=== PATIENT | male | born 1970 | race African-American/Black ===

== ENCOUNTER 2020-12-12 08:34 | Outpatient (REF) | payer OTHER, SELFPAY ==
--- NOTE | ~2020-12-12 | US_ITS ---
EXAMINATION: US ABDOMEN COMPLETE CLINICAL INFORMATION: Left lower quadrant pain. COMPARISON: None TECHNIQUE: Real-time imaging of the abdominal viscera. FINDINGS: PANCREAS: Not well visualized due to bowel gas. ABDOMINAL AORTA: No INFERIOR VENA CAVA: Visualized portions are normal. LIVER: The liver is normal in size. The liver contour is normal. Liver echotexture is normal. There are 2 hypoechoic areas in the liver measuring 2.4 x 2.2 cm high in the dome of the right lobe of the liver and in the peripheral anterior liver measuring 1.4 x 1.2 x 1 cm. There is no intrahepatic biliary duct dilatation seen. GALLBLADDER: Normal. The gallbladder is physiologically distended without evidence of stones, sludge, polyps, wall thickening or pericholecystic fluid. COMMON BILE DUCT: Not seen. RIGHT KIDNEY: Normal. No hydronephrosis. No renal calculi or focal parenchymal lesions. The kidney measures 11.4 cm in maximum dimension. LEFT KIDNEY: Removed. SPLEEN: Normal. The spleen measures 11.6 cm in maximum dimension. FREE FLUID: None. US/US abdomen complete IMPRESSION: Two echogenic areas in the liver, question representing hemangiomas. This could be further evaluated with abdominal MRI.
== END 2020-12-12 08:35 | disposition home or self-care (01) ==
LOC: HO.US 08:34
PROVIDERS: PCP Internal Medicine; Visit Provider Registered Nurse
DX: R10.32 Left lower quadrant pain (principal)
CPT/HCPCS: 76700

== ENCOUNTER 2023-02-27 12:32 | Outpatient (REF) | payer OTHER, SELFPAY ==
--- NOTE | ~2023-02-27 | XR_ITS ---
EXAMINATION: XR CERVICAL SPINE XR SHOULDER, RIGHT CLINICAL INFORMATION: Shoulder and neck pain. COMPARISON: Cervical spine 10/08/2018. TECHNIQUE: 5 views cervical spine, 4 views shoulder. FINDINGS: Cervical spine: Degenerative changes are present in the cervical spine with disc space narrowing at C3-C4 and from C5 through C7. There is endplate sclerosis and osteophyte formation. Findings have progressed slightly when compared to 10/08/2018. No significant foraminal narrowing is seen. No soft tissue swelling, fractures or subluxations. No bony destructive lesions. Right shoulder: There is some minimal degenerative changes at the AC joint. The glenohumeral joint appears normal. XR/XR shoulder RT min 2V IMPRESSION: Degenerative changes in the cervical spine, most marked at C3-C4 and C5-C7.
--- NOTE | ~2023-02-27 | XR_ITS ---
EXAMINATION: XR CERVICAL SPINE XR SHOULDER, RIGHT CLINICAL INFORMATION: Shoulder and neck pain. COMPARISON: Cervical spine 10/08/2018. TECHNIQUE: 5 views cervical spine, 4 views shoulder. FINDINGS: Cervical spine: Degenerative changes are present in the cervical spine with disc space narrowing at C3-C4 and from C5 through C7. There is endplate sclerosis and osteophyte formation. Findings have progressed slightly when compared to 10/08/2018. No significant foraminal narrowing is seen. No soft tissue swelling, fractures or subluxations. No bony destructive lesions. Right shoulder: There is some minimal degenerative changes at the AC joint. The glenohumeral joint appears normal. XR/XR cervical spine 5V IMPRESSION: Degenerative changes in the cervical spine, most marked at C3-C4 and C5-C7.
== END 2023-02-27 12:33 | disposition home or self-care (01) ==
LOC: HO.HHCX 12:32
PROVIDERS: Visit Provider Internal Medicine
DX: M25.511 Pain in right shoulder (principal); G89.29 Other chronic pain; M54.2 Cervicalgia
CPT/HCPCS: 72050; 73030

== ENCOUNTER 2023-08-12 12:36 | Outpatient (AMB) | payer OTHER, SELFPAY ==
[2023-08-12 12:48] VITALS: BP 118/78; PULSE 69; BMI 24.8
--- NOTE | 2023-08-12 12:48 | A.OFFVIS_ITS ---
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 He states he has been getting pains in the substernal area off and on. Lot of times, it lasts only for few seconds. Sometimes a bit longer but has not had those episodes in many months. No clear-cut exertional characteristics. He also gets short of breath with activity, off and on and states that it is probably from asthma. Otherwise, no known cardiac issues. No history of any coronary disease or myocardial infarction or cardiomyopathy. He smokes intermittently. Denies any drug use. [facility] Surgical History (Updated 08/12/23 @ 12:50 by Jnay Boyd) History of nephrectomy, left Family History (Updated 08/12/23 @ 12:50 by Jany Boyd) Mother No problems noted. Father No problems noted. Social History (Updated 08/12/23 @ 12:51 by Jany Boyd) Alcohol intake: current Alcohol intake frequency: holidays/special occasions only Patient Tobacco Use Status: Current someday Tobacco user Review of Systems Const Denies chills, Denies daytime sleepiness, Denies fatigue, Denies fever(s), Denies frequent falls, Denies night sweats, Denies snoring, Denies weakness, Denies weight gain and Denies weight loss Eyes Denies loss of vision ENT Denies dizziness and Denies hearing loss Card Denies chest pain, Denies chest pain with activity, Denies syncope, Denies rapid heart rate, Denies edema, Denies claudication, Denies leg edema, Denies l ightheadedness, Denies palpitations, Denies dyspnea, Denies dyspnea on exertion and Denies orthopnea Resp Denies cough, Denies excessive phlegm production, Denies dyspnea, Denies dyspnea on exertion, Denies snoring and Denies wheezing GI Denies abdominal pain, Denies hematochezia, Denies change in bowel habits, Denies change in stool character, Denies heartburn, Denies nausea and Denies vomiting Denies hematuria, Denies dysuria and Denies urinary frequency Musc Denies arthralgias, Denies muscle weakness, Denies numbness and Denies tingling Skin/Breast Denies nail changes and Denies rash Neuro Denies Abnormal speech present, Denies dizziness, Denies syncope, Denies frequent falls, Denies loss of vision, Denies memory loss, Denies numbness, Denies tingling and Denies weakness Psych Denies depression and Denies memory loss Endo Denies fatigue and Denies palpitations Aller/Immun Denies wheezing Physical Exam Vital Signs: Last Vital Signs Pulse 69 08/12/23 12:48 BP 118/78 08/12/23 12:48 BMI result Body Mass Index 24.8 Const General: comfortable and no acute distress Orientation/consciousness: patient oriented x3 HEENT Other: Unremarkable Head: Yes normal to inspection Neck Neck: Yes normal visual inspection Chest Chest palpation & inspection: normal inspection of the chest Resp Auscultation: clear to auscultation bilaterally Cardio Palpation: normal PMI Heart sounds: S1 normal heart sound present, S2 normal heart sound present, no gallops, no murmurs and no rubs GI Palpation (GI): Soft to palpation Back/Spine/Pelvis Other: unremarkable Skin General skin exam: no rashes or lesions noted Neuro General: patient oriented x3 Speech: No Abnormal speech present Extrem General: Yes normal to inspection Psych Mental Status: mental status grossly normal Office Procedures EKG Details: EKG with sinus rhythm at 69/Min; no significant ST-T changes and otherwise unremark[place] [address]-[id number], Complete Assessment & Plan Assessment & Plan (1) Precordial chest pain: Code(s): R07.2 - Precordial pain (2) Shortness of breath: Code(s): R06.02 - Shortness of breath Plan Atypical chest pain with some shortness of breath. Suggest an exercise stress test and echocardiogram for initial evaluation. If any abnormal findings, can investigate further. Orders: Orders CA stress test Today R07.2 - Precordial pain CA echo transthoracic complete Today R06.02 - Shortness of breath, R07.2 - Precordial pain Coding Level of Care Code New Pt Level 3 (35460) Diagnoses Precordial chest pain R07.2 Shortness of breath R06.02 CPT Codes EKG - CPT: 99773-[id number], Complete ([id number])
== END 2023-08-12 13:06 | disposition home or self-care (01) ==
PROVIDERS: PCP Internal Medicine; Visit Provider Internal Medicine
DX: R07.2 Precordial pain (principal); R06.02 Shortness of breath
CPT/HCPCS: 93010; 99203

== ENCOUNTER → 2023-08-12 12:36 | Outpatient (BNVA) | payer OTHER, SELFPAY | PROVIDERS: PCP Internal Medicine; Visit Provider Internal Medicine | DX: R07.2 Precordial pain (principal); R06.02 Shortness of breath | CPT/HCPCS: 93005; 99202 ==

== ENCOUNTER → 2023-10-14 08:53 | Outpatient (REF) | payer OTHER, SELFPAY ==
--- NOTE | 2023-10-14 08:56 | CA_ITS ---
Transthoracic Echocardiogram Patient (Last, First, Middle): Jesse Link L Gender: Male Date of : 1970 Age: 53 Procedure Date: 10/14/2023 Procedure Type: Transthoracic Echocardiogram Location: OP Height: 177.8 cm Weight: 68.04 kg BSA: 1.85 m2 Heart Rate: 51 bpm BP: 118 / 70 mmHg Home Health Care Worker: SB Referring MD: Sg Ruth MD Symptoms: R07.2 - Precordial pain Study Quality: Adequate ECG Rhythm: Bradycardia Conclusions: - The left ventricular systolic function is normal. The calculated ejection fraction is 57% by biplane method. - No obvious valvular pathology seen on this study. - There is mild dilatation of the ascending aorta measuring 3.70 cm. Findings Left Ventricle Normal left ventricular cavity size. There is normal left ventricular wall thickness. The left ventricular systolic function is normal. The calculated ejection fraction is 57% by biplane method. There is no evidence of regional wall motion abnormalities. Diastolic function is normal for age. Right Ventricle Normal right ventricular cavity size and systolic function. Atria Both atria are normal in size. Aortic Valve There is a normal trileaflet aortic valve. There is no aortic valve stenosis. There is no aortic valve regurgitation. Mitral Valve The mitral valve appears normal. There is no mitral valve regurgitation. There is no mitral valve stenosis. Pulmonic Valve The pulmonic valve is likely normal. Tricuspid Valve Normal tricuspid valve structure. There is trace tricuspid valve regurgitation. There is no evidence of pulmonary hypertension. Great Vessels There is mild dilatation of the ascending aorta measuring 3.70 cm. Venous The inferior vena cava is normal in size and collapses greater than 50% with inspiration. Pericardium/Pleural There is no evidence of pericardial effusion. Prior Study Comparison No prior study available for comparison. Recommendations, Care & Conclusions No obvious valvular pathology seen on this study. Measurements 2D Linear Measurements IVSd: 0.96 0.6-0.9/0.6-1.0 cm LVIDd: 5.55 3.9-5.3/4.2-5.9 cm LVIDd Index: 3.00 2.4-3.2/2.2-3.1 cm/m2 LVIDs: 3.75 2.0-3.6 cm LVPWd: 0.72 0.7-1.1 cm Ao Root: 2.90 2.1-3.5 cm LA Diam: 4.00 2.7-3.8/3.0-4.0 cm LAIDs Index: 2.16 1.5-2.3 cm/m2 LV Mass: 215.10 67-162/88-224 g LV Mass Index: 116.27 43-95/49-115 g/m2 LVOT Diam: 2.20 3.0+(-)1.3 cm 2D Systolic Function EF 4C: 56.50 >55% EF 2C: 60.40 >55% EF BiP: 56.70 >55% Mitral Valve MV Pk E: 0.86 MV PK A: 0.42 MV Decel Time: 220.00 E/A: 2.00 E'Lateral: 11.10 E'Medial: 7.29 E/E' Med: 11.80 E/E' Lat: 7.80 PHT: 64.00 MVA PHT: 3.44 Decel [place]: 3.92 Aortic Valve AoV Pk Kartik: 1.41 AoV Pk Grad: 8.00 LVOT LVOT Pk Kartik: 0.80 LVOT Mn Kartik: 0.58 LVOT VTI: 0.20 LVOT Pk Grad: 3.00 LVOT Mn Grad: 1.00 LVOT Diam: 2.20 LVOT Area: 3.80 Diastolic Function MV Pk E: 0.86 MV Pk A: 0.42 E/A: 2.00 E'Medial: 7.29 E/E' Med: 11.80 E' Laterial: 11.10 E/E' Lat: 7.80 Tricuspid Valve TR Pk Kartik: 1.87 TR Pk Grad: 14.00 RA Press: 3.00 RVSP: 17.00 Great Vessels Aorta Ao Root-2D: 2.90 2.0-3.7 cm Ao Asc: 3.70 2.1-3.4 cm Pulmonary Valve PV Pk Kartik: 0.82 Peak PV Grad: 3.00 Updated in Other Vendor System with Status of Final Sg Ruth MD electronically signed on 10/14/2023 10:24:30 AM with status of Final
== END ==
LOC: HO.CARD 08:53
PROVIDERS: PCP Internal Medicine; Visit Provider Internal Medicine
DX: R07.2 Precordial pain (principal); R06.02 Shortness of breath
CPT/HCPCS: 93306

== ENCOUNTER → 2023-10-14 08:56 | Outpatient (BNV) | payer OTHER, SELFPAY | PROVIDERS: PCP Internal Medicine; Visit Provider Internal Medicine | DX: R07.2 Precordial pain (principal) | CPT/HCPCS: 93306 ==

== ENCOUNTER 2023-12-12 15:04 | Outpatient (RCR) | payer OTHER, SELFPAY | END 2023-12-26 17:25 | disposition home or self-care (01) | LOC: HO.PT 15:04 | PROVIDERS: PCP Internal Medicine; Visit Provider Internal Medicine | DX: M79.601 Pain in right arm (principal); M79.602 Pain in left arm; M54.42 Lumbago with sciatica, left side | CPT/HCPCS: 97014; 97161 ==

== ENCOUNTER 2024-01-21 15:23 | Outpatient (REF) | payer OTHER, SELFPAY ==
--- NOTE | ~2024-01-21 | XR_ITS ---
EXAMINATION: XR SHOULDER, RIGHT CLINICAL INFORMATION: Patient noted clavicular enlargement 3 days ago. COMPARISON: Right shoulder x-rays of 02/27/2023 TECHNIQUE: AP external rotation, Grashey, scapular Y views of the right shoulder. FINDINGS: The clavicle is entirely included on the AP view and is unchanged in appearance when compared to previous x-rays of 02/27/2023. Mild arthritic changes are noted at the acromioclavicular articulation. Otherwise the clavicle is normal in appearance. Glenohumeral articulation is maintained. No significant degenerative or arthritic changes are noted at the glenohumeral articulation. No suspicious lytic or blastic osseous lesions. No soft tissue calcifications. Visualized thorax is unremarkable. XR/XR shoulder RT min 2V IMPRESSION: Stable right shoulder radiographs. Mild right AC joint arthropathy. No acute osseous abnormality. No suspicious lytic or blastic osseous lesions are seen.
== END 2024-01-21 15:24 | disposition home or self-care (01) ==
LOC: HO.HHCX 15:23
PROVIDERS: Visit Provider Internal Medicine Geriatric Medicine
DX: M89.319 Hypertrophy of bone, unspecified shoulder (principal)
CPT/HCPCS: 73030

== ENCOUNTER 2024-03-27 13:45 | Outpatient (REF) | payer OTHER, SELFPAY ==
[2024-03-27 16:23] LABS: MANUAL DIFF FLAG NO
[2024-03-27 16:29] LABS: Basophils Percent Auto 0.2 % (0-2); Eosinophils Absolute Auto 0.1 X10*3/uL (0.0-0.4); Eosinophils Percent Auto 1.2 % (0-4); Hematocrit 50.5 % (42.0-52.0); Hemoglobin 16.7 g/dl (14.0-18.0); Imm Gran Abs Auto 0.02 X10*3/uL (0.00-0.03); Imm Gran Pct Auto 0.4 % (0.0-0.4); Lymphocytes Absolute Auto 1.1 X10*3/uL (1.2-4.9); Lymphocytes Percent Auto 19.7 % (20-40); Mean Corpuscular HGB Conc 33.1 g/dl (31.0-36.0); Mean Corpuscular Hemoglobin 29.9 pg (27.0-33.0); Mean Corpuscular Volume 90.5 fL (80.0-98.0); Mean Platelet Volume 10.5 fL (9.4-12.4); Monocytes Absolute Auto 0.3 X10*3/uL (0.1-1.2); Monocytes Percent Auto 5.3 % (2-11); Neutrophils Absolute Auto 4.1 x10*3/uL (2.0-8.3); Neutrophils Percent Auto 73.2 % (45-73); Platelet Count 340 X10*3/uL (160-400); Red Blood Count 5.58 X10*6/uL (4.60-5.80); White Blood Count 5.6 X10*3/uL (4.8-10.8)
[2024-03-27 16:41] LABS: Estimated Average Glucose 91 mg/dL; Hemoglobin A1C 124.7797 umol/L; Hemoglobin A1c % 4.8 % (<6.0); Total Hemoglobin (HGBA1C) 4255.1161 umol/L
[2024-03-27 17:11] LABS: Alanine Aminotransferase 11 U/L (0-40); Alkaline Phosphatase 75 U/L (39-117); Anion Gap 10 (12-20); Aspartate Amino Transferase 14 U/L (5-37); Bilirubin Direct 0.2 mg/dL (0.0-0.5); Blood Urea Nitrogen 8 mg/dL (9-16); Calcium 9.3 mg/dL (8.4-10.2); Carbon Dioxide 27 mmol/L (22-29); Chloride 109 mmol/L (96-108); Cholesterol 131 mg/dL (<200); Estimated Glomerular Filt Rate > 60; Glucose Random 124 mg/dL (60-115); HDL Cholesterol 40 mg/dL (>40); LDL Cholesterol Calculated 70 mg/dL (<100); Sodium 142 mmol/L (135-145); Triglycerides 107 mg/dL (<150)
[2024-03-27 17:14] LABS: Bilirubin Total 0.5 mg/dL (0.0-1.0)
[2024-03-28 04:23] LABS: ~HepC Num1 0.11 S/CO (0.00-0.79); ~Hepatitis C Antibody Nonreactive (Nonreactive)
[2024-03-31 17:38] LABS: HIV RNA PCR Qn Copies Not Detected Copies/mL; HIV RNA PCR Qn Log Copies Not Detected Log cps/mL
== END 2024-03-27 13:46 | disposition home or self-care (01) ==
LOC: HO.HHCL 13:45
PROVIDERS: Visit Provider Internal Medicine
DX: I10 Essential (primary) hypertension (principal); Z13.1 Encounter for screening for diabetes mellitus
CPT/HCPCS: 36415; 80048; 80061; 80076; 83036; 85025; 86803; 87536; 87900

== ENCOUNTER 2024-05-12 15:40 | Outpatient (REF) | payer OTHER, SELFPAY ==
[2024-05-13 03:32] LABS: CT PCR NOT DETECTED (Not Detect.); NG PCR NOT DETECTED (Not Detect.)
[2024-05-13 08:33] LABS: HIV AB/AG Nonreactive (Nonreactive); HIV Num 1 0.06 S/CO (0.00-0.99); ~Hepatitis C Antibody Nonreactive (Nonreactive)
[2024-05-13 08:34] LABS: Syphilis Screen Nonreactive (Nonreactive)
== END 2024-05-12 15:41 | disposition home or self-care (01) ==
LOC: HO.HHCL 15:40
PROVIDERS: Visit Provider Family Medicine
DX: Z11.4 Encounter for screening for human immunodeficiency virus [HIV] (principal); Z20.2 Contact with and (suspected) exposure to infections with a predominantly sexual mode of transmission
CPT/HCPCS: 86780; 86803; 87389; 87491; 87591

== ENCOUNTER → 2024-08-26 14:59 | Outpatient (BNVA) | payer SELFPAY | PROVIDERS: PCP Internal Medicine; Visit Provider Physician Assistant | DX: Z02.79 Encounter for issue of other medical certificate (principal) ==

== ENCOUNTER 2024-09-15 10:14 | Outpatient (REF) | payer OTHER, SELFPAY ==
--- NOTE | 2024-09-15 10:30 | EMG_ITS ---
Bilateral median and ulnar motor and sensory studies were performed. Bilateral radial sensory studies were performed and paraspinal muscles were tested with a needle. IMPRESSION: Mild bilateral ulnar neuropathy across cubital tunnel. MD WAQAS Turner/JUAN / [id number]
--- OUTSIDE RECORDS SUMMARY | 2024-09-15 11:58 | XMS_ITS | Encounter Summary ---
Author Organization [employer] Address [address] [place] [address] [address] [address] Care Team Providers Care Case Maker Name Role Phone Patricia Schofield MD Primary Care Provide r Encounter Details Date Type Department Care Team (Late st Contact Info) Description 11/07/2022 Orders Only [facility] [address] [place], [place] [phone] Patricia Schofield MD [address] [place] [address] Social History Tobacco Use Types Packs/Day Years Used Date Smoking Tobacco: Some Days Cigarettes Sex and Gender Information Value Date Recorded Sex Assigned at Male 04/16/2022 10:17 AM EDT Legal Sex Male 10:17 AM EDT Gender Identity Male 04/16/2022 10:17 AM EDT Sexual Orientation Straight 04/16/2022 10 :17 AM EDT documented as of this encounter Plan of Treatment Not on file documented as of this encounter Visit Diagnoses Not on filedocumented in this encounter Care Teams Case Maker Relationship Specialty Start Date End Date Patricia Schofield MD [address] [place], [place] [phone] PCP - General Family Medicine 02/26/18 documented as of this encounter
--- OUTSIDE RECORDS SUMMARY | 2024-09-15 11:58 | XMS_ITS | Encounter Summary ---
Author Organization [employer] Address [address] [facility] [address], [place] [address] Care Team Providers Care Casino Gaming Worker Name Role Phone Patricia Schofield MD Primary Care Provide r Reason for Visit * Reason Comments Med Refill Encounter Details Date Type Department Care Team ([facility] st Contact Info) Description 03/26/2023 Refill [facility] MEDICINE [address] [place], [place] [phone] Patricia Schofield MD [address] [place] [address] Neck pain Social History Tobacco Use Types Packs/Day Years Used Date Smoking Tobacco: Some Days Cigarettes Smokeless Tobacco: Never Alcohol Use Standard Drinks/Week Comments Yes 0 (1 standard drink = 0.6 oz pur e alcohol) social Depression Answer Date Recorded Patient Health Questionnaire-9 Score 6 11/27/2022 Housing Stability Answer Date Recorded What is your housing situation today? I have housing today, but I am worried about losing housing in the future 03/25/[address] you li ve. Do you have problems with any of the following? None of the above 03/25/2023 Food Insecurity Answer Date Recorded Within the past 12 months, y ou worried that your food would run out before you got money to buy more: Never True 03/25/2023 Within the past 12 months,th e food you bought just didn't last and you didn't have enough money to get more: Never True 02/2023 Transportation Answer Date Recorded In the past 12 months, has l ack of transportation kept you from medical appts, meetings, work or from getting things needed for daily living? No 03/25/2023 Utilities Answer Date Recorded In the past 12 months, has t he electric, gas, oil or water company threatened to shut off services in your home? No 03/25/2023 Depression Answer Date Recorded Patient Health Questionnaire-2 Score 4 11/27/2022 Sex and Gender Information Value Date Recorded Sex Assigned at Male 04/16/2022 10:17 AM EDT Legal Sex Male 10:17 AM EDT Gender Identity Male 04/16/2022 10:17 AM EDT Sexual Orientation Straight 04/16/2022 10 :17 AM EDT documented as of this encounter Plan of Treatment Not on file documented as of this encounter Visit Diagnoses Diagnosis Neck pain Cervicalgia documented in this encounter Additional Health Concerns Assessment Noted Time PHQ-9 Depression Total Score: 6 11/28/19 23 1:09 PM EDT documented as of this encounter Care Teams Casino Gaming Worker Relationship Specialty Start Date End Date Patricia Schofield MD [address] [place] [id number] PCP - General Family Medicine 02/26/18 documented as of this encounter
--- OUTSIDE RECORDS SUMMARY | 2024-09-15 11:58 | XMS_ITS | Encounter Summary ---
Author Organization [employer] Address [address] [place] [address] [address] [address] Care Team Providers Care Polymer Specialist Name Role Phone Patricia Schofield MD Primary Care Provide r Encounter Details Date Type Department Care Team ([facility] st Contact Info) Description 07/04/2022 Orders Only [facility] CH[facility] MED & PEDS [address] [place] [address] Pricilla Eng LPN Social History Tobacco Use Types Packs/Day Years Used Date Smoking Tobacco: Never Assessed Sex and Gender Information Value Date Recorded Sex Assigned at Male 04/16/2022 10:17 AM EDT Legal Sex Male 10:17 AM EDT Gender Identity Male 04/16/2022 10:17 AM EDT Sexual Orientation Straight 04/16/2022 10 :17 AM EDT documented as of this encounter Plan of Treatment Not on file documented as of this encounter Visit Diagnoses Not on filedocumented in this encounter Care Teams Polymer Specialist Relationship Specialty Start Date End Date Patricia Schofield MD [address] [place] [id number] PCP - General Family Medicine 02/26/18 documented as of this encounter
--- OUTSIDE RECORDS SUMMARY | 2024-09-15 11:58 | XMS_ITS | Encounter Summary ---
Author Organization [email or web address] Address [address] [place] [address] [address] Care Team Providers Care Solar Project Engineer Name Role Phone Patricia Schofield MD Primary Care Provide r Encounter Details Date Type Department Care Team (Latest Contact Info) Description 09/05/2020 Abstract [facility] CONVERSIONS Dental, Provider, DDS Social History Tobacco Use Types Packs/Day Years [...] on filedocumented in this encounter Care Teams Solar Project Engineer Relationship Specialty Start Date End Date Patricia Schofield MD [address] [place] [id number] PCP - General Family Medicine 02/26/18 documented as of this encounter
--- OUTSIDE RECORDS SUMMARY | 2024-09-15 11:58 | XMS_ITS | Encounter Summary ---
Author Organization [employer] Address [address] [place] [address] [address] [place] [address] Care Team Providers Care Special Order Jeweler Name Role Phone Patricia Schofield MD Primary Care Provide r Encounter Details Date Type Department Care Team ([facility] st Contact Info) Description 08/21/2022 Orders Only [facility] CHC MED & PEDS [address] [place] [address] Pricilla Eng LPN Social History Tobacco Use Types Packs/Day Years Used Date Smoking Tobacco: Never Assessed Sex and Gender Information Value Date Recorded Sex Assigned at Male 04/16/2022 10:17 AM EDT Legal Sex Male 10:17 AM EDT Gender Identity Male 04/16/2022 10:17 AM EDT Sexual Orientation Straight 04/16/2022 10 :17 AM EDT COVID-19 Exposure Response Date Recorded In the last 10 days, have yo u been in contact with someone who was confirmed or suspected to have Coronavirus/COVID-19? No / Unsure 08/22/2022 8:59 AM EST documented as of this encounter Plan of Treatment Not on file documented as of this encounter Visit Diagnoses Not on filedocumented in this encounter Care Teams Special Order Jeweler Relationship Specialty Start Date End Date Patricia Schofield MD [address] [place] [id number] PCP - General Family Medicine 02/26/18 documented as of this encounter
--- OUTSIDE RECORDS SUMMARY | 2024-09-15 11:58 | XMS_ITS | Encounter Summary ---
Author Organization [employer] Address [address] [place] [address] [address] [address] Care Team Providers Care Broadcast Operations Manager Name Role Phone Patricia Schofield MD Primary Care Provide r Encounter Details Date Type Department Care Team (Late st Contact Info) Description 07/09/2022 Orders Only [facility] MEDICINE [address] [place] [address] Payton Gay LPN Social History Tobacco Use Types Packs/Day [...] on filedocumented in this encounter Care Teams Broadcast Operations Manager Relationship Specialty Start Date End Date Patricia Schofield MD [address] [place] [address] PCP - General Family Medicine 02/26/18 documented as of this encounter
--- OUTSIDE RECORDS SUMMARY | 2024-09-15 11:58 | XMS_ITS | Clinical Summary ---
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 fluticasone (Flonase Allergy Relief) 50 MCG/ACT nasal sprayIndication s:Essential hypertension inhale 2 spray by intranasal route every day in each nostril as needed 48 g 07/24/19 23 Active Blood Pressure Monitor kitIndications: Essential hypertension Use as directed 3x/week 1 kit 11/28/19 23 Active ketoconazole (NIZOral) 2 % shampooIndicati ons:Seborrheic dermatitis of scalp APPLY TO THE AFFECTED AREA(S) TWICE A WEEK 120 mL 1 09/10/19 24 Active hydrOXYzine HCl (Atarax) 25 MG tabletIndicatio ns:Depression, unspecified depression type,Anxiety TAKE 1 TABLET BY MOUTH EVERY EVENING NEEDED 60 tablet 11/14/19 24 Active cyclobenzaprine (Flexeril) 10 MG tabletIndicatio ns:Neck pain Take 1 tablet (10 mg) by mouth 3 times daily for 10 days. 30 tablet 03/11/20 24 Active omeprazole (PriLOSEC) [address] capsuleIndicati ons:Gastroesoph ageal reflux disease without esophagitis TAKE 1 CAPSULE BY MOUTH EVERY MORNING BEFORE A MEAL 90 capsule 1 03/27/20 24 Active famotidine (Pepcid) 20 MG tablet Take 1 tablet (20 mg) by mouth 2 times daily. 60 tablet 11 03/27/20 24 025 Active cholecalciferol (D3-1000) 25 MCG (1000 UT) capsuleIndicati ons:Essential hypertension TAKE 1 CAPSULE BY MOUTH EVERY MORNING 90 capsule 1 06/03/20 24 Active thiamine (Vitamin B-1) 100 MG tabletIndicatio ns:Essential hypertension TAKE 1 TABLET BY MOUTH EVERY MORNING 90 tablet 1 06/03/20 24 Active lisinopril 20 MG tabletIndicatio ns:Essential hypertension TAKE 1 TABLET BY MOUTH EVERY MORNING 90 tablet 1 06/03/20 24 Active Ventolin HFA 108 (90 Base) MCG/ACT inhalerIndicati ons:Moderate asthma, unspecified whether complicated, unspecified whether persistent INHALE 2 PUFFS BY MOUTH EVERY 6 HOURS NEEDED FOR WHEEZING 18 g 06/25/19 25 Active amitriptyline (Elavil) 75 MG tabletIndicatio ns:Depression, unspecified depression type TAKE 1 TABLET BY MOUTH AT BEDTIME 30 tablet 3 08/05/19 25 Active sertraline (Zoloft) 50 MG tabletIndicatio ns:Depression, unspecified depression type TAKE 1 TABLET BY MOUTH EVERY MORNING 90 tablet 08/05/19 25 Active Multiple Vitamin (Multivitamin) tabletIndicatio ns:Chronic fatigue TAKE 1 TABLET BY MOUTH EVERY MORNING 30 tablet 3 08/29/19 25 Active gabapentin (Neurontin) 300 MG capsuleIndicati ons:Cervical spine arthritis with nerve pain Take 1 capsule (300 mg) by mouth 3 times daily. 90 capsule 2 08/29/19 25 026 Active ibuprofen 800 MG tabletIndicatio ns:Cervical spine arthritis with nerve pain,Chronic migraine without aura without status migrainosus, not intractable Take 1 tablet (800 mg) by mouth every 8 (eight) hours if needed for mild pain. 90 tablet 08/29/19 25 Active Multiple Vitamin (Multivitamin) tabletIndicatio ns:Chronic fatigue TAKE 1 TABLET BY MOUTH EVERY MORNING WITH FOOD 30 tablet 3 03/11/20 24 025 Discontinued ibuprofen 800 MG tabletIndicatio ns:Chronic migraine without aura without status migrainosus, not intractable TAKE 1 TABLET BY MOUTH EVERY 6 HOURS NEEDED FOR MILD PAIN FOR UP TO 23 DAYS 90 tablet 06/25/19 25 025 Discontinued(R eorder (will not trigger notification to Pharmacy)) gabapentin (Neurontin) 300 MG capsuleIndicati ons:Cervical spine arthritis with nerve pain Take 1 capsule (300 mg) by mouth 3 times daily. 90 capsule 2 08/29/19 25 025 Discontinued ibuprofen 800 MG tabletIndicatio ns:Cervical spine arthritis with nerve pain,Chronic migraine without aura without status migrainosus, not intractable Take 1 tablet (800 mg) by mouth every 8 (eight) hours if needed for mild pain. 90 tablet 08/29/19 25 025 Discontinued metroNIDAZOLE (Flagyl) 500 MG tabletIndicatio ns:Trichomonias is Take 1 tablet (500 mg) by mouth 2 times daily for 7 days. 14 tablet 08/29/19 25 025 Discontinued metroNIDAZOLE (Flagyl) 500 MG tabletIndicatio ns:Trichomonias is Take 1 tablet (500 mg) by mouth 2 times daily for 7 days. 14 tablet 08/29/19 25 025 Active Problems Problem Noted Date Diagnosed Date Bilateral wrist pain 08/28/2024 Bilateral hand numbness 08/28/2024 Assessment & Plan (08/28/2024 4:29 PM EDT): I will order nerve conduction test after results possible referral to orthopedics Cervical spine arthritis with nerve pain Assessment & Plan (08/28/2024 4:30 PM EDT): I will prescribe for patient gabapentin 300 mg 3 times a day for pain I will refer patient to pain management Trichomoniasis 08/28/2024 Assessment & Plan (08/28/2024 4:31 PM EDT): I will treat patient with metronidazole 500 mg twice a day for 1 week I advised patient should also be treated at the same time and I recommended abstinence after this for at least a month Possible exposure to STI 05/12/2024 Assessment & Plan (05/12/2024 3:53 PM EST): Female partner tested positive for Trichomoniasis - Treated empirically with metroNIDAZOLE (Flagyl) 500 MG tablet 05/12/24 - Advised to avoid alcohol consumption to avoid nausea side effect 05/12/24 - ER precautions discussed. - Seek medical attention for worsening symptoms. Upper back pain 04/23/2024 Acute otitis media 11/14/2023 Bilateral arm pain 11/14/2023 Polyarthralgia 11/14/2023 Assessment & Plan (11/14/2023 4:26 PM EDT): Ibuprofen PRN Patient will submit RMV form Acute epigastric pain 10/15/2023 Assessment & Plan (10/15/2023 10:54 AM EDT): - most likely PUD - start Sucralfate BID AC meals + at bedtime and f/u with PCP in 4 weeks - counseled to quit smoking - keep symptom diary Lesion of liver 10/15/2023 Assessment & Plan (10/15/2023 3:28 PM EDT): - most likely hemangioma, however given hx urological malignancy, I will order an MRI. - pt to f/u with PCP - reassurance, counseled to cut down on alcohol use Adrenal incidentaloma 10/15/2023 Assessment & Plan (10/15/2023 3:28 PM EDT): - discussed with pt regarding recent findings, lesion is very small (1.5 cm bilateral lesions) BRISA (generalized anxiety disorder) 07/26/2023 Alcohol use 07/26/2023 Dental calculus 06/14/2023 Periodontal disease 06/14/2023 Missing teeth, acquired 06/14/2023 Seborrheic dermatitis of scalp 06/12/2023 Blurry vision, bilateral 03/12/2023 Otitis externa 03/12/2023 Neck pain 02/27/2023 Assessment & Plan (11/14/2023 4:25 PM EDT): Apply heat on affected area PT ordered Flexeril+ibuprofen Assessment & Plan (03/02/2023 8:49 PM EDT): RO OA, order xrays Take ibuprofen and fu w PCP Chronic kidney disease, stage 2 (mild) 3 Homeless single person 11/27/2022 Chronic right shoulder pain 11/27/2022 Assessment & Plan (03/02/2023 8:50 PM EDT): Arm sling given today from our [facility] ibuprofen prn Order Xray Assessment & Plan (11/27/2022 1:43 PM EDT): Acetaminophen PRN I will prescribe an arm sling for patient Colon cancer screening 11/27/2022 Abdominal pain 08/24/2022 Hypertensive disorder 08/24/2022 Foot callus 08/24/2022 Headache 08/24/2022 Homeless 08/24/2022 Influenza-like symptoms 08/24/2022 Severe episode of recurrent major depressive disorder, without psychotic features 08/24/2022 Assessment & Plan (07/26/2023 2:57 PM EST): PROGRESS NOTE: ID: Jesse is a 53 y.o. White straight-identified cis-male (pronouns he/him/his) with previous documented hx of Depression, Anxiety, and Alcohol Use Disorder services including OP Psychotherapy psychopharmacology who presents for Anxiety and Depression. Hx of trauma in childhood and adulthood, Hx of substance use, last episode 09/03/22. Currently living with partner and Childrens. During IBH Consult Jesse presenting with depressed mood, loss of interests/pleasure , changes in sleep difficulty falling asleep and difficulty staying asleep , change in appetite or weight reduce appetite, psychomotor agitation, trouble concentrating, worthlessness , thoughts of , excessive worry/anxiety, difficulty controlling worry, restless/keyed up/On edge, difficulty concentrating/Mind going blank , irritability, muscle tension, and sleep disturbance difficulty falling asleep and difficulty staying asleep , and using in larger amounts or for longer than intended, unsuccessful attempt/s to cut down/stop use, cravings and urges to use, continued use, even when it causes interpersonal problems, continued use even when hazardous or dangerous , continued use despite physical or psychological problem (potentially related or made worse by use) , in regard to Alcohol; for a period of 4+ years upon, for all symptoms in the context of dx of kidney cancer on 2019, increase dependence in other to complete ADLS and IADLs, . PLAN: (check all that apply) New/Additional Services needed Off-site services for Behavioral Health Integration Plan External OP therapy referral and OP psychiatry Referral Patient Self Plan [facility] and Patient to reach out to [facility] as needed Assessment & Plan (06/12/2023 4:28 PM EST): C/w amytriptiline I will re-start sertraline 100mg daily Moderate asthma 08/24/2022 Assessment & Plan (11/27/2022 1:41 PM EDT): It was advise to avoid asthma triggers Renal mass 08/24/2022 S/p nephrectomy 08/24/2022 Suspected COVID-19 virus infection 08/24/2022 Unintentional weight loss 08/24/2022 Rash 08/24/2022 Return to work evaluation 08/22/2022 Assessment & Plan (08/22/2022 2:08 PM EST): Wrote two letters for patient. One excusing his absence from work today and the other explaining that It is my medical opinion that Jesse Link has discontinued taking any medications that may cause drowsiness or would interfere with his ability to perform his job properly. Because of this he is cleared to return to work. Migraine 04/24/2022 Assessment & Plan (04/23/2024 4:30 PM EST): I advise to avoid migraine triggers like red wine, chocolate, cheese, strong perfumes Clear cell carcinoma of kidney 02/16/2021 Essential hypertension 02/16/2021 Assessment & Plan (08/28/2024 4:30 PM EDT): I advised: - Aerobic exercise to reduce BP. Initial goal of 30 min walk 3-5x/week. Increase as tolerated. - low-sodium diet (goal: <2g/day) and heart healthy diet such as DASH to reduce BP and prevent ASCVD. - Home BP monitoring 1-2 x day with goal of <140/90. - Seek immediate medical attention for chest pain, palpitations, SOB, syncope, or sudden changes in mental status. - Do not change or discontinue current prescriptions without first consulting health care provider Assessment & Plan (04/23/2024 4:30 PM EST): - Aerobic exercise to reduce BP. Initial goal of 30 min walk 3-5x/week. Increase as tolerated. - low-sodium diet (goal: <2g/day) and heart healthy diet such as DASH to reduce BP and prevent ASCVD. - Home BP monitoring 1-2 x day with goal of <140/90. - Seek immediate medical attention for chest pain, palpitations, SOB, syncope, or sudden changes in mental status. - Do not change or discontinue current prescriptions without first consulting health care provider Assessment & Plan (11/14/2023 4:25 PM EDT): - Aerobic exercise to reduce BP. Initial goal of 30 min walk 3-5x/week. Increase as tolerated. - low-sodium diet (goal: <2g/day) and heart healthy diet such as DASH to reduce BP and prevent ASCVD. - Home BP monitoring 1-2 x day with goal of <140/90. - Seek immediate medical attention for chest pain, palpitations, SOB, syncope, or sudden changes in mental status. - Do not change or discontinue current prescriptions without first consulting health care provider Assessment & Plan (10/15/2023 3:27 PM EDT): - controlled today, unclear what medication pt is taking due to non compliance with meds. - continue taking medications as he has for now, should be on Lisiprol 20 mg + Amlodipine. He will bring all of his med boxes to upcoming appointment with PCP - refer to med boxes again, dicussed with pt importace of taking medications daily Assessment & Plan (06/12/2023 4:27 PM EST): - Aerobic exercise to reduce BP. Initial goal of 30 min walk 3-5x/week. Increase as tolerated. - low-sodium diet (goal: <2g/day) and heart healthy diet such as DASH to reduce BP and prevent ASCVD. - Home BP monitoring 1-2 x day with goal of <140/90. - Seek immediate medical attention for chest pain, palpitations, SOB, syncope, or sudden changes in mental status. - Do not change or discontinue current prescriptions without first consulting health care provider Assessment & Plan (03/15/2023 3:45 PM EDT): - Aerobic exercise to reduce BP. Initial goal of 30 min walk 3-5x/week. Increase as tolerated. - low-sodium diet (goal: <2g/day) and heart healthy diet such as DASH to reduce BP and prevent ASCVD. - Home BP monitoring 1-2 x day with goal of <140/90. - Seek immediate medical attention for chest pain, palpitations, SOB, syncope, or sudden changes in mental status. - Do not change or discontinue current prescriptions without first consulting health care provider Assessment & Plan (11/27/2022 1:40 PM EDT): - Aerobic exercise to reduce BP. Initial goal of 30 min walk 3-5x/week. Increase as tolerated. - low-sodium diet (goal: <2g/day) and heart healthy diet such as DASH to reduce BP and prevent ASCVD. - Home BP monitoring 1-2 x day with goal of <140/90. - Seek immediate medical attention for chest pain, palpitations, SOB, syncope, or sudden changes in mental status. - Do not change or discontinue current prescriptions without first consulting health care provider -I send a BP cuff to pharmacy I ask patient to keep monitoring his blood pressure at home if he sees its high to please report back to me Hyperlipidemia 02/16/2021 Pure hyperglyceridemia 02/11/2017 Vitamin D deficiency 02/11/2017 Bunion 01/11/2017 Episodic cluster headache 01/11/2017 Assessment & Plan (03/02/2023 8:49 PM EDT): Ibuprofen prn, declined O2 today. FU w PCP if sxs are recurrent, may need MRI, O2. Gastroesophageal reflux disease 01/11/2017 Assessment & Plan (11/14/2023 4:26 PM EDT): I advise patient to avoid NSAIDs, spicy and acid food, I advise to eat at the same time every day, I advise to elevate the head of the bed and take medications as prescribe Assessment & Plan (06/12/2023 4:27 PM EST): I advise patient to avoid NSAIDs, spicy and acid food, I advise to eat at the same time every day, I advise to elevate the head of the bed and take medications as prescribe Assessment & Plan (03/15/2023 3:45 PM EDT): I advise patient to avoid NSAIDs, spicy and acid food, I advise to eat at the same time every day, I advise to elevate the head of the bed and take medications as prescribe History of alcoholism 01/11/2017 Mild intermittent asthma 01/11/2017 Mood disorder 01/11/2017 Post-traumatic osteoarthritis of both wrists Smoker 01/11/2017 Vesicular eczema of hands and feet 01/11/2017 Resolved Problems Problem Noted Date Diagnosed Date Resolved Date Family history of exposure t o 2,4,5-trichlorophenoxyacetic acid and 2,4-dichlorophenoxyacetic acid 05/12/2024 4 Encounters Date Type Department Care Team Description 09/03/2024 Telephone [employer] [place] [employer] [address] [place] [phone] Patricia Schofield MD 08/28/2024 3:15 PM EDT Office Visit [facility] [address] [place] [phone] Patricia Schofield MD Essential hypertension (Primary Dx); Bilateral wrist pain; Bilateral hand numbness; Neck pain; Cervical spine arthritis with nerve pain; Chronic migraine without aura without status migrainosus, not intractable; Trichomoniasis 08/28/2024 Travel 08/28/2024 Refill [facility] [address] [place] [phone] Patricia Schofield MD Chronic fatigue 08/26/[address] [phone] Ankita Joe, RN Appointment Request 08/25/2024 Patient Outreach [facility] [address] [place] [phone] Patricia Schofield MD Care Coordination (CHW outreach for SDOH CCA - LVM ) 08/25/2024 Patient Outreach [facility] [address] [place] [phone] Patricia Schofield MD Pre-visit Planning (SDOH screening negative and tobacco screening negative) 08/10/[address] [phone] Patricia Schofield MD Durable Medical Equipment 08/05/[address] [phone] Patricia Schofield MD Depression, unspecified depression type 07/15/[address] [phone] Patricia Schofield MD Durable Medical Equipment 06/24/[address] [phone] Patricia Schofield MD Moderate asthma, unspecified whether complicated, unspecified whether persistent; Chronic migraine without aura without status migrainosus, not intractable from Last 3 Months Immunizations Name Administration Dates Next Due Hep B, adult 05/16/2021,07/27/2005 Influenza injectable quadriv alent preservative free 04/11/2022,05/16/2021,04/05/2020,04/15 Influenza, IIV3, injectable 02/22/2011 Influenza, Split (incl. michelle fied surface antigen) 03/24/2013,02/15/2012 Influenza, seasonal, injecta ble, preservative free 04/23/2024 Moderna Covid-19 Vaccine 12+ 01/22/2022, 08/02/2021,11/24/2020,10/12 Pfizer Covid-19 Vaccine 12+ 04/23/2024 Pfizer Covid-19 Vaccine 12+ Bivalent 04/11/2022 Pneumococcal Conjugate PCV 20 11/14/2023 Pneumococcal Polysaccharide PPSV23 01/21/2008 TD (adult), 2 Lf tetanus tox oid, preservative free, adsorbed 06/24/2007 Tdap 02/15/2012 Zoster, Recombinant 01/17/2022,11/10/2021 Social History Tobacco Use Types Packs/Day Years Used Date Smoking Tobacco: Some Days Cigarettes Passive Smoke Exposure: Current Smokeless Tobacco: Never Tobacco Cessation:Ready to Q uit: Not Asked; Counseling Given: Not Answered Alcohol Use Standard Drinks/Week Comments Yes 0 (1 standard drink = 0.6 oz pur e alcohol) social Alcohol Answer Date Recorded How often do you have a drink containing alcohol ? 3 07/26/2023 How many drinks containing a lcohol do you have on a typical day when you are drinking? 2 07/26/2023 How often do you have six or more drinks on one occasion? 3 07/26/2023 Depression Answer Date Recorded Patient Health Questionnaire-9 Score 21 07/26/2023 Patient Health Questionnaire-9 Score 21 07/26/2023 Last PHQ-9: Questionnaire Data Not on file 0 07/26/2023 Housing Stability Answer Date Recorded What is your housing situation today? I have harpreet perez 01/27/[address] you li ve. Do you have problems with any of the following? None of the above 01/27/2024 Food Insecurity Answer Date Recorded Within the past 12 months, y ou worried that your food would run out before you got money to buy more: Never True 08/25/2024 Within the past 12 months,th e food you bought just didn't last and you didn't have enough money to get more: Never True 04/2025 Transportation Answer Date Recorded In the past 12 months, has l ack of transportation kept you from medical appts, meetings, work or from getting things needed for daily living? Yes, it has kept me from non-medical meetings, work, or getting things that I need 01/27/2024 Utilities Answer Date Recorded In the past 12 months, has t he electric, gas, oil or water company threatened to shut off services in your home? No 01/27/2024 Depression Answer Date Recorded Patient Health Questionnaire-2 Score 6 07/26/2023 Internet Access Answer Date Recorded Internet Access Q1 Yes 02/14/2024 Internet Access Q2 Not on file 02/14/2024 Sex and Gender Information Value Date Recorded Sex Assigned at Male 04/16/2022 10:17 AM EDT Legal Sex Male 10:17 AM EDT Gender Identity Male 04/16/2022 10:17 AM EDT Sexual Orientation Straight 04/16/2022 10 :17 AM EDT Last Filed Vital Signs Vital Sign Reading Time Taken Comments Blood Pressure 138/89 08/28/2024 3:09 PM EDT Pulse 79 08/28/2024 3:09 PM EDT Temperature 36.6 ??C (97.8 ??F) 08/28/2024 3:09 PM ED T Respiratory Rate 20 08/28/2024 3:09 PM EDT Oxygen Saturation 99% 03/27/2024 2:07 PM EDT Inhaled Oxygen Concentration - - Weight 77.4 kg (170 lb 9.6 oz) 08/28/2024 3:09 P M EDT Height 177.8 cm (5' 10 ) 08/28/2024 3:09 PM EDT Body Mass Index 24.48 08/28/2024 3:09 PM EDT Plan of Treatment Health Maintenance Due Date Last Done Comments CT Colonography 1970 Colonoscopy 1970 Colorectal Cancer Screening 1970 FIT DNA/Cologuard 1970 FIT 1970 FOBT 1970 Sigmoidoscopy 1970 Alcohol/Substance Use Screening 1982 Hepatitis A Vaccines (1 of 2 - Risk 2-dose series) 1989 Hepatitis B Vaccines (3 of 3 - 19+ 3-dose series) 07/11/2021 05/16/2021, 07/27/2005 DTaP/Tdap/Td Vaccines (2 - Td or Tdap) 02/14/2022 02/15/2012, 06/24/2007 Dental X-Ray: Full Mouth 09/07/2023 09/05/2020, 04/17 Dental Oral Exam 09/18/2023 03/18/2023, , 04/26/2017, Additional history exists Dental Prophylaxis 12/15/2023 06/14/2023, 0 09/05/2020, 11/12/2017, Additional history exists Depression Monitoring (PHQ-9) 01/24/2024 07/26/2023, 07/26/2023 Dental X-Ray: Bitewings 03/19/2024 03/18/20 23, 09/05/2020, 04/26/2017, Additional history exists Depression Screening 07/26/2024 07/26/2023, 07/26/19 SDOH Screening 08/25/2025 08/25/2024 Tobacco Screening 08/28/2025 08/28/2024 Lipid Panel 03/27/2029 03/27/2024, 10/16, 09/27/2020 RSV Patients and Patients Aged 60 years or older (1 - 1-dose 75+ series) 2045 Zoster Vaccines Completed 01/17/2022, 11/10/2021 Pneumococcal Vaccine: 50+ Years Completed 11/14/2023, 01/21/2008 COVID-19 Vaccine Completed 04/23/2024, , 01/22/2022, Additional history exists Influenza Vaccine Completed 04/23/2024, , 05/16/2021, Additional history exists HIV Screening Completed 05/12/2024 Hepatitis C Screening Completed 05/12/2024, 024 HIB Vaccines Aged Out No longer eligi ble based on patient's age to complete this topic HPV Vaccines Aged Out No longer eligi ble based on patient's age to complete this topic IPV Vaccines Aged Out No longer eligi ble based on patient's age to complete this topic Meningococcal Vaccine Aged Out No iram brian eligible based on patient's age to complete this topic RSV under 20 months Aged Out No longe r eligible based on patient's age to complete this topic Rotavirus Vaccines Aged Out No longer eligible based on patient's age to complete this topic Procedures Procedure Name Priority Date/Time Associated Diagnosis Comments HEPATITIS C AB W/REFL TO HCV RNA, QN, PCR Routine 05/12/2024 3:42 PM EST Exposure to trichomonas HIV 1/2 ANTIGEN/ANTIBODY, FOURTH GENERATION W/RFL Routine 05/12/2024 3:42 PM EST Exposure to trichomonas LIPID PANEL, STANDARD Routine 03/27/2024 1:47 PM EDT Essential hypertension PROPHYLAXIS - ADULT Routine 06/14/2023 1 :00 PM EST Dental calculus Periodontal disease BITEWINGS - 4 RADIOGRAPHIC IMAGES Routine 03/18/2023 2:00 PM EDT Edentulism Partial edentulism, class III Dental caries PERIODIC ORAL EVALUATION - ESTABLISHED PATIENT Routine 03/18/2023 2:00 PM EDT Edentulism Partial edentulism, class III Dental caries INTRAORAL - COMPLETE SERIES OF RADIOGRAPHIC IMAGES Routine 09/05/2020 12:00 AM EDT from Last 3 Months or Most Recently Relevant to Health Maintenance Results * Hepatitis C Antibody with Reflex to HCV, RNA, Quantitative, Real-Time PCR (05/12/2024 3:42 PM EST) Hepatitis C Antibody Nonreactive Nonreactive [facility] Comment:Antibodies to HCV no t detected; does not exclude early acuteHCV infection. Blood Venous blood specimen / Unknown 05/12/2024 3:42 PM EST 05/12/2024 4:09 PM EST Marii Brown MD LAB BLOOD ORDERABLES Final Result [facility] [address] [place] [phone] * HIV-1/2 Antigen and Antibodies, Fourth Generation, with Reflexes (05/12/2024 3:42 PM EST) Pathologist [facility] HIV AB/AG Nonreactive Nonreactive [facility] Comment:HIV-1 p24 Ag and/or HIV-1/HIV-2 Ab not detected.A test result that is nonreactive does not exclude thepossibility of exposure to or infection with HIV-1 and/orHIV-2. Nonreactive results in this assay for individualswith prior exposure to HIV-1 and/or HIV-2 may be due toantigen and antibody levels that are below the limit ofdetection of this assay.The [employer] HIV Ag/Ab Combo assay result andsupplemental assay results should be interpreted inconjunction with the patient's clinical presentation,history and other laboratory results. If the results areinconsistent with clinical evidence, additional testing issuggested to confirm the result. Blood Venous blood specimen / Unknown 05/12/2024 3:42 PM EST 05/12/2024 4:09 PM EST us Marii Brown MD LAB BLOOD ORDERABLES Final Result Performing Organization Address [facility]/ZIP Co de Phone Number [facility] [address] [place] [phone] * (ABNORMAL) Lipid Panel, Standard (03/27/2024 1:47 PM EDT) Triglycerides 107 <150 mg/dL [facility] Comment:Desirable Triglyceri de: less than 150 mg/dLBorderline High Triglyceride 150-199 mg/dLHigh Triglyceride: 200-499 mg/dLVery High Triglyceride: greater than or equal to 5OO mg/dL Cholesterol 131 <200 mg/dL [facility] Comment:Desirable Cholestero l: less than 200 mg/dLBorderline High Cholesterol: 200-239 mg/dLHigh Cholesterol: greater than 239 mg/dL LDL Cholesterol Calculated 70 <100 mg/dL [facility] Comment:Desirable LDL: less than 100 mg/dLNear Optimal/Above Optimal LDL: 110- 129 mg/dLBorderline High LDL: 130-159 mg/dLHigh LDL: 160-189 mg/dLVery High LDL: greater than or equal to 190 mg/dL HDL Cholesterol 40(L) >40 mg/dL [facility] Comment:Desirable HDL: great er than 40 mg/dL Note: This HDL assay may give artificially low results in patients with liver disease. Blood Venous blood specimen / Unknown 03/27/2024 1:47 PM EDT 03/27/2024 4:18 PM EDT us Patricia Barfield MD LAB BLOOD ORDERABLES Final Result Performing Organization Address City/[facility]/ZIP Co de Phone Number [facility] [address] [place] [address] [phone] from Last 3 Months or Most Recently Relevant to Health Maintenance Insurance [facility] Care Teams Pneudraulic Systems Mechanic Relationship Specialty Start Date End Date Patricia Schofield MD [address] [place] [phone] PCP - General Family Medicine 02/26/18
--- OUTSIDE RECORDS SUMMARY | 2024-09-15 11:58 | XMS_ITS | Encounter Summary ---
Author Organization [employer] Address [address] [facility] [address] [address] Care Team Providers Care Internal Sales Name Role Phone Patricia Schofield MD Primary Care Provide r Reason for Visit * Reason Comments Med Refill Encounter Details Date Type Department Care Team ([facility] st Contact Info) Description 06/15/[address] [facility] MEDICINE [address] [place], [place] [phone] Patricia Schofield MD [address] [place] [address] Gastroesophageal reflux disease without esophagitis Social History Tobacco Use Types Packs/Day Years [...] worried about losing housing in the future 04/09/[address] you li ve. Do you have problems with any of the following? None of the above 04/09/2023 Food Insecurity Answer Date Recorded Within the past 12 months, y ou worried that your food would run out before you got money to buy more: Never True 04/09/2023 Within the past 12 months,th e food you bought just didn't last and you didn't have enough money to get more: Never True Transportation Answer Date Recorded In the past 12 months, has l ack of transportation kept you from medical appts, meetings, work or from getting things needed for daily living? No 04/09/2023 Utilities Answer Date Recorded In the past 12 months, has t he electric, gas, oil or water company threatened to shut off services in your home? No 04/09/2023 Depression Answer Date Recorded Patient Health Questionnaire-2 [...] as of this encounter Visit Diagnoses Diagnosis Gastroesophageal reflux disease without esophagitis Esophageal reflux documented in this encounter Additional Health Concerns Assessment Noted Time PHQ-9 Depression Total Score: 6 11/28/19 23 1:09 PM EDT documented as of this encounter Care Teams Internal Sales Relationship Specialty Start Date End Date Patricia Schofield MD [address] [place] [phone] PCP - General Family Medicine 02/26/18 documented as of this encounter
--- OUTSIDE RECORDS SUMMARY | 2024-09-15 11:58 | XMS_ITS | Clinical Summary ---
Author Organization [facility] Address [address] [place] [address] Phone Care Team Providers Care Contract Negotiation Manager Name Role Phone Physician, No Pcp Primary Care Provider Unavaila ble Allergies No known active allergies Encounters Date Type Department Care Team Description 08/14/2024 5:44 PM EST - 08/14/2024 10:57 PM EST Emergency [facility] Emergency [address] [place] [address] Tad Howell MD Pain of left upper extremity (Primary Dx) Discharge Disposition: Left Against Medical Advice from Last 3 Months Medical History Medical History Date Comments Kidney cancer, primary, with metastasis from kidney to other site, left (CMS/HCC) Social History Tobacco Use Types Packs/Day Years Used Date Smoking Tobacco: Never Assessed Sex and Gender Information Value Date Recorded Sex Assigned at Male 08/14/2024 6:30 PM EST Legal Sex Male 6:15 PM EST Gender Identity Male 08/14/2024 6:30 PM EST Sexual Orientation Straight 08/14/2024 6: 30 PM EST Obstetrics History Last Filed Vital Signs Vital Sign Reading Time Taken Comments Blood Pressure 128/88 08/14/2024 9:18 PM EST Pulse 68 08/14/2024 9:18 PM EST Temperature 36.9 ??C (98.4 ??F) 08/14/2024 9:18 PM ES T Respiratory Rate 16 08/14/2024 9:18 PM EST Oxygen Saturation 97% 08/14/2024 9:18 PM EST Inhaled Oxygen Concentration - - Weight 78.5 kg (173 lb) 08/14/2024 11:23 AM EST Height 177.8 cm (5' 10 ) 08/14/2024 11:23 AM EST Body Mass Index 24.82 08/14/2024 11:23 AM EST Plan of Treatment Health Maintenance Due Date Last Done Comments Hepatitis B Vaccines (3 of 3 - 19+ 3-dose series) 07/11/2021 05/16/2021, 07/27/2005 DTaP,Tdap,and Td Vaccines (3 - Td or Tdap) 02/14/2022 02/15/2012, 06/24/2007 Cholesterol Screening (Lipid Panel) 07/16/2023 Colorectal Cancer Screening: Colonoscopy 07/16/2023 Depression Screening 07/16/2023 HIV Screening 07/16/2023 Hepatitis C Screening 07/16/2023 Medicare Annual Wellness Visit 07/16/2023 Social Influencers of Health Screening 07/16/2023 Zoster Vaccines Completed 01/17/2022, 11/10/2021 Pneumococcal Vaccine: 50+ Years Completed 11/14/2023, 01/21/2008 Pneumococcal Vaccine: Pediatrics (0 to 5 Years) and At-Risk Patients (6 to 64 Years) Aged Out 11/14/2023, 01/21/2008 No longer eligibl e based on patient's age to complete this topic COVID-19 Vaccine Completed 04/23/2024, , 01/22/2022, Additional history exists Influenza Vaccine Completed 04/23/2024, , 05/16/2021, Additional history exists HIB Vaccines Aged Out No longer eligi ble based on patient's age to complete this topic HPV Vaccines Aged Out No longer eligi ble based on patient's age to complete this topic Hepatitis A Vaccines Aged Out No long er eligible based on patient's age to complete this topic IPV Vaccines Aged Out No longer eligi ble based on patient's age to complete this topic MMR Vaccines Aged Out No longer eligi ble based on patient's age to complete this topic Meningococcal ACWY Vaccine Aged Out N o longer eligible based on patient's age to complete this topic Meningococcal B Vacine Aged Out No lo nger eligible based on patient's age to complete this topic RSV Immunization Patients Under 20 months Aged Out No longer eligible based on patient's age to complete this topic Varicella Vaccines Aged Out No longer eligible based on patient's age to complete this topic Procedures Procedure Name Priority Date/Time Associated Diagnosis Comments ECG ANNOTATED 08/15/2024 MR CERVICAL SPINE WO CONTRAST STAT 08/14/2024 8:51 PM EST XR CHEST 2 VIEWS STAT 08/14/2024 2:50 PM EST TROPONIN I HIGH SENSITIVITY STAT 08/14/2024 2:43 PM EST CBC WITH AUTO DIFFERENTIAL STAT 08/14/2024 11:36 AM EST MAGNESIUM STAT 08/14/2024 11:36 AM EST LIPASE STAT 08/14/2024 11:36 AM EST COMPREHENSIVE METABOLIC PANEL STAT 08/14/2024 11:36 AM EST CBC AND DIFFERENTIAL STAT 08/14/2024 11:36 AM EST TROPONIN I HIGH SENSITIVITY STAT 08/14/2024 11:36 AM EST ECG 12-LEAD STAT 08/14/2024 11:18 AM EST from Last 3 Months Results * ECG-Annotated (08/15/2024) us Provider Onbase MD ECG ORDERABLES Final Result * MR Cervical Spine wo Contrast (08/14/2024 8:51 PM EST) Anatomical Region Laterality Modality C-spine, Spine Magnetic Resonan ce 08/14/2024 11:4 1 PM EST Impressions 08/14/2024 11:41 PM EST Impression: Multilevel mild degenerative change as above This document has been electronically signed by: Vadim Loera MD on 08/14/2024 23:41:43 Narrative 08/14/2024 11:41 PM EST INDICATION: Cervical radiculopathy, no red flags MRI cervical spine without contrast Comparison: No prior studies of any type Findings: Motion artifact limits assessment. Transverse osteophyte C3-4 without canal stenosis. No significant neural foraminal narrowing. Transverse osteophyte C5-6 with mild canal stenosis. No significant neural foraminal narrowing. Transverse osteophyte C6-7 with mild canal stenosis. No significant neural foraminal narrowing. Remaining levels demonstrate no canal stenosis. No acute bony signal abnormalities noted. Posterior bony alignment is normal. There is loss of lordosis of cervical spine. Cervical cord normal in course and caliber. No acute signal abnormality noted. Procedure Note Vadim Loera MD - 08/14/2024 INDICATION: Cervical radiculopathy, no red flags MRI cervical spine without contrast Comparison: No prior studies of any type Findings: Motion artifact limits assessment. Transverse osteophyte C3-4 without canal stenosis. No significant neural foraminal narrowing. Transverse osteophyte C5-6 with mild canal stenosis. No significant neural foraminal narrowing. Transverse osteophyte C6-7 with mild canal stenosis. No significant neural foraminal narrowing. Remaining levels demonstrate no canal stenosis. No acute bony signal abnormalities noted. Posterior bony alignment is normal. There is loss of lordosis of cervical spine. Cervical cord normal in course and caliber. No acute signal abnormality noted. IMPRESSION: Impression: Multilevel mild degenerative change as above This document has been electronically signed by: Vadim Loera MD on 08/14/2024 23:41:43 us Tad Howell MD IMG MRI PROCEDURES Final Res ult * XR Chest 2 Views (08/14/2024 2:50 PM EST) Anatomical Region Laterality Modality Body Radiographic Kate ging 08/14/2024 3:08 PM EST Impressions 08/14/2024 3:09 PM EST FINDINGS/IMPRESSION: Normal heart size and pulmonary vascularity. ??Lungs are clear and costophrenic angles are sharp. ??No acute osseous abnormality. ??Wedging of the lower thoracic vertebral bodies. -------- FINAL REPORT -------- Dictated By: Dharmesh Rogers Dictated Date: 08/14/2024 15:08 ET Assigned Physician: Dharmesh Rogers Reviewed and Electronically Signed By: Dharmesh Rogers Signed Date: 08/14/2024 15:09 ET Workstation ID: [id number] Transcribed By: Self Edit Transcribed Date: 08/14/2024 15:08 ET Narrative 08/14/2024 3:09 PM EST XR CHEST 2 VIEWS INDICATION: chest pain TECHNIQUE: XR CHEST 2 VIEWS COMPARISON: No priors available. Procedure Note Dharmesh Rogers MD - 08/14/2024 XR CHEST 2 VIEWS INDICATION: chest pain TECHNIQUE: XR CHEST 2 VIEWS COMPARISON: No priors available. IMPRESSION: FINDINGS/IMPRESSION: Normal heart size and pulmonary vascularity. Lungsare clear and costophrenic angles are sharp. No acute osseousabnormality. Wedging of the lower thoracic vertebral bodies. -------- FINAL REPORT -------- Dictated By: Dharmesh Rogers Dictated Date: 08/14/2024 15:08 ET Assigned Physician: Dharmesh Rogers Reviewed and Electronically Signed By: Dharmesh Rogers Signed Date: 08/14/2024 15:09 ET Workstation ID: [id number] Transcribed By: Self Edit Transcribed Date: 08/14/2024 15:08 ET us Tad Howell MD IMG XR PROCEDURES Final Resu lt * Troponin I high sensitivity (08/14/2024 2:43 PM EST) Only the most recent of2 resultswithin the time period is included. High Sensitivity Troponin I 4 <=79 ng/L LAB CHEMISTRY METHOD 08/14/2024 3:17 PM EST [facility] Blood Venous blood specimen / Unknown Venipuncture / Unknown 08/14/2024 2:43 PM EST 08/14/2024 2:51 PM EST Narrative [facility] - 08/14/2024 3:17 PM EST High levels of biotin in samples may falsely decrease hsTroponin values. ??Use caution when interpreting hsTroponin results in patients taking biotin who exhibit renal impairment (eGFR <60) or in patients taking more than 20 mg/day of biotin. us Tad Howell MD LAB BLOOD ORDERABLES Final R esult [facility] [address] [place] [address], [place] [phone] * (ABNORMAL) CBC auto differential (08/14/2024 11:36 AM EST) [facility] WBC 5.2 4.8 - 10.8 K/mcL LAB HEMETOLOGY METHOD 08/14/2024 12:30 PM [facility] RBC 4.80 4.50 - 5.50 M/mcL LAB HEMETOLOGY METHOD 08/14/2024 12:30 PM [facility] Hemoglobin 14.3 13.5 - 17.5 g/dL LAB HEMETOLOGY METHOD 08/14/2024 12:30 PM [facility] Hematocrit 43.5 42.0 - 54.0 % LAB HEMETOLOGY METHOD 08/14/2024 12:30 PM [facility] MCV 91.0 79.0 - 98.0 FL LAB HEMETOLOGY METHOD 08/14/2024 12:30 PM [facility] MCH 29.9 27.0 - 32.0 pcg LAB HEMETOLOGY METHOD 08/14/2024 12:30 PM [facility] MCHC 32.9 32.0 - 37.0 g/dL LAB HEMETOLOGY METHOD 08/14/2024 12:30 PM [facility] RDW 15.6(H) 11.0 - 15.0 % LAB HEMETOLOGY METHOD 08/14/2024 12:30 PM [facility] Platelets 335 130 - 400 K/mcL LAB HEMETOLOGY METHOD 08/14/2024 12:30 PM [facility] MPV 10.0 7.0 - 11.0 FL LAB HEMETOLOGY METHOD 08/14/2024 12:30 PM [facility] NRBC 0.0 <1.0 % LAB HEMETOLOGY METHOD 08/14/2024 12:30 PM [facility] NRBC Absolute 0.00 <0.10 K/mcL LAB HEMETOLOGY METHOD 08/14/2024 12:30 PM [facility] Neutrophils Relative 61.8 % LAB HEMETOLOGY METHOD 08/14/2024 12:30 PM [facility] Lymphocytes Relative 25.0 % LAB HEMETOLOGY METHOD 08/14/2024 12:30 PM [facility] Monocytes Relative 8.5 % LAB HEMETOLOGY METHOD 08/14/2024 12:30 PM [facility] Eosinophils Relative 3.9 % LAB HEMETOLOGY METHOD 08/14/2024 12:30 PM [facility] Basophils Relative 0.4 % LAB HEMETOLOGY METHOD 08/14/2024 12:30 PM [facility] Immature Granulocytes Relative 0.4 % LAB HEMETOLOGY METHOD 08/14/2024 12:30 PM [facility] Neutrophils Absolute 3.20 1.50 - 7.00 K/mcL LAB HEMETOLOGY METHOD 08/14/2024 12:30 PM [facility] Lymphocytes Absolute 1.29 1.00 - 5.00 K/mcL LAB HEMETOLOGY METHOD 08/14/2024 12:30 PM [facility] Monocytes Absolute 0.44 0.20 - 1.00 K/mcL LAB HEMETOLOGY METHOD 08/14/2024 12:30 PM [facility] Eosinophils Absolute 0.20 0.00 - 0.50 K/mcL LAB HEMETOLOGY METHOD 08/14/2024 12:30 PM [facility] Basophils Absolute 0.02 0.00 - 0.20 K/mcL LAB HEMETOLOGY METHOD 08/14/2024 12:30 PM [facility] Immature Granulocytes Absolute 0.02 0.00 - 0.03 K/mcL LAB HEMETOLOGY METHOD 08/14/2024 12:30 PM [facility] Blood Venous blood specimen / Unknown Venipuncture / Unknown 08/14/2024 11:36 AM EST 08/14/2024 12:18 PM EST us Tad Howell MD LAB BLOOD ORDERABLES Final R esult Performing Organization Address [facility]/ZIP Co de Phone Number [facility] [address] [place] [address], [place] [phone] * Magnesium (08/14/2024 11:36 AM EST) [facility] Magnesium 2.3 1.9 - 2.6 mg/dL LAB CHEMISTRY METHOD 08/14/2024 12:59 PM EST [facility] Blood Venous blood specimen / Unknown Venipuncture / Unknown 08/14/2024 11:36 AM EST 08/14/2024 12:18 PM EST us Tad Howell MD LAB BLOOD ORDERABLES Final R esult Performing Organization Address [facility]/ZIP Co de Phone Number [facility] [address] [place] [address], [place] [phone] * Lipase (08/14/2024 11:36 AM EST) [facility] Lipase 49 13 - 75 unit/L LAB CHEMISTRY METHOD 08/14/2024 12:59 PM EST [facility] Blood Venous blood specimen / Unknown Venipuncture / Unknown 08/14/2024 11:36 AM EST 08/14/2024 12:18 PM EST us Tad Howell MD LAB BLOOD ORDERABLES Final R esult Performing Organization Address City/[facility]/ZIP Co de Phone Number [facility] [address] [place] [address], [place] [phone] * (ABNORMAL) Comprehensive metabolic panel (08/14/2024 11:36 AM EST) [facility] Sodium 141 133 - 145 mmol/L LAB CHEMISTRY METHOD 08/14/2024 12:59 PM [facility] Potassium 3.7 3.5 - 5.5 mmol/L LAB CHEMISTRY METHOD 08/14/2024 12:59 PM [facility] Chloride 110 96 - 110 mmol/L LAB CHEMISTRY METHOD 08/14/2024 12:59 PM [facility] CO2 24 21 - 32 mmol/L LAB CHEMISTRY METHOD 08/14/2024 12:59 PM [facility] Anion Gap 7 3 - 11 LAB CHEMISTRY METHOD 08/14/2024 12:59 PM [facility] Glucose 104(H) 70 - 100 mg/dL LAB CHEMISTRY METHOD 08/14/2024 12:59 PM [facility] BUN 12 5 - 25 mg/dL LAB CHEMISTRY METHOD 08/14/2024 12:59 PM [facility] Creatinine 1.32(H) 0.70 - 1.30 mg/dL LAB CHEMISTRY METHOD 08/14/2024 12:59 PM [facility] eGFR 64 >=60 mL/min/1. 73m2 LAB CHEMISTRY METHOD 08/14/2024 12:59 PM [facility] Comment:Calculation based on the??Chronic Kidney Disease Epidemiology Collaboration (CKD-EPI) equation refit??without adjustment for race. BUN/Creatinine Ratio 9.1 LAB CHEMISTRY METHOD 08/14/2024 12:59 PM [facility] Calcium 8.9 8.5 - 10.5 mg/dL LAB CHEMISTRY METHOD 08/14/2024 12:59 PM [facility] AST (SGOT) 16 10 - 42 unit/L LAB CHEMISTRY METHOD 08/14/2024 12:59 PM [facility] ALT (SGPT) 17 10 - 60 unit/L LAB CHEMISTRY METHOD 08/14/2024 12:59 PM [facility] Alkaline Phosphatase 79 42 - 121 unit/L LAB CHEMISTRY METHOD 08/14/2024 12:59 PM [facility] Total Protein 6.6 6.0 - 8.0 g/dL LAB CHEMISTRY METHOD 08/14/2024 12:59 PM EST [facility] Albumin 3.6 3.2 - 5.0 g/dL LAB CHEMISTRY METHOD 08/14/2024 12:59 PM EST [facility] Total Bilirubin 0.5 0.0 - 1.4 mg/dL LAB CHEMISTRY METHOD 08/14/2024 12:59 PM EST [facility] Blood Venous blood specimen / Unknown Venipuncture / Unknown 08/14/2024 11:36 AM EST 08/14/2024 12:18 PM EST us Tad Howell MD LAB BLOOD ORDERABLES Final R esult Performing Organization Address City/[facility] Co de Phone Number [facility] [address] [place] [address], * ECG 12 lead (08/14/2024 11:18 AM EST) Ventricular Rate ECG 68 BPM GEMUSE Atrial Rate 68 BPM GEMUSE P-R Interval 160 ms GEMUSE QRS Duration 86 ms GEMUSE Q-T Interval 400 ms GEMUSE QTc 425 ms GEMUSE P Wave [place] 53 degrees GEMUSE R [place] 18 degrees GEMUSE T [place] 29 degrees GEMUSE ECG Interpretation Normal sinus rhythm Normal ECG No previous ECGs available Confirmed by ROSALEE ALLEN ([id number]) on 08/15/2024 9:59:29 AM GEMUSE 08/14/2024 11:1 8 AM EST 08/15/2024 9:59 AM EST us Tad Howell MD ECG ORDERABLES Final Result Performing Organization Address City/[facility]/ZIP Co de Phone Number [facility] from Last 3 Months Insurance [employer] MEDICARE Member Subscriber Plan / Payer (Ef fective 2023-Present) Name:Jesse Link Relation to Subscriber:Self Name:Jesse Link Payer ID:[id number] Group ID:[id number] Type:Not on file Address: [facility] [address] [phone] Care Teams Contract Negotiation Manager Relationship Specialty Start Date End Date Physician, No Pcp PCP - General 08/14/24
--- OUTSIDE RECORDS SUMMARY | 2024-09-15 11:59 | XMS_ITS | Encounter Summary ---
Author Organization [employer] Address [address] [place] [address] Care Team Providers Care Fire Protection Designer Name Role Phone Patricia Schofield MD Primary Care Provide r Reason for Visit * Reason Onset Date Comments Med Refill 03/11/2024 Encounter Details Date Type Department Care Team (Late st Contact Info) Description 03/11/2024 Refill [facility] MEDICINE [address] [place] [address] Amelia Farmer, PharmD [address] [place] [address] Essential hypertension Social History Tobacco Use Types Packs/Day Years [...] before you got money to buy more: Sometimes True 2023 Within the past 12 months,th e food you bought just didn't last and you didn't have enough money to get more: Sometimes True 01/27/2024 Transportation Answer Date Recorded In the past [...] AM EDT documented as of this encounter Miscellaneous Notes * Telephone Encounter - Amelia Farmer PharmD - 03/11/2024 8:24 AM EDT Please assist, patient requested refills during Tuesdays MTM to begin [facility] 03/13/2024. Please send to [facility] pharmacy. Can reach me at my extension [phone] for any questions, thank you! documented in this encounter Plan of Treatment Not on file documented as of this encounter Visit Diagnoses Diagnosis Essential hypertension Unspecified essential hypertension documented in this encounter Additional Health Concerns Assessment Noted Time PHQ-9 Depression Total Score: 21 024 2:33 PM EST documented as of this encounter Care Teams Fire Protection Designer Relationship Specialty Start Date End Date Patricia Schofield MD [address] [place] [phone] PCP - General Family Medicine 02/26/18 documented as of this encounter
--- OUTSIDE RECORDS SUMMARY | 2024-09-15 11:59 | XMS_ITS | Encounter Summary ---
Author Organization [employer] Address [address] [place] [address] Care Team Providers Care Chicken Catcher Name Role Phone Patricia Schofield MD Primary Care Provide r Reason for Visit * Reason Onset Date Comments Med Refill 03/11/2024 Encounter Details Date Type Department Care Team (Late st Contact Info) Description 03/11/2024 Refill [facility] MEDICINE [address] [place] [address] Amelia Farmer, PharmD [address] [place] [address] Chronic fatigue Social History Tobacco Use Types Packs/Day Years [...] Encounter - Amelia Farmer PharmD - 03/11/2024 8:25 AM EDT Please assist, patient requested refills during Tuesdays MTM to begin [facility] 03/13/2024. Please send to [facility] pharmacy. Can reach me at my extension [phone] for any questions, thank you! documented in this encounter Plan of Treatment Not on file documented as of this encounter Visit Diagnoses Diagnosis Chronic fatigue Other malaise and fatigue documented in this encounter Additional Health Concerns Assessment Noted Time PHQ-9 Depression Total Score: 21 024 2:33 PM EST documented as of this encounter Care Teams Chicken Catcher Relationship Specialty Start Date End Date Patricia Schofield MD [address] [place] [phone] PCP - General Family Medicine 02/26/18 documented as of this encounter
--- OUTSIDE RECORDS SUMMARY | 2024-09-15 11:59 | XMS_ITS | Encounter Summary ---
Author Organization [email or web address] Address [address] [place] [address] Care Team Providers Care In Flight Technician Name Role Phone Patricia Schofield MD Primary Care Provide r Reason for Visit * Reason Onset Date Comments Med Refill 03/11/2024 Encounter Details Date Type Department Care Team (Late st Contact Info) Description 03/11/2024 Refill [facility] MEDICINE [address] [place] [address] Amelia Farmer, PharmD [address] [place] [address] Essential hypertension; Depression, unspecified depression type; Neck pain Social History Tobacco Use Types [...] Encounter - Amelia Farmer PharmD - 03/11/2024 8:19 AM EDT Please assist, patient requested refills during Tuesdays MTM to begin [facility] 03/13/2024. Please send to [facility] pharmacy. Can reach me at my extension [phone] for any questions, thank you! documented in this encounter Plan of Treatment Not on file documented as of this encounter Visit Diagnoses Diagnosis Essential hypertension Unspecified essential hypertension Depression, unspecified depression type Neck pain Cervicalgia documented in this encounter Additional Health Concerns Assessment Noted Time PHQ-9 Depression Total Score: 21 024 2:33 PM EST documented as of this encounter Care Teams In Flight Technician Relationship Specialty Start Date End Date Patricia Schofield MD [address] [place] [address] PCP - General Family Medicine 02/26/18 documented as of this encounter
--- OUTSIDE RECORDS SUMMARY | 2024-09-15 11:59 | XMS_ITS | Encounter Summary ---
Author Organization [employer] Address [address] [facility] [facility] [address], [place] [address] Care Team Providers Care Antique Dealer Name Role Phone Patricia Schofield MD Primary Care Provide r Reason for Visit * Reason Comments Med Refill Encounter Details Date Type Department Care Team ([facility] st Contact Info) Description 03/11/2024 Refill [facility] MEDICINE [address], [place] [phone] Patricia Schofield MD [address] [place] [address] Depression, unspecified depression type; Anxiety Social History Tobacco Use Types Packs/Day Years [...] as of this encounter Visit Diagnoses Diagnosis Depression, unspecified depression type Anxiety Anxiety state, unspecified documented in this encounter Additional Health Concerns Assessment Noted Time PHQ-9 Depression Total Score: 21 024 2:33 PM EST documented as of this encounter Care Teams Antique Dealer Relationship Specialty Start Date End Date Patricia Schofield MD [address] [place] [id number] PCP - General Family Medicine 02/26/18 documented as of this encounter
== END 2024-09-15 10:15 | disposition home or self-care (01) ==
LOC: HO.NEURO 10:14
PROVIDERS: PCP Internal Medicine; Visit Provider Internal Medicine
DX: G56.23 Lesion of ulnar nerve, bilateral upper limbs (principal); M25.531 Pain in right wrist; M25.532 Pain in left wrist
CPT/HCPCS: 95860; 95886; 95911

== ENCOUNTER 2024-09-18 14:36 | Outpatient (AMB) | payer OTHER, SELFPAY ==
--- NOTE | 2024-09-18 14:40 | MHC.OFFVIS ---
Vital Signs 09/18/24 14:42 Height 5 ft 10 in Weight 1889 lb BMI 271.0 BP 104/71 Blood Pressure Location Lt brachial Position Sitting Respiration 16 Pulse 85 Pulse Source Pulse Oximeter Pulse Oximetry (%) 98 Oxygen Delivery Method Room Air Intake Visit Reasons: Cervical spine arthritis with nerve pain Bag Press Operator Required: No Allergies No Known Allergies Allergy (Verified 09/18/24 14:43) Medication List - Last Reconciled 09/18/24 by Jaqueline Ruiz LPN albuterol sulfate 90 mcg/actuation (Ventolin HFA) inhalation amitriptyline 75 mg PO BEDTIME cholecalciferol (vitamin D3) (Vitamin D3) 25 mcg PO QAM cyclobenzaprine 10 mg PO TID famotidine 20 mg PO DAILY ibuprofen 800 mg PO TID lisinopril 20 mg PO DAILY mirtazapine 15 mg PO BEDTIME multivitamin 1 tab PO QAM omeprazole 40 mg PO DAILY sertraline 50 mg PO DAILY thiamine HCl (vitamin B1) 100 mg PO QAM HPI Comments Details: The patient is a 54-year-old male presenting with chronic neck pain with radicular symptoms. The patient reports worsening neck pain that has persisted for over two years, notably exacerbated in the past year following falls on ice. Cervical x-ray findings from 2022 indicate degenerative changes most notably at C3-C4 and C5-C7 levels. Pain is described as aching, spasming, hurting and cracking with radiation to the arms, causing numbness and tingling, especially on the left side. The condition disrupts sleep, necessitating adjustments such as multiple pillows for arm support. The patient also experiences chronic left-sided migraines and cluster headaches. A history of arthritis is noted in the hands and neck, with an EMG revealing mild bilateral ulnar neuropathy. He is left hand dominant with impaired strength in the left hand. He remains on permanent disability due to his complex medical conditions and receives [employer] services for some assistance at home. He has attempted physical therapy last year without improvement and uses massage therapy without benefit. Cardiac history includes chest pain investigations and an impending echo for aortic assessment. Pain management involves gabapentin and ibuprofen, though gabapentin induces sleepiness. Amitriptyline is also used for headache control. - Onset: Progressively worsening over the past year, with onset more than two years ago. - Quality: Aching, cracking, throbing, shooting, stabbing, sharp, tiring, dull, hurting, tingling. - Primary location: Cervical spine - Radiation: To arms with numbness and tingling, predominantly on the left side. - Exacerbating factors: Falls on ice, maintaining certain head positions, looking up or down, sideways movements. - Relieving factors: Adjustments with pillows during sleep. - Interference: Affects sleep quality and results in arm numbness. - Affect: Pain impacts sleep quality, leading to arm numbness; no specific mention of mood impact. - Analgesia: Currently using ibuprofen and gabapentin; goal pain relief not explicitly mentioned. - Adverse Effects: Gabapentin causes somnolence; no other adverse effects reported. - Activities of Daily Living: Pain affects the ability to sleep comfortably, necessitating specific pillow arrangements. - Aberrant Drug Related Behaviors: No signs of medication misuse or early refill requests mentioned. Oswestry Neck Pain Disability Score=34 (severe disability) [facility] Medical History (Updated 09/18/24 @ 16:06 by BELL Haynes) Bilateral hand numbness Bilateral wrist pain Possible exposure to STI Upper back pain Migraine headache Chronic kidney disease, stage 2 (mild) Hyperlipidemia Bilateral arm pain Adrenal incidentaloma Seborrheic dermatitis of scalp Polyarthralgia Missing teeth, acquired Blurry vision, bilateral Chronic right shoulder pain Smoker Pure hyperglyceridemia Post-traumatic osteoarthritis of both wrists Mood disorder Severe major depression without psychotic features Mild intermittent asthma Homeless History of alcoholism GERD (gastroesophageal reflux disease) Foot callus HTN (hypertension) Episodic cluster headache Clear cell carcinoma of kidney Degenerative disc disease, cervical Cervical spondylosis Surgical History (Updated 08/12/23 @ 12:50 by Jany Boyd) History of nephrectomy, left Family History (Updated 08/12/23 @ 12:50 by Jany Boyd) Mother No problems noted. Father No problems noted. Social History (Updated 08/12/23 @ 12:51 by Jany Boyd) Alcohol intake: current Alcohol intake frequency: holidays/special occasions only Patient Tobacco Use Status: Current someday Tobacco user Review of Systems Const All systems reviewed & are unremarkable except as noted in HPI and below Physical Exam General: Appears afebrile. Alert and oriented. Mood and affect appropriate. Follows and participates in conversation appropriately. Respiratory effort is unlabored. No cough. Able to transition from sit to stand unassisted. Ambulates with bilaterally normal heel strike and toe off. Neck Other: Patient with decreased cervical ROM in all planes/especially with lateral rotations. Reports increased pain with cervical extension and flexion but worse with extension. Spurling compression test negative. Elvey's tension test negative bilaterally. Lhermitte's test was negative. DTR intact, +2 and symmetrical. Patient demonstrated 5/5 right and 4/5 left motor strength of bilateral upper extremities. 2 + radial pulses. Significant tightness throughout upper trapezius rhomboid muscles. Mild paravertebral tenderness over facet joints bilaterally. Multiple taut bands palpated throughout bilateral upper trapezius muscles. +Tinel's bilaterally. Neck: Yes normal visual inspection, Yes no lymphadenopathy, Yes supple, No anterior neck swelling, Yes no JVD, No prominent supraclavicular fat pad and No prominent dorsocervical fat pad Back/Spine/Pelvis Cervical Spine: No collar present, No Lhermitte's sign positive, loss of normal cervical lordosis, cervical muscular tenderness, pain with cervical ROM, No Cervical spine scars present, cervical spasm, No Cervical spine tenderness and No step off deformity Thoracic/Lumbar Spine: thoracic and lumbar spine normal to inspection, pain with thoraco-lumbar ROM, thoraco-lumbar ROM limited, No thoracic spinal tenderness and No lumbar spinal tenderness Extrem General: Yes capillary refill normal, Yes no clubbing, cyanosis or edema and Yes no calf tenderness Results Reviewed Results Reviewed: XR CERVICAL SPINE XR SHOULDER, RIGHT 02/27/23 CLINICAL INFORMATION: Shoulder and neck pain. COMPARISON: Cervical spine 10/08/2018. TECHNIQUE: 5 views cervical spine, 4 views shoulder. FINDINGS: Cervical spine: Degenerative changes are present in the cervical spine with disc space narrowing at C3-C4 and from C5 through C7. There is endplate sclerosis and osteophyte formation. Findings have progressed slightly when compared to 10/08/2018. No significant foraminal narrowing is seen. No soft tissue swelling, fractures or subluxations. No bony destructive lesions. Right shoulder: There is some minimal degenerative changes at the AC joint. The glenohumeral joint appears normal. IMPRESSION: Degenerative changes in the cervical spine, most marked at C3-C4 and C5-C7. NE electromyogram (EMG) 09/15/24 Bilateral median and ulnar motor and sensory studies were performed. Bilateral radial sensory studies were performed and paraspinal muscles were tested with a needle. IMPRESSION: Mild bilateral ulnar neuropathy across cubital tunnel. Assessment & Plan Assessment & Plan (1) Cervical spondylosis: Code(s): M47.812 - Spondylosis without myelopathy or radiculopathy, cervical region Category: Medical (2) Degenerative disc disease, cervical: Code(s): M50.30 - Other cervical disc degeneration, unspecified cervical region Category: Medical (3) Muscle spasms of neck: Code(s): M62.838 - Other muscle spasm Category: Medical (4) Ulnar neuropathy: Code(s): G56.20 - Lesion of ulnar nerve, unspecified upper limb Category: Medical (5) Bilateral hand numbness: Code(s): R20.0 - Anesthesia of skin Category: Medical Plan To manage the patient's cervical neck pain, predominantly axial in nature, I will schedule diagnostic cervical medial branch blocks to identify suitable sites for radiofrequency ablation or peripheral nerve stimulation. The goal is to achieve substantial pain relief, and the options' benefits and risks, including providing up to 10-12 months of relief, were discussed. A follow-up set of X-rays will evaluate any further cervical spine degeneration. Schedule Bilateral Diagnostic C3-C4-C5 MBB with local and fluoroscopy. Expectations, risks and benefits were reviewed. Patient is awareshe will be contacted to schedule this procedure. We'll refer the patient to a Hand specialist to address bilateral ulnar neuropathy and associated arthritis as indicated by recent EMG results. Script provided for Acupunture referral to [facility] per patient's request. Review of medication regimens, such as gabapentin, cyclobenzaprine and amitriptyline, will ensure effective pain management with minimal side effects. All questions and concerns have been answered and patient agreed with the treatment plan. Follow up after injections and sooner as needed. Patient was informed and verbally consented to the use of an ambient scribe for clinic note documentation during this visit. Orders: Orders XR cervical spine 4V Today M47.812 - Spondylosis without myelopathy or radiculopathy, cervical region, M50.30 - Other cervical disc degeneration, unspecified cervical region Referrals Hand Surgery Referral G56.20 - Lesion of ulnar nerve, unspecified upper limb Acupuncture Referral M47.812 - Spondylosis without myelopathy or radiculopathy, cervical region, M50.30 - Other cervical disc degeneration, unspecified cervical region, M62.838 - Other muscle spasm Coding Level of Care Code New Pt Level 4 (24280) Diagnoses Cervical spondylosis M47.812 Degenerative disc disease, cervical M50.30 Muscle spasms of neck M62.838 Ulnar neuropathy G56.20 Bilateral hand numbness R20.0
[2024-09-18 14:42] VITALS: BP 104/71; PULSE 85; RESP 16; O2SAT 98; BMI 271.0
--- OUTSIDE RECORDS SUMMARY | 2024-09-18 16:10 | XMS_ITS | Clinical Summary ---
Author Organization [facility] Address [address] [place] [address] Phone Care Team Providers Care Enrobing Machine Feeder Name Role Phone Physician, No Pcp Primary Care Provider Unavaila ble Allergies No known active allergies Encounters Date Type Department Care Team Description 08/14/2024 5:44 PM EST - 08/14/2024 10:57 PM EST Emergency [facility] Emergency [address] [place] [address] Tad Howell MD Pain of [...] Signed Date: 08/14/2024 15:09 ET Workstation ID: [id number] Transcribed By: Self Edit Transcribed Date: 08/14/2024 [...] Signed Date: 08/14/2024 15:09 ET Workstation ID: [id number] Transcribed By: Self Edit Transcribed Date: 08/14/2024 15:08 ET us Tad Howell MD IMG XR PROCEDURES Final Resu lt * Troponin I high sensitivity (08/14/2024 2:43 PM EST) Only the most recent of2 resultswithin the time period is included. High Sensitivity Troponin I 4 <=79 ng/L LAB CHEMISTRY METHOD 08/14/2024 3:17 PM EST [facility] Blood Venous blood specimen / Unknown Venipuncture / Unknown 08/14/2024 2:43 PM EST 08/14/2024 2:51 PM EST Narrative [facility] - 08/14/2024 3:17 PM EST High levels of biotin in samples may falsely decrease hsTroponin values. ??Use caution when interpreting hsTroponin results in patients taking biotin who exhibit renal impairment (eGFR <60) or in patients taking more than 20 mg/day of biotin. us Tad Howell MD LAB BLOOD ORDERABLES Final R esult [facility] [address] [place] [address], [place] [phone] * (ABNORMAL) CBC auto differential (08/14/2024 11:36 AM EST) [facility] WBC 5.2 4.8 - 10.8 K/mcL LAB HEMETOLOGY METHOD 08/14/2024 12:[address] [facility] RBC 4.80 4.50 - 5.50 M/mcL LAB HEMETOLOGY METHOD 08/14/2024 12:[address] [facility] Hemoglobin 14.3 13.5 - 17.5 g/dL LAB HEMETOLOGY METHOD 08/14/2024 12:[address] [facility] Hematocrit 43.5 42.0 - 54.0 % LAB HEMETOLOGY METHOD 08/14/2024 12:[address] [facility] MCV 91.0 79.0 - 98.0 FL LAB HEMETOLOGY METHOD 08/14/2024 12:[address] [facility] MCH 29.9 27.0 - 32.0 pcg LAB HEMETOLOGY METHOD 08/14/2024 12:[address] [facility] MCHC 32.9 32.0 - 37.0 g/dL LAB HEMETOLOGY METHOD 08/14/2024 12:[address] [facility] RDW 15.6(H) 11.0 - 15.0 % LAB HEMETOLOGY METHOD 08/14/2024 12:[address] [facility] Platelets 335 130 - 400 K/mcL LAB HEMETOLOGY METHOD 08/14/2024 12:[address] [facility] MPV 10.0 7.0 - 11.0 FL LAB HEMETOLOGY METHOD 08/14/2024 12:[address] [facility] NRBC 0.0 <1.0 % LAB HEMETOLOGY METHOD 08/14/2024 12:[address] [facility] NRBC Absolute 0.00 <0.10 K/mcL LAB HEMETOLOGY METHOD 08/14/2024 12:[address] [facility] Neutrophils Relative 61.8 % LAB HEMETOLOGY METHOD 08/14/2024 12:[address] [facility] Lymphocytes Relative 25.0 % LAB HEMETOLOGY METHOD 08/14/2024 12:[address] [facility] Monocytes Relative 8.5 % LAB HEMETOLOGY METHOD 08/14/2024 12:[address] [facility] Eosinophils Relative 3.9 % LAB HEMETOLOGY METHOD 08/14/2024 12:[address] [facility] Basophils Relative 0.4 % LAB HEMETOLOGY METHOD 08/14/2024 12:[address] [facility] Immature Granulocytes Relative 0.4 % LAB HEMETOLOGY METHOD 08/14/2024 12:[address] [facility] Neutrophils Absolute 3.20 1.50 - 7.00 K/mcL LAB HEMETOLOGY METHOD 08/14/2024 12:[address] [facility] Lymphocytes Absolute 1.29 1.00 - 5.00 K/mcL LAB HEMETOLOGY METHOD 08/14/2024 12:[address] [facility] Monocytes Absolute 0.44 0.20 - 1.00 K/mcL LAB HEMETOLOGY METHOD 08/14/2024 12:[address] [facility] Eosinophils Absolute 0.20 0.00 - 0.50 K/mcL LAB HEMETOLOGY METHOD 08/14/2024 12:[address] [facility] Basophils Absolute 0.02 0.00 - 0.20 K/mcL LAB HEMETOLOGY METHOD 08/14/2024 12:[address] [facility] Immature Granulocytes Absolute 0.02 0.00 - 0.03 K/mcL LAB HEMETOLOGY METHOD 08/14/2024 12:[address] [facility] Blood Venous blood specimen / Unknown Venipuncture / Unknown 08/14/2024 11:36 AM EST 08/14/2024 12:18 PM EST us Tad Howell MD LAB BLOOD ORDERABLES Final R esult Performing Organization Address [facility]/ZIP Co de Phone Number [facility] [address] [place] [address], [place] [phone] * Magnesium (08/14/2024 11:36 AM EST) [facility] Magnesium 2.3 1.9 - 2.6 mg/dL LAB CHEMISTRY METHOD 08/14/2024 12:59 PM EST [facility] Blood Venous blood specimen / Unknown Venipuncture / Unknown 08/14/2024 11:36 AM EST 08/14/2024 12:18 PM EST us Tad Howell MD LAB BLOOD ORDERABLES Final R esult Performing Organization Address [facility]/ZIP Co de Phone Number [facility] [address] [place] [address], [place] [phone] * Lipase (08/14/2024 11:36 AM EST) [facility] Lipase 49 13 - 75 unit/L LAB CHEMISTRY METHOD 08/14/2024 12:59 PM EST [facility] Blood Venous blood specimen / Unknown Venipuncture / Unknown 08/14/2024 11:36 AM EST 08/14/2024 12:18 PM EST us Tad Howell MD LAB BLOOD ORDERABLES Final R esult Performing Organization Address City/[facility]/ZIP Co de Phone Number [facility] [address] [place] [address], [place] [phone] * (ABNORMAL) Comprehensive metabolic panel (08/14/2024 11:36 AM EST) [facility] Sodium 141 133 - 145 mmol/L LAB CHEMISTRY METHOD 08/14/2024 12:[address] [facility] Potassium 3.7 3.5 - 5.5 mmol/L LAB CHEMISTRY METHOD 08/14/2024 12:[address] [facility] Chloride 110 96 - 110 mmol/L LAB CHEMISTRY METHOD 08/14/2024 12:[address] [facility] CO2 24 21 - 32 mmol/L LAB CHEMISTRY METHOD 08/14/2024 12:[address] [facility] Anion Gap 7 3 - 11 LAB CHEMISTRY METHOD 08/14/2024 12:[address] [facility] Glucose 104(H) 70 - 100 mg/dL LAB CHEMISTRY METHOD 08/14/2024 12:[address] [facility] BUN 12 5 - 25 mg/dL LAB CHEMISTRY METHOD 08/14/2024 12:[address] [facility] Creatinine 1.32(H) 0.70 - 1.30 mg/dL LAB CHEMISTRY METHOD 08/14/2024 12:[address] [facility] eGFR 64 >=60 mL/min/1. 73m2 LAB CHEMISTRY METHOD 08/14/2024 12:[address] [facility] Comment:Calculation based on the??Chronic Kidney Disease Epidemiology Collaboration (CKD-EPI) equation refit??without adjustment for race. BUN/Creatinine Ratio 9.1 LAB CHEMISTRY METHOD 08/14/2024 12:[address] [facility] Calcium 8.9 8.5 - 10.5 mg/dL LAB CHEMISTRY METHOD 08/14/2024 12:[address] [facility] AST (SGOT) 16 10 - 42 unit/L LAB CHEMISTRY METHOD 08/14/2024 12:[address] [facility] ALT (SGPT) 17 10 - 60 unit/L LAB CHEMISTRY METHOD 08/14/2024 12:[address] [facility] Alkaline Phosphatase 79 42 - 121 unit/L LAB CHEMISTRY METHOD 08/14/2024 12:[address] [facility] Total Protein 6.6 6.0 - 8.0 g/dL LAB CHEMISTRY METHOD 08/14/2024 12:59 PM EST [facility] Albumin 3.6 3.2 - 5.0 g/dL LAB CHEMISTRY METHOD 08/14/2024 12:59 PM EST [facility] Total Bilirubin 0.5 0.0 - 1.4 mg/dL LAB CHEMISTRY METHOD 08/14/2024 12:59 PM EST [facility] Blood Venous blood specimen / Unknown Venipuncture / Unknown 08/14/2024 11:36 AM EST 08/14/2024 12:18 PM EST us Tad Howell MD LAB BLOOD ORDERABLES Final R esult Performing Organization Address [facility] Co de Phone Number [facility] [address] [place] [address], * ECG 12 lead (08/14/2024 11:18 AM EST) Ventricular Rate ECG 68 BPM G[facility] Atrial Rate 68 BPM [facility] P-R Interval 160 ms GEMUSE QRS Duration 86 ms GEMUSE Q-T Interval 400 ms GEMUSE QTc 425 ms GEMUSE P Wave [place] 53 degrees GEMUSE R [place] 18 degrees GEMUSE T [place] 29 degrees GEMUSE ECG Interpretation Normal sinus rhythm Normal ECG No previous ECGs available Confirmed by ROSALEE ALLEN ([id number]) on 08/15/2024 9:59:29 AM GEMUSE 08/14/2024 11:1 8 AM EST 08/15/2024 9:59 AM EST us Tad Howell MD ECG ORDERABLES Final Result Performing Organization Address City/[facility]/ZIP Co de Phone Number [facility] from Last 3 Months Insurance [employer] Member Subscriber Plan / Payer (Ef fective 2023-Present) Name:Jesse Link Relation to Subscriber:Self Name:Jesse Link Payer ID:[id number] Group ID:[id number] Type:Not on file Address: [facility] [address] [address] Care Teams Enrobing Machine Feeder Relationship Specialty Start Date End Date Physician, No Pcp PCP - General 08/14/24
--- OUTSIDE RECORDS SUMMARY | 2024-09-18 16:10 | XMS_ITS | Clinical Summary ---
Author Organization [employer] Address [address] [facility] [address] [address] Care Team Providers Care Tissue Packer Name Role Phone Patricia Schofield MD Primary [...] Self Plan [facility] and Patient to [facility] to [facility] needed Assessment & Plan (06/12/2023 4:28 [...] Type Department Care Team Description 09/03/2024 Telephone [employer] [address] [place] [phone] Patricia Schofield MD 08/28/2024 3:15 PM EDT Office Visit [facility] [address] [place] [phone] Patricia Schofield MD Essential hypertension (Primary Dx); Bilateral wrist pain; Bilateral hand numbness; Neck pain; Cervical spine arthritis with nerve pain; Chronic migraine without aura without status migrainosus, not intractable; Trichomoniasis 08/28/2024 Travel 08/28/[address] [facility] [address] [place] [phone] Patricia Schofield MD Chronic fatigue 08/26/[address] [address] Ankita Joe, RN Appointment Request 08/25/[address] [facility] [address] [place] [phone] Patricia Schofield MD Care Coordination (CHW outreach for SDOH CCA - LVM ) 08/25/[address] [facility] [address] [place] [phone] Patricia Schofield MD Pre-visit Planning (SDOH screening negative and tobacco screening negative) 08/10/[address] [address] Patricia Schofield MD Durable Medical Equipment 08/05/[address] [address] Patricia Schofield MD Depression, unspecified depression type 07/15/[address] [address] Patricia Schofield MD Durable Medical Equipment 06/24/[address] [address] Patricia Schofield MD Moderate asthma, unspecified whether [...] PM EST) Hepatitis C Antibody Nonreactive Nonreactive [facility] Comment:Antibodies to HCV no t detected; does not exclude early acuteHCV infection. Blood Venous blood specimen / Unknown 05/12/2024 3:42 PM EST 05/12/2024 4:09 PM EST Marii Brown MD LAB BLOOD ORDERABLES Final Result [facility] [address] [place] [phone] * HIV-1/2 Antigen and Antibodies, Fourth Generation, with Reflexes (05/12/2024 3:42 PM EST) Pathologist [facility] HIV AB/AG Nonreactive Nonreactive [facility] Comment:HIV-1 p24 Ag and/or HIV-1/HIV-2 Ab not detected.A test result that is nonreactive does not exclude thepossibility of exposure to or infection with HIV-1 and/orHIV-2. Nonreactive results in this assay for individualswith prior exposure to HIV-1 and/or HIV-2 may be due toantigen and antibody levels that are below the limit ofdetection of this assay.[employer] HIV Ag/Ab Combo assay result andsupplemental assay results should be interpreted inconjunction with the patient's clinical presentation,history and other laboratory results. If the results areinconsistent with clinical evidence, additional testing issuggested to confirm the result. Blood Venous blood specimen / Unknown 05/12/2024 3:42 PM EST 05/12/2024 4:09 PM EST us Marii Brown MD LAB BLOOD ORDERABLES Final Result Performing Organization Address [facility]/ZIP Co de Phone Number [facility] [address] [place] [phone] * (ABNORMAL) Lipid Panel, Standard (03/27/2024 1:47 PM EDT) Triglycerides 107 <150 mg/dL [facility] Comment:Desirable Triglyceri de: less than 150 mg/dLBorderline High Triglyceride 150-199 mg/dLHigh Triglyceride: 200-499 mg/dLVery High Triglyceride: greater than or equal to 5OO mg/dL Cholesterol 131 <200 mg/dL [facility] Comment:Desirable Cholestero l: less than 200 mg/dLBorderline High Cholesterol: 200-239 mg/dLHigh Cholesterol: greater than 239 mg/dL LDL Cholesterol Calculated 70 <100 mg/dL [facility] Comment:Desirable LDL: less than 100 mg/dLNear Optimal/Above Optimal LDL: 110- 129 mg/dLBorderline High LDL: 130-159 mg/dLHigh LDL: 160-189 mg/dLVery High LDL: greater than or equal to 190 mg/dL HDL Cholesterol 40(L) >40 mg/dL [facility] Comment:Desirable HDL: great er than 40 mg/dL Note: This HDL assay may give artificially low results in patients with liver disease. Blood Venous blood specimen / Unknown 03/27/2024 1:47 PM EDT 03/27/2024 4:18 PM EDT us Patricia Barfield MD LAB BLOOD ORDERABLES Final Result Performing Organization Address City/[facility]/ZIP Co de Phone Number [facility] [address] [place] [phone] from Last 3 Months or Most Recently Relevant to Health Maintenance Insurance [facility] Care Teams Tissue Packer Relationship Specialty Start Date End Date Patricia Schofield MD [address] [place] [phone] PCP - General Family Medicine 02/26/18
--- OUTSIDE RECORDS SUMMARY | 2024-09-18 16:10 | XMS_ITS | Encounter Summary ---
Author Organization [employer] Address [address] [place] [address] Care Team Providers Care Animal Science Instructor Name Role Phone Patricia Schofield MD Primary Care Provide r Reason for Visit * Reason Onset Date Comments Med Refill 03/11/2024 Encounter Details Date Type Department Care Team (Late st Contact Info) Description 03/11/2024 Refill [facility] [address] [place] [address] Amelia Farmer, PharmD 230 [place] [address] Essential hypertension; Depression, unspecified depression type; Neck [...] to begin Medbox 03/13/2024. Please send to [facility] pharmacy. Can reach me at [...] documented as of this encounter Care Teams Animal Science Instructor Relationship Specialty Start Date End Date Patricia Schofield MD [address] [place] [address] PCP - General Family Medicine 02/26/18 documented as of this encounter
--- OUTSIDE RECORDS SUMMARY | 2024-09-18 16:10 | XMS_ITS | Encounter Summary ---
Author Organization [employer] Address [address] [place] [address] 7[place] [address] Care Team Providers Care Utility Specialist Name Role Phone Patricia Schofield MD Primary Care Provide r Encounter Details Date Type Department Care Team ([facility] st Contact Info) Description 07/04/2022 Orders Only [facility] [address] [place] [address] Pricilla Eng LPN Social History Tobacco Use [...] on filedocumented in this encounter Care Teams Utility Specialist Relationship Specialty Start Date End Date Patricia Schofield MD [address] [place] [phone] PCP - General Family Medicine 02/26/18 documented as of this encounter
--- OUTSIDE RECORDS SUMMARY | 2024-09-18 16:10 | XMS_ITS | Encounter Summary ---
Author Organization [employer] Address [address] [place] [address] Care Team Providers Care Head Esthetician Name Role Phone Patricia Schofield MD Primary Care Provide r Reason for Visit * Reason Onset Date Comments Med Refill 03/11/2024 Encounter Details Date Type Department Care Team (Late st Contact Info) Description 03/11/2024 Refill [facility] [address] [place] [address] Amelia Farmer, PharmD 230 [place] [address] Chronic fatigue Social History Tobacco Use Types [...] to begin Medbox 03/13/2024. Please send to [facility] pharmacy. Can reach me at my extension [phone] for any questions, thank you! documented in this encounter Plan of Treatment Not on file documented as of this encounter Visit Diagnoses Diagnosis Chronic fatigue Other malaise and fatigue documented in this encounter Additional Health Concerns Assessment Noted Time PHQ-9 Depression Total Score: 21 024 2:33 PM EST documented as of this encounter Care Teams Head Esthetician Relationship Specialty Start Date End Date Patricia Schofield MD [address] [place] [phone] PCP - General Family Medicine 02/26/18 documented as of this encounter
--- OUTSIDE RECORDS SUMMARY | 2024-09-18 16:10 | XMS_ITS | Encounter Summary ---
Author Organization [employer] Address 75 [facility] [address] [address] Care Team Providers Care Fleet Coordinator Name Role Phone Patricia Schofield MD Primary Care Provide r Reason for Visit * Reason Comments Med Refill Encounter Details Date Type Department Care Team ([facility] st Contact Info) Description 03/11/2024 Refill [facility] [address] [place], [place] [phone] Patricia Schofield MD 230 [place] [address] Depression, unspecified depression type; Anxiety Social History [...] documented as of this encounter Care Teams Fleet Coordinator Relationship Specialty Start Date End Date Patricia Schofield MD [address] [place] [phone] PCP - General Family Medicine 02/26/18 documented as of this encounter
--- OUTSIDE RECORDS SUMMARY | 2024-09-18 16:10 | XMS_ITS | Encounter Summary ---
Author Organization [employer] Address [address] [place] [address] [address], [place] [address] Care Team Providers Care Polisher Dial Name Role Phone Patricia Schofield MD Primary Care Provide r Encounter Details Date Type Department Care Team (Latest Contact Info) Description 09/05/2020 Abstract [facility] CONVERSIONS Dental, Provider, DDS Social History Tobacco [...] on filedocumented in this encounter Care Teams Polisher Dial Relationship Specialty Start Date End Date Patricia Schofield MD [address] [place] [phone] PCP - General Family Medicine 02/26/18 documented as of this encounter
--- OUTSIDE RECORDS SUMMARY | 2024-09-18 16:10 | XMS_ITS | Encounter Summary ---
Author Organization [employer] Address [address] [place] [address] 7[place] [address] Care Team Providers Care Rn Oncology Name Role Phone Patricia Schofield MD Primary Care Provide r Encounter Details Date Type Department Care Team (Late st Contact Info) Description 07/09/2022 Orders Only [facility] 230 [place] [address] Payton Gay LPN Social History Tobacco Use [...] on filedocumented in this encounter Care Teams Rn Oncology Relationship Specialty Start Date End Date Patricia Schofield MD 230 [place] [address] PCP - General Family Medicine 02/26/18 documented as of this encounter
--- OUTSIDE RECORDS SUMMARY | 2024-09-18 16:10 | XMS_ITS | Encounter Summary ---
Author Organization [employer] Address 75 [facility] 7[place] [address] Care Team Providers Care Academic Dean Name Role Phone Patricia Schofield MD Primary Care Provide r Reason for Visit * Reason Comments Med Refill Encounter Details Date Type Department Care Team ([facility] st Contact Info) Description 03/26/[address] [facility]INE 230 [place], [place] [phone] Patricia Schofield MD 230 [place] [address] Neck pain Social History Tobacco Use Types [...] documented as of this encounter Care Teams Academic Dean Relationship Specialty Start Date End Date Patricia Schofield MD [address] [place] [phone] PCP - General Family Medicine 02/26/18 documented as of this encounter
--- OUTSIDE RECORDS SUMMARY | 2024-09-18 16:10 | XMS_ITS | Encounter Summary ---
Author Organization [employer] Address [address] [place] [address] 7[place] [address] Care Team Providers Care Metal Box Maker Name Role Phone Patricia Schofield MD Primary Care Provide r Encounter Details Date Type Department Care Team (Late st Contact Info) Description 11/07/2022 Orders Only [facility] 230 [place], [place] [phone] Patricia Schofield MD [address] [place] [address] Social History Tobacco Use Types Packs/Day Years [...] on filedocumented in this encounter Care Teams Metal Box Maker Relationship Specialty Start Date End Date Patricia Schofield MD [address] [place], [place] [phone] PCP - General Family Medicine 02/26/18 documented as of this encounter
--- OUTSIDE RECORDS SUMMARY | 2024-09-18 16:10 | XMS_ITS | Encounter Summary ---
Author Organization [employer] Address 75 [facility] 7[place] [address] Care Team Providers Care Mortgage Collector Name Role Phone Patricia Schofield MD Primary Care Provide r Reason for Visit * Reason Comments Med Refill Encounter Details Date Type Department Care Team ([facility] st Contact Info) Description 06/15/2023 Refill [facility] [address] [place], [place] [phone] Patricia Schofield MD 230 [place] [address] Gastroesophageal reflux disease without esophagitis Social History [...] documented as of this encounter Care Teams Mortgage Collector Relationship Specialty Start Date End Date Patricia Schofield MD [address] [place] [phone] PCP - General Family Medicine 02/26/18 documented as of this encounter
--- OUTSIDE RECORDS SUMMARY | 2024-09-18 16:10 | XMS_ITS | Encounter Summary ---
Author Organization [employer] Address [address] [place] [address] 7 [place] [address] Care Team Providers Care Retail Management Trainee Name Role Phone Patricia Schofield MD Primary Care Provide r Encounter Details Date Type Department Care Team ([facility] st Contact Info) Description 08/21/2022 Orders Only [facility] CHC MED & PEDS [address] [place] [address] Pricilla Eng LPN Social History Tobacco Use [...] on filedocumented in this encounter Care Teams Retail Management Trainee Relationship Specialty Start Date End Date Patricia Schofield MD [address] [place] [phone] PCP - General Family Medicine 02/26/18 documented as of this encounter"
--- OUTSIDE RECORDS SUMMARY | 2024-09-18 16:10 | XMS_ITS | Encounter Summary ---
Author Organization [employer] Address [address] [place] [address] Care Team Providers Care Supervisor Sandblaster Name Role Phone Patricia Schofield MD Primary Care Provide r Reason for Visit * Reason Onset Date Comments Med Refill 03/11/2024 Encounter Details Date Type Department Care Team (Late st Contact Info) Description 03/11/2024 Refill [facility] [address] [place] [address] Amelia Farmer, PharmD [address] [place] [address] Essential hypertension Social History Tobacco Use Types [...] to begin Medbox 03/13/2024. Please send to [facility] pharmacy. Can reach me at my extension [phone] for any questions, thank you! documented in this encounter Plan of Treatment Not on file documented as of this encounter Visit Diagnoses Diagnosis Essential hypertension Unspecified essential hypertension documented in this encounter Additional Health Concerns Assessment Noted Time PHQ-9 Depression Total Score: 21 024 2:33 PM EST documented as of this encounter Care Teams Supervisor Sandblaster Relationship Specialty Start Date End Date Patricia Schofield MD [address] [place] [phone] PCP - General Family Medicine 02/26/18 documented as of this encounter
== END 2024-09-18 15:17 | disposition home or self-care (01) ==
LOC: HO.PMC 14:37
PROVIDERS: PCP Internal Medicine; Visit Provider Nurse Practitioner Family
DX: M47.812 Spondylosis without myelopathy or radiculopathy, cervical region (principal); M50.30 Other cervical disc degeneration, unspecified cervical region; M62.838 Other muscle spasm; G56.20 Lesion of ulnar nerve, unspecified upper limb; R20.0 Anesthesia of skin
CPT/HCPCS: 99204

== ENCOUNTER → 2024-09-18 14:36 | Outpatient (BNVA) | payer OTHER, SELFPAY | PROVIDERS: PCP Internal Medicine; Visit Provider Nurse Practitioner Family | DX: M47.812 Spondylosis without myelopathy or radiculopathy, cervical region (principal); M50.30 Other cervical disc degeneration, unspecified cervical region; M62.838 Other muscle spasm; G56.20 Lesion of ulnar nerve, unspecified upper limb; R20.0 Anesthesia of skin | CPT/HCPCS: 99202 ==

== ENCOUNTER → 2024-10-15 13:01 | Outpatient (REF) | payer OTHER, SELFPAY ==
--- NOTE | 2024-10-15 13:03 | CA_ITS ---
Transthoracic Echocardiogram Patient (Last, First, Middle): Jesse Link L Gender: Male Date of : 1970 Age: 54 Procedure Date: 10/15/2024 Procedure Type: Transthoracic Echocardiogram Location: OP Height: 177. cm Weight: 77.11 kg BSA: 1.94 m2 Heart Rate: 76 bpm BP: 128 / 80 mmHg Clearing Supervisor: MILAD Carrasco MD: Yong Coffman TRACK SWEEPER Symptoms: R06.02 - Shortness of breath Study Quality: Adequate ECG Rhythm: Sinus Conclusions: - Normal left ventricular size, thickness, systolic function, and wall motion. The visually estimated ejection fraction is between 60-65%. Diastolic function is normal for age. - Normal right ventricular cavity size and systolic function. - There is mild dilatation of the ascending aorta measuring 3.80 cm. Findings Left Ventricle Normal left ventricular size, thickness, systolic function, and wall motion. The visually estimated ejection fraction is between 60-65%. Diastolic function is normal for age. Right Ventricle Normal right ventricular cavity size and systolic function. Atria The left atrium is normal in size. The right atrium is normal in size. Aortic Valve Normal aortic valve structure and function. There is no aortic valve stenosis. There is no aortic valve regurgitation. Mitral Valve The mitral valve appears normal. There is no mitral valve regurgitation. There is no mitral valve stenosis. Pulmonic Valve The pulmonic valve is normal. There is trace pulmonic valve regurgitation. Tricuspid Valve Normal tricuspid valve structure. There is no tricuspid valve regurgitation. Tricuspid regurgitation envelope is inadequate for calculation of right ventricular systolic pressure. Normal right atrial pressure. Great Vessels There is mild dilatation of the ascending aorta measuring 3.80 cm. The visualized portions of the pulmonary artery and branches are normal. Venous The inferior vena cava is normal in size and collapses greater than 50% with inspiration. Pericardium/Pleural There is no evidence of pericardial effusion. Prior Study Comparison No significant change compared to prior study dated: 10/14/2023. Measurements 2D Linear Measurements IVSd: 0.93 0.6-0.9/0.6-1.0 cm LVIDd: 4.74 3.9-5.3/4.2-5.9 cm LVIDd Index: 2.44 2.4-3.2/2.2-3.1 cm/m2 LVIDs: 2.81 2.0-3.6 cm LVPWd: 0.95 0.7-1.1 cm LA Diam: 3.60 2.7-3.8/3.0-4.0 cm LAIDs Index: 1.86 1.5-2.3 cm/m2 LV Mass: 191.38 67-162/88-224 g LV Mass Index: 98.65 43-95/49-115 g/m2 LVOT Diam: 1.90 3.0+(-)1.3 cm 2D Systolic Function EF 4C: 55.10 >55% EF 2C: 72.40 >55% EF BiP: 65.60 >55% Mitral Valve MV Pk E: 0.83 MV PK A: 0.90 MV Decel Time: 268.00 E/A: 0.90 E'Lateral: 11.30 E'Medial: 8.16 E/E' Med: 10.10 E/E' Lat: 7.30 PHT: 78.00 MVA PHT: 2.82 Decel [place]: 3.09 Aortic Valve AoV Pk Kartik: 1.64 AoV Mn Kartik: 1.13 AoV VTI: 0.28 AoV Pk Grad: 11.00 Aov Mn Grad: 6.00 GEENA Cont.VTI: 2.02 LVOT LVOT Pk Kartik: 1.06 LVOT Mn Kartik: 0.78 LVOT VTI: 0.20 LVOT Pk Grad: 4.00 LVOT Mn Grad: 3.00 LVOT Diam: 1.90 LVOT Area: 2.84 Diastolic Function MV Pk E: 0.83 MV Pk A: 0.90 E/A: 0.90 E'Medial: 8.16 E/E' Med: 10.10 E' Laterial: 11.30 E/E' Lat: 7.30 Right Ventricle TAPSE (mm): 20.40 TVS' Kartik: 12.10 Tricuspid Valve RA Press: 3.00 Great Vessels Aorta Sinus of Valsalva: 3.00 2.0-3.5 cm Ao Asc: 3.80 2.1-3.4 cm Ao Arch: 2.50 Pulmonary Valve PV Pk Kartik: 1.07 Peak PV Grad: 5.00 Updated in Other Vendor System with Status of Final Johnathan Andersen MD electronically signed on 10/18/2024 12:48:06 PM with status of Final
--- OUTSIDE RECORDS SUMMARY | 2024-10-15 15:28 | XMS_ITS | Encounter Summary ---
Author Organization [employer] Address [address] [place] [address] 7[place], [place] [address] Care Team Providers Care Spinning Operator Name Role Phone Patricia Schofield MD Primary Care Provide r Encounter Details Date Type Department Care Team (Late st Contact Info) Description 07/09/2022 Orders Only [facility] MEDICINE 230 [place] [address] Payton Gay LPN Social History Tobacco Use [...] on filedocumented in this encounter Care Teams Spinning Operator Relationship Specialty Start Date End Date Patricia Schofield MD [address] [place] [address] PCP - General Family Medicine 02/26/18 documented as of this encounter
--- OUTSIDE RECORDS SUMMARY | 2024-10-15 15:28 | XMS_ITS | Encounter Summary ---
Author Organization [employer] Address [address] [place] [address] 7[place], [place] [address] Care Team Providers Care Communication Equipment Repairer Name Role Phone Patricia Schofield MD Primary Care Provide r Encounter Details Date Type Department Care Team ([facility] st Contact Info) Description 07/04/2022 Orders Only [facility] MED & PEDS [address] [place] [address] Pricilla Eng LPN Social History Tobacco Use [...] on filedocumented in this encounter Care Teams Communication Equipment Repairer Relationship Specialty Start Date End Date Patricia Schofield MD [address] [place] [phone] PCP - General Family Medicine 02/26/18 documented as of this encounter
--- OUTSIDE RECORDS SUMMARY | 2024-10-15 15:28 | XMS_ITS | Clinical Summary ---
Author Organization [employer] Address [address] [facility] [address], [place] [address] Care Team Providers Care Electronic Warfare Linguist Name Role Phone Patricia Schofield MD Primary Care Provide r Allergies No known active allergies Medications * This document contains information received from the source organization and may not represent a complete record from that organization. fluticasone (Flonase Allergy Relief) 50 MCG/ACT nasal sprayIndications: Essential hypertension inhale 2 spray by intranasal route every day in each nostril as needed 48 g 3 Active Blood Pressure Monitor kitIndications:Es sential hypertension Use as directed 3x/week 1 kit 3 Active ketoconazole (NIZOral) 2 % shampooIndication s:Seborrheic dermatitis of scalp APPLY TO THE AFFECTED AREA(S) TWICE A WEEK 120 mL 1 4 Active hydrOXYzine HCl (Atarax) 25 MG tabletIndications :Depression, unspecified depression type,Anxiety TAKE 1 TABLET BY MOUTH EVERY EVENING NEEDED 60 tablet 4 Active cyclobenzaprine (Flexeril) 10 MG tabletIndications :Neck pain Take 1 tablet (10 mg) by mouth 3 times daily for 10 days. 30 tablet 4 Active omeprazole (PriLOSEC) [address] capsuleIndication s:Gastroesophagea l reflux disease without esophagitis TAKE 1 CAPSULE BY MOUTH EVERY MORNING BEFORE A MEAL 90 capsule 1 4 Active famotidine (Pepcid) 20 MG tablet Take 1 tablet (20 mg) by mouth 2 times daily. 60 tablet 11 4 03/27/20 25 Active cholecalciferol (D3-1000) 25 MCG (1000 UT) capsuleIndication s:Essential hypertension TAKE 1 CAPSULE BY MOUTH EVERY MORNING 90 capsule 1 4 Active thiamine (Vitamin B-1) 100 MG tabletIndications :Essential hypertension TAKE 1 TABLET BY MOUTH EVERY MORNING 90 tablet 1 4 Active lisinopril 20 MG tabletIndications :Essential hypertension TAKE 1 TABLET BY MOUTH EVERY MORNING 90 tablet 1 4 Active Ventolin HFA 108 (90 Base) MCG/ACT inhalerIndication s:Moderate asthma, unspecified whether complicated, unspecified whether persistent INHALE 2 PUFFS BY MOUTH EVERY 6 HOURS NEEDED FOR WHEEZING 18 g 5 Active amitriptyline (Elavil) 75 MG tabletIndications :Depression, unspecified depression type TAKE 1 TABLET BY MOUTH AT BEDTIME 30 tablet 3 5 Active sertraline (Zoloft) 50 MG tabletIndications :Depression, unspecified depression type TAKE 1 TABLET BY MOUTH EVERY MORNING 90 tablet 5 Active Multiple Vitamin (Multivitamin) tabletIndications :Chronic fatigue TAKE 1 TABLET BY MOUTH EVERY MORNING 30 tablet 3 5 Active gabapentin (Neurontin) 300 MG capsuleIndication s:Cervical spine arthritis with nerve pain Take 1 capsule (300 mg) by mouth 3 times daily. 90 capsule 2 5 08/29/19 26 Active ibuprofen 800 MG tabletIndications :Cervical spine arthritis with nerve pain,Chronic migraine without aura without status migrainosus, not intractable Take 1 tablet (800 mg) by mouth every 8 (eight) hours if needed for mild pain. 90 tablet 5 Active Active Problems Problem Noted Date Diagnosed Date Bilateral wrist pain 08/28/2024 Bilateral hand numbness 08/28/2024 Assessment & Plan (08/28/2024 4:29 PM EDT): I will order nerve conduction test after results possible referral to orthopedics Cervical spine arthritis with nerve pain 025 Assessment & Plan (08/28/2024 4:30 PM EDT): [...] context of dx of kidney cancer on 2020, increase dependence in other to complete ADLS and IADLs, . PLAN: (check all that apply) New/Additional Services needed Off-site services for Behavioral Health Integration Plan External OP therapy referral and OP psychiatry Referral Patient Self [facility] and Patient to reach out to [facility] as needed Assessment & Plan (06/12/2023 4:28 [...] Type Department Care Team Description 09/03/2024 Telephone [facility] [employer] [address] [place] [address] Patricia Schofield MD 08/28/2024 3:15 PM EDT Office Visit [facility] [address] [place] [address] Patricia Schofield MD Essential hypertension (Primary Dx); Bilateral wrist pain; Bilateral hand numbness; Neck pain; Cervical spine arthritis with nerve pain; Chronic migraine without aura without status migrainosus, not intractable; Trichomoniasis 08/28/2024 Travel 08/28/2024 Refill [facility] [address] [place] [phone] Patricia Schofield MD Chronic fatigue 08/26/[address] [phone] Ankita Joe, RN Appointment Request 08/25/2024 Patient Outreach [address] [phone] Patricia Schofield MD Care Coordination (CHW outreach for SDOH CCA - LVM ) 08/25/2024 Patient Outreach [address] [phone] Patricia Schofield MD Pre-visit Planning (SDOH screening negative and tobacco screening negative) 08/10/[address] [phone] Patricia Schofield MD Durable Medical Equipment 08/05/[address] [phone] Patricia Schofield MD Depression, unspecified depression type from Last 3 Months Immunizations Name Administration [...] 06/14/2023, 0 09/05/2020, 11/12/2017, Additional history exists Dental X-Ray: [facility] 03/19/2024 03/18/20 23, 09/05/2020, 04/26/2017, Additional history exists Depression Screening 07/26/2024 07/26/2023, 07/26/19 24 SDOH Screening 08/25/2025 08/25/2024 Tobacco Screening 08/28/2025 [...] PM EST) Hepatitis C Antibody Nonreactive Nonreactive [facility] Comment:Antibodies to HCV no t detected; does not exclude early acuteHCV infection. Blood Venous blood specimen / Unknown 05/12/2024 3:42 PM EST 05/12/2024 4:09 PM EST Marii Brown MD LAB BLOOD ORDERABLES Final Result [facility] [address] [place] [phone] * HIV-1/2 Antigen and Antibodies, Fourth Generation, with Reflexes (05/12/2024 3:42 PM EST) HIV AB/AG Nonreactive Nonreactive [facility] Comment:HIV-1 p24 Ag and/or HIV-1/HIV-2 Ab not detected.A test result that is nonreactive does not exclude thepossibility of exposure to or infection with HIV-1 and/orHIV-2. Nonreactive results in this assay for individualswith prior exposure to HIV-1 and/or HIV-2 may be due toantigen and antibody levels that are below the limit ofdetection of this assay.The Encite HIV Ag/Ab Combo assay result andsupplemental assay results should be interpreted inconjunction with the patient's clinical presentation,history and other laboratory results. If the results areinconsistent with clinical evidence, additional testing issuggested to confirm the result. Blood Venous blood specimen / Unknown 05/12/2024 3:42 PM EST 05/12/2024 4:09 PM EST us Marii Brown MD LAB BLOOD ORDERABLES Final Result Performing Organization Address [facility] Co de Phone Number [facility] [address] [place] [address] [phone] * (ABNORMAL) Lipid Panel, Standard (03/27/2024 1:47 PM EDT) Triglycerides 107 <150 mg/dL [facility] Comment:Desirable Triglyceri de: less than 150 mg/dLBorderline High Triglyceride 150-199 mg/dLHigh Triglyceride: 200-499 mg/dLVery High Triglyceride: greater than or equal to 5OO mg/dL Cholesterol 131 <200 mg/dL [facility] Comment:Desirable Cholestero l: less than 200 mg/dLBorderline High Cholesterol: 200-239 mg/dLHigh Cholesterol: greater than 239 mg/dL LDL Cholesterol Calculated 70 <100 mg/dL [facility] Comment:Desirable LDL: less than 100 mg/dLNear Optimal/Above Optimal LDL: 110- 129 mg/dLBorderline High LDL: 130-159 mg/dLHigh LDL: 160-189 mg/dLVery High LDL: greater than or equal to 190 mg/dL HDL Cholesterol 40(L) >40 mg/dL [facility] Comment:Desirable HDL: great er than 40 mg/dL Note: This HDL assay may give artificially low results in patients with liver disease. Blood Venous blood specimen / Unknown 03/27/2024 1:47 PM EDT 03/27/2024 4:18 PM EDT us Patricia Barfield MD LAB BLOOD ORDERABLES Final Result Performing Organization Address [facility]/ZIP Co de Phone Number [facility] [address] [place] [phone] [phone] from Last 3 Months or Most Recently Relevant to Health Maintenance Insurance [employer] ONE CARE < 65 DENTAL - [facility] Care Teams Electronic Warfare Linguist Relationship Specialty Start Date End Date Patricia Schofield MD [address] [place] [phone] PCP - General Family Medicine 02/26/18
--- OUTSIDE RECORDS SUMMARY | 2024-10-15 15:28 | XMS_ITS | Data Portability ---
Author Organization [employer] Address [address] [place] [phone] Care Team Providers Care Bonderizer Operator Name Role Phone [facility] Referring Provider [facility] Referring Provider Assessment Encounter Date Assessment Date Assessment LastModified by Organization Details LastModified Time 06/28/2023 06/28/2023 I have reviewed and agree with the assessment and plan as documented by the weld engineer. I provided real time medical direction for this encounter and was immediately available to provide additional phone based assistance as needed. History as noted by weld engineer. Pt with history of DM, HTN, reports 3 days of cough productive of yellow/green sputum. Pt also endorses fatigue and myalgias. No CP or SOB. No fevers or chills. No N/V. No CROWELL or vision changes. Home Covid test negative. On exam, pt appears well, no distress. Vitals ok other than elevated BP. Lungs clear. Rapid Flu and Covid negative. Impression: Pt with what appears to be viral URI with bronchitis. Pt appears well with clear lungs and normal O2 sat. No fever. Pt's BP elevated but he reports that he hasn't taken his BP meds for 3 days since he ran out of them, but his will be picking them up today and he will restart them. Pt has also been taking ibuprofen for his myalgias and he is told to discontinue this, since it can increase the BP, and start taking acetaminophen prn instead. Rapid Covid and Flu negative today. Pt is prescribed guaifenesen 1200mg bid prn for his cough. Pt told to call and f/u with his primary care team if his symptoms are not improving and to ask for another home visit or seek medical attention with any worsening or new symptoms, which are reviewed with him. [email or web address] Not available 06/28/2023 13:02:09 Plan of Treatment Reminders Order Date Submit Date Provider Last Modified By Organization Details Last Modified Time Details Appointments None recorded. Lab rapid flu (A+B) 2023 024 [facility], [address] [place] [address], [id number] 4 12:50:39 rapid SARS CoV 2 Ag, QL IA, respiratory specimen 2023 [facility], [address] [place] [address], [id number] 4 12:50:37 Referral None recorded. Procedures None recorded. Surgeries None recorded. Imaging None recorded. Medication Orders guaifenesin ER 600 mg tablet, extended release 12 hr 2023 [facility] Not available 12:54:26 Patient TargetsNo targets recorded. Patient InstructionsNo instructions recorded. Reason for Referral None Reported. Results Created Date Observation Date Name Description Value Unit Range Abnormal Flag Note LastModifiedBy Organization Detail LastModifiedTime 06/28/1906/28/2023 rapid SARS CoV 2 Ag, QL IA, respi rator y speci men rapid SARS CoV 2 Ag, QL IA, respiratory specimen negati ve Not Available [facility] ed [address] [place] [address], [id number] 06/28/2023 12:50:10 06/28/1906/28/2023 rapid flu (A+B) Flu negati ve Not Available [facility] ed [address] [place] [address], [id number] 06/28/2023 12:50:09 Result Notes None recorded. Medical Equipment None Reported. Medications Name Sig Start Date Stop Date Status Note LastModified by Organization Details LastModified Time medbox status USE DIRECTED active Not Available Not Available No t Available multivitamin tablet TAKE 1 TABLET BY MOUTH EVERY MORNING WITH FOOD active Not Available Not Available No t Available cyclobenzapri ne 10 mg tablet TAKE 1 TABLET BY MOUTH THREE TIMES DAILY FOR 10 DAYS active Not Available Not Available No t Available nicotine 14 mg/24 hr daily transdermal patch APPLY 1 PATCH ONCE DAILY DIRECTED active Not Available Not Available No t Available ketoconazole 2 % shampoo APPLY TO THE AFFECTED AREA(S) TWICE A WEEK active Not Available Not Available No t Available ibuprofen 800 mg tablet active Not Available Not Available No t Available amitriptyline 75 mg tablet TAKE 1 TABLET BY MOUTH AT BEDTIME active Not Available Not Available No t Available lisinopril 20 mg tablet TAKE 1 TABLET BY MOUTH EVERY MORNING active Not Available Not Available No t Available sertraline 100 mg tablet TAKE 1 TABLET BY MOUTH EVERY MORNING active Not Available Not Available No t Available thiamine HCl (vitamin B1) 100 mg tablet TAKE 1 TABLET BY MOUTH EVERY MORNING active Not Available Not Available No t Available omeprazole 40 mg capsule,delay ed release TAKE 1 CAPSULE BY MOUTH EVERY MORNING BEFORE A MEAL active Not Available Not Available No t Available trazodone 100 mg tablet TAKE 1 TABLET BY MOUTH AT BEDTIME active Not Available Not Available No t Available amlodipine 10 mg tablet TAKE 1 TABLET BY MOUTH EVERY MORNING active Not Available Not Available No t Available folic acid 1 mg tablet TAKE 1 TABLET BY MOUTH EVERY MORNING active Not Available Not Available No t Available hydroxyzine HCl 25 mg tablet TAKE 1 TABLET BY MOUTH EVERY EVENING NEEDED active Not Available Not Available No t Available mirtazapine 15 mg tablet TAKE 1 TABLET BY MOUTH AT BEDTIME active Not Available Not Available No t Available fluticasone propionate 50 mcg/actuation nasal spray,suspens ion INHALE 2 SPRAYS IN EACH NOSTRIL ONCE DAILY NEEDED active Not Available Not Available No t Available clotrimazole 1 % topical cream active Not Available Not Available Not Available naproxen 500 mg tablet TAKE 1 TABLET BY MOUTH TWICE DAILY active Not Available Not Available No t Available Ventolin HFA 90 mcg/actuation aerosol inhaler INHALE 2 PUFFS BY MOUTH EVERY 6 HOURS NEEDED FOR WHEEZING active Not Available Not Available No t Available ciclopirox 0.77 % topical gel APPLY TOPICALLY TO THE AFFECTED AREA DAILY active Not Available Not Available N ot Available neomycin-poly myxin-hydroco rt 3.5 mg-10,000 unit/mL-1 % ear drops,susp INSTILL 4 DROPS IN EACH EAR FOUR TIMES DAILY FOR 10 DAYS active Not Available Not Available No t Available Vitamin D3 25 mcg (1,000 unit) capsule TAKE 1 CAPSULE BY MOUTH EVERY MORNING active Not Available Not Available No t Available Arthritis Pain Relief (acetaminophe n) ER 650 mg tablet,extend release TAKE 2 TABLETS BY MOUTH EVERY 8 HOURS NEEDED SWALLOW WHOLE WITH WATER DO NOT BREAK, CRUSH, DISSOLVE OR CHEW active Not Available Not Available No t Available Flovent HFA 110 mcg/actuation aerosol inhaler INHALE 2 PUFFS BY MOUTH TWICE DAILY RINSE MOUTH AFTER USING. active Not Available Not Available No t Available blood pressure test kit-large cuff USE TO CHECK BLOOD PRESSURE 3 TIMES A WEEK active Not Available Not Available No t Available white petrolatum 42 % topical ointment APPLY TOPICALLY ALL OVER BODY UP TO 2 TIMES PER DAY AFTER BATH OR SHOWER. active Not Available Not Available N ot Available guaifenesin ER 600 mg tablet, extended release 12 hr Take 2 tablets every 12 hours by oral route as needed for 10 days. 2023 active Not Available Not Available Not Avai lable GenTeal Tears Moderate 0.1 %-0.3 %-0.2 % eye drops INSTILL 2 DROPS IN EACH EYE EVERY 8 HOURS NEEDED active Not Available Not Available No t Available Vitals Date Recorded Body temperature Oxygen saturation Oxygen saturation in Arterial blood by Pulse oximetry Respiratory rate Heart rate Systolic blood pressure Diastolic blood pressure Provider Name and Address Organization Details Last Updated DateTime 98.4 [degF] 97 % 97 % 16 /min 75 /min 140 mm[Hg] 100 mm[Hg] Not Available [facility] - production 12:47:35 Social History None recorded. Functional Status None recorded. Mental Status None recorded. Family History Nothing Reported. Medical History No medical history recorded. Past Encounters Encounter ID Performer Location Encounter Start Date Encounter Closed Date Diagnosis/Indication Diagnosis SNOMED-CT Code Diagnosis ICD10 Code Diagnosis Note [id number] Michael Tamez MD [facility] [address] [place] [phone] 06/28/2023 12:47:33 07/01/2023 17:19:40 Viral upper respiratory tract infection 012046777 J06.9 Health Concerns Section Related Observation LastModified by Organization Detai ls LastModified Time None Recorded Concern Status LastModified by Organization Details LastModified Time None Recorded Advance Directives Directive None Recorded Payers Encounter Date Sequence Insurance Name Policy Number Policy Eddy Covered Member ID Eddy Member ID Guarantor Name 06/28/2023 1 [facility] - DOS ON OR AFTER 2022 - DUAL ELIGIBLE - [employer] AND ONE CARE (MEDICARE REPLACEMENT/ADV ANTAGE - HMO) Jesse Link [id number] Jesse Link Notes Date Note Type Note Provider Name and Address Organization Details Recorded Time 06/28/2023 text/html This was a supervised home visit with weld engineer Lizzy Cisneros. HPI: Member said he has not feeling well for the last four day. he has cough x four day. no fever . covid test was negative .................. .................. .................. .................. .................. .................. .................. ............... [facility] Nurse Triage Notes (Natasha Isaacs): Comments: No further information needed to process .................. .................. .................. .................. .................. .................. .................. ............... Station Engineer Note From Lizzy Cisneros: Community Station Engineer Aaron Cisneros [facility] a [facility] for a 53 yom C/O a cough X3 days. Upon arrival, the pt was ambulatory without tachypnea or dyspnea, in no apparent distress. He stated that for the past 3 days, he had a productive cough w/ green/yellow phlegm, and increase in sputum, as well as fatigue and body aches. He stated he had been taking motrin for body pain and had not taken his daily meds for 3 days as well. He denied CROWELL, dizziness, fever, runny/stuffy nose, sore throat, CP, SOB, abd pain, N/V/D, or urinary S/S. Lung sounds clear, no pedal edema. Flu and covid negative. [facility] consulted; pt was given rx for guafenesin, as well as instructions to start taking his daily meds, use tylenol instead of ibuprofen, and hydrate as much as possible. Red flags discussed. .................. .................. .................. .................. .................. .................. .................. ............... Disposition: Fulfilled Michael Tamez MD [address] [place] [address],[address], [place], [phone], [employer] 06/28/2023 13:26:29
--- OUTSIDE RECORDS SUMMARY | 2024-10-15 15:28 | XMS_ITS | Clinical Summary ---
Author Organization [facility] Address [address] [place] [address] Phone Care Team Providers Care Oil Painter Name Role Phone Physician, No Pcp Primary Care Provider Unavaila ble Allergies No known active allergies Encounters Date Type Department Care Team Description 08/14/2024 5:44 PM EST - 08/14/2024 10:57 PM EST Emergency [facility] Emergency [address] [place] [address] Tad Howell MD Pain of left upper extremity (Primary Dx) Discharge Disposition: Left Against Medical Advice from Last 3 Months Medical History Medical History Date Comments Kidney cancer, primary, with metastasis from kidney to other site, left (CMS/[facility] V24, CMS/[facility] V28) Social History Tobacco Use Types Packs/Day Years [...] age to complete this topic Meningococcal B Vaccine Aged Out No l onger eligible based on patient's age to complete [...] Dharmesh Rogers Reviewed and Electronically Signed By: Dhamresh Rogers Signed Date: 08/14/2024 15:09 ET Workstation ID: [id number] Transcribed By: Self Edit Transcribed Date: 08/14/2024 [...] Signed Date: 08/14/2024 15:09 ET Workstation ID: [id number] Transcribed By: Self Edit Transcribed Date: 08/14/2024 15:08 ET us Tad Howell MD IMG XR PROCEDURES Final Resu lt * Troponin I high sensitivity (08/14/2024 2:43 PM EST) Only the most recent of2 resultswithin the time period is included. High Sensitivity Troponin I 4 <=79 ng/L LAB CHEMISTRY METHOD 08/14/2024 3:[address] [facility] Blood Venous blood specimen / Unknown Venipuncture / Unknown 08/14/2024 2:43 PM EST 08/14/2024 2:[address] [facility] - 08/14/2024 3:17 PM EST High levels of biotin in samples may falsely decrease hsTroponin values. ??Use caution when interpreting hsTroponin results in patients taking biotin who exhibit renal impairment (eGFR <60) or in patients taking more than 20 mg/day of biotin. us Tad Howell MD LAB BLOOD ORDERABLES Final R esult [facility] [address] [place] [address], [place] [phone] * (ABNORMAL) CBC auto differential (08/14/2024 11:36 AM EST) [facility] WBC 5.2 4.8 - 10.8 K/mcL LAB HEMETOLOGY METHOD 08/14/2024 12:30 PM [facility] RBC 4.80 4.50 - 5.50 M/mcL LAB HEMETOLOGY METHOD 08/14/2024 12:30 PM [facility] Hemoglobin 14.3 13.5 - 17.5 g/dL LAB HEMETOLOGY METHOD 08/14/2024 12:30 PM [facility] Hematocrit 43.5 42.0 - 54.0 % LAB HEMETOLOGY METHOD 08/14/2024 12:30 PM [facility] MCV 91.0 79.0 - 98.0 FL LAB HEMETOLOGY METHOD 08/14/2024 12:30 PM [facility] MCH 29.9 27.0 - 32.0 pcg LAB HEMETOLOGY METHOD 08/14/2024 12:30 PM [facility] MCHC 32.9 32.0 - 37.0 g/dL LAB HEMETOLOGY METHOD 08/14/2024 12:30 PM [facility] RDW 15.6(H) 11.0 - 15.0 % LAB HEMETOLOGY METHOD 08/14/2024 12:30 PM [facility] Platelets 335 130 - 400 K/mcL LAB HEMETOLOGY METHOD 08/14/2024 12:30 PM [facility] MPV 10.0 7.0 - 11.0 FL LAB HEMETOLOGY METHOD 08/14/2024 12:30 PM [facility] NRBC 0.0 <1.0 % LAB HEMETOLOGY METHOD 08/14/2024 12:30 PM [facility] NRBC Absolute 0.00 <0.10 K/mcL LAB HEMETOLOGY METHOD 08/14/2024 12:30 PM [facility] Neutrophils Relative 61.8 % LAB HEMETOLOGY METHOD 08/14/2024 12:30 PM [facility] Lymphocytes Relative 25.0 % LAB HEMETOLOGY METHOD 08/14/2024 12:30 PM [facility] Monocytes Relative 8.5 % LAB HEMETOLOGY METHOD 08/14/2024 12:30 PM [facility] Eosinophils Relative 3.9 % LAB HEMETOLOGY METHOD 08/14/2024 12:30 PM [facility] Basophils Relative 0.4 % LAB HEMETOLOGY METHOD 08/14/2024 12:30 PM [facility] Immature Granulocytes Relative 0.4 % LAB HEMETOLOGY METHOD 08/14/2024 12:30 PM [facility] Neutrophils Absolute 3.20 1.50 - 7.00 K/mcL LAB HEMETOLOGY METHOD 08/14/2024 12:30 PM [facility] Lymphocytes Absolute 1.29 1.00 - 5.00 K/mcL LAB HEMETOLOGY METHOD 08/14/2024 12:30 PM [facility] Monocytes Absolute 0.44 0.20 - 1.00 K/mcL LAB HEMETOLOGY METHOD 08/14/2024 12:30 PM [facility] Eosinophils Absolute 0.20 0.00 - 0.50 K/mcL LAB HEMETOLOGY METHOD 08/14/2024 12:30 PM [facility] Basophils Absolute 0.02 0.00 - 0.20 K/mcL LAB HEMETOLOGY METHOD 08/14/2024 12:30 PM [facility] Immature Granulocytes Absolute 0.02 0.00 - 0.03 K/mcL LAB HEMETOLOGY METHOD 08/14/2024 12:30 PM [facility] Blood Venous blood specimen / Unknown Venipuncture / Unknown 08/14/2024 11:36 AM EST 08/14/2024 12:18 PM EST us Tad Howell MD LAB BLOOD ORDERABLES Final R esult [facility] [address] [place] [address], [place] [phone] * Magnesium (08/14/2024 11:36 AM EST) Pathologist [facility] Magnesium 2.3 1.9 - 2.6 mg/dL LAB CHEMISTRY METHOD 08/14/2024 12:[address] [facility] Blood Venous blood specimen / Unknown Venipuncture / Unknown 08/14/2024 11:36 AM EST 08/14/2024 12:18 PM EST us Tad Howell MD LAB BLOOD ORDERABLES Final R esult [facility] [address] [place] [address], [place] [phone] * Lipase (08/14/2024 11:36 AM EST) [facility] Lipase 49 13 - 75 unit/L LAB CHEMISTRY METHOD 08/14/2024 12:[address] [facility] Blood Venous blood specimen / Unknown Venipuncture / Unknown 08/14/2024 11:36 AM EST 08/14/2024 12:18 PM EST us Tad Howell MD LAB BLOOD ORDERABLES Final R esult [facility] [address] [place] [address], [place] [phone] * (ABNORMAL) Comprehensive metabolic panel (08/14/2024 11:36 AM EST) [facility] Sodium 141 133 - 145 mmol/L LAB CHEMISTRY METHOD 08/14/2024 12:59 PM [facility] Potassium 3.7 3.5 - 5.5 mmol/L LAB CHEMISTRY METHOD 08/14/2024 12:59 PM [facility] Chloride 110 96 - 110 mmol/L LAB CHEMISTRY METHOD 08/14/2024 12:59 PM [facility] CO2 24 21 - 32 mmol/L LAB CHEMISTRY METHOD 08/14/2024 12:59 PM [facility] Anion Gap 7 3 - 11 LAB CHEMISTRY METHOD 08/14/2024 12:59 PM [facility] Glucose 104(H) 70 - 100 mg/dL LAB CHEMISTRY METHOD 08/14/2024 12:59 PM [facility] BUN 12 5 - 25 mg/dL LAB CHEMISTRY METHOD 08/14/2024 12:59 PM [facility] Creatinine 1.32(H) 0.70 - 1.30 mg/dL LAB CHEMISTRY METHOD 08/14/2024 12:59 PM [facility] eGFR 64 >=60 mL/min/1. 73m2 LAB CHEMISTRY METHOD 08/14/2024 12:59 PM [facility] Comment:Calculation based on the??Chronic Kidney Disease Epidemiology Collaboration (CKD-EPI) equation refit??without adjustment for race. BUN/Creatinine Ratio 9.1 LAB CHEMISTRY METHOD 08/14/2024 12:59 PM [facility] Calcium 8.9 8.5 - 10.5 mg/dL LAB CHEMISTRY METHOD 08/14/2024 12:59 PM [facility] AST (SGOT) 16 10 - 42 unit/L LAB CHEMISTRY METHOD 08/14/2024 12:59 PM [facility] ALT (SGPT) 17 10 - 60 unit/L LAB CHEMISTRY METHOD 08/14/2024 12:59 PM [facility] Alkaline Phosphatase 79 42 - 121 unit/L LAB CHEMISTRY METHOD 08/14/2024 12:[address] [facility] Total Protein 6.6 6.0 - 8.0 g/dL LAB CHEMISTRY METHOD 08/14/2024 12:[address] [facility] Albumin 3.6 3.2 - 5.0 g/dL LAB CHEMISTRY METHOD 08/14/2024 12:[address] [facility] Total Bilirubin 0.5 0.0 - 1.4 mg/dL LAB CHEMISTRY METHOD 08/14/2024 12:[address] [facility] Blood Venous blood specimen / Unknown Venipuncture / Unknown 08/14/2024 11:36 AM EST 08/14/2024 12:18 PM EST us Tad Howell MD LAB BLOOD ORDERABLES Final R esult [facility] [address] [place] [address], * ECG 12 lead (08/14/2024 11:18 AM EST) Ventricular Rate ECG 68 BPM GEMUSE Atrial Rate 68 BPM GEMUSE P-R Interval 160 ms GEMUSE QRS Duration 86 ms GEMUSE Q-T Interval 400 ms GEMUSE QTc 425 ms GEMUSE P Wave [place] 53 degrees GEMUSE R [place] 18 degrees GEMUSE T [place] 29 degrees GEMUSE ECG Interpretation Normal sinus rhythm Normal ECG No previous ECGs available Confirmed by ROSALEE ALLEN ([id number]) on 08/15/2024 9:59:29 AM GEMUSE 08/14/2024 11:1 8 AM EST 08/15/2024 9:59 AM EST us Tad Howell MD ECG ORDERABLES Final Result GEMUSE from Last 3 Months Insurance [employer] MED[employer] Member Subscriber Plan / Payer (Ef fective 2023-Present) Name:Jesse Link Relation to Subscriber:Self Name:Jesse Link Payer ID:[id number] Group ID:[id number] Type:Not on file Address: [facility] [address] [address] Care Teams Oil Painter Relationship Specialty Start Date End Date Physician, No Pcp PCP - General 08/14/24
--- OUTSIDE RECORDS SUMMARY | 2024-10-15 15:28 | XMS_ITS | Encounter Summary ---
Author Organization [employer] Address [address] [facility] [address], [place] [address] Care Team Providers Care Telegraphic Typewriter Operator Chief Name Role Phone Patricia Schofield MD Primary Care Provide r Reason for Visit * Reason Comments Med Refill Encounter Details Date Type Department Care Team ([facility] st Contact Info) Description 06/15/2023 Refill [facility] MEDICINE [address] [place], [place] [phone] Patricia Schofield MD [address] [place] [address] Gastroesophageal reflux disease without esophagitis Social History [...] documented as of this encounter Care Teams Telegraphic Typewriter Operator Chief Relationship Specialty Start Date End Date Patricia Schofield MD [address] [place] [address] PCP - General Family Medicine 02/26/18 documented as of this encounter
--- OUTSIDE RECORDS SUMMARY | 2024-10-15 15:28 | XMS_ITS | Encounter Summary ---
Author Organization [employer] Address [address] [place] [address] [address] [place] [address] Care Team Providers Care Radiology Nurse Name Role Phone Patricia Schofield MD Primary Care Provide r Encounter Details Date Type Department Care Team ([facility] st Contact Info) Description 08/21/2022 Orders Only [facility] [address] [place] [address] Pricilla Eng LPN Social History Tobacco Use [...] on filedocumented in this encounter Care Teams Radiology Nurse Relationship Specialty Start Date End Date Patricia Schofield MD [address] [place] [address] PCP - General Family Medicine 02/26/18 documented as of this encounter
--- OUTSIDE RECORDS SUMMARY | 2024-10-15 15:28 | XMS_ITS | Encounter Summary ---
Author Organization [employer] Address [address] [place] [address] [address] [address] Care Team Providers Care Accounting Director Name Role Phone Patricia Schofield MD Primary Care Provide r Encounter Details Date Type Department Care Team (Latest Contact Info) Description 09/05/2020 Abstract [facility] Dental, Provider, DDS Social History Tobacco [...] on filedocumented in this encounter Care Teams Accounting Director Relationship Specialty Start Date End Date Patricia Schofield MD [address] [place] [id number] PCP - General Family Medicine 02/26/18 documented as of this encounter
--- OUTSIDE RECORDS SUMMARY | 2024-10-15 15:29 | XMS_ITS | Encounter Summary ---
Author Organization [employer] Address [address] [place] [address] [address], [place] [address] Care Team Providers Care Equipment Service Lead Name Role Phone Patricia Schofield MD Primary Care Provide r Encounter Details Date Type Department Care Team (Late st Contact Info) Description 11/07/2022 Orders Only [facility] [address] [place], [place] [phone] Patricia Schofield MD [address] [place] [address] Social History Tobacco Use Types Packs/Day Years [...] on filedocumented in this encounter Care Teams Equipment Service Lead Relationship Specialty Start Date End Date Patricia Schofield MD [address] [place], [place] [phone] PCP - General Family Medicine 02/26/18 documented as of this encounter
--- OUTSIDE RECORDS SUMMARY | 2024-10-15 15:29 | XMS_ITS | Encounter Summary ---
Author Organization [employer] Address [address] [place] [address] Care Team Providers Care Training And Development Head Name Role Phone Patricia Schofield MD Primary Care Provide r Reason for Visit * Reason Onset Date Comments Med Refill 03/11/2024 Encounter Details Date Type Department Care Team (Late st Contact Info) Description 03/11/2024 Refill [facility] MEDICINE [address] [place] [address] Amelia Farmer, PharmD [address] [place] [address] Chronic fatigue Social History Tobacco Use Types [...] to begin [facility] 03/13/2024. Please send to [facility] pharmacy. Can reach me at my extension [phone] for any questions, thank you! documented in this encounter Plan of Treatment Not on file documented as of this encounter Visit Diagnoses Diagnosis Chronic fatigue Other malaise and fatigue documented in this encounter Additional Health Concerns Assessment Noted Time PHQ-9 Depression Total Score: 21 024 2:33 PM EST documented as of this encounter Care Teams Training And Development Head Relationship Specialty Start Date End Date Patricia Schofield MD [address] [place] [address] PCP - General Family Medicine 02/26/18 documented as of this encounter
--- OUTSIDE RECORDS SUMMARY | 2024-10-15 15:29 | XMS_ITS | Encounter Summary ---
Author Organization [employer] Address [address] [place] [address] Care Team Providers Care Manager Pediatric Name Role Phone Patricia Schofield MD Primary Care Provide r Reason for Visit * Reason Onset Date Comments Med Refill 03/11/2024 Encounter Details Date Type Department Care Team (Late st Contact Info) Description 03/11/2024 Refill [facility] MEDICINE [address] [place] [address] Amelia Farmer, PharmD [address] [place] [address] Essential hypertension Social History Tobacco Use Types [...] to begin [facility] 03/13/2024. Please send to [facility] pharmacy. Can reach me at my extension [phone] for any questions, thank you! documented in this encounter Plan of Treatment Not on file documented as of this encounter Visit Diagnoses Diagnosis Essential hypertension Unspecified essential hypertension documented in this encounter Additional Health Concerns Assessment Noted Time PHQ-9 Depression Total Score: 21 024 2:33 PM EST documented as of this encounter Care Teams Manager Pediatric Relationship Specialty Start Date End Date Patricia Schofield MD [address] [place] [address] PCP - General Family Medicine 02/26/18 documented as of this encounter
--- OUTSIDE RECORDS SUMMARY | 2024-10-15 15:29 | XMS_ITS | Data Portability ---
Author Organization [employer] [facility], [id number] Address [address] [place] [address] Assessment No assessment recorded. Plan of Treatment Reminders Order Date Submit Date Provider Last Modified By Organization Details Last Modified Time Details Appointments None record ed. Lab None record ed. Referral None record ed. Procedures None record ed. Surgeries None record ed. Imaging None record ed. Medication Orders None record ed. Patient TargetsNo targets recorded. Patient InstructionsNo instructions recorded. Reason for Referral None Reported. Medical Equipment None Reported. Vitals None Recorded Social History None recorded. Functional Status None recorded. Mental Status None recorded. Family History Nothing Reported. Medical History No medical history recorded. Past Encounters Encounter ID Performer Location Encounter Start Date Encounter Closed Date Diagnosis/Indication Diagnosis SNOMED-CT Code Diagnosis ICD10 Code Diagnosis Note [id number] _[facility] [address] [place] [address] 05/07/2022 15:49:19 05/07/2022 17:57:59 Health Concerns Section Related Observation LastModified by Organization Detai ls LastModified Time None Recorded Concern Status LastModified by Organization Details LastModified Time None Recorded Advance Directives Directive None Recorded Payers None recorded.
--- OUTSIDE RECORDS SUMMARY | 2024-10-15 15:29 | XMS_ITS | Encounter Summary ---
Author Organization [employer] Address [address] [facility] 7[place] [address] Care Team Providers Care Clinical Nutritionist Name Role Phone Patricia Schofield MD Primary Care Provide r Reason for Visit * Reason Comments Med Refill Encounter Details Date Type Department Care Team ([facility] st Contact Info) Description 03/26/2023 Refill [facility] MEDICINE [address] [place], [place] [phone] Patricia Schofield MD [address] [place] [address] Neck pain Social History Tobacco Use Types [...] documented as of this encounter Care Teams Clinical Nutritionist Relationship Specialty Start Date End Date Patricia Schofield MD [address] [place] [address] PCP - General Family Medicine 02/26/18 documented as of this encounter
--- OUTSIDE RECORDS SUMMARY | 2024-10-15 15:29 | XMS_ITS | Encounter Summary ---
Author Organization [employer] Address [address] [place] [address] Care Team Providers Care Benefits Analyst Name Role Phone Patricia Schofield MD Primary Care Provide r Reason for Visit * Reason Onset Date Comments Med Refill 03/11/2024 Encounter Details Date Type Department Care Team (Late st Contact Info) Description 03/11/2024 Refill [facility] MEDICINE [address] [place] [address] Amelia Farmer, PharmD [address] [place] [address] Essential hypertension; Depression, unspecified depression type; Neck [...] to begin Med[facility] 03/13/2024. Please send to [facility] pharmacy. Can reach me at my extension [...] documented as of this encounter Care Teams Benefits Analyst Relationship Specialty Start Date End Date Patricia Schofield MD [address] [place] [address] PCP - General Family Medicine 02/26/18 documented as of this encounter
--- OUTSIDE RECORDS SUMMARY | 2024-10-15 15:29 | XMS_ITS | Encounter Summary ---
Author Organization [employer] Address [address] [facility] [address], [place] [address] Care Team Providers Care Steeping Press Tender Name Role Phone Patricia Schofield MD Primary Care Provide r Reason for Visit * Reason Comments Med Refill Encounter Details Date Type Department Care Team ([facility] st Contact Info) Description 03/11/2024 Refill [facility] MEDICINE [address] [place], [place] [phone] Patricia Schofield MD [address] [place] [address] Depression, unspecified depression type; Anxiety Social History [...] documented as of this encounter Care Teams Steeping Press Tender Relationship Specialty Start Date End Date Patricia Schofield MD [address] [place] [address] PCP - General Family Medicine 02/26/18 documented as of this encounter
== END ==
LOC: HO.CARD 13:01
PROVIDERS: PCP Internal Medicine; Visit Provider Internal Medicine
DX: R06.02 Shortness of breath (principal)
CPT/HCPCS: 93306

== ENCOUNTER → 2024-10-15 13:03 | Outpatient (BNV) | payer OTHER, SELFPAY | PROVIDERS: PCP Internal Medicine; Visit Provider Internal Medicine Cardiovascular Disease | DX: I77.810 Thoracic aortic ectasia (principal) | CPT/HCPCS: 93306 ==

== ENCOUNTER 2024-11-23 09:49 | Outpatient (AMB) | payer OTHER, SELFPAY ==
--- NOTE | 2024-11-23 09:52 | MHC.OFFVIS ---
Vital Signs 11/23/24 09:56 Height 5 ft 10 in Weight 168 lb BMI 24.1 BP 129/77 Blood Pressure Location Lt brachial Position Sitting Pulse 75 Pulse Source Pulse Oximeter Pulse Oximetry (%) 98 Oxygen Delivery Method Room Air Intake Visit Reasons: Cervical spine arthritis with nerve pain Intake Note: Pain today 01/24 Licensed Master Social Worker Required: No Accompanied by: Self / Same As Patient Allergies No Known Allergies Allergy (Verified 09/18/24 14:43) HPI Comments Details: The patient is a 54-year-old male presenting with neck and right hand pain. His symptoms have intensified, primarily affecting the cervical region and extending to the right arm, a condition not triggered by any recent injury by he did fell on ice a year ago. Previously assessed and diagnosed with bilateral ulnar neuropathy, he now experiences exacerbation of symptoms like neck pain, which is provoked further when bending down his neck. He states the current episode is more troublesome than previous instances, particularly while driving or sleeping. Utilizing pillows to aid comfort, he experiences difficulties in certain neck positions. He expresses uncertainty about having a recent MRI or prior surgery regarding his neck. There is a scheduled consultation with a Hand Specialist soon, initially referred for pain potentially linked to underlying arthritic or neuropathic conditions. An MRI is considered to understand better the structural elements of his ongoing neck complaints, especially concerning possible disc-related issues. In meantime, we are awaiting insurance approval for diagnostic cervical medial branch blocks to address his axial neck pain. PRIOR 09/18/24: The patient is a 54-year-old male presenting with chronic neck pain with radicular symptoms. The patient reports worsening neck pain that has persisted for over two years, notably exacerbated in the past year following falls on ice. Cervical x-ray findings from 2022 indicate degenerative changes most notably at C3-C4 and C5-C7 levels. Pain is described as aching, spasming, hurting and cracking with radiation to the arms, causing numbness and tingling, especially on the left side. The condition disrupts sleep, necessitating adjustments such as multiple pillows for arm support. The patient also experiences chronic left-sided migraines and cluster headaches. A history of arthritis is noted in the hands and neck, with an EMG revealing mild bilateral ulnar neuropathy. He is left hand dominant with impaired strength in the left hand. He remains on permanent disability due to his complex medical conditions and receives [facility] services for some assistance at home. He has attempted physical therapy last year without improvement and uses massage therapy without benefit. Cardiac history includes chest pain investigations and an impending echo for aortic assessment. Pain management involves gabapentin and ibuprofen, though gabapentin induces sleepiness. Amitriptyline is also used for headache control. - Onset: Progressively worsening over the past year, with onset more than two years ago. - Quality: Aching, cracking, throbing, shooting, stabbing, sharp, tiring, dull, hurting, tingling. - Primary location: Cervical spine - Radiation: To arms with numbness and tingling, predominantly on the left side. - Exacerbating factors: Falls on ice, maintaining certain head positions, looking up or down, sideways movements. - Relieving factors: Adjustments with pillows during sleep. - Interference: Affects sleep quality and results in arm numbness. - Affect: Pain impacts sleep quality, leading to arm numbness; no specific mention of mood impact. - Analgesia: Currently using ibuprofen and gabapentin; goal pain relief not explicitly mentioned. - Adverse Effects: Gabapentin causes somnolence; no other adverse effects reported. - Activities of Daily Living: Pain affects the ability to sleep comfortably, necessitating specific pillow arrangements. - Aberrant Drug Related Behaviors: No signs of medication misuse or early refill requests mentioned. Oswestry Neck Pain Disability Score=34 (severe disability) [facility] History (Updated 11/23/24 @ 10:03 by BELL Haynes) Bilateral hand numbness Bilateral wrist pain Possible exposure to STI Upper back pain Migraine headache Chronic kidney disease, stage 2 (mild) Hyperlipidemia Bilateral arm pain Adrenal incidentaloma Seborrheic dermatitis of scalp Polyarthralgia Missing teeth, acquired Blurry vision, bilateral Chronic right shoulder pain Smoker Pure hyperglyceridemia Post-traumatic osteoarthritis of both wrists Mood disorder Severe major depression without psychotic features Mild intermittent asthma Homeless History of alcoholism GERD (gastroesophageal reflux disease) Foot callus HTN (hypertension) Episodic cluster headache Clear cell carcinoma of kidney Degenerative disc disease, cervical Cervical spondylosis Surgical History (Updated 08/12/23 @ 12:50 by Jany Boyd) History of nephrectomy, left Family History (Updated 08/12/23 @ 12:50 by Jany Boyd) Mother No problems noted. Father No problems noted. Social History (Updated 08/12/23 @ 12:51 by Jany Boyd) Alcohol intake: current Alcohol intake frequency: holidays/special occasions only Patient Tobacco Use Status: Current someday Tobacco user Review of Systems Const Details: - Musculoskeletal: Reports pain in the neck and right hand; denies recent heavy lifting or any trauma, injury or falls. - Neurological: Reports pain without numbness or tingling in the neck and arm - Other systems: Denies prior neck surgery, confirms upcoming hand specialist appointment All systems reviewed & are unremarkable except as noted in HPI and below Physical Exam General: Appears afebrile. Alert and oriented. Mood and affect appropriate. Follows and participates in conversation appropriately. Respiratory effort is unlabored. No cough. Able to transition from sit to stand unassisted. Ambulates with bilaterally normal heel strike and toe off. Neck Other: Patient with decreased cervical ROM in all planes/especially with right lateral rotations. Reports increased pain with cervical extension and flexion. Spurling compression test negative. Elvey's tension test positive on the right, with pain extending into right elbow and wrist. Lhermitte's test was negative. DTR intact, +2 and symmetrical. Patient demonstrated 4/5 right and 5/5 left motor strength of bilateral upper extremities. 2 + radial pulses. Significant tightness throughout upper trapezius rhomboid muscles. Mild paravertebral tenderness over facet joints bilaterally. Multiple taut bands palpated throughout bilateral upper trapezius muscles. +Tinel's bilaterally. Neck: Yes normal visual inspection, Yes no lymphadenopathy, Yes supple, No anterior neck swelling, Yes no JVD, No prominent supraclavicular fat pad and No prominent dorsocervical fat pad Back/Spine/Pelvis Cervical Spine: No collar present, No Lhermitte's sign positive, loss of normal cervical lordosis, cervical muscular tenderness, pain with cervical ROM, No Cervical spine scars present, cervical spasm, No Cervical spine tenderness and No step off deformity Thoracic/Lumbar Spine: thoracic and lumbar spine normal to inspection, pain with thoraco-lumbar ROM, thoraco-lumbar ROM limited, No thoracic spinal tenderness and No lumbar spinal tenderness Results Reviewed Results Reviewed: XR CERVICAL SPINE XR SHOULDER, RIGHT 02/27/23 CLINICAL INFORMATION: Shoulder and neck pain. COMPARISON: Cervical spine 10/08/2018. TECHNIQUE: 5 views cervical spine, 4 views shoulder. FINDINGS: Cervical spine: Degenerative changes are present in the cervical spine with disc space narrowing at C3-C4 and from C5 through C7. There is endplate sclerosis and osteophyte formation. Findings have progressed slightly when compared to 10/08/2018. No significant foraminal narrowing is seen. No soft tissue swelling, fractures or subluxations. No bony destructive lesions. Right shoulder: There is some minimal degenerative changes at the AC joint. The glenohumeral joint appears normal. IMPRESSION: Degenerative changes in the cervical spine, most marked at C3-C4 and C5-C7. NE electromyogram (EMG) 09/15/24 Bilateral median and ulnar motor and sensory studies were performed. Bilateral radial sensory studies were performed and paraspinal muscles were tested with a needle. IMPRESSION: Mild bilateral ulnar neuropathy across cubital tunnel. Assessment & Plan Assessment & Plan (1) Cervical spondylosis: Code(s): M47.812 - Spondylosis without myelopathy or radiculopathy, cervical region Category: Medical (2) Degenerative disc disease, cervical: Code(s): M50.30 - Other cervical disc degeneration, unspecified cervical region Category: Medical (3) Muscle spasms of neck: Code(s): M62.838 - Other muscle spasm Category: Medical (4) Ulnar neuropathy: Code(s): G56.20 - Lesion of ulnar nerve, unspecified upper limb Category: Medical (5) Bilateral hand numbness: Code(s): R20.0 - Anesthesia of skin Category: Medical (6) Cervical radiculopathy: Code(s): M54.12 - Radiculopathy, cervical region Category: Medical Plan The management plan includes arranging a cervical spine MRI to investigate disc pathology contributing to the cervical radiculopathy and associated right arm symptoms. To address cervical arthritis, plans for a cervical medial branch blocks are contingent upon insurance approval. Evaluation by a Hand Specialist is scheduled for comprehensive assessment involving ulnar neuropathy. An interim strategy of symptom management includes utilizing pillows for support and monitoring the effectiveness following potential injection therapy, adjusting interventions appropriately based on diagnostic outcomes and patient feedback. Continue gabapentin, cyclobenzaprine and amitriptyline for symptomatic relief, monitor for any side effects. All questions and concerns have been answered and patient agreed with the treatment plan. Follow up after injections and sooner as needed. Patient was informed and verbally consented to the use of an ambient scribe for clinic note documentation during this visit. Orders: Orders MR cervical spine wo con Today M47.812 - Spondylosis without myelopathy or radiculopathy, cervical region, M50.30 - Other cervical disc degeneration, unspecified cervical region, M54.12 - Radiculopathy, cervical region, R20.0 - Anesthesia of skin Coding Level of Care Code Est Pt Level 4 (82180) Complex EM visit Add On G2211 Diagnoses Cervical spondylosis M47.812 Degenerative disc disease, cervical M50.30 Muscle spasms of neck M62.838 Ulnar neuropathy G56.20 Bilateral hand numbness R20.0 Cervical radiculopathy M54.12
[2024-11-23 09:56] VITALS: BP 129/77; PULSE 75; O2SAT 98; BMI 24.1
--- OUTSIDE RECORDS SUMMARY | 2024-11-23 10:35 | XMS_ITS | Clinical Summary ---
Author Organization [employer] Address [address] [place] [address] [address], [place] [address] Care Team Providers Care Supervisor Billposting Name Role Phone Patricia Schofield MD Primary [...] Self Plan Patient to [facility] as needed and Patient to [...] Encounters Date Type Department Care Team Description 10/27/2024 Refill [facility] [address] [place] [phone] Patricia Schofield MD Cervical spine arthritis with nerve pain 09/03/2024 Telephone [facility] [address] [place] [address] Patricia Schofield MD 08/28/2024 3:15 PM EDT Office Visit [address] [phone] Patricia Schofield MD Essential hypertension (Primary Dx); Bilateral wrist pain; Bilateral hand numbness; Neck pain; Cervical spine arthritis with nerve pain; Chronic migraine without aura without status migrainosus, not intractable; Trichomoniasis 08/28/2024 Travel 08/28/[address] [phone] Patricia Schofield MD Chronic fatigue 08/26/[address] [address] Ankita Joe RN Appointment Request 08/25/2024 Patient Outreach [address] [phone] Patricia Schofield MD Care Coordination ([facility] outreach for SDOH [facility] - LVM ) 08/25/2024 Patient Outreach [address] [phone] Patricia Schofield MD Pre-visit Planning (SDOH screening negative and tobacco screening negative) from Last 3 Months Immunizations Immunization Administration Dates Next Due Hep B, adult [...] 1970 FIT 1970 FOBT 1970 Sigmoidoscopy 1970 Disability Screening 1970 Alcohol/Substance Use Screening 1982 Hepatitis A [...] 09/05/2020, 11/12/2017, Additional history exists Depression Monitoring 01/24/2024 07/26/2023, 024 Dental X-Ray: [facility]ings 03/19/2024 03/18/20 23, 09/05/2020, 04/26/2017, Additional history exists SDOH Screening 08/25/2025 08/25/2024 Tobacco Screening 08/28/2025 [...] EST) Hepatitis C Antibody Nonreactive Nonreactive [facility] Comment:Antibodies to HCV no t detected; does not exclude early acuteHCV infection. Blood Venous blood specimen / Unknown 05/12/2024 3:42 PM EST 05/12/2024 4:09 PM EST Marii Brown MD LAB BLOOD ORDERABLES Final Result [facility] [address] [place] [phone] * HIV-1/2 Antigen and Antibodies, Fourth Generation, with Reflexes (05/12/2024 3:42 PM EST) Pathologist [facility] HIV AB/AG Nonreactive Nonreactive [facility] Comment:HIV-1 p24 Ag and/or HIV-1/HIV-2 Ab not detected.A test result that is nonreactive does not exclude thepossibility of exposure to or infection with HIV-1 and/orHIV-2. Nonreactive results in this assay for individualswith prior exposure to HIV-1 and/or HIV-2 may be due toantigen and antibody levels that are below the limit ofdetection of this assay.The [employer] HIV Ag/Ab Combo assay result andsupplemental assay results should be interpreted inconjunction with the patient's clinical presentation,history and other laboratory results. If the results areinconsistent with clinical evidence, additional testing issuggested to confirm the result. Blood Venous blood specimen / Unknown 05/12/2024 3:42 PM EST 05/12/2024 4:09 PM EST us Marii Brown MD LAB BLOOD ORDERABLES Final Result Performing Organization Address [facility] Co de Phone Number [facility] [address] [place] [address] [phone] * (ABNORMAL) Lipid Panel, Standard (03/27/2024 1:47 PM EDT) Triglycerides 107 <150 mg/dL [facility] Comment:Desirable Triglyceri de: less than 150 mg/dLBorderline High Triglyceride 150-199 mg/dLHigh Triglyceride: 200-499 mg/dLVery High Triglyceride: greater than or equal to 5OO mg/dL Cholesterol 131 <200 mg/dL [facility] Comment:Desirable Cholestero l: less than 200 mg/dLBorderline High Cholesterol: 200-239 mg/dLHigh Cholesterol: greater than 239 mg/dL LDL Cholesterol Calculated 70 <100 mg/dL [facility] Comment:Desirable LDL: less than 100 mg/dLNear Optimal/Above Optimal LDL: 110- 129 mg/dLBorderline High LDL: 130-159 mg/dLHigh LDL: 160-189 mg/dLVery High LDL: greater than or equal to 190 mg/dL HDL Cholesterol 40(L) >40 mg/dL [facility] Comment:Desirable HDL: great er than 40 mg/dL Note: This HDL assay may give artificially low results in patients with liver disease. Blood Venous blood specimen / Unknown 03/27/2024 1:47 PM EDT 03/27/2024 4:18 PM EDT us Patricia Barfield MD LAB BLOOD ORDERABLES Final Result Performing Organization Address [facility]/ZIP Co de Phone Number [facility] [address] [place] [address] [phone] from Last 3 Months or Most Recently Relevant to Health Maintenance Insurance [employer] [facility] < 65 D[facility]AL - [facility] Care Teams Supervisor Billposting Relationship Specialty Start Date End Date Patricia Schofield MD [address] [place] [phone] PCP - General Family Medicine 02/26/18
== END 2024-11-23 10:19 | disposition home or self-care (01) ==
LOC: HO.PMC 09:50
PROVIDERS: PCP Internal Medicine; Visit Provider Nurse Practitioner Family
DX: M47.812 Spondylosis without myelopathy or radiculopathy, cervical region (principal); M50.30 Other cervical disc degeneration, unspecified cervical region; M62.838 Other muscle spasm; G56.20 Lesion of ulnar nerve, unspecified upper limb; R20.0 Anesthesia of skin; M54.12 Radiculopathy, cervical region
CPT/HCPCS: 99214; G2211

== ENCOUNTER → 2024-11-23 09:49 | Outpatient (BNVA) | payer OTHER, SELFPAY | PROVIDERS: PCP Internal Medicine; Visit Provider Nurse Practitioner Family | DX: M47.812 Spondylosis without myelopathy or radiculopathy, cervical region (principal); M50.30 Other cervical disc degeneration, unspecified cervical region; R20.2 Paresthesia of skin; G56.23 Lesion of ulnar nerve, bilateral upper limbs; M62.838 Other muscle spasm | CPT/HCPCS: 99212 ==

== ENCOUNTER 2024-12-09 14:01 | Outpatient (REF) | payer OTHER, SELFPAY ==
--- NOTE | ~2024-12-09 | XR_ITS ---
CLINICAL HISTORY: M25.531 - Pain in right wrist Right wrist three views Comparison: None provided Findings: Nonspecific deformity of scaphoid noted. Small bone fragments lateral to scaphoid. Question prior scaphoid fracture. Degenerative change throughout the carpals. Impression: Question prior scaphoid fracture as above Left wrist three views Comparison: None provided Findings: No acute fracture or dislocation identified. Degenerative change in lateral compartments. No radiopaque foreign body noted. Impression: No acute bony abnormality This document has been electronically signed by: Vadim Loera MD on 12/10/2024 00:32:58
== END 2024-12-09 14:02 | disposition home or self-care (01) ==
LOC: HO.HOSX 14:01
PROVIDERS: PCP Internal Medicine
DX: M25.531 Pain in right wrist (principal); M25.532 Pain in left wrist; G56.23 Lesion of ulnar nerve, bilateral upper limbs
CPT/HCPCS: 73110; 99202

== ENCOUNTER 2024-12-09 14:01 | Outpatient (AMB) | payer OTHER, SELFPAY ==
[2024-12-09 14:12] VITALS: BMI 24.1
--- NOTE | 2024-12-09 14:12 | MHC.OFFVIS ---
Vital Signs 12/09/24 14:12 Height 5 ft 10 in Weight 168 lb BMI 24.1 Intake Visit Reasons: Esl Professor-Right hand pain Intake Note: Jesse is a left hand dominant male who presents today for a new patient visit for right hand pain evaluation. Patient states had no previous injury. States pain has been going on for around 2 years, he has constant pain in his thumb, index and middle finger. Reports having locking and catching in his middle and ring finger for the last 6 months and has not improved. He states he is having on and off numbness and tingling in fingertips. He reports he has tried braces in the past, had no relief. Allergies No Known Allergies Allergy (Verified 12/09/24 14:19) HPI HPI Esl Professor-Right hand pain: Details: Jesse is a left hand dominant male who presents today for a new patient visit for right hand pain evaluation. Patient states had no previous injury. States pain has been going on for around 2 years, he has constant pain in his thumb, index and middle finger. Reports having locking and catching in his middle and ring finger for the last 6 months and has not improved. He states he is having on and off numbness and tingling in fingertips. He reports he has tried braces in the past, had no relief. 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 Father No problems noted. 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 Good APB muscle firing and good finger cross. Vascular: Capillary refill brisk. ROM: Patient can make a fist and extend all their digits. Skin: No lacerations or abrasions noted. General: No ecchymosis. No erythema or evidence of infection. Assessment & Plan Assessment & Plan (1) Bilateral wrist pain: Code(s): M25.531 - Pain in right wrist; M25.532 - Pain in left wrist Category: Medical (2) Cubital tunnel syndrome, bilateral: Code(s): G56.23 - Lesion of ulnar nerve, bilateral upper limbs Category: Medical Plan 1. Right cubital tunnel syndrome Symptoms intermittent, daily, worse at night I educated the patient about the condition. I discussed both operative and nonoperative treatment options. The patient would like to proceed with surgery. The risks and benefits of operative treatment were discussed with the patient and the patient wishes to proceed with surgery. These risks include, but are not limited to, risk of damage to blood vessels, nerves, tendons, infection, recurrence, incomplete relief of preoperative symptoms, persistent pain, possible need for further surgery, and the risks associated with regional blocks and/or anesthesia. Plan is to take the patient to the operating room at some point in the next few weeks for the following procedures: 1. Right cubital tunnel release under general All of the preoperative paperwork including the consent was discussed today. All of the patient's questions were answered in the clinic today. The patient understands that they will be in contact with our assembler surgical garment to discuss scheduling their procedure. Patient denies diabetes, blood thinners, asthma, heart issues, lung issues, kidney issues, or current smoking. Orders: Orders XR Wrist Alphonso min 3V 12/09/ M25.531 - Pain in right wrist, M25.532 - Pain in left wrist Coding Level of Care Code New Pt Level 4 (82215) Diagnoses Bilateral wrist pain M25.531; M25.532 Cubital tunnel syndrome, bilateral G56.23
--- OUTSIDE RECORDS SUMMARY | 2024-12-09 16:45 | XMS_ITS | Clinical Summary ---
Author Organization [employer] Address [address] [place] [address] 7 [place] [address] Care Team Providers Care [employer] Wholesale [employer] Advisor Name Role Phone Patricia Schofield MD Primary Care Provide r Allergies No known active allergies Medications * This document contains information received from the source organization and may not represent a complete record from that organization. fluticasone (Flonase Allergy Relief) 50 MCG/ACT nasal sprayIndications :Essential hypertension inhale 2 spray by intranasal route every day in each nostril as needed 48 g 07/24/19 23 Active Blood Pressure Monitor kitIndications:E ssential hypertension Use as directed 3x/week 1 kit 11/28/19 23 Active ketoconazole (NIZOral) 2 % shampooIndicatio ns:Seborrheic dermatitis of scalp APPLY TO THE AFFECTED AREA(S) TWICE A WEEK 120 mL 1 09/10/19 24 Active hydrOXYzine HCl (Atarax) 25 MG tabletIndication s:Depression, unspecified depression type,Anxiety TAKE 1 TABLET BY MOUTH EVERY EVENING NEEDED 60 tablet 11/14/19 24 Active cyclobenzaprine (Flexeril) 10 MG tabletIndication s:Neck pain Take 1 tablet (10 mg) by mouth 3 times daily for 10 days. 30 tablet 03/11/20 24 Active famotidine (Pepcid) 20 MG tablet Take 1 tablet (20 mg) by mouth 2 times daily. 60 tablet 11 03/27/20 24 025 Active cholecalciferol (D3-1000) 25 MCG (1000 UT) capsuleIndicatio ns:Essential hypertension TAKE 1 CAPSULE BY MOUTH EVERY MORNING 90 capsule 1 06/03/20 24 Active thiamine (Vitamin B-1) 100 MG tabletIndication s:Essential hypertension TAKE 1 TABLET BY MOUTH EVERY MORNING 90 tablet 1 06/03/20 24 Active lisinopril 20 MG tabletIndication s:Essential hypertension TAKE 1 TABLET BY MOUTH EVERY MORNING 90 tablet 1 06/03/20 24 Active Ventolin HFA 108 (90 Base) MCG/ACT inhalerIndicatio ns:Moderate asthma, unspecified whether complicated, unspecified whether persistent INHALE 2 PUFFS BY MOUTH EVERY 6 HOURS NEEDED FOR WHEEZING 18 g 06/25/19 25 Active amitriptyline (Elavil) 75 MG tabletIndication s:Depression, unspecified depression type TAKE 1 TABLET BY MOUTH AT BEDTIME 30 tablet 3 08/05/19 25 Active sertraline (Zoloft) 50 MG tabletIndication s:Depression, unspecified depression type TAKE 1 TABLET BY MOUTH EVERY MORNING 90 tablet 08/05/19 25 Active Multiple Vitamin (Multivitamin) tabletIndication s:Chronic fatigue TAKE 1 TABLET BY MOUTH EVERY MORNING 30 tablet 3 08/29/19 25 Active gabapentin (Neurontin) 300 MG capsuleIndicatio ns:Cervical spine arthritis with nerve pain Take 1 capsule (300 mg) by mouth 3 times daily. 90 capsule 2 08/29/19 25 026 Active ibuprofen 800 MG tabletIndication s:Cervical spine arthritis with nerve pain,Chronic migraine without aura without status migrainosus, not intractable TAKE 1 TABLET BY MOUTH EVERY 8 HOURS NEEDED FOR MODERATE PAIN OR FOR HEADACHE 90 tablet 11/28/19 25 Active omeprazole (PriLOSEC) [address] capsuleIndicatio ns:Gastroesophag eal reflux disease without esophagitis TAKE 1 CAPSULE BY MOUTH EVERY MORNING BEFORE A MEAL 90 capsule 1 12/08/19 25 Active omeprazole (PriLOSEC) [address] capsuleIndicatio ns:Gastroesophag eal reflux disease without esophagitis TAKE 1 CAPSULE BY MOUTH EVERY MORNING BEFORE A MEAL 90 capsule 1 03/27/20 24 025 Discontinued ibuprofen 800 MG tabletIndication s:Cervical spine arthritis with nerve pain,Chronic migraine without aura without status migrainosus, not intractable Take 1 tablet (800 mg) by mouth every 8 (eight) hours if needed for mild pain. 90 tablet 08/29/19 25 025 Discontinued Active Problems Problem Noted Date Diagnosed Date [...] Self Plan [facility] and Patient to [...] o 2,4,5-trichlorophenoxyacetic acid and 2,4-dichlorophenoxyacetic acid 05/12/2024 Encounters Date Type Department Care Team Description 12/09/2024 Telephone [facility] [address] [place] [address] Patricia Schofield MD Pre-op Visit 12/06/2024 Refill [facility] [address] [place] [phone] Name, MD Tray Gastroesophageal reflux disease without esophagitis 11/26/2024 Refill [facility] [address] [place] [address] Patricia Schofield MD Cervical spine arthritis with nerve pain; Chronic migraine without aura without status migrainosus, not intractable 11/24/2024 Telephone [facility] [address] [place] [address] Patricia Schofield MD SEP RECALL 10/27/2024 Refill [facility] [address] [place] [address] Patricia Schofield MD Cervical spine arthritis with nerve pain from Last 3 Months Immunizations Immunization Administration [...] 79 08/28/2024 3:09 PM EDT Temperature 36.6 C (97.8 F) 08/28/2024 3:09 PM EDT Respiratory Rate 20 08/28/2024 3:09 PM EDT Oxygen Saturation 99% 03/27/2024 2:07 PM EDT Inhaled Oxygen Concentration - - Weight 77.4 kg (170 lb 9.6 oz) 08/28/2024 3:09 P M EDT Height 177.8 cm (5' 10 ) 08/28/2024 3:09 PM EDT Body Mass Index 24.48 08/28/2024 3:09 PM EDT Plan of Treatment Upcoming Encounters Date Type Department Care Team (Late st Contact Info) Description 02/16/2025 3:15 PM EDT Office Visit [facility] [address] [place] [address] Patricia Schfoield MD [address] [place] [address] Health Maintenance Due Date Last Done Comments [...] PM EST) Hepatitis C Antibody Nonreactive Nonreactive [facility] Comment:Antibodies to HCV no t detected; does not exclude early acuteHCV infection. Blood Venous blood specimen / Unknown 05/12/2024 3:42 PM EST 05/12/2024 4:09 PM EST Marii Brown MD LAB BLOOD ORDERABLES Final Result [facility] [address] [place] [phone] * HIV-1/2 Antigen and Antibodies, Fourth Generation, with Reflexes (05/12/2024 3:42 PM EST) HIV AB/AG Nonreactive Nonreactive [facility] Comment:HIV-1 p24 Ag and/or HIV-1/HIV-2 Ab not detected.A test result that is nonreactive does not exclude thepossibility of exposure to or infection with HIV-1 and/orHIV-2. Nonreactive results in this assay for individualswith prior exposure to HIV-1 and/or HIV-2 may be due toantigen and antibody levels that are below the limit ofdetection of this assay.The [employer] HIV Ag/Ab Combo assay result andsupplemental assay results should be interpreted inconjunction with the patient's clinical presentation,history and other laboratory results. If the results areinconsistent with clinical evidence, additional testing issuggested to confirm the result. Blood Venous blood specimen / Unknown 05/12/2024 3:42 PM EST 05/12/2024 4:09 PM EST us Marii Brown MD LAB BLOOD ORDERABLES Final Result Performing Organization Address City/[facility]/ZIP Co de Phone Number [facility] [address] [place] [phone] * (ABNORMAL) Lipid Panel, Standard (03/27/2024 1:47 PM EDT) Triglycerides 107 <150 mg/dL [facility] Comment:Desirable Triglyceri de: less than 150 mg/dLBorderline High Triglyceride 150-199 mg/dLHigh Triglyceride: 200-499 mg/dLVery High Triglyceride: greater than or equal to 5OO mg/dL Cholesterol 131 <200 mg/dL [facility] Comment:Desirable Cholestero l: less than 200 mg/dLBorderline High Cholesterol: 200-239 mg/dLHigh Cholesterol: greater than 239 mg/dL LDL Cholesterol Calculated 70 <100 mg/dL [facility] Comment:Desirable LDL: less than 100 mg/dLNear Optimal/Above Optimal LDL: 110- 129 mg/dLBorderline High LDL: 130-159 mg/dLHigh LDL: 160-189 mg/dLVery High LDL: greater than or equal to 190 mg/dL HDL Cholesterol 40(L) >40 mg/dL [facility] Comment:Desirable HDL: great er than 40 mg/dL Note: This HDL assay may give artificially low results in patients with liver disease. Blood Venous blood specimen / Unknown 03/27/2024 1:47 PM EDT 03/27/2024 4:18 PM EDT us Patricia Barfield MD LAB BLOOD ORDERABLES Final Result [facility] [address] [place] [address] [phone] from Last 3 Months or Most Recently Relevant to Health Maintenance Insurance [facility] [address] [facility] Care Teams [employer] Advisor Relationship Specialty Start Date End Date Patricia Schofield MD [address] [place] [phone] PCP - General Family Medicine 02/26/18
== END 2024-12-09 14:51 | disposition home or self-care (01) ==
LOC: HO.HOS 14:02
PROVIDERS: PCP Internal Medicine
DX: M25.531 Pain in right wrist (principal); M25.532 Pain in left wrist; G56.23 Lesion of ulnar nerve, bilateral upper limbs
CPT/HCPCS: 99204

== ENCOUNTER → 2024-12-09 14:32 | Outpatient (BNV) | payer OTHER, SELFPAY | PROVIDERS: PCP Internal Medicine; Visit Provider Radiology Diagnostic Radiology | DX: M25.531 Pain in right wrist (principal) | CPT/HCPCS: 73110 ==

== ENCOUNTER → 2024-12-21 19:41 | Outpatient (BNV) | payer OTHER, SELFPAY | PROVIDERS: PCP Internal Medicine; Visit Provider Radiology Diagnostic Radiology | DX: M50.323 Other cervical disc degeneration at C6-C7 level (principal); M48.02 Spinal stenosis, cervical region | CPT/HCPCS: 72141 ==

== ENCOUNTER 2024-12-21 19:42 | Outpatient (REF) | payer OTHER, SELFPAY ==
--- NOTE | ~2024-12-21 | MR_ITS ---
CLINICAL HISTORY: M47.812 - Spondylosis without myelopathy or radiculopathy, cervical region Motions noted, reminders given and repeat done. Best exam possible MR cervical spine without contrast Comparison: CR/SR - XR CERVICAL SPINE 5V - 02/27/23 12:58 EDT Findings: Image quality on some series is degraded by patient motion. 2 mm retrolisthesis of C5 on C6, degenerative. 1-2 mm of C6 on C7, degenerative. Multilevel Modic type 1 change much is most prominent C5/C6. Modic type 2 change at the inferior endplate of C6. The prevertebral and paraspinous musculature are within normal limits. The cervical cord is normal in size and signal. C2/C3: No disc herniation. Mild facet and ligamentum flavum hypertrophy. No central canal stenosis. No foraminal stenosis. C3/C4: 2 mm disc herniation. Mild facet/uncovertebral joint and ligamentum flavum hypertrophy. Mild central canal stenosis. Mild bilateral foraminal stenosis. C4/C5: 1-2 mm disc protrusion. Mild uncovertebral joint and ligamentum flavum hypertrophy. Moderate facet joint hypertrophy, greater on the left. Mild central canal stenosis. Mild bilateral foraminal stenosis. C5/C6: 3 mm disc herniation. Moderate facet/uncovertebral joint and ligamentum flavum hypertrophy. Fdqt-ay-bejdtjqg central spinal canal stenosis. Moderate bilateral foraminal stenosis. C6/C7: 3 mm disc herniation. Moderate facet/uncovertebral joint and ligamentum flavum hypertrophy. Moderate central canal stenosis. Severe right and mild left foraminal stenosis. C7/T1: 3 mm disc herniation. Moderate facet joint and ligamentum flavum hypertrophy. Codl-yj-ddormthq central canal stenosis. Moderate to severe bilateral foraminal stenosis. Impression: Multilevel degenerative change, detailed above, which is most prominent C6/C7 with moderate central canal stenosis. This document has been electronically signed by: Jaylin Saucedo MD on 12/21/2024 20:56:02
== END 2024-12-21 19:43 | disposition home or self-care (01) ==
LOC: HO.MRI 19:42
PROVIDERS: PCP Internal Medicine; Visit Provider Nurse Practitioner Family
DX: M47.812 Spondylosis without myelopathy or radiculopathy, cervical region (principal); M50.30 Other cervical disc degeneration, unspecified cervical region; R20.0 Anesthesia of skin; M54.12 Radiculopathy, cervical region
CPT/HCPCS: 72141

== ENCOUNTER 2024-12-31 06:19 | Outpatient (REF) | payer OTHER, SELFPAY ==
--- OUTSIDE RECORDS SUMMARY | 2024-12-31 06:22 | XMS_ITS | Data Portability ---
Author Organization [employer] [facility] Address [address] [place] [address] Care Team Providers Care Gusset Maker Name Role Phone [facility] Referring Provider [facility] Referring Provider Assessment Encounter Date Assessment Date Assessment LastModified by Organization Details LastModified Time 06/28/2023 06/28/2023 I have reviewed and agree with the assessment and plan as documented by the patient account representative. I provided real time medical direction for this encounter and was immediately available to provide additional phone based assistance as needed. History as noted by patient account representative. Pt with history of DM, HTN, reports [...] None recorded. Lab rapid flu (A+B) [address], [id number] 4 12:50:39 rapid SARS CoV 2 Ag, QL IA, respiratory specimen [address], [phone] 4 12:50:37 Referral None recorded. Procedures None [...] IA, respiratory specimen negati ve Not Available [facility] ed [address] [place] [address], [phone] 06/28/2023 12:50:10 06/28/19 24 06/28/2023 rapid flu (A+B) Flu negati ve Not Available [facility] ed [address] [place] [address], [phone] 06/28/2023 12:50:09 Result Notes None recorded. Medical [...] Pulse oximetry Respiratory rate Heart rate Systolic And Diastolic Provider Name and Address Organization Details Last Updated DateTime 98.4 [degF] 97 % 97 % 16 /min 75 /min 140/100 mm[Hg] Not Available [facility] - production 12:47:35 Social History None recorded. Functional Status None recorded. Mental Status None recorded. Family History Nothing Reported. Medical History No medical history recorded. Past Encounters Encounter ID Performer Location Encounter Start Date Encounter Closed Date Diagnosis/Indication Diagnosis SNOMED-CT Code Diagnosis ICD10 Code Diagnosis Note [id number] Michael Tamez MD Main - [facility] [address] [place] [phone] 06/28/2023 12:47:33 07/01/2023 17:19:40 Viral upper respiratory tract infection [id number] J06.9 Health Concerns Section Related Observation LastModified by Organization Detai ls LastModified Time None Recorded Concern Status LastModified by Organization Details LastModified Time None Recorded Advance Directives Directive None Recorded Payers Insurance Date Sequence Insurance Name Policy Number Policy Eddy Covered Member ID Eddy Member ID Guarantor Name 08/01/2023 1 [facility] - DOS ON OR AFTER 2022 - DUAL ELIGIBLE - JAIL OPTIONS AND ONE CARE (MEDICARE REPLACEMENT/ADV ANTAGE - HMO) Jesse Link [id number] Jesse Link Notes Date Note Type Note Provider Name and Address Organization Details Recorded Time 06/28/2023 text/html This was a supervised home visit with patient account representative Lizzy Cisneros. HPI: Member said he has not feeling well for the last four day. he has cough x four day. no fever . covid test was negative .................. .................. .................. .................. .................. .................. .................. ............... [facility] Nurse Triage Notes (Natasha Isaacs): Comments: No further information needed to process .................. .................. .................. .................. .................. .................. .................. ............... Scanning Coordinator Note From Lizzy Cisneros: Community Scanning Coordinator Aaron Cisneros [facility] dispatched to a [facility] for a 53 yom C/O a [...] no pedal edema. Flu and covid negative. C consulted; pt was given rx for guafenesin, as well as instructions to start taking his daily meds, use tylenol instead of ibuprofen, and hydrate as much as possible. Red flags discussed. .................. .................. .................. .................. .................. .................. .................. ............... Disposition: Fulfilled Michael Tamez MD [address] [facility],[address], [place], [address], [facility] [employer] 06/28/2023 13:26:29
--- OUTSIDE RECORDS SUMMARY | 2024-12-31 06:22 | XMS_ITS | Clinical Summary ---
Author Organization [facility] Address [address] [place] [address] Phone Care Team Providers Care Jackscrew Worker Name Role Phone Physician, No Pcp Primary Care Provider Unavaila ble Allergies No known active allergies Medical History Medical History Date Comments Kidney cancer, primary, with metastasis from kidney to other site, left (CMS/[facility] V24, [facility] V28) Social History Tobacco Use Types Packs/Day [...] 68 08/14/2024 9:18 PM EST Temperature 36.9 C (98.4 F) 08/14/2024 9:18 PM EST Respiratory Rate 16 08/14/2024 9:18 PM EST [...] 07/16/2023 Social Influencers of Health Screening 07/16/2023 Influenza Vaccine (#1) 2025 , 04/11/2022, 05/16/2021, Additional history exists Zoster Vaccines Completed 01/17/2022, 11/10/2021 Pneumococcal Vaccine: 50+ Years Completed 11/14/2023, 01/21/2008 COVID-19 Vaccine Completed 04/23/2024, , 01/22/2022, Additional history exists HIB Vaccines Aged Out [...] on patient's age to complete this topic Insurance [facility] MEDICARE Member Subscriber Plan / Payer (Ef fective 2023-Present) Name:Jesse Link Relation to Subscriber:Self Name:Jesse Link Payer ID:[id number] Group ID:[id number] Type:Not on file Address: [place] [address] [place] [id number] Care Teams Jackscrew Worker Relationship Specialty Start Date End Date Physician, No Pcp PCP - General 08/14/24
--- OUTSIDE RECORDS SUMMARY | 2024-12-31 06:22 | XMS_ITS | Clinical Summary ---
Author Organization [employer] Address [address] [place] [address] [address] [place] [address] Care Team Providers Care Manager Commercial Name Role Phone Patricia Schofield MD Primary [...] 90 capsule 1 03/27/20 24 025 Discontinued Active Problems Problem Noted Date Diagnosed Date Cubital tunnel syndrome, right 12/16/2024 Bilateral wrist pain 08/28/2024 Bilateral hand numbness [...] Self Plan Patient to reach out to HHC team as needed and Patient to reach [...] Encounters Date Type Department Care Team Description 12/15/2024 Telephone [facility] MEDICINE [address] [place] [phone] Patricia Schofield MD chart prep 12/09/2024 Orders Only [facility] External Provider, [facility] 12/09/2024 Telephone [facility] MEDICINE [address] [place] [address] Patricia Schofield MD Pre-op Visit 12/06/2024 Refill [facility] [address] [place] [address] Tray Cheema MD Gastroesophageal reflux disease without esophagitis 11/26/2024 Refill [facility] MED[facility] [address] [place] [address] Patrciia Schofield MD Cervical spine arthritis with nerve pain; Chronic migraine without aura without status migrainosus, not intractable 11/24/2024 Telephone [facility] MEDICINE [address] [place] [address] Patricia Schofield MD SEP RECALL 10/27/2024 Refill [facility] MEDICINE [address] [place] [address] Patricia Schofield MD Cervical spine arthritis with [...] your housing situation today? I have harpreet ana 01/27/[address] you li [...] Care Team (Late st Contact Info) Description 01/01/2025 2:15 PM EDT Office Visit [facility] MED[facility]INE [address] [place] [phone] Pepito Rodríguez, KRISHNA [address] [place] [address] 02/16/2025 3:15 PM EDT Office Visit [facility] MED[facility]INE [address] [place] [phone] Patricia Schofield MD [address] [place], [place] [phone] Health Maintenance Due Date Last Done Comments [...] 01/24/2024 07/26/2023, 024 Dental X-Ray: Bitewings 03/19/2024 03/18/20, 09/05/2020, 04/26/2017, Additional history exists Influenza Vaccine (#1) 2025 , 04/11/2022, 05/16/2021, Additional history exists SDOH Screening 08/25/2025 08/25/2024 Tobacco Screening 08/28/2025 08/28/2024 Lipid Panel 03/27/2029 03/27/2024, 10/16, 09/27/2020 RSV Patients and Patients Aged 60 years or older (1 - 1-dose 75+ series) 2045 Zoster Vaccines Completed 01/17/2022, 11/10/2021 Pneumococcal Vaccine: 50+ Years Completed 11/14/2023, 01/21/2008 COVID-19 Vaccine Completed 04/23/2024, , 01/22/2022, Additional history exists HIV Screening Completed 05/12/2024 [...] Procedure Name Priority Date/Time Associated Diagnosis Comments MR CERVICAL SPINE WO CONTRAST Routine 12/21/2024 8:56 PM EDT XR WRIST 3+ VIEWS BILATERAL Routine 12/10/2024 [...] Recently Relevant to Health Maintenance Results * MR Cervical Spine w/o Contrast (12/21/2024 8:56 PM EDT) Anatomical Region Laterality Modality Spine, C-spine Magnetic Resonan ce 12/21/2024 8:56 PM EDT Narrative 12/21/2024 8:58 PM EDT [place] [address] Magnetic Resonance Report Signed Patient: Jesse Link MR#: [id number] : 1970 Acct:[id number] Age/Sex: 54 / M ADM Date: 12/21/24 Loc: HO.MRI Attending Dr: Payton LUU Ordering Physician: Payton Alston Date of Service: 12/21/24 Procedure(s): MR cervical spine wo con Accession Number(s): [id number] cc: Patricia Schofield MD; Pyaton Alston CLINICAL HISTORY: M47.812 - Spondylosis without myelopathy or radiculopathy, cervical region Motions noted, reminders given and repeat done. Best exam possible MR cervical spine without contrast Comparison: CR/SR - XR CERVICAL SPINE 5V - 02/27/23 12:58 EDT Findings: Image quality on some series is degraded by patient motion. 2 mm retrolisthesis of C5 on C6, degenerative. 1-2 mm of C6 on C7, degenerative. Multilevel Modic type 1 change much is most prominent C5/C6. Modic type 2 change at the inferior endplate of C6. The prevertebral and paraspinous musculature are within normal limits. The cervical cord is normal in size and signal. C2/C3: No disc herniation. Mild facet and ligamentum flavum hypertrophy. No central canal stenosis. No foraminal stenosis. C3/C4: 2 mm disc herniation. Mild facet/uncovertebral joint and ligamentum flavum hypertrophy. Mild central canal stenosis. Mild bilateral foraminal stenosis. C4/C5: 1-2 mm disc protrusion. Mild uncovertebral joint and ligamentum flavum hypertrophy. Moderate facet joint hypertrophy, greater on the left. Mild central canal stenosis. Mild bilateral foraminal stenosis. C5/C6: 3 mm disc herniation. Moderate facet/uncovertebral joint and ligamentum flavum hypertrophy. Nvyc-bi-mdlerhoz central spinal canal stenosis. Moderate bilateral foraminal stenosis. C6/C7: 3 mm disc herniation. Moderate facet/uncovertebral joint and ligamentum flavum hypertrophy. Moderate central canal stenosis. Severe right and mild left foraminal stenosis. C7/T1: 3 mm disc herniation. Moderate facet joint and ligamentum flavum hypertrophy. Sywi-pi-sfgatbim central canal stenosis. Moderate to severe bilateral foraminal stenosis. Impression: Multilevel degenerative change, detailed above, which is most prominent C6/C7 with moderate central canal stenosis. 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 Best exam possible MR cervical spine without contrast Comparison: CR/SR - XR CERVICAL SPINE 5V - 02/27/23 12:58 EDT Findings: Image quality on some series is degraded by patient motion. 2 mm retrolisthesis of C5 on C6, degenerative. 1-2 mm of C6 on C7, degenerative. Multilevel Modic type 1 change much is most prominent C5/C6. Modic type 2 change at the inferior endplate of C6. The prevertebral and paraspinous musculature are within normal limits. The cervical cord is normal in size and signal. C2/C3: No disc herniation. Mild facet and ligamentum flavum hypertrophy. No central canal stenosis. No foraminal stenosis. C3/C4: 2 mm disc herniation. Mild facet/uncovertebral joint and ligamentum flavum hypertrophy. Mild central canal stenosis. Mild bilateral foraminal stenosis. C4/C5: 1-2 mm disc protrusion. Mild uncovertebral joint and ligamentum flavum hypertrophy. Moderate facet joint hypertrophy, greater on the left. Mild central canal stenosis. Mild bilateral foraminal stenosis. C5/C6: 3 mm disc herniation. Moderate facet/uncovertebral joint and ligamentum flavum hypertrophy. Xlqx-ec-hagyhmch central spinal canal stenosis. Moderate bilateral foraminal stenosis. C6/C7: 3 mm disc herniation. Moderate facet/uncovertebral joint and ligamentum flavum hypertrophy. Moderate central canal stenosis. Severe right and mild left foraminal stenosis. C7/T1: 3 mm disc herniation. Moderate facet joint and ligamentum flavum hypertrophy. Rgss-sg-nvjepeuo central canal stenosis. Moderate to severe bilateral foraminal stenosis. Impression: Multilevel degenerative change, detailed above, which is most prominent C6/C7 with moderate central canal stenosis. This document has been electronically signed by: Jaylin Saucedo MD on 12/21/2024 20:56:02 Dictated By: Jaylin Savage MD Signed By: <Electronically signed by Jaylin Savage MD in OV> 12/21/242056 DD/ 55 TD/TT: 12/21/242055 Coal Drier Operator: [facility] External Provider IMG MRI PROCEDURES Final Result * XR Wrist 3+ Views Bilateral (12/10/2024 12:32 AM EDT) Anatomical Region Laterality Modality Upper Extremities, Wrist Bilateral Radiogr aphic Imaging 12/10/2024 12:3 2 AM EDT Narrative 12/10/2024 12:35 AM EDT [facility] [address] [place] [address] [place] [address] XRay Report Signed Patient: Jesse Link MR#: [id number] : 1970 Acct:[id number] Age/Sex: 54 / M ADM Date: 12/09/24 Loc: HO.HOSX Attending Dr: Natan TILLEY Ordering Physician: Natan Dorsey Date of Service: 12/09/24 Procedure(s): XR Wrist Alphonso min 3V Accession Number(s): [id number] cc: Natan Dorsey; Patricia Schofield MD CLINICAL [...] MD in OV> 12/10/2433 DD/ TD/TT: 12/10/2431 Coal Drier Operator: Procedure Note Donotuseinterpreter, Image - 12/10/2024 [facility] [address] [place] [address] [address] [place] [address] XRay Report Signed Patient: Jesse Link LMR#: [id number] : 1970Acct:[id number] Age/Sex: 54 / MADM Date: 12/09/24 Loc: HO.HOSX Attending Dr: Natan TILLEY Ordering Physician: Natan Dorsey Date of Service: 12/09/24 Procedure(s): XR Wrist Alphonso min 3V Accession Number(s): [id number] cc: Natan Dorsey; Patricia Schofield MD CLINICAL [...] MD in OV> 12/10/2433 DD/ TD/TT: 12/10/2431 Coal Drier Operator: Result [facility] External Provider IMG XR PROCEDURES Edited Result - Final * Hepatitis C Antibody with Reflex to HCV, RNA, Quantitative, Real-Time PCR (05/12/2024 3:42 PM EST) Hepatitis C Antibody Nonreactive Nonreactive [facility] Comment:Antibodies to HCV no t detected; does not exclude early acuteHCV infection. Blood Venous blood specimen / Unknown 05/12/2024 3:42 PM EST 05/12/2024 4:09 PM EST Result [facility] Marii Brown MD LAB BLOOD ORDERABLES Final Result [facility] [address] [place] [phone] * HIV-1/2 Antigen and Antibodies, Fourth Generation, with Reflexes (05/12/2024 3:42 PM EST) HIV AB/AG Nonreactive Nonreactive [facility] Comment:HIV-1 p24 Ag and/or HIV-1/HIV-2 Ab not detected.A test result that is nonreactive does not exclude thepossibility of exposure to or infection with HIV-1 and/orHIV-2. Nonreactive results in this assay for individualswith prior exposure to HIV-1 and/or HIV-2 may be due toantigen and antibody levels that are below the limit ofdetection of this assay.The [place] HIV Ag/Ab Combo assay result andsupplemental assay results should be interpreted inconjunction with the patient's clinical presentation,history and other laboratory results. If the results areinconsistent with clinical evidence, additional testing issuggested to confirm the result. Blood Venous blood specimen / Unknown 05/12/2024 3:42 PM EST 05/12/2024 4:09 PM EST Result [facility] Marii Brown MD LAB BLOOD ORDERABLES Final Result Performing Organization Address [facility] Co de Phone Number [facility] [address] [place] [phone] * (ABNORMAL) Lipid Panel, Standard (03/27/2024 1:47 PM EDT) Triglycerides 107 <150 mg/dL [facility] Comment:Desirable Triglyceri de: less than 150 mg/dLBorderline High Triglyceride 150-199 mg/dLHigh Triglyceride: 200-499 mg/dLVery High Triglyceride: greater than or equal to 5OO mg/dL Cholesterol 131 <200 mg/dL [facility] Comment:Desirable Cholestero l: less than 200 mg/dLBorderline High Cholesterol: 200-239 mg/dLHigh Cholesterol: greater than 239 mg/dL LDL Cholesterol Calculated 70 <100 mg/dL [facility] Comment:Desirable LDL: less than 100 mg/dLNear Optimal/Above Optimal LDL: 110- 129 mg/dLBorderline High LDL: 130-159 mg/dLHigh LDL: 160-189 mg/dLVery High LDL: greater than or equal to 190 mg/dL HDL Cholesterol 40(L) >40 mg/dL [facility] Comment:Desirable HDL: great er than 40 mg/dL Note: This HDL assay may give artificially low results in patients with liver disease. Blood Venous blood specimen / Unknown 03/27/2024 1:47 PM EDT 03/27/2024 4:18 PM EDT us Patricia Barfield MD LAB BLOOD ORDERABLES Final Result Performing Organization Address City/[facility]/ZIP Co de Phone Number [facility] [address] [place] [address] [phone] from Last 3 Months or Most Recently Relevant to Health Maintenance Insurance [employer] ONE CARE < 65 DENTAL - [facility] Care Teams Manager Commercial Relationship Specialty Start Date End Date Patricia Schofield MD [address] [place] [phone] PCP - General Family Medicine 02/26/18
== END 2024-12-31 06:20 | disposition home or self-care (01) ==
LOC: CF 06:19
PROVIDERS: Visit Provider Internal Medicine
DX: Z13.89 Encounter for screening for other disorder (principal)

== ENCOUNTER 2025-01-06 12:57 | Outpatient (AMB) | payer OTHER, SELFPAY ==
--- OUTSIDE RECORDS SUMMARY | 2025-01-06 13:23 | XMS_ITS | Clinical Summary ---
Author Organization [facility] Address [address] [place] [address] Phone Care Team Providers Care Water Resources Technical Officer Name Role Phone Physician, No Pcp Primary Care Provider Unavaila ble Allergies No known active allergies Medical History Medical History Date Comments Kidney cancer, primary, with metastasis from kidney to other site, left (CMS/[facility] V24, [facility] V28) Social History Tobacco Use Types [...] Panel) 07/16/2023 Colorectal Cancer Screening: Colonoscopy 07/16/2023 HIV Screening 07/16/2023 Hepatitis C Screening 07/16/2023 Medicare Annual Wellness Visit 07/16/2023 Social Influencers of Health Screening 07/16/2023 Depression Screening 06/17/2024 Influenza Vaccine (#1) 2025 , 04/11/2022, 05/16/2021, [...] patient's age to complete this topic Insurance [facility] MEDIC[facility] Member Subscriber Plan / Payer (Ef fective 2023-Present) Name:Jesse Link Relation to Subscriber:Self Name:Jesse Link Payer ID:[id number] Group ID:[id number] Type:Not on file Address: [place] [address] [address] [address] Care Teams Water Resources Technical Officer Relationship Specialty Start Date End Date Physician, No Pcp PCP - General 08/14/24
--- OUTSIDE RECORDS SUMMARY | 2025-01-06 13:23 | XMS_ITS | Data Portability ---
Author Organization [facility] [employer] [facility] Address [address] [place] [address] Care Team Providers Care Plastic Frame Inserter Name Role Phone [facility] Referring Provider [facility] Referring Provider Assessment Encounter Date Assessment Date Assessment LastModified by Organization Details LastModified Time 06/28/2023 06/28/2023 I have reviewed and agree with the assessment and plan as documented by the cash posting clerk. I provided real time medical direction for this encounter and was immediately available to provide additional phone based assistance as needed. History as noted by cash posting clerk. Pt with history of DM, HTN, reports [...] None recorded. Lab rapid flu (A+B) [address], [address] 4 12:50:39 rapid SARS CoV 2 Ag, QL [place], respiratory specimen [address], [address] 4 12:50:37 Referral None recorded. Procedures None [...] IA, respiratory specimen negati ve Not Available [facility] ed [address] [place] [address], [phone] 06/28/2023 12:50:10 06/28/19 24 06/28/2023 rapid flu (A+B) Flu negati ve Not Available [facility] ed [address] [place] [address], [phone] 06/28/2023 12:50:09 Result Notes None recorded. Medical [...] SNOMED-CT Code Diagnosis ICD10 Code Diagnosis Note [id number] Michael Tamez MD Main - instED [address] [place] [phone] 06/28/2023 12:47:33 07/01/2023 17:19:40 Viral upper respiratory tract infection [id number] J06.9 Health Concerns Section Related Observation LastModified by Organization Detai ls LastModified Time None Recorded Concern Status LastModified by Organization Details LastModified Time None Recorded Advance Directives Directive None Recorded Payers Insurance Date Sequence Insurance Name Policy Number Policy Eddy Covered Member ID Eddy Member ID Guarantor Name 08/01/2023 1 [facility] - DOS ON OR AFTER 2022 - DUAL ELIGIBLE - CARE HOME OPTIONS AND ONE CARE (MEDICARE REPLACEMENT/ADV ANTAGE - HMO) Jesse Link [id number] Jesse Link Notes Date Note Type Note Provider Name and Address Organization Details Recorded Time 06/28/2023 text/html ROS as noted in the HPI This was a supervised home visit with cash posting clerk Lizzy Cisneros. HPI: Member said he has not feeling well for the last four day. he has cough x four day. no fever . covid test was negative .................. .................. .................. .................. .................. .................. .................. ............... [facility] Nurse Triage Notes (Natasha Isaacs): Comments: No further information needed to process .................. .................. .................. .................. .................. .................. .................. ............... Pretzel Twister Note From Lizzy Cisneros: Community Pretzel Twister Aaron Cisneros CCA1 dispatched to [facility] for a 53 yom C/O a cough [...] ............... Disposition: Fulfilled Michael Tamez MD [address] [facility],[address], [place], [phone], MADI - HalobandGENEVIEVE 06/28/2023 13:26:29
--- OUTSIDE RECORDS SUMMARY | 2025-01-06 13:23 | XMS_ITS | Clinical Summary ---
Author Organization [facility] [employer] Address [address] [place] [address] [address] [place] [address] Care Team Providers Care Shells Inspector Name Role Phone Patricia Schofield MD Primary [...] BEDTIME 30 tablet 3 08/05/19 25 Active Multiple Vitamin (Multivitamin) tabletIndication [...] MEAL 90 capsule 1 12/08/19 25 Active sertraline (Zoloft) 50 MG tabletIndication s:Depression, unspecified depression type TAKE 1 TABLET BY MOUTH EVERY MORNING 90 tablet 01/02/20 25 Active sertraline (Zoloft) 50 MG tabletIndication s:Depression, unspecified depression type TAKE 1 TABLET BY MOUTH EVERY MORNING 90 tablet 08/05/19 25 025 Discontinued Active Problems Problem Noted [...] Self Plan [facility] as needed and Patient [...] Encounters Date Type Department Care Team Description 01/01/2025 2:15 PM EDT Office Visit [address] [address] Rodríguez, Alexxis, PUBLIC HEALTH REGISTRAR Cubital tunnel syndrome on right (Primary Dx); Pre-op evaluation 01/01/2025 Travel 01/01/2025 Refill [facility] [address] [place] [address] Patrciia Schofield MD Depression, unspecified depression type 12/31/2024 Telephone [facility] [address] [place] [phone] Nadiya Goodrich MA Chart Prep 12/15/2024 Telephone [facility] [address] [place] [address] Patricia Schofield MD chart prep 12/09/2024 Orders Only [facility] External Provider, [facility] 12/09/2024 Telephone [facility] [address] [place] [phone] Patricia Schofield MD Pre-op Visit 12/06/2024 Refill [facility] [address] [place] [phone] Tray Cheema MD Gastroesophageal reflux disease without esophagitis 11/26/2024 Refill [facility] [address] [place] [address] Patricia Schofield MD Cervical spine arthritis with nerve pain; Chronic migraine without aura without status migrainosus, not intractable 11/24/2024 Telephone [facility] [address] [place] [phone] Patricia Schofield MD SEP RECALL 10/27/2024 Refill [facility] [address] [place] [address] Patricia Schofield MD Cervical spine arthritis with [...] Answer Date Recorded Patient Health Questionnaire-9 Score 11 01/01/2025 Patient Health Questionnaire-9 Score 11 01/01/2025 Last PHQ-9: Questionnaire Data Not on file 0 01/01/2025 Housing Stability Answer Date Recorded What is [...] Answer Date Recorded Patient Health Questionnaire-2 Score 3 01/01/2025 Internet Access Answer Date Recorded Internet Access [...] Sign Reading Time Taken Comments Blood Pressure 110/80 01/01/2025 2:19 PM EDT Pulse 79 01/01/2025 2:19 PM EDT Temperature 36.6 C (97.9 F) 01/01/2025 2:19 PM EDT Respiratory Rate 20 01/01/2025 2:19 PM EDT Oxygen Saturation 98% 01/01/2025 2:19 PM EDT Inhaled Oxygen Concentration - - Weight 75.7 kg (166 lb 12.8 oz) 01/01/2025 2:19 PM EDT Height 176.5 cm (5' 9.5 ) 01/01/2025 2:19 PM EDT Body Mass Index 24.28 01/01/2025 2:19 PM EDT Plan of Treatment Upcoming Encounters Date Type Department Care Team (Late st Contact Info) Description 02/16/2025 3:15 PM EDT Office Visit [facility] [address] [place] [address] Patricia Schofield MD [address] [place] [address] Health Maintenance Due Date Last Done Comments CT Colonography 1970 Colonoscopy 1970 Colorectal Cancer Screening 1970 FIT DNA/Cologuard 1970 FIT 1970 FOBT 1970 Sigmoidoscopy 1970 Hepatitis A Vaccines (1 of 2 - [...] Additional history exists Dental X-Ray: Bitewings 03/19/2024 03/18/20, 09/05/2020, 04/26/2017, Additional history exists Influenza Vaccine (#1) 2025 , 04/11/2022, 05/16/2021, Additional history exists Depression Monitoring 07/04/2025 01/01/2025, 025 SDOH Screening 08/25/2025 08/25/2024 Alcohol/Substance Use Screening 01/01/2026 01/01/2025 Disability Screening 01/01/2026 01/01/2025 Tobacco Screening 01/01/2026 01/01/2025 Lipid Panel 03/27/2029 03/27/2024, 10/16, 09/27/2020 RSV [...] Name Priority Date/Time Associated Diagnosis Comments ECG 12-LEAD Routine 01/01/2025 2:44 PM EDT Cubital tunnel syndrome on right Pre-op evaluation MR CERVICAL SPINE WO CONTRAST Routine 12/21/2024 [...] Recently Relevant to Health Maintenance Results * ECG 12 lead (01/01/2025 2:44 PM EDT) Pepito Couch CNP - 01/01/2025 2:44 PM EDT EKG: NSR, Rate 70bpm, No ST segmental changes, no QR interval changes, normal ECG Pepito Rodríguez PUBLIC HEALTH REGISTRAR ECG ORDERABLES Final Res ult * MR Cervical Spine w/o Contrast (12/21/2024 8:56 PM EDT) Anatomical Region Laterality Modality Spine, C-spine Magnetic Resonan ce 12/21/2024 8:56 PM EDT Narrative 12/21/2024 8:58 PM EDT [address] [address] Magnetic Resonance Report Signed Patient: Jesse Link MR#: [id number] : 1970 Acct:[id number] Age/Sex: 54 / M ADM Date: 12/21/24 Loc: HO.MRI Attending Dr: Payton LUU Ordering Physician: Payton Alston Date of Service: 12/21/24 Procedure(s): MR cervical spine wo con Accession Number(s): [id number] cc: Patricia Schofield MD; Payton Alston CLINICAL [...] Moderate facet/uncovertebral joint and ligamentum flavum hypertrophy. Ddsc-nd-dsllafqm central spinal canal stenosis. Moderate bilateral foraminal stenosis. C6/C7: 3 mm disc herniation. Moderate facet/uncovertebral joint and ligamentum flavum hypertrophy. Moderate central canal stenosis. Severe right and mild left foraminal stenosis. C7/T1: 3 mm disc herniation. Moderate facet joint and ligamentum flavum hypertrophy. Ljhc-wp-aokwtbgu central canal stenosis. Moderate to severe bilateral foraminal stenosis. Impression: Multilevel degenerative change, detailed above, which is most prominent C6/C7 with moderate central canal stenosis. This document has been electronically signed by: Jaylin Saucedo MD on 12/21/2024 20:56:02 Dictated By: Jaylin Savage MD Signed By: <Electronically signed by Jaylin Savage MD in OV> 12/21/242056 DD/ 55 TD/TT: 12/21/242055 Job Checker: Procedure Note Donotuseinterpreter, Image - 12/21/[address] [address] Magnetic Resonance Report Signed Patient: Jesse Link LMR#: [id number] : 1970Acct:[id number] Age/Sex: 54 / MADM Date: 12/21/24 Loc: HO.MRI Attending Dr: Payton LUU Ordering Physician: Payton Alston Date of Service: 12/21/24 Procedure(s): MR cervical spine wo con Accession Number(s): [id number] cc: Patricia Schofield MD; Payton Alston CLINICAL [...] Moderate facet/uncovertebral joint and ligamentum flavum hypertrophy. Qxno-ro-iybvmkpn central spinal canal stenosis. Moderate bilateral foraminal stenosis. C6/C7: 3 mm disc herniation. Moderate facet/uncovertebral joint and ligamentum flavum hypertrophy. Moderate central canal stenosis. Severe right and mild left foraminal stenosis. C7/T1: 3 mm disc herniation. Moderate facet joint and ligamentum flavum hypertrophy. Xeft-qs-czotyarz central canal stenosis. Moderate to severe bilateral foraminal stenosis. Impression: Multilevel degenerative change, detailed above, which is most prominent C6/C7 with moderate central canal stenosis. This document has been electronically signed by: Jaylin Saucedo MD on 12/21/2024 20:56:02 Dictated By: Jaylin Savage MD Signed By: <Electronically signed by Jaylin Savage MD in OV> 12/21/242056 DD/ 55 TD/TT: 12/21/242055 Job Checker: [facility] External Provider IMG MRI PROCEDURES Final Result * XR Wrist 3+ Views Bilateral (12/10/2024 12:32 AM EDT) Anatomical Region Laterality Modality Upper Extremities, Wrist Bilateral Radiogr aphic Imaging 12/10/2024 12:3 2 AM EDT Narrative 12/10/2024 12:35 AM EDT [facility] [address] [place] [address] [address] [place] [address] XRay Report Signed Patient: Jesse Link MR#: [id number] : 1970 Acct:[id number] Age/Sex: 54 / M ADM Date: 12/09/24 Loc: [facility] Attending Dr: Natan TILLEY Ordering Physician: Natan Dorsey Date of Service: 12/09/24 Procedure(s): XR Wrist Alphonso min 3V Accession Number(s): [id number] cc: Natan Dorsey; Patricia Schofield MD CLINICAL [...] MD in OV> 12/10/2433 DD/ TD/TT: 12/10/2431 Job Checker: Procedure Note Donmikeyinterpreter, Image - 12/10/2024 [facility] [address] [place] [address] Drive [address] [place] [address] XRay Report Signed Patient: Jesse Link LMR#: [id number] : 1970Acct:[id number] Age/Sex: 54 / MADM Date: 12/09/24 Loc: [facility] Attending Dr: Natan TILLEY Ordering Physician: Natan Dorsey Date of Service: 12/09/24 Procedure(s): XR Wrist Alphonso min 3V Accession Number(s): [id number] cc: Natan Dorsey; Patricia Schofield MD CLINICAL [...] MD in OV> 12/10/2433 DD/ TD/TT: 12/10/2431 Job Checker: [facility] External Provider IMG XR PROCEDURES Edited Result - Final * Hepatitis C Antibody with Reflex to HCV, RNA, Quantitative, Real-Time PCR (05/12/2024 3:42 PM EST) Hepatitis C Antibody Nonreactive Nonreactive [facility] Comment:Antibodies to HCV no t detected; does not exclude early acuteHCV infection. Blood Venous blood specimen / Unknown 05/12/2024 3:42 PM EST 05/12/2024 4:09 PM EST Marii Brown MD LAB BLOOD ORDERABLES Final Result [facility] [address] [place] [address] [phone] * HIV-1/2 Antigen and Antibodies, Fourth Generation, with Reflexes (05/12/2024 3:42 PM EST) HIV AB/AG Nonreactive Nonreactive [facility] Comment:HIV-1 p24 Ag and/or HIV-1/HIV-2 Ab not detected.A test result that is nonreactive does not exclude thepossibility of exposure to or infection with HIV-1 and/orHIV-2. Nonreactive results in this assay for individualswith prior exposure to HIV-1 and/or HIV-2 may be due toantigen and antibody levels that are below the limit ofdetection of this assay.The [employer] HIV Ag/Ab Combo assay result andsupplemental assay results should be interpreted inconjunction with the patient's clinical presentation,history and other laboratory results. If the results areinconsistent with clinical evidence, additional testing issuggested to confirm the result. Blood Venous blood specimen / Unknown 05/12/2024 3:42 PM EST 05/12/2024 4:09 PM EST us Marii Brown MD LAB BLOOD ORDERABLES Final Result [facility] [address] [place] [phone] * (ABNORMAL) Lipid Panel, Standard (03/27/2024 1:47 PM EDT) Triglycerides 107 <150 mg/dL [facility] Comment:Desirable Triglyceri de: less than 150 mg/dLBorderline High Triglyceride 150-199 mg/dLHigh Triglyceride: 200-499 mg/dLVery High Triglyceride: greater than or equal to 5OO mg/dL Cholesterol 131 <200 mg/dL [facility] Comment:Desirable Cholestero l: less than 200 mg/dLBorderline High Cholesterol: 200-239 mg/dLHigh Cholesterol: greater than 239 mg/dL LDL Cholesterol Calculated 70 <100 mg/dL [facility] Comment:Desirable LDL: less than 100 mg/dLNear Optimal/Above Optimal LDL: 110- 129 mg/dLBorderline High LDL: 130-159 mg/dLHigh LDL: 160-189 mg/dLVery High LDL: greater than or equal to 190 mg/dL HDL Cholesterol 40(L) >40 mg/dL [facility] Comment:Desirable HDL: great er than 40 mg/dL Note: This HDL assay may give artificially low results in patients with liver disease. Blood Venous blood specimen / Unknown 03/27/2024 1:47 PM EDT 03/27/2024 4:18 PM EDT us Patricia Barfield MD LAB BLOOD ORDERABLES Final Result [facility] [address] [place] [address] [phone] from Last 3 Months or Most Recently Relevant to Health Maintenance [place] [address] [address] Care Teams Shells Inspector Relationship Specialty Start Date End Date Patricia Schofield MD [address] [place] [phone] PCP - General Family Medicine 02/26/18
--- NOTE | 2025-01-06 13:35 | MHC.OFFVIS ---
Vital Signs 01/06/25 13:43 Height 5 ft 10 in Weight 160 lb BMI 23.0 Intake Visit Reasons: OV-Bilateral Wrist Pain Intake Note: Jesse 54 yr old male presents today for a follow up visit for his right cubital tunnel. States he is ready to have surgery however he is also having wrist pain and currently has a O.A flare up on bilateral wrist that is limiing his ROM. Allergies No Known Allergies Allergy (Verified 01/06/25 13:47) HPI HPI OV-Bilateral Wrist Pain: Details: Jesse is a 54 year old left hand dominant man who presents for bilateral wrist OA pain. He complains of pain & limited ROM in his bilateral wrists, which he says is due to arthritis. His chief complaint today is of pain in his right wrist, which he says has been bothersome intermittently for ~1 year now. He has bilateral cubital tunnel syndrome, with numbness in his bilateral small fingers. Symptoms intermittent, but daily, worse at night. This has been present for ~4 months now. He is currently scheduled for a right Cubital tunnel release on 01/21/25. He has severe cervical radiculopathy, with multiple disc herniations seen on MRI. He follows with Pain Management for this. He is out of work on Disability, and has a [employer] for assistance. He is a smoker, with a Hx of CKD II & Polyarthralgia. [facility] Medical History (Updated 01/06/25 @ 14:15 by Kwaku Bourne) Neck pain Back pain History of kidney cancer (~2020) Dizziness BRISA (generalized anxiety disorder) Snores Asthma History of cardiac murmur as a child Bilateral hand numbness Bilateral wrist pain Possible exposure to STI Upper back pain Migraine headache Chronic kidney disease, stage 2 (mild) Hyperlipidemia Bilateral arm pain Adrenal incidentaloma Seborrheic dermatitis of scalp Polyarthralgia Missing teeth, acquired Blurry vision, bilateral Chronic right shoulder pain Smoker Pure hyperglyceridemia Post-traumatic osteoarthritis of both wrists Mood disorder Severe major depression without psychotic features Mild intermittent asthma Homeless History of alcoholism GERD (gastroesophageal reflux disease) Foot callus HTN (hypertension) Episodic cluster headache Clear cell carcinoma of kidney Degenerative disc disease, cervical Cervical spondylosis Surgical History History of nephrectomy, left Family History (Updated 08/12/23 @ 12:50 by Jany Boyd) Mother No problems noted. Father No problems noted. Social History Household Members: Family Housing: Apartment Are you a primary healthcare applications analyst to a significant other at home: No Do you presently have visiting nurse or other home services: No Alcohol intake: current Alcohol intake frequency: holidays/special occasions only Patient Tobacco Use Status: Current someday Tobacco user Tobacco use type: Cigarette Current occupational status: disabled Current occupation: left hand Review of Systems Const All systems reviewed & are unremarkable except as noted in HPI and below Physical Exam Vital Signs: BMI result Body Mass Index 23.0 Const General: cooperative, healthy appearing and no acute distress Orientation/consciousness: patient oriented x3 HEENT Head: Yes normocephalic and Yes atraumatic Eyes EOM: EOMs intact bilaterally Resp Effort & Inspection: normal respiratory effort and able to speak in complete sentences Cardio Jugular venous distension: no JVD Skin General skin exam: turgor normal Rashes: no rashes Neuro General: patient oriented x3 Extrem Other: Evaluation of Bilateral Upper Extremity: The patient is alert, oriented, and in no acute distress Neuro: Median, Ulnar, Radial nerves motor and sensory intact and sensation is normal to the tips of all digits Vascular: Cap refill brisk ROM: He can make a fist and extend all his digits No locking or catching Skin: No lacerations or abrasions. General: No Ecchymosis. No Erythema or evidence of infection. Bilateral wrist swelling and enlargement of the radiocarpal joint, radial aspect Right: TTP in this area Radiographs: 3 views of the right wrist from 12/10/24 were reviewed by me today in clinic. They show end stage radioscaphoid arthritis with near complete loss of the joint space between the distal radius, radial styloid, and scaphoid. There are 2 loose bodies just distal to the radial styloid, and the proximal pole of scaphoid appears to be missing. There is also mid carpal arthritis with loss of joint space between capitate & lunate, suggestive for SNAC vs SLAC wrist 3 views of the left wrist from 12/10/24 were reviewed by me today in clinic. They show end stage radioscaphoid arthritis with near complete loss of the joint space between the distal radius, radial styloid, and scaphoid. There are 2 loose bodies just distal to the radial styloid, and the proximal pole of scaphoid appears to be missing. There is also mid carpal arthritis with loss of joint space between capitate & lunate, suggestive for SNAC vs SLAC wrist Nerve Conduction study: IMPRESSION: Mild bilateral ulnar neuropathy across cubital tunnel. Vanessa Levy MD 09/15/2024 Psych Appearance: grossly normal Affect: normal affect Attitude: cooperative Assessment & Plan Assessment & Plan (1) Post-traumatic osteoarthritis of both wrists: Comment: SLAC vs SNAC wrists bilaterally Code(s): M19.131 - Post-traumatic osteoarthritis, right wrist; M19.132 - Post-traumatic osteoarthritis, left wrist Category: Medical (2) Cubital tunnel syndrome, bilateral: Code(s): G56.23 - Lesion of ulnar nerve, bilateral upper limbs Category: Medical (3) Cervical radiculopathy: Code(s): M54.12 - Radiculopathy, cervical region Category: Medical (4) Smoker: Code(s): F17.200 - Nicotine dependence, unspecified, uncomplicated Category: Social Hx (5) Polyarthralgia: Code(s): M25.50 - Pain in unspecified joint Category: Medical (6) Chronic kidney disease, stage 2 (mild): Code(s): N18.2 - Chronic kidney disease, stage 2 (mild) Category: Medical Plan Assessment & Plan: 1. 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 radioscaphoid joint & end-stage osteoarthritis This is his chief complaint today I educated him about this condition I had a long discussion with him concerning treatment options, including possible surgery At this time I recommend activity modification, bracing, and injections, and he is in agreement He was fitted for a velcro wrist splint, to be worn with daily activities I discussed activity modification, he should limit or avoid any heavy lift or impact activities, or other activities which cause him pain He will make an appointment for a right wrist injection, using the mini C-arm, after he has recovered from his Cubital tunnel release, ~2 months following surgery depending how he is feeling. He can schedule this at his first post-op appointment 2. Right cubital tunnel syndrome, mild Symptoms intermittent, but daily, worse at night I educated him about this condition I discussed operative and non-operative treatment options The patient would like to proceed with surgery I explained the effects of smoking on wound/bone healing, and recommend they stop smoking prior to surgery & while healing. This includes vaping, Marijuana, and other Nicotine products including patches used to help quit. They expressed understanding. The risks and benefits of operative treatment were discussed with the patient and the patient wishes to proceed with surgery. These risks include, but are not limited to risk of damage to blood vessels, nerves, tendons, infection, recurrence, incomplete relief of preoperative symptoms, persistent pain, possible need for further surgery and the risks associated with regional blocks and anesthesia. The plan is to take the patient to the operating room sometime on 01/21/25 for the following procedures: 1. Right cubital tunnel release, under general All of the preoperative paperwork including the consent was reviewed today. All the patient's questions were answered. He denies Diabetes, blood thinners, asthma, lung issues He has CKD II and a Hx of kidney cancer He has a Hx of chest pain and is seeing Cardiology on 01/08/25 to review his test results 3. 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 Cubital tunnel syndrome, mild Symptoms intermittent, but daily, worse at night We will discuss treatment options for this at a later date 5. Cervical radiculopathy From C3-T1 He follows with Pain Management for this Scribed for Amalia Menard MD by Kwaku Borune, bacteriologist medical, on 01/06/25 at 2:00 PM, EST. Coding Level of Care Code Est Pt Level 5 (18091) Diagnoses Post-traumatic osteoarthritis of both wrists M19.131; M19.132 Cubital tunnel syndrome, bilateral G56.23 Cervical radiculopathy M54.12 Smoker F17.200 Polyarthralgia M25.50 Chronic kidney disease, stage 2 (mild) N18.2
[2025-01-06 13:43] VITALS: BMI 23.0
== END 2025-01-06 14:30 | disposition home or self-care (01) ==
LOC: HO.HOS 12:58
PROVIDERS: PCP Internal Medicine; Visit Provider Orthopaedic Surgery
DX: M19.131 Post-traumatic osteoarthritis, right wrist (principal); M19.132 Post-traumatic osteoarthritis, left wrist; G56.23 Lesion of ulnar nerve, bilateral upper limbs; M25.50 Pain in unspecified joint; F17.200 Nicotine dependence, unspecified, uncomplicated; N18.2 Chronic kidney disease, stage 2 (mild)
CPT/HCPCS: 99214

== ENCOUNTER → 2025-01-06 12:57 | Outpatient (BNVA) | payer OTHER, SELFPAY | PROVIDERS: PCP Internal Medicine; Visit Provider Orthopaedic Surgery | DX: M19.131 Post-traumatic osteoarthritis, right wrist (principal); M19.132 Post-traumatic osteoarthritis, left wrist; M54.12 Radiculopathy, cervical region; G56.23 Lesion of ulnar nerve, bilateral upper limbs; F17.210 Nicotine dependence, cigarettes, uncomplicated; M25.50 Pain in unspecified joint; I12.9 Hypertensive chronic kidney disease with stage 1 through stage 4 chronic kidney disease, or unspecified chronic kidney disease; N18.2 Chronic kidney disease, stage 2 (mild) | CPT/HCPCS: 99212 ==

== ENCOUNTER 2025-01-08 13:37 | Outpatient (AMB) | payer OTHER, SELFPAY ==
--- OUTSIDE RECORDS SUMMARY | 2025-01-08 13:39 | XMS_ITS | Clinical Summary ---
Author Organization [facility] Address [address] [place] [address] Phone Care Team Providers Care Quality Control Tech Raw Materials Name Role Phone Physician, No Pcp Primary Care Provider Unavaila ble Allergies No known active allergies Medical History Medical History Date Comments Kidney cancer, primary, with metastasis from kidney to other site, left (CMS/[facility] V24, [facility] V28) Social History Tobacco Use Types Packs/Day [...] patient's age to complete this topic Insurance [facility] MEDICARE Member Subscriber Plan / Payer (Ef fective 2023-Present) Name:Jesse Link Relation to Subscriber:Self Name:Jesse Link Payer ID:[id number] Group ID:[id number] Type:Not on file Address: [place] [address] [address] [place] [address] Care Teams Quality Control Tech Raw Materials Relationship Specialty Start Date End Date Physician, No Pcp PCP - General 08/14/24
--- OUTSIDE RECORDS SUMMARY | 2025-01-08 13:39 | XMS_ITS | Data Portability ---
Author Organization [facility] Address [address] [place] [address] Care Team Providers Care Neonatal Nurse Practitioner Name Role Phone [facility] Referring Provider [facility] Referring Provider Assessment Encounter Date Assessment Date Assessment LastModified by Organization Details LastModified Time 06/28/2023 06/28/2023 I have reviewed and agree with the assessment and plan as documented by the resource specialist teacher. I provided real time medical direction for this encounter and was immediately available to provide additional phone based assistance as needed. History as noted by resource specialist teacher. Pt with history of DM, HTN, reports [...] None recorded. Lab rapid flu (A+B) [address], [id number] 4 12:50:39 rapid SARS CoV 2 Ag, QL IA, respiratory specimen [address], [address] 4 12:50:37 Referral None recorded. Procedures None [...] IA, respiratory specimen negati ve Not Available [facility] ed [address] [place] [address], [phone] 06/28/2023 12:50:10 06/28/19 24 06/28/2023 rapid flu (A+B) Flu negati ve Not Available [facility] ed [address] [place] [address], [phone] 06/28/2023 12:50:09 Result Notes None recorded. Medical [...] SNOMED-CT Code Diagnosis ICD10 Code Diagnosis Note 80038 Michael Tamez MD Main - instED [address] [place] [phone] 06/28/2023 12:47:33 07/01/2023 17:19:40 Viral upper respiratory tract infection [id number] J06.9 Health Concerns Section Related Observation LastModified by Organization Detai ls LastModified Time None Recorded Concern Status LastModified by Organization Details LastModified Time None Recorded Advance Directives Directive None Recorded Payers Insurance Date Sequence Insurance Name Policy Number Policy Eddy Covered Member ID Eddy Member ID Guarantor Name 08/01/2023 1 [facility] - DOS ON OR AFTER 2022 - DUAL ELIGIBLE - CORRECTION OPTIONS AND ONE CARE (MEDICARE REPLACEMENT/ADV ANTAGE - HMO) Jesse Link [id number] Jesse Link Notes Date Note Type Note Provider Name and Address Organization Details Recorded Time 06/28/2023 text/html ROS as noted in the HPI This was a supervised home visit with resource specialist teacher Lizzy Cisneros. HPI: Member said he has not feeling well for the last four day. he has cough x four day. no fever . covid test was negative .................. .................. .................. .................. .................. .................. .................. ............... CRC Nurse Triage Notes (Natasha Isaacs): Comments: No further information needed to process .................. .................. .................. .................. .................. .................. .................. ............... Overnight Babysitter Note From Lizzy Cisneros: Community Overnight Babysitter Aaron Cisneros CCA1 [facility] a 53 yom C/O a cough [...] ............... Disposition: Fulfilled Michael Tamez MD [address] [facility],[address], [place], [address], MADI - [employer]EVE 06/28/2023 13:26:29
--- OUTSIDE RECORDS SUMMARY | 2025-01-08 13:39 | XMS_ITS | Clinical Summary ---
Author Organization [employer] Address [address] [place] [address] [address] [place] [address] Care Team Providers Care Accounts Specialist Name Role Phone Patricia Schofield MD [...] Self Plan [facility] and Patient to [...] Description 01/01/2025 2:15 PM EDT Office Visit [address] [address] Rodríguez, Alexxis, TECHNICIAN AUTOMATIC Cubital tunnel syndrome on right (Primary Dx); Pre-op evaluation 01/01/2025 Travel 01/01/2025 Refill [facility] [address] [place] [address] Patricia Schofield MD Depression, unspecified depression type 12/31/2024 Telephone [facility] [address] [place] [address] Nadiya Goodrich MA Chart Prep 12/15/2024 Telephone [facility] [address] [place] [address] Patricia Schofield MD chart prep 12/09/2024 Orders Only [facility] External Provider, [facility] 12/09/2024 Telephone [facility] [address] [place] [phone] Patricia Schofield MD Pre-op Visit 12/06/2024 Refill [facility] [address] [place] [address] Tray Cheema MD Gastroesophageal reflux disease without esophagitis 11/26/2024 Refill [facility] [address] [place] [address] Patricia Schofield MD Cervical spine arthritis with nerve pain; Chronic migraine without aura without status migrainosus, not intractable 11/24/2024 Telephone [facility] [address] [place] [phone] Patricia Schofield MD SEP RECALL 10/27/2024 Refill [facility] [address] [place] [address] Patricia Schofield MD Cervical spine arthritis with [...] Description 02/16/2025 3:15 PM EDT Office Visit [facility] [address] [place] [address] Patricia Schofield MD [address] [place] [address] Health Maintenance Due Date Last Done Comments [...] ECG 12 lead (01/01/2025 2:44 PM EDT) Narrative Pepito Rodríguez CNP - 01/01/2025 2:44 PM EDT EKG: NSR, Rate 70bpm, No ST segmental changes, no QR interval changes, normal ECG [facility] ECG ORDERABLES Final Res ult * MR Cervical Spine w/o Contrast (12/21/2024 8:56 PM EDT) Anatomical Region Laterality Modality Spine, C-spine Magnetic Resonan ce 12/21/2024 8:56 PM EDT Narrative 12/21/2024 8:58 PM EDT [address] [address] Magnetic Resonance Report Signed Patient: Jesse Link MR#: [id number] : 1970 Acct:[id number] Age/Sex: 54 / M ADM Date: 12/21/24 Loc: HO.MRI Attending Dr: Payton LUU Ordering Physician: Payton Alston Date of Service: 12/21/24 Procedure(s): MR cervical spine wo con Accession Number(s): [id number] cc: Patricia Schofield MD; Payton Alston CLINICAL [...] Moderate facet/uncovertebral joint and ligamentum flavum hypertrophy. Uguh-mb-xlcunygr central spinal canal stenosis. Moderate bilateral foraminal stenosis. C6/C7: 3 mm disc herniation. Moderate facet/uncovertebral joint and ligamentum flavum hypertrophy. Moderate central canal stenosis. Severe right and mild left foraminal stenosis. C7/T1: 3 mm disc herniation. Moderate facet joint and ligamentum flavum hypertrophy. Naui-cy-smudufvr central canal stenosis. Moderate to severe bilateral foraminal stenosis. Impression: Multilevel degenerative change, detailed above, which is most prominent C6/C7 with moderate central canal stenosis. This document has been electronically signed by: Jaylin Saucedo MD on 12/21/2024 20:56:02 Dictated By: Jaylin Savage MD Signed By: <Electronically signed by Jaylin Savage MD in OV> 12/21/242056 DD/ 55 TD/TT: 12/21/242055 Efficiency Expert: Procedure Note Donotuseinterpreter, Image - 12/21/2024 [place] [address] Magnetic Resonance Report Signed Patient: Jesse Link LMR#: [id number] : 1970Acct:[id number] Age/Sex: 54 / MADM Date: 12/21/24 Loc: HO.MRI Attending Dr: Payton LUU Ordering Physician: Payton Alston Date of Service: 12/21/24 Procedure(s): MR cervical spine wo con Accession Number(s): [id number] cc: Patricia Schofield MD; Payton Alston CLINICAL [...] Moderate facet/uncovertebral joint and ligamentum flavum hypertrophy. Mljf-eh-mbmrobso central spinal canal stenosis. Moderate bilateral foraminal stenosis. C6/C7: 3 mm disc herniation. Moderate facet/uncovertebral joint and ligamentum flavum hypertrophy. Moderate central canal stenosis. Severe right and mild left foraminal stenosis. C7/T1: 3 mm disc herniation. Moderate facet joint and ligamentum flavum hypertrophy. Vyvy-uh-szuygavq central canal stenosis. Moderate to severe bilateral foraminal stenosis. Impression: Multilevel degenerative change, detailed above, which is most prominent C6/C7 with moderate central canal stenosis. This document has been electronically signed by: Jaylin Saucedo MD on 12/21/2024 20:56:02 Dictated By: Jaylin Savage MD Signed By: <Electronically signed by Jaylin Savage MD in OV> 12/21/242056 DD/ 55 TD/TT: 12/21/242055 Efficiency Expert: [facility] External Provider IMG MRI PROCEDURES Final Result * XR Wrist 3+ Views Bilateral (12/10/2024 12:32 AM EDT) Anatomical Region Laterality Modality Upper Extremities, Wrist Bilateral Radiogr aphic Imaging 12/10/2024 12:3 2 AM EDT Narrative 12/10/2024 12:35 AM EDT [facility] [address] [place] [address] XRay Report Signed Patient: Jesse Link MR#: [id number] : 1970 Acct:[id number] Age/Sex: 54 / M ADM Date: 12/09/24 Loc: [facility] Attending Dr: Natan TILLEY Ordering Physician: Natan Dorsey Date of Service: 12/09/24 Procedure(s): XR Wrist Alphonso min 3V Accession Number(s): [id number] cc: Natan Dorsey; Patricia Schofield MD CLINICAL [...] MD in OV> 12/10/2433 DD/ TD/TT: 12/10/2431 Efficiency Expert: Procedure Note Donotuseinterpreter, Image - 12/10/2024 [facility] [address] [place] [address] XRay Report Signed Patient: Jesse Link LMR#: [id number] : 1970Acct:[id number] Age/Sex: 54 / MADM Date: 12/09/24 Loc: [facility]IBERTO Attending Dr: Natan TILLEY Ordering Physician: Natan Dorsey Date of Service: 12/09/24 Procedure(s): XR Wrist Alphonso min 3V Accession Number(s): [id number] cc: Natan Dorsey; Patricia Schofield MD CLINICAL [...] MD in OV> 12/10/2433 DD/ TD/TT: 12/10/2431 Efficiency Expert: [facility] External Provider IMG XR PROCEDURES Edited Result - Final * Hepatitis C Antibody with Reflex to HCV, RNA, Quantitative, Real-Time PCR (05/12/2024 3:42 PM EST) Hepatitis C Antibody Nonreactive Nonreactive [facility] Comment:Antibodies to HCV no t detected; does not exclude early acuteHCV infection. Blood Venous blood specimen / Unknown 05/12/2024 3:42 PM EST 05/12/2024 4:09 PM EST Marii Brown MD LAB BLOOD ORDERABLES Final Result [facility] [place] [address] [phone] * HIV-1/2 Antigen and Antibodies, Fourth Generation, with Reflexes (05/12/2024 3:42 PM EST) HIV AB/AG Nonreactive Nonreactive [facility] Comment:HIV-1 p24 Ag and/or HIV-1/HIV-2 Ab not detected.A test result that is nonreactive does not exclude thepossibility of exposure to or infection with HIV-1 and/orHIV-2. Nonreactive results in this assay for individualswith prior exposure to HIV-1 and/or HIV-2 may be due toantigen and antibody levels that are below the limit ofdetection of this assay.The [employer] Master HIV Ag/Ab Combo assay result andsupplemental assay results should be interpreted inconjunction with the patient's clinical presentation,history and other laboratory results. If the results areinconsistent with clinical evidence, additional testing issuggested to confirm the result. Blood Venous blood specimen / Unknown 05/12/2024 3:42 PM EST 05/12/2024 4:09 PM EST us Marii Brown MD LAB BLOOD ORDERABLES Final Result [facility] [address] [place] [address] [phone] * (ABNORMAL) Lipid Panel, Standard (03/27/2024 1:47 PM EDT) Triglycerides 107 <150 mg/dL [facility] Comment:Desirable Triglyceri de: less than 150 mg/dLBorderline High Triglyceride 150-199 mg/dLHigh Triglyceride: 200-499 mg/dLVery High Triglyceride: greater than or equal to 5OO mg/dL Cholesterol 131 <200 mg/dL [facility] Comment:Desirable Cholestero l: less than 200 mg/dLBorderline High Cholesterol: 200-239 mg/dLHigh Cholesterol: greater than 239 mg/dL LDL Cholesterol Calculated 70 <100 mg/dL [facility] Comment:Desirable LDL: less than 100 mg/dLNear Optimal/Above Optimal LDL: 110- 129 mg/dLBorderline High LDL: 130-159 mg/dLHigh LDL: 160-189 mg/dLVery High LDL: greater than or equal to 190 mg/dL HDL Cholesterol 40(L) >40 mg/dL [facility] Comment:Desirable HDL: great er than 40 mg/dL Note: This HDL assay may give artificially low results in patients with liver disease. Blood Venous blood specimen / Unknown 03/27/2024 1:47 PM EDT 03/27/2024 4:18 PM EDT us Patricia Barfield MD LAB BLOOD ORDERABLES Final Result [facility] [address] [place] [phone] from Last 3 Months or Most Recently Relevant to Health Maintenance Insurance [employer] [id number] [place] [address] Care Teams Accounts Specialist Relationship Specialty Start Date End Date Patricia Schofield MD [address] [place] [phone] PCP - General Family Medicine 02/26/18
[2025-01-08 13:48] VITALS: BP 120/78; PULSE 80; BMI 22.8
--- NOTE | 2025-01-08 13:48 | MHC.OFFVIS ---
Vital Signs 01/08/25 13:48 Height 5 ft 10 in Weight 158 lb 11.725 oz BMI 22.8 BP 120/78 Blood Pressure Location Lt brachial Position Sitting Pulse 80 Intake Visit Reasons: pre op dr bernabe Intake Note: Pre-op clearance with ekg Dr Bernabe booked 02/10 feeling good Director Medical Affairs Required: No Allergies No Known Allergies Allergy (Verified 01/06/25 13:47) Medication List - Last Reconciled 01/08/25 by Yong Coffman NP albuterol sulfate 90 mcg/actuation (Ventolin HFA) 2 puffs inhalation Q6H PRN amitriptyline 75 mg PO BEDTIME cholecalciferol (vitamin D3) (Vitamin D3) 25 mcg PO QAM ibuprofen 800 mg PO TID lisinopril 20 mg PO DAILY lorazepam (Ativan) 1 mg PO ONCE multivitamin 1 tab PO QAM omeprazole 40 mg PO DAILY sertraline 50 mg PO DAILY thiamine HCl (vitamin B1) 100 mg PO QAM HPI Comments Details: This is a 55-year-old male patient coming in for a preop cardiovascular exam. Patient with a history of hypertension and asthma who was previously seen in the office over a year ago for chest discomfort for which patient was ordered a treadmill stress test. Patient never completed this as he states that his symptoms resolved quickly. Today, patient reports feeling well overall without any cardiac symptoms of exertional chest pain, shortness breath, palpitations, dizziness, orthopnea, PND, leg edema, presyncope, or syncope. Patient reports compliance with all his medications. Unfortunately, patient continues to smoke even though he states that he is cutting down. [facility] Medical History (Updated 01/08/25 @ 14:18 by Yong Coffman NP) Neck pain Back pain History of kidney cancer (~2020) Dizziness BRISA (generalized anxiety disorder) Snores Asthma History of cardiac murmur as a child Bilateral hand numbness Bilateral wrist pain Possible exposure to STI Upper back pain Migraine headache Chronic kidney disease, stage 2 (mild) Hyperlipidemia Bilateral arm pain Adrenal incidentaloma Seborrheic dermatitis of scalp Polyarthralgia Missing teeth, acquired Blurry vision, bilateral Chronic right shoulder pain Smoker Pure hyperglyceridemia Post-traumatic osteoarthritis of both wrists Mood disorder Severe major depression without psychotic features Mild intermittent asthma Homeless History of alcoholism GERD (gastroesophageal reflux disease) Foot callus HTN (hypertension) Episodic cluster headache Clear cell carcinoma of kidney Degenerative disc disease, cervical Cervical spondylosis Surgical History History of nephrectomy, left Family History Mother No problems noted. Father No problems noted. 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 Review of Systems Const Denies chills, Denies fatigue, Denies fever(s), Denies frequent falls, Denies weakness, Denies weight gain and Denies weight loss ENT Denies dizziness Card Denies chest pain, Denies leg edema, Denies lightheadedness, Denies palpitations, Denies dyspnea, Denies dyspnea on exertion, Denies orthopnea and Denies other (loss of consciousness) Resp Denies cough, Denies dyspnea and Denies dyspnea on exertion GI Denies hematochezia and Denies change in stool character Musc Denies abnormal gait, Denies muscle weakness, Denies numbness, Denies radiating pain into limb and Denies tingling Neuro Denies abnormal gait, Denies dizziness, Denies frequent falls, Denies numbness, Denies tingling and Denies weakness Endo Denies fatigue and Denies palpitations Physical Exam Vital Signs: Last Vital Signs Pulse 80 01/08/25 13:48 BP 120/78 01/08/25 13:48 BMI result Body Mass Index 22.8 Const General: cooperative, healthy appearing, comfortable and no acute distress Orientation/consciousness: patient oriented x3 HEENT Head: Yes normal to inspection Neck Neck: Yes normal visual inspection, Yes trachea midline and Yes supple Chest Chest palpation & inspection: normal inspection of the chest Resp Effort & Inspection: normal respiratory effort Auscultation: clear to auscultation bilaterally, no crackles, no rales, no rhonchi and no wheezes Cardio Jugular venous distension: no JVD Palpation: normal PMI Rate: regular rate Rhythm: regular rhythm Heart sounds: S1 normal heart sound present, S2 normal heart sound present, no click, no gallops, no murmurs and no rubs Peripheral pulses: Peripheral pulses 2+ throughout GI Inspection: Yes normal to inspection Palpation (GI): Soft to palpation Auscultation: normal bowel sounds Skin General skin exam: no rashes or lesions noted Neuro General: patient oriented x3 Extrem General: Yes normal to inspection, No no pedal edema and No calf tenderness Psych Appearance: grossly normal Mental Status: mental status grossly normal Speech and movement: Normal speech and movement present Office Procedures EKG Details: EKG today shows normal sinus rhythm, rate 80 beats per minute, [place], [place]. [address]-Gmowscerhjlvoanby, Complete Assessment & Plan Assessment & Plan (1) HTN (hypertension): Code(s): I10 - Essential (primary) hypertension Category: Medical Plan: 10/15/2024-echo study showed a normal LV systolic function with an ejection fraction between 60-65%, with mild dilation of the ascending aorta measuring 3.8 cm. Clinically stable and without any anginal symptoms. Blood pressure within normal limits. Continue current regimen. His monitoring blood pressures with a goal less than 130/80. (2) Smoker: Code(s): F17.200 - Nicotine dependence, unspecified, uncomplicated Category: Social Hx Plan: Emphasized heavily on smoking cessation. Patient verbalizes understanding. (3) Preop cardiovascular exam: Code(s): Z01.810 - Encounter for preprocedural cardiovascular examination Plan: Patient can proceed with his upcoming procedure with the consideration that patient is at low to intermediate cardiac risk. Advised heart healthy diet, regular exercise, med compliance, smoking cessation, avoiding stimulants, and management of vascular risk factors. Follow-up on an as-needed basis. In the interim, patient will call the office with any concerns or change in symptoms. This note was generated using voice recognition software. While every effort has been made to ensure accuracy and proper airways control specialist, there may be occasional errors that could affect the content or meaning of the described symptoms. Orders: Orders AMB EKG-In Office Today Z01.810 - Encounter for preprocedural cardiovascular examination Coding Level of Care Code Est Pt Level 4 (80012) Complex EM visit Add On G2211 Diagnoses HTN (hypertension) I10 Smoker F17.200 Preop cardiovascular exam Z01.810 CPT Codes EKG - CPT: 94654-Fcexgylamitzzncku, Complete ([id number]) Time Spent (min) 30 Comment Time spent in reviewing the chart, test results, assessment, counseling and documentation.
== END 2025-01-08 14:06 | disposition home or self-care (01) ==
LOC: HO.HCS 13:37
PROVIDERS: PCP Internal Medicine
DX: I10 Essential (primary) hypertension (principal); F17.200 Nicotine dependence, unspecified, uncomplicated; Z01.810 Encounter for preprocedural cardiovascular examination
CPT/HCPCS: 93010; 99214; G2211

== ENCOUNTER → 2025-01-08 13:37 | Outpatient (BNVA) | payer OTHER, SELFPAY | PROVIDERS: PCP Internal Medicine | DX: Z01.810 Encounter for preprocedural cardiovascular examination (principal); I10 Essential (primary) hypertension; F17.200 Nicotine dependence, unspecified, uncomplicated; Z71.6 Tobacco abuse counseling | CPT/HCPCS: 93005; 99212 ==

== ENCOUNTER 2025-01-12 15:39 | Outpatient (REF) | payer OTHER, SELFPAY ==
[2025-01-12 16:07] LABS: MANUAL DIFF FLAG NO
--- OUTSIDE RECORDS SUMMARY | 2025-01-12 16:22 | XMS_ITS | Clinical Summary ---
Author Organization [employer] Address [address] [place] [address] [address] [place] [address] Care Team Providers Care Marketing Services Vice President Name Role Phone Patricia Schofield MD Primary [...] Self Plan [facility] and Patient [...] Description 01/01/2025 2:15 PM EDT Office Visit [address] [address] Rodríguez, Alexxis, TREE SURGEON Cubital tunnel syndrome on right (Primary Dx); Pre-op evaluation 01/01/2025 Travel 01/01/[address] [facility] [address] [place] [address] Patricia Schofield MD Depression, unspecified depression type 12/31/[address] [facility] [address] [place] [phone] Nadiya Goodrich [place] Chart Prep 12/15/[address] [facility] [address] [place] [phone] Patricia Schofield MD chart prep 12/09/2024 Orders Only [facility] External Provider, [facility] 12/09/[address] [facility] [address] [place] [phone] Patricia Schofield MD Pre-op Visit 12/06/[address] [facility] [address] [place] [phone] Tray Cheema MD Gastroesophageal reflux disease without esophagitis 11/26/[address] [facility] [address] [place] [address] Patricia Schofield MD Cervical spine arthritis with nerve pain; Chronic migraine without aura without status migrainosus, not intractable 11/24/[address] [facility] [address] [place] [phone] Patricia Schofield MD SEP RECALL 10/27/[address] [facility] [address] [place] [address] Patricia Schofield MD Cervical spine arthritis with [...] Description 02/16/2025 3:15 PM EDT Office Visit [facility] [address] [place] [address] Patricia Schofield MD [address] [place] [address] Health Maintenance Due Date Last Done Comments [...] changes, no QR interval changes, normal ECG [facility] ECG ORDERABLES Final Res ult * MR Cervical Spine w/o Contrast (12/21/2024 8:56 PM EDT) Anatomical Region Laterality Modality Spine, C-spine Magnetic Resonan ce 12/21/2024 8:56 PM EDT Narrative 12/21/2024 8:58 PM EDT [address] [address] Magnetic Resonance Report Signed Patient: Jesse Link MR#: [id number] : 1970 Acct:[id number] Age/Sex: 54 / M ADM Date: 12/21/24 Loc: HO.MRI Attending Dr: Payton LUU Ordering Physician: Payton Alston Date of Service: 12/21/24 Procedure(s): MR cervical spine wo con Accession Number(s): [id number] cc: Patricia Schofield MD; Payton Alston CLINICAL [...] Moderate facet/uncovertebral joint and ligamentum flavum hypertrophy. Dlvg-zo-lvhbtlji central spinal canal stenosis. Moderate bilateral foraminal stenosis. C6/C7: 3 mm disc herniation. Moderate facet/uncovertebral joint and ligamentum flavum hypertrophy. Moderate central canal stenosis. Severe right and mild left foraminal stenosis. C7/T1: 3 mm disc herniation. Moderate facet joint and ligamentum flavum hypertrophy. Scjb-wt-aytaivhz central canal stenosis. Moderate to severe bilateral foraminal stenosis. Impression: Multilevel degenerative change, detailed above, which is most prominent C6/C7 with moderate central canal stenosis. This document has been electronically signed by: Jaylin Saucedo MD on 12/21/2024 20:56:02 Dictated By: Jaylin Savage MD Signed By: <Electronically signed by Jaylin Savage MD in OV> 12/21/242056 DD/ 55 TD/TT: 12/21/242055 Imaging Technologist: Procedure Note Donotuseinterpreter, Image - 12/21/2024 [place] [address] Magnetic Resonance Report Signed Patient: Jesse Link LMR#: [id number] : 1970Acct:[id number] Age/Sex: 54 / MADM Date: 12/21/24 Loc: HO.MRI Attending Dr: Payton LUU Ordering Physician: Payton Alston Date of Service: 12/21/24 Procedure(s): MR cervical spine wo con Accession Number(s): [id number] cc: Patricia Schofield MD; Payton Alston CLINICAL [...] Moderate facet/uncovertebral joint and ligamentum flavum hypertrophy. Tftt-op-bmoysrjj central spinal canal stenosis. Moderate bilateral foraminal stenosis. C6/C7: 3 mm disc herniation. Moderate facet/uncovertebral joint and ligamentum flavum hypertrophy. Moderate central canal stenosis. Severe right and mild left foraminal stenosis. C7/T1: 3 mm disc herniation. Moderate facet joint and ligamentum flavum hypertrophy. Ujcy-hb-wstikgpw central canal stenosis. Moderate to severe bilateral foraminal stenosis. Impression: Multilevel degenerative change, detailed above, which is most prominent C6/C7 with moderate central canal stenosis. This document has been electronically signed by: Jaylin Saucedo MD on 12/21/2024 20:56:02 Dictated By: Jaylin Savage MD Signed By: <Electronically signed by Jaylin Savage MD in OV> 12/21/242056 DD/ 55 TD/TT: 12/21/242055 Imaging Technologist: [facility] External Provider IMG MRI PROCEDURES Final Result * XR Wrist 3+ Views Bilateral (12/10/2024 12:32 AM EDT) Anatomical Region Laterality Modality Upper Extremities, Wrist Bilateral Radiogr aphic Imaging 12/10/2024 12:3 2 AM EDT Narrative 12/10/2024 12:35 AM EDT [facility] [address] [place] [address] XRay Report Signed Patient: Jesse Link MR#: [id number] : 1970 Acct:[id number] Age/Sex: 54 / M ADM Date: 12/09/24 Loc: [facility] Attending Dr: Natan TILLEY Ordering Physician: Natan Dorsey Date of Service: 12/09/24 Procedure(s): XR Wrist Alphonso min 3V Accession Number(s): [id number] cc: Natan Dorsey; Patricia Schofield MD CLINICAL [...] MD in OV> 12/10/2433 DD/ TD/TT: 12/10/2431 Imaging Technologist: Procedure Note Donotuseinterpreter, Image - 12/10/2024 [facility] [address] [place] [address] XRay Report Signed Patient: Jesse Link LMR#: [id number] : 1970Acct:[id number] Age/Sex: 54 / MADM Date: 12/09/24 Loc: [facility]O Attending Dr: Natan TILLEY Ordering Physician: Natan Dorsey Date of Service: 12/09/24 Procedure(s): XR Wrist Alphonso min 3V Accession Number(s): [id number] cc: Natan Dorsey; Patricia Schofield MD CLINICAL [...] MD in OV> 12/10/2433 DD/ TD/TT: 12/10/2431 Imaging Technologist: [facility] External Provider IMG XR PROCEDURES Edited Result - Final * Hepatitis C Antibody with Reflex to HCV, RNA, Quantitative, Real-Time PCR (05/12/2024 3:42 PM EST) Hepatitis C Antibody Nonreactive Nonreactive [facility] Comment:Antibodies to HCV no t detected; does not exclude early acuteHCV infection. Blood Venous blood specimen / Unknown 05/12/2024 3:42 PM EST 05/12/2024 4:09 PM EST Marii Brown MD LAB BLOOD ORDERABLES Final Result [facility] [address] [place] [address] [phone] * HIV-1/2 Antigen and Antibodies, Fourth Generation, with Reflexes (05/12/2024 3:42 PM EST) HIV AB/AG Nonreactive Nonreactive [facility] Comment:HIV-1 p24 Ag and/or HIV-1/HIV-2 Ab not detected.A test result that is nonreactive does not exclude thepossibility of exposure to or infection with HIV-1 and/orHIV-2. Nonreactive results in this assay for individualswith prior exposure to HIV-1 and/or HIV-2 may be due toantigen and antibody levels that are below the limit ofdetection of this assay.The [employer] HIV Ag/Ab Combo assay result andsupplemental assay results should be interpreted inconjunction with the patient's clinical presentation,history and other laboratory results. If the results areinconsistent with clinical evidence, additional testing issuggested to confirm the result. Blood Venous blood specimen / Unknown 05/12/2024 3:42 PM EST 05/12/2024 4:09 PM EST us Marii Brown MD LAB BLOOD ORDERABLES Final Result [facility] [address] [place] [address] [phone] * (ABNORMAL) Lipid Panel, Standard (03/27/2024 1:47 PM EDT) Triglycerides 107 <150 mg/dL [facility] Comment:Desirable Triglyceri de: less than 150 mg/dLBorderline High Triglyceride 150-199 mg/dLHigh Triglyceride: 200-499 mg/dLVery High Triglyceride: greater than or equal to 5OO mg/dL Cholesterol 131 <200 mg/dL [facility] Comment:Desirable Cholestero l: less than 200 mg/dLBorderline High Cholesterol: 200-239 mg/dLHigh Cholesterol: greater than 239 mg/dL LDL Cholesterol Calculated 70 <100 mg/dL [facility] Comment:Desirable LDL: less than 100 mg/dLNear Optimal/Above Optimal LDL: 110- 129 mg/dLBorderline High LDL: 130-159 mg/dLHigh LDL: 160-189 mg/dLVery High LDL: greater than or equal to 190 mg/dL HDL Cholesterol 40(L) >40 mg/dL [facility] Comment:Desirable HDL: great er than 40 mg/dL Note: This HDL assay may give artificially low results in patients with liver disease. Blood Venous blood specimen / Unknown 03/27/2024 1:47 PM EDT 03/27/2024 4:18 PM EDT us Patricia Barfield MD LAB BLOOD ORDERABLES Final Result [facility] [address] [place] [phone] from Last 3 Months or Most Recently Relevant to Health Maintenance Insurance [employer] [id number] [place] [address] Care Teams Marketing Services Vice President Relationship Specialty Start Date End Date Patricia Schofield MD [address] [place] [phone] PCP - General Family Medicine 02/26/18
--- OUTSIDE RECORDS SUMMARY | 2025-01-12 16:22 | XMS_ITS | Data Portability ---
Author Organization [employer] Address [address] [place] [address] Care Team Providers Care Street Light Wirer Name Role Phone [facility] Referring Provider [facility] Referring Provider Assessment Encounter Date Assessment Date Assessment LastModified by Organization Details LastModified Time 06/28/2023 06/28/2023 I have reviewed and agree with the assessment and plan as documented by the student services advisor. I provided real time medical direction for this encounter and was immediately available to provide additional phone based assistance as needed. History as noted by student services advisor. Pt with history of DM, HTN, reports [...] None recorded. Lab rapid flu (A+B) [address], [address] 4 12:50:39 rapid SARS CoV 2 Ag, QL [place], respiratory specimen [address], [address] 4 12:50:37 Referral None recorded. Procedures None [...] IA, respiratory specimen negati ve Not Available [facility] ed [address] [place] [address], [phone] 06/28/2023 12:50:10 06/28/19 24 06/28/2023 rapid flu (A+B) Flu negati ve Not Available [facility] ed [address] [place] [address], [phone] 06/28/2023 12:50:09 Result Notes None recorded. Medical [...] SNOMED-CT Code Diagnosis ICD10 Code Diagnosis Note 00692 Michael Tamez MD Main - instED [address] [place] [phone] 06/28/2023 12:47:33 07/01/2023 17:19:40 Viral upper respiratory tract infection [id number] J06.9 Health Concerns Section Related Observation LastModified by Organization Detai ls LastModified Time None Recorded Concern Status LastModified by Organization Details LastModified Time None Recorded Advance Directives Directive None Recorded Payers Insurance Date Sequence Insurance Name Policy Number Policy Eddy Covered Member ID Eddy Member ID Guarantor Name 08/01/2023 1 [facility] - DOS ON OR AFTER 2022 - DUAL ELIGIBLE - RESIDENTIAL OPTIONS AND ONE CARE (MEDICARE REPLACEMENT/ADV ANTAGE - HMO) Jesse Link [id number] Jesse Link
[2025-01-12 17:11] LABS: INTERNATIONAL NORM RATIO 0.9 (0.9-1.1); Prothrombin Time 10.7 SEC (10.9-12.4)
[2025-01-12 17:16] LABS: Hematocrit 41.2 % (42.0-52.0); Hemoglobin 13.9 g/dl (14.0-18.0); Imm Gran Abs Auto 0.02 X10*3/uL (0.00-0.03); Imm Gran Pct Auto 0.3 % (0.0-0.4); Lymphocytes Absolute Auto 1.9 X10*3/uL (1.2-4.9); Mean Corpuscular HGB Conc 33.7 g/dl (31.0-36.0); Mean Corpuscular Hemoglobin 29.1 pg (27.0-33.0); Mean Corpuscular Volume 86.4 fL (80.0-98.0); NRBC Abs Auto 0.000 X10*3/uL (0.0-0.012); NRBC Pct Auto 0.0 /100WBC (0.0-0.2); Platelet Count 318 X10*3/uL (160-400); Red Blood Count 4.77 X10*6/uL (4.60-5.80); White Blood Count 6.0 X10*3/uL (4.8-10.8)
[2025-01-12 17:37] LABS: Alanine Aminotransferase 14 U/L (0-40); Albumin Level 4.3 g/dL (3.5-5.0); Alkaline Phosphatase 73 U/L (39-117); Anion Gap 11 (12-20); Aspartate Amino Transferase 18 U/L (5-37); Blood Urea Nitrogen 12 mg/dL (9-16); Calcium 9.0 mg/dL (8.4-10.2); Carbon Dioxide 25 mmol/L (22-29); Chloride 110 mmol/L (96-108); Estimated Glomerular Filt Rate 51; Potassium 4.4 mmol/L (3.3-5.1); Sodium 142 mmol/L (135-145); Total Protein 6.9 g/dL (6.5-8.0)
== END 2025-01-12 15:40 | disposition home or self-care (01) ==
LOC: HO.LAB 15:39
PROVIDERS: PCP Internal Medicine
DX: G56.21 Lesion of ulnar nerve, right upper limb (principal)
CPT/HCPCS: 36415; 80053; 82570; 85025; 85610

== ENCOUNTER 2025-01-14 06:25 | Outpatient (REF) | payer OTHER, SELFPAY ==
--- NOTE | ~2025-01-14 | FL_ITS ---
EXAMINATION: FL GUIDANCE ONLY HISTORY: M47.812 - Spondylosis without myelopathy or radiculopathy, cervical region COMPARISON: Correlation is made with plain films of the cervical spine dated 02/27/2023. TECHNIQUE: Fluoroscopy time: 0.1 minutes. Cumulative Dose: 0.743 mGy. DAP: 0.39557 mGym2 Images: 2. FINDINGS: Fluoroscopic spot films of the cervical spine demonstrate needles and contrast in the left neck. FL/FL guidance in treatment room IMPRESSION: Fluoroscopy during procedure. Please see procedure report for additional information. Electronically signed by: David Block MD 01/14/2025 01:51 PM EDT
--- OUTSIDE RECORDS SUMMARY | 2025-01-14 06:27 | XMS_ITS | Clinical Summary ---
Author Organization [facility] Address [address] [place] [address] Phone Care Team Providers Care Desktop Technician Name Role Phone Physician, No Pcp Primary Care Provider Unavaila ble Allergies No known active allergies Medical History Medical History Date Comments Kidney cancer, primary, with metastasis from kidney to other site, left (CMS/[facility] V24, [facility] V28) Social History Tobacco Use Types [...] patient's age to complete this topic Insurance [facility] MEDIC[employer] Member Subscriber Plan / Payer (Ef fective 2023-Present) Name:Jesse Link Relation to Subscriber:Self Name:Jesse Link Payer ID:[id number] Group ID:[id number] Type:Not on file Address: [place] [address] [place] [id number] Care Teams Desktop Technician Relationship Specialty Start Date End Date Physician, No Pcp PCP - General 08/14/24
--- OUTSIDE RECORDS SUMMARY | 2025-01-14 06:27 | XMS_ITS | Clinical Summary ---
Author Organization [employer] Address [address] [place] [address] 7 [place] [address] Care Team Providers Care [place] Name Role Phone Patricia Schofield MD Primary [...] Self Plan [facility] and Patient to [...] Description 01/01/2025 2:15 PM EDT Office Visit [address] [address] Rodríguez, Alexxis, SPECIAL EFFECTS SPECIALIST Cubital tunnel syndrome on right (Primary Dx); Pre-op evaluation 01/01/2025 Travel 01/01/2025 Refill [facility] [address] [place] [address] Patricia Schofield MD Depression, unspecified depression type 12/31/2024 Telephone [facility] [address] [place] [phone] Nadiya Goodrich MA Chart Prep 12/15/2024 Telephone [facility] [address] [place] [address] Patricia Schofield MD chart prep 12/09/2024 Orders Only [facility] External Provider, [facility] 12/09/2024 Telephone [facility] [address] [place] [phone] Patricia Schofield MD Pre-op Visit 12/06/2024 Refill [facility] [address] [place] [phone] Tray Cheema MD Gastroesophageal reflux disease without esophagitis 11/26/2024 Refill [facility] [address] [place] [address] Patricia Schofield MD Cervical spine arthritis with nerve pain; Chronic migraine without aura without status migrainosus, not intractable 11/24/2024 Telephone [facility] [address] [place] [phone] Patricia Schofield MD SEP RECALL 10/27/2024 Refill [facility] [address] [place] [address] Patricia Schofield MD Cervical spine arthritis with [...] Description 02/16/2025 3:15 PM EDT Office Visit [facility] [address] [place] [address] Patricia Schofield MD [address] [place] [address] Health Maintenance Due Date Last Done Comments [...] Procedure Name Priority Date/Time Associated Diagnosis Comments PROTHROMBIN TIME-INR Routine 01/12/2025 4:06 PM EDT Cubital tunnel syndrome on right COMPREHENSIVE METABOLIC PANEL Routine 01/12/2025 4:06 PM EDT Cubital tunnel syndrome on right CBC WITH AUTO DIFFERENTIAL Routine 01/12/2025 4:06 PM EDT Cubital tunnel syndrome on right ALBUMIN, RANDOM URINE W/CREATININE Routine 01/12/2025 12:00 AM EDT Cubital tunnel syndrome on right ECG 12-LEAD Routine 01/01/2025 2:44 PM EDT [...] Recently Relevant to Health Maintenance Results * (ABNORMAL) CBC auto differential (01/12/2025 4:06 PM EDT) White Blood Count 6.0 4.8 - 10.8 X10*3/uL [facility] Red Blood Count 4.77 4.60 - 5.80 X10*6/uL [facility] Hemoglobin 13.9(L) 14.0 - 18.0 g/dl [facility] Hematocrit 41.2(L) 42.0 - 52.0 % [facility] Mean Corpuscular Volume 86.4 80.0 - 98.0 fL [facility] Mean Corpuscular Hemoglobin 29.1 27.0 - 33.0 pg [facility] Mean Corpuscular HGB Conc 33.7 31.0 - 36.0 g/dl [facility] Red Cell Distribution Width 15.0 11.0 - 16.0 % [facility] Platelet Count 318 160 - 400 X10*3/uL [facility] Mean Platelet Volume 9.9 9.4 - 12.4 fL [facility] Neutrophils Percent Auto 54.7 45 - 73 % [facility] Imm Gran Pct Auto 0.3 0.0 - 0.4 % [facility] Lymphocytes Percent Auto 32.3 20 - 40 % [facility] Monocytes Percent Auto 8.6 2 - 11 % [facility] Eosinophils Percent Auto 3.4 0 - 4 % [facility] Basophils Percent Auto 0.7 0 - 2 % [facility] NRBC Pct Auto 0.0 0.0 - 0.2 /100WBC [facility] Neutrophils Absolute Auto 3.3 2.0 - 8.3 x10*3/uL [facility] Imm Gran Abs Auto 0.02 0.00 - 0.03 X10*3/uL [facility] Lymphocytes Absolute Auto 1.9 1.2 - 4.9 X10*3/uL [facility] Monocytes Absolute Auto 0.5 0.1 - 1.2 X10*3/uL [facility] Eosinophils Absolute Auto 0.2 0.0 - 0.4 X10*3/uL [facility] Basophils Absolute Auto 0.0 0.0 - 0.2 X10*3/uL [facility] NRBC Abs Auto 0.000 0.0 - 0.012 X10*3/uL [facility] Blood Venous blood specimen / Unknown 01/12/2025 4:06 PM EDT 01/12/2025 4:06 PM EDT [facility] LAB BLOOD ORDERABLES Ninoska l Result Performing Organization Address [facility] Co de Phone Number [facility] [address] [place] [phone] * (ABNORMAL) Prothrombin Time-INR (01/12/2025 4:06 PM EDT) [facility] Signature Prothrombin Time 10.7(L) 10.9 - 12.4 SEC [facility] INTERNATIONAL NORM RATIO 0.9 0.9 - 1.1 [facility] Comment:INTERNATIONAL NORMAL IZED RATIO (INR) REFERENCE RANGES Reference RangeFor patients not on anticoagulant therapy: 0.9 - 1.1INR ranges for oral anticoagulanttherapy:For prevention and treatment of venous thrombosis and pulmonary embolism: 2.0 - 3.0For acute myocardial infarction with aspirin therapy: 2.0 - 3.0For acute myocardial infarction without aspirin therapy: 3.0 - 4.0For patients with mechanical prosthetic heart valves: 2.5 - 3.5 Blood Venous blood specimen / Unknown 01/12/2025 4:06 PM EDT 01/12/2025 4:06 PM EDT [facility] LAB BLOOD ORDERABLES Ninoska l Result Performing Organization Address [facility]/State/ZIP Co de Phone Number [facility] [address] [place] [address] [phone] * (ABNORMAL) Comprehensive Metabolic Panel (01/12/2025 4:06 PM EDT) Sodium 142 135 - 145 mmol/L [facility] Potassium 4.4 3.3 - 5.1 mmol/L [facility] Chloride 110(H) 96 - 108 mmol/L [facility] Carbon Dioxide 25 22 - 29 mmol/L [facility] Anion Gap 11(L) 12 - 20 [facility] Urea Nitrogen (BUN) 12 9 - 16 mg/dL [facility] Creatinine, Serum 1.43(H) 0.5 - 1.4 mg/dL [facility] Estimated Glomerular Filt Rate 51 [facility] Comment:Chronic Kidney Disea se: Estimated GFR < 60 mL/min/1.17g4Stxjup Kidney Disease: Estimated GFR < 15 mL/min/1.73m2 Glucose 94 60 - 115 mg/dL [facility] Calcium 9.0 8.4 - 10.2 mg/dL [facility] Bilirubin, Total 0.3 0.0 - 1.0 mg/dL [facility] Aspartate Amino Transferase 18 5 - 37 U/L [facility] Alanine Aminotransferase 14 0 - 40 U/L [facility] Total Protein 6.9 6.5 - 8.0 g/dL [facility] Albumin Level 4.3 3.5 - 5.0 g/dL [facility] Alkaline Phosphatase 73 39 - 117 U/L [facility] Blood Venous blood specimen / Unknown 01/12/2025 4:06 PM EDT 01/12/2025 4:06 PM EDT Pepito Rodríguez [facility] LAB BLOOD ORDERABLES Ninoska l Result [facility] [address] [place] [address] [phone] * Albumin, Random Urine W/Creatinine (01/12/2025 12:00 AM EDT) Creatinine, Urine 122.96 mg/dL [facility] Microalbumin Urine <5.0 mg/L [facility] Microalbum Creatinine Ratio Ur TNP <30 ug/mg cr [facility] Comment:Unable to calculate albumin/creatinine ratio due to lowmicroalbumin or creatinine result. Urine (Urine, Random) 01/12/2025 01/12/2025 [facility] LAB URINE ORDERABLES Ninoska l Result [facility] [address] [place] [phone] * ECG 12 lead (01/01/2025 2:44 PM EDT) Narrative RodríguezPepito [facility] - 01/01/2025 2:44 PM EDT EKG: NSR, Rate 70bpm, No ST segmental changes, no QR interval changes, normal ECG [facility] ECG ORDERABLES Final Res ult * MR Cervical Spine w/o Contrast (12/21/2024 8:56 PM EDT) Anatomical Region Laterality Modality Spine, C-spine Magnetic Resonan ce 12/21/2024 8:56 PM EDT Narrative 12/21/2024 8:58 PM EDT [address] [address] Magnetic Resonance Report Signed Patient: Jesse Link MR#: [id number] : 1970 Acct:[id number] Age/Sex: 54 / M ADM Date: 12/21/24 Loc: .MRI Attending Dr: Payton LUU Ordering Physician: Payton Alston Date of Service: 12/21/24 Procedure(s): MR cervical spine wo con Accession Number(s): [id number] cc: Patricia Schofield MD; Payton Alston CLINICAL [...] Moderate facet/uncovertebral joint and ligamentum flavum hypertrophy. Aeqn-gc-ghewsetb central spinal canal stenosis. Moderate bilateral foraminal stenosis. C6/C7: 3 mm disc herniation. Moderate facet/uncovertebral joint and ligamentum flavum hypertrophy. Moderate central canal stenosis. Severe right and mild left foraminal stenosis. C7/T1: 3 mm disc herniation. Moderate facet joint and ligamentum flavum hypertrophy. Hdzg-fb-hscnuoqr central canal stenosis. Moderate to severe bilateral foraminal stenosis. Impression: Multilevel degenerative change, detailed above, which is most prominent C6/C7 with moderate central canal stenosis. This document has been electronically signed by: Jaylin Saucedo MD on 12/21/2024 20:56:02 Dictated By: Jaylin Savage MD Signed By: <Electronically signed by Jaylin Savage MD in OV> 12/21/242056 DD/ 55 TD/TT: 12/21/242055 Cutter Hot Knife: Procedure Note Donotuseinterpreter, Image - 12/21/[address] [address] Magnetic Resonance Report Signed Patient: Jesse Link LMR#: [id number] : 1970Acct:[id number] Age/Sex: 54 / MADM Date: 12/21/24 Loc: HO.MRI Attending Dr: Payton LUU Ordering Physician: Payton Alston Date of Service: 12/21/24 Procedure(s): MR cervical spine wo con Accession Number(s): [id number] cc: Patricia Schofield MD; Payton Alston CLINICAL [...] Moderate facet/uncovertebral joint and ligamentum flavum hypertrophy. Llcs-jb-tdonlmcp central spinal canal stenosis. Moderate bilateral foraminal stenosis. C6/C7: 3 mm disc herniation. Moderate facet/uncovertebral joint and ligamentum flavum hypertrophy. Moderate central canal stenosis. Severe right and mild left foraminal stenosis. C7/T1: 3 mm disc herniation. Moderate facet joint and ligamentum flavum hypertrophy. Iavi-ms-qhnnukxi central canal stenosis. Moderate to severe bilateral foraminal stenosis. Impression: Multilevel degenerative change, detailed above, which is most prominent C6/C7 with moderate central canal stenosis. This document has been electronically signed by: Jaylin Saucedo MD on 12/21/2024 20:56:02 Dictated By: Jaylin Savage MD Signed By: <Electronically signed by Jaylin Savage MD in OV> 12/21/242056 DD/ 55 TD/TT: 12/21/242055 Cutter Hot Knife: [facility] External Provider IMG MRI PROCEDURES Final Result * XR Wrist 3+ Views Bilateral (12/10/2024 12:32 AM EDT) Anatomical Region Laterality Modality Upper Extremities, Wrist Bilateral Radiogr aphic Imaging 12/10/2024 12:3 2 AM EDT Narrative 12/10/2024 12:35 AM EDT [facility] [address] [place] [address] [place] [address] XRay Report Signed Patient: Jesse Link MR#: [id number] : 1970 Acct:[id number] Age/Sex: 54 / M ADM Date: 12/09/24 Loc: HO.HOSX Attending Dr: Natan TILLEY Ordering Physician: Natan Dorsey Date of Service: 12/09/24 Procedure(s): XR Wrist Alphonso min 3V Accession Number(s): [id number] cc: Natan Dorsey; Patricia Schofield MD CLINICAL [...] This document has been electronically signed by: Vaidm Loera MD on 12/10/2024 00:32:58 Dictated By: Vadim Loera MD Signed By: <Electronically signed by Vadim Loera MD in OV> 12/10/2433 DD/ TD/TT: 12/10/2431 Cutter Hot Knife: Procedure Note Donotuseinterpreter, Image - 12/10/2024 [facility] [address] [place] [address] Drive [address] [place] [address] XRay Report Signed Patient: Jesse Link LMR#: [id number] : 1970Acct:[id number] Age/Sex: 54 / MADM Date: 12/09/24 Loc: HO.HOSX Attending Dr: Natan TILLEY Ordering Physician: Natan Dorsey Date of Service: 12/09/24 Procedure(s): XR Wrist Alphonso min 3V Accession Number(s): [id number] cc: Natan Dorsey; Patricia Schofield MD CLINICAL [...] MD in OV> 12/10/2433 DD/ TD/TT: 12/10/2431 Cutter Hot Knife: [facility] External Provider IMG XR PROCEDURES Edited Result - Final * Hepatitis C Antibody with Reflex to HCV, RNA, Quantitative, Real-Time PCR (05/12/2024 3:42 PM EST) [facility] Hepatitis C Antibody Nonreactive Nonreactive [facility] Comment:Antibodies to HCV no t detected; does not exclude early acuteHCV infection. Blood Venous blood specimen / Unknown 05/12/2024 3:42 PM EST 05/12/2024 4:09 PM EST Marii Brown MD LAB BLOOD ORDERABLES Final Result Performing Organization Address [facility]/ZIP Co de Phone Number [facility] [address] [place] [phone] * HIV-1/2 Antigen and Antibodies, Fourth Generation, with Reflexes (05/12/2024 3:42 PM EST) [facility] HIV AB/AG Nonreactive Nonreactive [facility] Comment:HIV-1 p24 Ag and/or HIV-1/HIV-2 Ab not detected.A test result that is nonreactive does not exclude thepossibility of exposure to or infection with HIV-1 and/orHIV-2. Nonreactive results in this assay for individualswith prior exposure to HIV-1 and/or HIV-2 may be due toantigen and antibody levels that are below the limit ofdetection of this assay.The [employer] HIV Ag/Ab Combo assay result andsupplemental assay results should be interpreted inconjunction with the patient's clinical presentation,history and other laboratory results. If the results areinconsistent with clinical evidence, additional testing issuggested to confirm the result. Blood Venous blood specimen / Unknown 05/12/2024 3:42 PM EST 05/12/2024 4:09 PM EST Marii Brown MD LAB BLOOD ORDERABLES Final Result Performing Organization Address [facility]/ZIP Co de Phone Number [facility] [address] [place] [phone] * (ABNORMAL) Lipid Panel, Standard (03/27/2024 1:47 PM EDT) Triglycerides 107 <150 mg/dL [facility] Comment:Desirable Triglyceri de: less than 150 mg/dLBorderline High Triglyceride 150-199 mg/dLHigh Triglyceride: 200-499 mg/dLVery High Triglyceride: greater than or equal to 5OO mg/dL Cholesterol 131 <200 mg/dL [facility] Comment:Desirable Cholestero l: less than 200 mg/dLBorderline High Cholesterol: 200-239 mg/dLHigh Cholesterol: greater than 239 mg/dL LDL Cholesterol Calculated 70 <100 mg/dL [facility] Comment:Desirable LDL: less than 100 mg/dLNear Optimal/Above Optimal LDL: 110- 129 mg/dLBorderline High LDL: 130-159 mg/dLHigh LDL: 160-189 mg/dLVery High LDL: greater than or equal to 190 mg/dL HDL Cholesterol 40(L) >40 mg/dL [facility] Comment:Desirable HDL: great er than 40 mg/dL Note: This HDL assay may give artificially low results in patients with liver disease. Blood Venous blood specimen / Unknown 03/27/2024 1:47 PM EDT 03/27/2024 4:18 PM EDT us Patricia Barfield MD LAB BLOOD ORDERABLES Final Result [facility] [address] [place] [phone] from Last 3 Months or Most Recently Relevant to Health Maintenance Insurance [employer] < [address] [facility] Care Teams [place] Relationship Specialty Start Date End Date Patricia Schofield MD [address] [place] [phone] PCP - General Family Medicine 02/26/18
== END 2025-01-14 06:26 | disposition home or self-care (01) ==
LOC: CF 06:25
PROVIDERS: Visit Provider Internal Medicine
DX: M47.812 Spondylosis without myelopathy or radiculopathy, cervical region (principal)
CPT/HCPCS: 64490; 64491; J2003; J2795; Q9967

== ENCOUNTER 2025-01-14 11:31 | Outpatient (AMB) | payer OTHER, SELFPAY ==
--- NOTE | 2025-01-14 11:37 | MHC.OFFVIS ---
Vital Signs 01/14/25 11:38 Height 5 ft 10 in Weight 158 lb BMI 22.7 BP 118/68 Blood Pressure Location Lt brachial Position Sitting Respiration 16 Pulse 70 Pulse Source Pulse Oximeter Pulse Oximetry (%) 100 Oxygen Delivery Method Room Air Intake Visit Reasons: Left Dx C3-C4-C5 MBB/ ativan Allergies No Known Allergies Allergy (Verified 01/06/25 13:47) HPI HPI Left Dx C3-C4-C5 MBB/ ativan: Details: Patient presents for scheduled procedure. Denies any recent cough, cold, infection, fever or other significant changes in medical history since last office visit. COUNT INCLUDES THE [facility] Medical History (Updated 01/08/25 @ 14:18 by Yong Coffman NP) Neck pain Back pain History of kidney cancer (~2020) Dizziness BRISA (generalized anxiety disorder) Snores Asthma History of cardiac murmur as a child Bilateral hand numbness Bilateral wrist pain Possible exposure to STI Upper back pain Migraine headache Chronic kidney disease, stage 2 (mild) Hyperlipidemia Bilateral arm pain Adrenal incidentaloma Seborrheic dermatitis of scalp Polyarthralgia Missing teeth, acquired Blurry vision, bilateral Chronic right shoulder pain Smoker Pure hyperglyceridemia Post-traumatic osteoarthritis of both wrists Mood disorder Severe major depression without psychotic features Mild intermittent asthma Homeless History of alcoholism GERD (gastroesophageal reflux disease) Foot callus HTN (hypertension) Episodic cluster headache Clear cell carcinoma of kidney Degenerative disc disease, cervical Cervical spondylosis Surgical History History of nephrectomy, left Family History Mother No problems noted. Father No problems noted. Social History Household Members: Family Housing: Apartment Are you a primary healthcare insurance sales agent to a significant other at home: No Do you presently have visiting nurse or other home services: No Alcohol intake: current Alcohol intake frequency: holidays/special occasions only Patient Tobacco Use Status: Current someday Tobacco user Tobacco use type: Cigarette Current occupational status: disabled Current occupation: left hand Physical Exam Vital Signs: Last Vital Signs Pulse 70 01/14/25 11:38 Resp 16 01/14/25 11:38 BP 118/68 01/14/25 11:38 Pulse Ox 100 01/14/25 11:38 Oxygen Delivery Method Room Air 01/14/25 11:38 BMI result Body Mass Index 22.7 Office Procedures Cervical/Thoracic Facet Inj Details: Diagnostic Cervical Medial Branch Block, Left C3, C4, C5 medial branches After obtaining written consent, pre-procedure blood pressure and pulse were recorded and are in the nursing record for review. The patient was placed in a lateral position. The respective cervical area was prepped with chloraprep and draped in sterile fashion. The skin over the target medial branch nerves was anesthetized with 0.5% lidocaine. A 25 gauge 1.5 inch needle was inserted into the target medial branch nerve under fluoroscopic guidance. No paresthesias were elicited with needle placement and aspiration was negative for blood and CSF. Next, 0.2cc of omnipaque 180 was injected to verify positioning. Next 0.5 ml 0.5% ropivicaine was injected (0.5 cc total per level). The identical procedure was performed at the remaining levels. The skin was cleansed and a sterile bandage was applied. Following the procedure the patient's vital signs were stable. The patient tolerated the procedure well and no complications were encountered. Following the procedure the patient's vital signs were stable. The patient was discharged home in good condition with post-procedural instructions. Time Out: Immediately prior to the procedure, the following was verbally confirmed that there is a signed consent form and that the correct patient, planned procedure, site and side are consistent with documentation and that necessary equipment and/or blood products are available prior to the start of the case. Complications: none EBL: <5 cc 96739 - with Fluoroscopy 28381 - second level, with Fluoroscopy Procedure code (CPT) selection complete Assessment & Plan Assessment & Plan (1) Cervical spondylosis: Code(s): M47.812 - Spondylosis without myelopathy or radiculopathy, cervical region Category: Medical Plan Patient is status post left diagnostic C3, C4, C5 medial branch blocks. Patient tolerated procedure well and was discharged home in stable condition with discharge instructions. All questions were answered. We will follow-up via telephone or in clinic to assess response to therapy. A follow-up appointment was made during today's visit. Orders: Orders FL guidance in treatment room Today Bernice Garrido, JULITO, PIECE WORK CHECKER M47.812 - Spondylosis without myelopathy or radiculopathy, cervical region AMB Facet Injection-Cervical/Thoracic Today Jaun Craig MD M47.812 - Spondylosis without myelopathy or radiculopathy, cervical region Medications: New lorazepam (Ativan) Take 30 minutes prior to arrival to procedure 1 mg PO ONCE 1 tab 0RF anxiety Bernice Garrido, IRON BENDER, PIECE WORK CHECKER Coding Level of Care Code Procedure Only Diagnoses Cervical spondylosis M47.812 CPT Codes Facet Injection Cervical/Thoracic - CPT: 47801 - with Fluoroscopy ([id number]) Facet Injection Cervical/Thoracic - CPT: 68867 - second level, with Fluoroscopy ([id number])
[2025-01-14 11:38] VITALS: BP 118/68; PULSE 70; RESP 16; O2SAT 100; BMI 22.7
== END 2025-01-14 12:12 | disposition home or self-care (01) ==
LOC: HO.PMCPRC 11:31
PROVIDERS: PCP Internal Medicine; Visit Provider Internal Medicine
DX: M47.812 Spondylosis without myelopathy or radiculopathy, cervical region (principal)
CPT/HCPCS: 64490; 64491

== ENCOUNTER 2025-01-15 11:38 | Outpatient (REF) | payer OTHER, SELFPAY ==
--- NOTE | ~2025-01-15 | XR_ITS ---
EXAMINATION: XR SHOULDER, LEFT CLINICAL INFORMATION: 4-day duration of left AC joint tenderness s/p shoulder hyperextension. COMPARISON: November 06, 2016 TECHNIQUE: AP external rotation, Grashey, scapular Y, and axillary views of the left shoulder. FINDINGS: There is no AC joint separation. There is no visible fracture. There is no dislocation. XR/XR shoulder LT min 2V IMPRESSION: Unremarkable left shoulder Electronically signed by: Lupillo Toledo MD 01/15/2025 12:48 PM EDT
--- OUTSIDE RECORDS SUMMARY | 2025-01-15 11:41 | XMS_ITS | Clinical Summary ---
Author Organization [employer] Address [address] [place] [address] [address] [place] [address] Care Team Providers Care Med Care Manager Name Role Phone Patricia Schofield MD Primary Care Provide r Allergies No known active allergies Medications * This document contains information received from the source organization and may not represent a complete record from that organization. fluticasone (Flonase Allergy Relief) 50 MCG/ACT nasal sprayIndications:Ess ential hypertension inhale 2 spray by intranasal route every day in each nostril as needed 48 g 023 Active Blood Pressure Monitor kitIndications:Essen tial hypertension Use as directed 3x/week 1 kit 023 Active ketoconazole (NIZOral) 2 % shampooIndications:S eborrheic dermatitis of scalp APPLY TO THE AFFECTED AREA(S) TWICE A WEEK 120 mL 1 024 Active hydrOXYzine HCl (Atarax) 25 MG tabletIndications:De pression, unspecified depression type,Anxiety TAKE 1 TABLET BY MOUTH EVERY EVENING NEEDED 60 tablet 024 Active cyclobenzaprine (Flexeril) 10 MG tabletIndications:Ne ck pain Take 1 tablet (10 mg) by mouth 3 times daily for 10 days. 30 tablet 024 Active famotidine (Pepcid) 20 MG tablet Take 1 tablet (20 mg) by mouth 2 times daily. 60 tablet 11 024 2024 Active cholecalciferol (D3-1000) 25 MCG (1000 UT) capsuleIndications:E ssential hypertension TAKE 1 CAPSULE BY MOUTH EVERY MORNING 90 capsule 1 024 Active thiamine (Vitamin B-1) 100 MG tabletIndications:Es sential hypertension TAKE 1 TABLET BY MOUTH EVERY MORNING 90 tablet 1 024 Active lisinopril 20 MG tabletIndications:Es sential hypertension TAKE 1 TABLET BY MOUTH EVERY MORNING 90 tablet 1 024 Active Ventolin HFA 108 (90 Base) MCG/ACT inhalerIndications:M oderate asthma, unspecified whether complicated, unspecified whether persistent INHALE 2 PUFFS BY MOUTH EVERY 6 HOURS NEEDED FOR WHEEZING 18 g 025 Active amitriptyline (Elavil) 75 MG tabletIndications:De pression, unspecified depression type TAKE 1 TABLET BY MOUTH AT BEDTIME 30 tablet 3 025 Active Multiple Vitamin (Multivitamin) tabletIndications:Ch ronic fatigue TAKE 1 TABLET BY MOUTH EVERY MORNING 30 tablet 3 025 Active gabapentin (Neurontin) 300 MG capsuleIndications:C ervical spine arthritis with nerve pain Take 1 capsule (300 mg) by mouth 3 times daily. 90 capsule 2 025 2025 Active ibuprofen 800 MG tabletIndications:Ce rvical spine arthritis with nerve pain,Chronic migraine without aura without status migrainosus, not intractable TAKE 1 TABLET BY MOUTH EVERY 8 HOURS NEEDED FOR MODERATE PAIN OR FOR HEADACHE 90 tablet 025 Active omeprazole (PriLOSEC) [address] capsuleIndications:G astroesophageal reflux disease without esophagitis TAKE 1 CAPSULE BY MOUTH EVERY MORNING BEFORE A MEAL 90 capsule 1 025 Active sertraline (Zoloft) 50 MG tabletIndications:De pression, unspecified depression type TAKE 1 TABLET BY MOUTH EVERY MORNING 90 tablet 025 Active Diclofenac Sodium 1 % gelIndications:Pain in left acromioclavicular joint Apply 1 Application topically if needed in the morning, at noon, in the evening, and at bedtime (pain) for up to 7 days. 100 g 025 2024 Active sertraline (Zoloft) 50 MG tabletIndications:De pression, unspecified depression type TAKE 1 TABLET BY MOUTH EVERY MORNING 90 tablet 025 2024 Discontinued Active Problems Problem Noted Date Diagnosed [...] Self Plan [facility] and Patient [...] Encounters Date Type Department Care Team Description 01/15/2025 11:00 AM EDT [facility] [address] [address] Pain in left acromioclavicular joint (Primary Dx) 01/15/2025 Results Follow-Up [address] [address] Pepito Rodríguez CNP CBC auto differential, Comprehensive Metabolic Panel, Prothrombin Time-INR, Albumin, Random Urine W/Creatinine 01/15/2025 Travel 01/01/2025 2:15 PM EDT Office Visit [address] [address] Pepito Rodríguez CNP Cubital tunnel syndrome on right (Primary Dx); Pre-op evaluation 01/01/2025 Travel 01/01/2025 Refill [facility] [address] [place] [phone] Patricia Schofield MD Depression, unspecified depression type 12/31/[address] [address] Nadiya Goodrich [place] Chart Prep 12/15/[address] [address] Patricia Schofield MD chart prep 12/09/2024 Orders Only [facility] External Provider, [facility] 12/09/[address] [address] Patricia Schofield MD Pre-op Visit 12/06/2024 Refill [facility] [address] [address] Tray Cheema MD Gastroesophageal reflux disease without esophagitis 11/26/2024 Refill [facility] [address] [place] [phone] Patricia Schofield MD Cervical spine arthritis with nerve pain; Chronic migraine without aura without status migrainosus, not intractable 11/24/2024 Telephone [facility] [address] [place] [address] Patricia Schofield MD SEP RECALL 10/27/2024 Refill [facility] [address] [place] [address] Patricia Schofield MD Cervical spine arthritis with [...] Sign Reading Time Taken Comments Blood Pressure 110/77 01/15/2025 10:38 AM EDT Pulse 75 01/15/2025 10:38 AM EDT Temperature 36.2 C (97.1 F) 01/15/2025 10:38 AM EDT Respiratory Rate 17 01/15/2025 10:38 AM EDT Oxygen Saturation 98% 01/15/2025 10:38 AM EDT Inhaled Oxygen Concentration - - Weight 77.1 kg (170 lb) 01/15/2025 10:38 AM EDT Height 176.5 cm (5' 9.5 ) 01/01/2025 2:19 PM EDT Body Mass Index 24.74 01/01/2025 2:19 PM EDT Plan of Treatment Upcoming Encounters Date Type Department Care Team (Late st Contact Info) Description 02/16/2025 3:15 PM EDT Office Visit [facility] [address] [place] [address] Patricia Schofield MD [address] [place] [address] Health Maintenance Due Date Last Done Comments [...] 03/18/20 23, 09/05/2020, 04/26/2017, Additional history exists Influenza Vaccine [...] Blood Count 6.0 4.8 - 10.8 X10*3/uL [facility] Red Blood Count 4.77 4.60 - 5.80 X10*6/uL [facility] Hemoglobin 13.9(L) 14.0 - 18.0 g/dl [facility] Hematocrit 41.2(L) 42.0 - 52.0 % [facility] Mean Corpuscular Volume 86.4 80.0 - 98.0 fL [facility] Mean Corpuscular Hemoglobin 29.1 27.0 - 33.0 pg [facility] Mean Corpuscular HGB Conc 33.7 31.0 - 36.0 g/dl [facility] Red Cell Distribution Width 15.0 11.0 - 16.0 % [facility] Platelet Count 318 160 - 400 X10*3/uL [facility] Mean Platelet Volume 9.9 9.4 - 12.4 fL [facility] Neutrophils Percent Auto 54.7 45 - 73 % [facility] Imm Gran Pct Auto 0.3 0.0 - 0.4 % [facility] Lymphocytes Percent Auto 32.3 20 - 40 % [facility] Monocytes Percent Auto 8.6 2 - 11 % [facility] Eosinophils Percent Auto 3.4 0 - 4 % [facility] Basophils Percent Auto 0.7 0 - 2 % [facility] NRBC Pct Auto 0.0 0.0 - 0.2 /100WBC [facility] Neutrophils Absolute Auto 3.3 2.0 - 8.3 x10*3/uL [facility] Imm Gran Abs Auto 0.02 0.00 - 0.03 X10*3/uL [facility] Lymphocytes Absolute Auto 1.9 1.2 - 4.9 X10*3/uL [facility] Monocytes Absolute Auto 0.5 0.1 - 1.2 X10*3/uL [facility] Eosinophils Absolute Auto 0.2 0.0 - 0.4 X10*3/uL [facility] Basophils Absolute Auto 0.0 0.0 - 0.2 X10*3/uL [facility] NRBC Abs Auto 0.000 0.0 - 0.012 X10*3/uL [facility] Blood Venous blood specimen / Unknown 01/12/2025 4:06 PM EDT 01/12/2025 4:06 PM EDT Chekonidia Rodríguez DIGITAL ACCOUNT SUPERVISOR LAB BLOOD ORDERABLES Ninoska l Result [facility] [address] [place] [phone] * (ABNORMAL) Prothrombin Time-INR (01/12/2025 4:06 PM EDT) Prothrombin Time 10.7(L) 10.9 - 12.4 SEC [facility] INTERNATIONAL NORM RATIO 0.9 0.9 - 1.1 [facility] Comment:INTERNATIONAL NORMAL IZED RATIO (INR) [...] 4:06 PM EDT 01/12/2025 4:06 PM EDT [facility] LAB BLOOD ORDERABLES Ninoska chu Result [facility] [address] [place] [phone] * (ABNORMAL) Comprehensive Metabolic Panel (01/12/2025 4:06 PM EDT) Sodium 142 135 - 145 mmol/L [facility] Potassium 4.4 3.3 - 5.1 mmol/L [facility] Chloride 110(H) 96 - 108 mmol/L [facility] Carbon Dioxide 25 22 - 29 mmol/L [facility] Anion Gap 11(L) 12 - 20 [facility] Urea Nitrogen (BUN) 12 9 - 16 mg/dL [facility] Creatinine, Serum 1.43(H) 0.5 - 1.4 mg/dL [facility] Estimated Glomerular Filt Rate 51 [facility] Comment:Chronic Kidney Disea se: Estimated GFR < 60 mL/min/1.41s2Wjgwyf Kidney Disease: Estimated GFR < 15 mL/min/1.73m2 Glucose 94 60 - 115 mg/dL [facility] Calcium 9.0 8.4 - 10.2 mg/dL [facility] Bilirubin, Total 0.3 0.0 - 1.0 mg/dL [facility] Aspartate Amino Transferase 18 5 - 37 U/L [facility] Alanine Aminotransferase 14 0 - 40 U/L [facility] Total Protein 6.9 6.5 - 8.0 g/dL [facility] Albumin Level 4.3 3.5 - 5.0 g/dL [facility] Alkaline Phosphatase 73 39 - 117 U/L [facility] Blood Venous blood specimen / Unknown 01/12/2025 4:06 PM EDT 01/12/2025 4:06 PM EDT Result [facility] LAB BLOOD ORDERABLES Ninoska l Result Performing Organization Address [facility] Co de Phone Number [facility] [address] [place] [phone] * Albumin, Random Urine W/Creatinine (01/12/2025 12:00 AM EDT) Creatinine, Urine 122.96 mg/dL [facility] Microalbumin Urine <5.0 mg/L [facility] Microalbum Creatinine Ratio Ur TNP <30 ug/mg cr [facility] Comment:Unable to calculate albumin/creatinine ratio due to lowmicroalbumin or creatinine result. Urine (Urine, Random) 01/12/2025 01/12/2025 Result [facility] LAB URINE ORDERABLES Ninoska l Result Performing Organization Address [facility] Co de Phone Number [facility] [address] [place] [phone] * ECG 12 lead (01/01/2025 2:44 PM EDT) Narrative RodríguezPepito [facility] - 01/01/2025 2:44 PM EDT EKG: NSR, Rate 70bpm, No ST segmental changes, no QR interval changes, normal ECG Result [facility] ECG ORDERABLES Final Res ult * MR Cervical Spine w/o Contrast (12/21/2024 8:56 PM EDT) Anatomical Region Laterality Modality Spine, C-spine Magnetic Resonan ce 12/21/2024 8:56 PM EDT Narrative 12/21/2024 8:58 PM EDT [address] [address] Magnetic Resonance Report Signed Patient: Jesse Link MR#: [id number] : 1970 Acct:[id number] Age/Sex: 54 / M ADM Date: 12/21/24 Loc: HO.MRI Attending Dr: Payton LUU Ordering Physician: Payton Alston Date of Service: 12/21/24 Procedure(s): MR cervical spine wo con Accession Number(s): [id number] cc: Patricia Schofield MD; Payton Alston CLINICAL [...] Moderate facet/uncovertebral joint and ligamentum flavum hypertrophy. Ddub-gb-qlxtdqmq central spinal canal stenosis. Moderate bilateral foraminal stenosis. C6/C7: 3 mm disc herniation. Moderate facet/uncovertebral joint and ligamentum flavum hypertrophy. Moderate central canal stenosis. Severe right and mild left foraminal stenosis. C7/T1: 3 mm disc herniation. Moderate facet joint and ligamentum flavum hypertrophy. Vnmo-vp-lwbvacep central canal stenosis. Moderate to severe bilateral foraminal stenosis. Impression: Multilevel degenerative change, detailed above, which is most prominent C6/C7 with moderate central canal stenosis. This document has been electronically signed by: Jaylin Saucedo MD on 12/21/2024 20:56:02 Dictated By: Jaylin Savage MD Signed By: <Electronically signed by Jaylin Savage MD in OV> 12/21/242056 DD/ 55 TD/TT: 12/21/242055 Distance Education Coordinator: Procedure Note Donotuseinterpreter, Image - 12/21/2024 [place] [address] Magnetic Resonance Report Signed Patient: Jesse Link LMR#: [id number] : 1970Acct:[id number] Age/Sex: 54 / MADM Date: 12/21/24 Loc: HO.MRI Attending Dr: Payton LUU Ordering Physician: Payton Alston Date of Service: 12/21/24 Procedure(s): MR cervical spine wo con Accession Number(s): [id number] cc: Patricia Schofield MD; Payton Alston CLINICAL [...] Moderate facet/uncovertebral joint and ligamentum flavum hypertrophy. Geqt-lv-szbomycy central spinal canal stenosis. Moderate bilateral foraminal stenosis. C6/C7: 3 mm disc herniation. Moderate facet/uncovertebral joint and ligamentum flavum hypertrophy. Moderate central canal stenosis. Severe right and mild left foraminal stenosis. C7/T1: 3 mm disc herniation. Moderate facet joint and ligamentum flavum hypertrophy. Wgqd-uv-uhmwveaz central canal stenosis. Moderate to severe bilateral foraminal stenosis. Impression: Multilevel degenerative change, detailed above, which is most prominent C6/C7 with moderate central canal stenosis. This document has been electronically signed by: Jaylin Saucedo MD on 12/21/2024 20:56:02 Dictated By: Jaylin Savage MD Signed By: <Electronically signed by Jaylin Savage MD in OV> 12/21/242056 DD/ 55 TD/TT: 12/21/242055 Distance Education Coordinator: [facility] External Provider IMG MRI PROCEDURES Final Result * XR Wrist 3+ Views Bilateral (12/10/2024 12:32 AM EDT) Anatomical Region Laterality Modality Upper Extremities, Wrist Bilateral Radiogr aphic Imaging 12/10/2024 12:3 2 AM EDT Narrative 12/10/2024 12:35 AM EDT [facility] [address] [place] [address] Drive [address] [place] [address] XRay Report Signed Patient: Jesse Link MR#: [id number] : 1970 Acct:[id number] Age/Sex: 54 / M ADM Date: 12/09/24 Loc: [facility] Attending Dr: Natan TILLEY Ordering Physician: Natan Dorsey Date of Service: 12/09/24 Procedure(s): XR Wrist Alphonso min 3V Accession Number(s): [id number] cc: Natan Dorsey; Patricia Schofield MD CLINICAL [...] MD in OV> 12/10/2433 DD/ TD/TT: 12/10/2431 Distance Education Coordinator: Procedure Note Donotuseinterpreter, Image - 12/10/2024 [facility] [address] [place] [address] [address] [place] [address] XRay Report Signed Patient: Jesse Link R#: [id number] : 1970Acct:[id number] Age/Sex: 54 / MADM Date: 12/09/24 Loc: HERIBERTO Attending Dr: Natan TILLEY Ordering Physician: Natan Dorsey Date of Service: 12/09/24 Procedure(s): XR Wrist Alphonso min 3V Accession Number(s): [id number] cc: Natan Dorsey; Patricia Schofield MD CLINICAL [...] MD in OV> 12/10/2433 DD/ TD/TT: 12/10/2431 Distance Education Coordinator: [facility] External Provider IMG XR PROCEDURES Edited Result - Final * Hepatitis C Antibody with Reflex to HCV, RNA, Quantitative, Real-Time PCR (05/12/2024 3:42 PM EST) Hepatitis C Antibody Nonreactive Nonreactive [facility] Comment:Antibodies to HCV no t detected; does not exclude early acuteHCV infection. Blood Venous blood specimen / Unknown 05/12/2024 3:42 PM EST 05/12/2024 4:09 PM EST Marii Brown MD LAB BLOOD ORDERABLES Final Result [facility] [address] [place] [phone] * HIV-1/2 Antigen and Antibodies, Fourth Generation, with Reflexes (05/12/2024 3:42 PM EST) HIV AB/AG Nonreactive Nonreactive [facility] Comment:HIV-1 p24 Ag and/or HIV-1/HIV-2 Ab not detected.A test result that is nonreactive does not exclude thepossibility of exposure to or infection with HIV-1 and/orHIV-2. Nonreactive results in this assay for individualswith prior exposure to HIV-1 and/or HIV-2 may be due toantigen and antibody levels that are below the limit ofdetection of this assay.[employer] HIV Ag/Ab Combo assay result andsupplemental assay results should be interpreted inconjunction with the patient's clinical presentation,history and other laboratory results. If the results areinconsistent with clinical evidence, additional testing issuggested to confirm the result. Blood Venous blood specimen / Unknown 05/12/2024 3:42 PM EST 05/12/2024 4:09 PM EST us Marii Brown MD LAB BLOOD ORDERABLES Final Result [facility] [address] [place] [phone] * (ABNORMAL) Lipid Panel, Standard (03/27/2024 1:47 PM EDT) Triglycerides 107 <150 mg/dL [facility] Comment:Desirable Triglyceri de: less than 150 mg/dLBorderline High Triglyceride 150-199 mg/dLHigh Triglyceride: 200-499 mg/dLVery High Triglyceride: greater than or equal to 5OO mg/dL Cholesterol 131 <200 mg/dL [facility] Comment:Desirable Cholestero l: less than 200 mg/dLBorderline High Cholesterol: 200-239 mg/dLHigh Cholesterol: greater than 239 mg/dL LDL Cholesterol Calculated 70 <100 mg/dL [facility] Comment:Desirable LDL: less than 100 mg/dLNear Optimal/Above Optimal LDL: 110- 129 mg/dLBorderline High LDL: 130-159 mg/dLHigh LDL: 160-189 mg/dLVery High LDL: greater than or equal to 190 mg/dL HDL Cholesterol 40(L) >40 mg/dL [facility] Comment:Desirable HDL: great er than 40 mg/dL Note: This HDL assay may give artificially low results in patients with liver disease. Blood Venous blood specimen / Unknown 03/27/2024 1:47 PM EDT 03/27/2024 4:18 PM EDT us Patricia Barfield MD LAB BLOOD ORDERABLES Final Result [facility] [address] [place] [address] [phone] from Last 3 Months or Most Recently Relevant to Health Maintenance Insurance [employer] [phone] [place] [address] Care Teams Med Care Manager Relationship Specialty Start Date End Date Patricia Schofield MD [address] [place] [phone] PCP - General Family Medicine 02/26/18
--- OUTSIDE RECORDS SUMMARY | 2025-01-15 11:41 | XMS_ITS | Clinical Summary ---
Author Organization [facility] Address [address] [place] [address] Phone Care Team Providers Care Scallop Cutter Name Role Phone Physician, No Pcp Primary Care Provider Unavaila ble Allergies No known active allergies Medical History Medical History Date Comments Kidney cancer, primary, with metastasis from kidney to other site, left (CMS/[facility] V24, [facility] V28) Social History Tobacco Use [...] patient's age to complete this topic Insurance [facility] MEDIC[facility] Member Subscriber Plan / Payer (Ef fective 2023-Present) Name:Jesse Link Relation to Subscriber:Self Name:Jesse Link Payer ID:[id number] Group ID:[id number] Type:Not on file Address: [place] [address] [place] [phone] Care Teams Scallop Cutter Relationship Specialty Start Date End Date Physician, No Pcp PCP - General 08/14/24
== END 2025-01-15 11:39 | disposition home or self-care (01) ==
LOC: HO.HHCX 11:38
PROVIDERS: Visit Provider Family Medicine
DX: M25.512 Pain in left shoulder (principal)
CPT/HCPCS: 73030

== ENCOUNTER → 2025-01-15 11:39 | Outpatient (BNV) | payer OTHER, SELFPAY | PROVIDERS: Visit Provider Radiology Diagnostic Radiology | DX: M25.512 Pain in left shoulder (principal) | CPT/HCPCS: 73030 ==

== ENCOUNTER 2025-01-19 10:12 | Outpatient (AMB) | payer OTHER, SELFPAY ==
--- NOTE | 2025-01-19 10:13 | MHC.OFFVIS ---
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 The MRI revealed multilevel degenerative changes, most prominent at C6-C7 with moderate central canal stenosis as noted below. Imaging findings are consistent with patient's symptoms of cervical radiculopathy and disc herniations. The patient reports persistent neck pain despite the medial branch blocks, indicating no significant pain relief from the procedure. We will proceed with C6-C7 interlaminar ROCK as next and consider surgical consultation if symptoms persist. The patient also experiences bilateral numbness in the hands, particularly affecting the fourth and fifth fingers, consistent with bilateral cubital tunnel syndrome. These symptoms are intermittent but occur daily and worsen at night. The patient is scheduled for right cubital tunnel release surgery on January 21. Denies any recent cough, cold, infection, fever or any other significant changes in medical history since last office visit. - Affect: Pain impacts daily activities and sleep due to worsening symptoms at night. - Analgesia: Currently using cyclobenzaprine and gabapentin; ibuprofen as needed. - Adverse Effects: No specific adverse effects reported from current medications. - Activities of Daily Living: Pain affects daily functioning, particularly at night. - Aberrant Drug Related Behaviors: No aberrant behaviors reported. Past Procedures: 01/14/25: Left Diagnostic C3-C4-C5 MBB-0% pain relief PRIOR: The patient is a 54-year-old male presenting with neck and right hand pain. His symptoms have intensified, primarily affecting the cervical region and extending to the right arm, a condition not triggered by any recent injury by he did fell on ice a year ago. Previously assessed and diagnosed with bilateral ulnar neuropathy, he now experiences exacerbation of symptoms like neck pain, which is provoked further when bending down his neck. He states the current episode is more troublesome than previous instances, particularly while driving or sleeping. Utilizing pillows to aid comfort, he experiences difficulties in certain neck positions. He expresses uncertainty about having a recent MRI or prior surgery regarding his neck. There is a scheduled consultation with a Hand Specialist soon, initially referred for pain potentially linked to underlying arthritic or neuropathic conditions. An MRI is considered to understand better the structural elements of his ongoing neck complaints, especially concerning possible disc-related issues. In meantime, we are awaiting insurance approval for diagnostic cervical medial branch blocks to address his axial neck pain. PRIOR 09/18/24: The patient is a 54-year-old male presenting with chronic neck pain with radicular symptoms. The patient reports worsening neck pain that has persisted for over two years, notably exacerbated in the past year following falls on ice. Cervical x-ray findings from 2022 indicate degenerative changes most notably at C3-C4 and C5-C7 levels. Pain is described as aching, spasming, hurting and cracking with radiation to the arms, causing numbness and tingling, especially on the left side. The condition disrupts sleep, necessitating adjustments such as multiple pillows for arm support. The patient also experiences chronic left-sided migraines and cluster headaches. A history of arthritis is noted in the hands and neck, with an EMG revealing mild bilateral ulnar neuropathy. He is left hand dominant with impaired strength in the left hand. He remains on permanent disability due to his complex medical conditions and receives [employer] services for some assistance at home. He has attempted physical therapy last year without improvement and uses massage therapy without benefit. Cardiac history includes chest pain investigations and an impending echo for aortic assessment. Pain management involves gabapentin and ibuprofen, though gabapentin induces sleepiness. Amitriptyline is also used for headache control. - Onset: Progressively worsening over the past year, with onset more than two years ago. - Quality: Aching, cracking, throbing, shooting, stabbing, sharp, tiring, dull, hurting, tingling. - Primary location: Cervical spine - Radiation: To arms with numbness and tingling, predominantly on the left side. - Exacerbating factors: Falls on ice, maintaining certain head positions, looking up or down, sideways movements. - Relieving factors: Adjustments with pillows during sleep. - Interference: Affects sleep quality and results in arm numbness. - Affect: Pain impacts sleep quality, leading to arm numbness; no specific mention of mood impact. - Analgesia: Currently using ibuprofen and gabapentin; goal pain relief not explicitly mentioned. - Adverse Effects: Gabapentin causes somnolence; no other adverse effects reported. - Activities of Daily Living: Pain affects the ability to sleep comfortably, necessitating specific pillow arrangements. - Aberrant Drug Related Behaviors: No signs of medication misuse or early refill requests mentioned. Oswestry Neck Pain Disability Score=34 (severe disability) [facility] Medical History Neck pain Back pain History of kidney cancer (~2020) Dizziness BRISA (generalized anxiety disorder) Snores Asthma History of cardiac murmur as a child Bilateral hand numbness Bilateral wrist pain Possible exposure to STI Upper back pain Migraine headache Chronic kidney disease, stage 2 (mild) Hyperlipidemia Bilateral arm pain Adrenal incidentaloma Seborrheic dermatitis of scalp Polyarthralgia Missing teeth, acquired Blurry vision, bilateral Chronic right shoulder pain Smoker Pure hyperglyceridemia Post-traumatic osteoarthritis of both wrists Mood disorder Severe major depression without psychotic features Mild intermittent asthma Homeless History of alcoholism GERD (gastroesophageal reflux disease) Foot callus HTN (hypertension) Episodic cluster headache Clear cell carcinoma of kidney Degenerative disc disease, cervical Cervical spondylosis Surgical History History of nephrectomy, left Family History Mother No problems noted. Father No problems noted. 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 - Musculoskeletal: Reports persistent neck pain radiating to the head and shoulders, left>right. All systems reviewed & are unremarkable except as noted in HPI and below Physical Exam Vital Signs: Last Vital Signs Pulse 80 01/19/25 10:16 BP 122/76 01/19/25 10:16 Pulse Ox 97 01/19/25 10:16 Oxygen Delivery Method Room Air 01/19/25 10:16 BMI result Body Mass Index 23.9 General: Appears afebrile. Alert and oriented. Mood and affect appropriate. Follows and participates in conversation appropriately. Respiratory effort is unlabored. No cough. Able to transition from sit to stand unassisted. Ambulates with bilaterally normal heel strike and toe off. Neck Other: Patient with decreased cervical ROM in all planes/especially with lateral rotations. Reports increased pain with cervical flexion. Spurling compression test is positive. Elvey's tension test positive on the right>left, with pain extending into elbows and wrists and fingers. Lhermitte's test was negative. DTR intact, +2 and symmetrical. Patient demonstrated 4/5 right and 5/5 left motor strength of bilateral upper extremities. 2 + radial pulses. Significant tightness throughout upper trapezius and rhomboid muscles. Multiple taut bands palpated throughout bilateral upper trapezius muscles. Elbow flexion reproduces paresthesias in 4-5th fingers bilaterally, right>left. Neck: Yes normal visual inspection, Yes no lymphadenopathy, Yes supple, No anterior neck swelling, Yes no JVD, No prominent supraclavicular fat pad and No prominent dorsocervical fat pad Back/Spine/Pelvis Cervical Spine: No collar present, No Lhermitte's sign positive, cervical muscular tenderness, pain with cervical ROM, No Cervical spine scars present, cervical spasm, No Cervical spine tenderness and No step off deformity Results Reviewed Results Reviewed: XR CERVICAL SPINE XR SHOULDER, RIGHT 02/27/23 CLINICAL INFORMATION: Shoulder and neck pain. COMPARISON: Cervical spine 10/08/2018. TECHNIQUE: 5 views cervical spine, 4 views shoulder. FINDINGS: Cervical spine: Degenerative changes are present in the cervical spine with disc space narrowing at C3-C4 and from C5 through C7. There is endplate sclerosis and osteophyte formation. Findings have progressed slightly when compared to 10/08/2018. No significant foraminal narrowing is seen. No soft tissue swelling, fractures or subluxations. No bony destructive lesions. Right shoulder: There is some minimal degenerative changes at the AC joint. The glenohumeral joint appears normal. IMPRESSION: Degenerative changes in the cervical spine, most marked at C3-C4 and C5-C7. NE electromyogram (EMG) 09/15/24 Bilateral median and ulnar motor and sensory studies were performed. Bilateral radial sensory studies were performed and paraspinal muscles were tested with a needle. IMPRESSION: Mild bilateral ulnar neuropathy across cubital tunnel. XR SHOULDER, LEFT 01/15/25 CLINICAL INFORMATION: 4-day duration of left AC joint tenderness s/p shoulder hyperextension. COMPARISON: November 06, 2016 FINDINGS: There is no AC joint separation. There is no visible fracture. There is no dislocation. IMPRESSION: Unremarkable left shoulder MR cervical spine without contrast 12/21/24 Comparison: CR/SR - XR CERVICAL SPINE 5V - 02/27/23 12:58 EDT Findings: Image quality on some series is degraded by patient motion. 2 mm retrolisthesis of C5 on C6, degenerative. 1-2 mm of C6 on C7, degenerative. Multilevel Modic type 1 change much is most prominent C5/C6. Modic type 2 change at the inferior endplate of C6. The prevertebral and paraspinous musculature are within normal limits. The cervical cord is normal in size and signal. C2/C3: No disc herniation. Mild facet and ligamentum flavum hypertrophy. No central canal stenosis. No foraminal stenosis. C3/C4: 2 mm disc herniation. Mild facet/uncovertebral joint and ligamentum flavum hypertrophy. Mild central canal stenosis. Mild bilateral foraminal stenosis. C4/C5: 1-2 mm disc protrusion. Mild uncovertebral joint and ligamentum flavum hypertrophy. Moderate facet joint hypertrophy, greater on the left. Mild central canal stenosis. Mild bilateral foraminal stenosis. C5/C6: 3 mm disc herniation. Moderate facet/uncovertebral joint and ligamentum flavum hypertrophy. [id number] central spinal canal stenosis. Moderate bilateral foraminal stenosis. C6/C7: 3 mm disc herniation. Moderate facet/uncovertebral joint and ligamentum flavum hypertrophy. Moderate central canal stenosis. Severe right and mild left foraminal stenosis. C7/T1: 3 mm disc herniation. Moderate facet joint and ligamentum flavum hypertrophy. [id number] central canal stenosis. Moderate to severe bilateral foraminal stenosis. Impression: Multilevel degenerative change, detailed above, which is most prominent C6/C7 with moderate central canal stenosis. Assessment & Plan Assessment & Plan (1) Cervical spondylosis: Code(s): M47.812 - Spondylosis without myelopathy or radiculopathy, cervical region Category: Medical (2) Degenerative disc disease, cervical: Code(s): M50.30 - Other cervical disc degeneration, unspecified cervical region Category: Medical (3) Cervical radiculopathy: Code(s): M54.12 - Radiculopathy, cervical region Category: Medical (4) Cervical spinal stenosis: Code(s): M48.02 - Spinal stenosis, cervical region Category: Medical Plan Cervical spine MRI results were discussed with patient today. Schedule C6-C7 interlaminar epidural steroid injection with local and fluoroscopy to address the cervical radiculopathy and disc herniations. If the injection does not provide adequate relief, a referral to a Neurosurgeon will be considered for further evaluation and management. We will hold off on right sided cervical medial branch blocks given no relief with left sided cervical MBBs. The patient is scheduled for right cubital tunnel release surgery on January 21 to address the bilateral cubital tunnel syndrome symptoms. Continued cyclobenzaprine and gabapentin, with ibuprofen as needed for pain management. All questions and concerns have been answered and patient agreed with the plan. Follow up after injections and sooner as needed. Patient was informed and verbally consented to the use of an ambient scribe for clinic note documentation during this visit. Coding Level of Care Code Est Pt Level 4 (61053) Complex EM visit Add On G2211 Diagnoses Cervical spondylosis M47.812 Degenerative disc disease, cervical M50.30 Cervical radiculopathy M54.12 Cervical spinal stenosis M48.02
[2025-01-19 10:16] VITALS: BP 122/76; PULSE 80; O2SAT 97; BMI 23.9
--- OUTSIDE RECORDS SUMMARY | 2025-01-19 10:46 | XMS_ITS | Clinical Summary ---
Author Organization [facility] Address [address] [place] [address] Phone Care Team Providers Care Wallpaper Hanger Name Role Phone Physician, No Pcp Primary Care Provider Unavaila ble Allergies No known active allergies Medical History Medical History Date Comments Kidney cancer, primary, with metastasis from kidney to other site, left (CMS/[facility] V24, [facility] V28) Social History Tobacco Use [...] patient's age to complete this topic Insurance [facility] MEDICARE Member Subscriber Plan / Payer (Ef fective 2023-Present) Name:Jesse Link Relation to Subscriber:Self Name:Jesse Link Payer ID:[id number] Group ID:[id number] Type:Not on file Address: [place] [address] [address] [id number] Care Teams Wallpaper Hanger Relationship Specialty Start Date End Date Physician, No Pcp PCP - General 08/14/24
--- OUTSIDE RECORDS SUMMARY | 2025-01-19 10:46 | XMS_ITS | Clinical Summary ---
Author Organization [employer] Address [address] [place] [address] [address] [place] [address] Care Team Providers Care Autographer Name Role Phone Patricia Schofield MD Primary [...] Self Plan Patient to [facility] as needed and Patient to reach [...] Description 01/15/2025 11:00 AM EDT [facility] [address] [address] Morales Shaikh MD Pain in left acromioclavicular joint (Primary Dx) 01/15/2025 Results Follow-Up [facility] [address] [place] [phone] Pepito Rodríguez CNP CBC auto differential, Comprehensive Metabolic Panel, Prothrombin Time-INR, Albumin, Random Urine W/Creatinine 01/15/2025 Travel 01/01/2025 2:15 PM EDT Office Visit [address] [address] Pepito Rodríguez CNP Cubital tunnel syndrome on right (Primary Dx); Pre-op evaluation 01/01/2025 Travel 01/01/[address] [facility] [address] [place] [phone] Patricia Schofield MD Depression, unspecified depression type 12/31/[address] [address] Nadiya Goodrich [place] Chart Prep 12/15/[address] [address] Patricia Schofield MD chart prep 12/09/2024 Orders Only [facility] External Provider, [facility] 12/09/[address] [address] Patricia Schofield MD Pre-op Visit 12/06/2024 [facility] [address] [address] Tray Cheema MD Gastroesophageal reflux disease without esophagitis 11/26/[address] [facility] [address] [place] [phone] Patricia Schofield MD Cervical spine arthritis with nerve pain; Chronic migraine without aura without status migrainosus, not intractable 11/24/[address] [facility] [address] [place] [address] Patricia Schofield MD SEP RECALL 10/27/[address] [facility] [address] [place] [address] Patricia Schofield MD Cervical spine arthritis with [...] Description 02/16/2025 3:15 PM EDT Office Visit [facility] [address] [place] [address] Patricia Schofield MD [address] [place] [address] Health Maintenance Due Date Last Done Comments [...] Name Priority Date/Time Associated Diagnosis Comments XR SHOULDER 2+ VIEWS LEFT Routine 01/15/2025 11:00 AM EDT Pain in left acromioclavicular joint PROTHROMBIN TIME-INR Routine 01/12/2025 4:06 PM EDT [...] Relevant to Health Maintenance Results * XR Shoulder 2+ Views Left (01/15/2025 11:00 AM EDT) Anatomical Region Laterality Modality Upper Extremities, Shoulder Left Radi ographic Imaging 01/15/2025 11:0 0 AM EDT Narrative 01/15/2025 12:51 PM EDT [address] [address] XRay Report Signed Patient: Jesse Link MR#: [id number] : 1970 Acct:[id number] Age/Sex: 55 / M ADM Date: 01/15/25 Loc: HO.HHCX Attending Dr: Morales Shaikh MD Ordering Physician: Morales Shaikh MD Date of Service: 01/15/25 Procedure(s): XR shoulder LT min 2V Accession Number(s): [id number] cc: Morales Shaikh MD EXAMINATION: XR SHOULDER, LEFT CLINICAL INFORMATION: 4-day duration of left AC joint tenderness s/p shoulder hyperextension. COMPARISON: November 06, 2016 TECHNIQUE: AP external rotation, Grashey, scapular Y, and axillary views of the left shoulder. FINDINGS: There is no AC joint separation. There is no visible fracture. There is no dislocation. XR/XR shoulder LT min 2V IMPRESSION: Unremarkable left shoulder Electronically signed by: Lupillo Toledo MD 01/15/2025 12:48 PM EDT RP Dictated By: Lupillo Toledo MD Signed By: <Electronically signed by Lupillo Toledo MD in OV> 01/15/25 1248 DD/ 1100 TD/TT: 01/15/25 1110 Manager Digital: Procedure Note Donotuseinterpreter, Image - 01/15/[address] [address] XRay Report Signed Patient: Jesse Link LMR#: [id number] : 1970Acct:[id number] Age/Sex: 55 / MADM Date: 01/15/25 Loc: HO.HHCX Attending Dr: Morales Shaikh MD Ordering Physician: Morales Shaikh MD Date of Service: 01/15/25 Procedure(s): XR shoulder LT min 2V Accession Number(s): [id number] cc: Morales Shaikh MD EXAMINATION: XR SHOULDER, LEFT CLINICAL INFORMATION: 4-day duration of left AC joint tenderness s/p shoulder hyperextension. COMPARISON: November 06, 2016 TECHNIQUE: AP external rotation, Grashey, scapular Y, and axillary views of the left shoulder. FINDINGS: There is no AC joint separation. There is no visible fracture. There is no dislocation. XR/XR shoulder LT min 2V IMPRESSION: Unremarkable left shoulder Electronically signed by: Lupillo Toledo MD 01/15/2025 12:48 PM EDT RP Dictated By: Lupillo Toledo MD Signed By: <Electronically signed by Lupillo Toledo MD in OV> 01/15/25 1248 DD/ 1100 TD/TT: 01/15/25 1110 Manager Digital: us Morales Shaikh MD IMG XR PROCEDURES Final Result * (ABNORMAL) CBC auto differential (01/12/2025 4:06 PM EDT) White Blood Count 6.0 4.8 - 10.8 X10*3/uL [facility] Red Blood Count 4.77 4.60 - 5.80 X10*6/uL [facility] Hemoglobin 13.9(L) 14.0 - 18.0 g/dl [facility] Hematocrit 41.2(L) 42.0 - 52.0 % [facility] Mean Corpuscular Volume 86.4 80.0 - 98.0 fL [facility] Mean Corpuscular Hemoglobin 29.1 27.0 - 33.0 pg [facility] Mean Corpuscular HGB Conc 33.7 31.0 - 36.0 g/dl [facility] Red Cell Distribution Width 15.0 11.0 - 16.0 % [facility] Platelet Count 318 160 - 400 X10*3/uL [facility] Mean Platelet Volume 9.9 9.4 - 12.4 fL [facility] Neutrophils Percent Auto 54.7 45 - 73 % [facility] Imm Gran Pct Auto 0.3 0.0 - 0.4 % [facility] Lymphocytes Percent Auto 32.3 20 - 40 % [facility] Monocytes Percent Auto 8.6 2 - 11 % [facility] Eosinophils Percent Auto 3.4 0 - 4 % [facility] Basophils Percent Auto 0.7 0 - 2 % [facility] NRBC Pct Auto 0.0 0.0 - 0.2 /100WBC [facility] Neutrophils Absolute Auto 3.3 2.0 - 8.3 x10*3/uL [facility] Imm Gran Abs Auto 0.02 0.00 - 0.03 X10*3/uL [facility] Lymphocytes Absolute Auto 1.9 1.2 - 4.9 X10*3/uL [facility] Monocytes Absolute Auto 0.5 0.1 - 1.2 X10*3/uL [facility] Eosinophils Absolute Auto 0.2 0.0 - 0.4 X10*3/uL [facility] Basophils Absolute Auto 0.0 0.0 - 0.2 X10*3/uL [facility] NRBC Abs Auto 0.000 0.0 - 0.012 X10*3/uL [facility] Blood Venous blood specimen / Unknown 01/12/2025 4:06 PM EDT 01/12/2025 4:06 PM EDT [facility] LAB BLOOD ORDERABLES Ninoska l Result Performing Organization Address [facility] Co de Phone Number [facility] [address] [place] [phone] * (ABNORMAL) Prothrombin Time-INR (01/12/2025 4:06 PM EDT) [facility] Signature Prothrombin Time 10.7(L) 10.9 - 12.4 SEC [facility] INTERNATIONAL NORM RATIO 0.9 0.9 - 1.1 [facility] Comment:INTERNATIONAL NORMAL IZED RATIO (INR) [...] PM EDT 01/12/2025 4:06 PM EDT [facility] LAB BLOOD ORDERABLES Ninoska l Result Performing Organization Address [facility]/State/ZIP Co de Phone Number [facility] [address] [place] [phone] [phone] * (ABNORMAL) Comprehensive Metabolic Panel (01/12/2025 4:06 PM EDT) Sodium 142 135 - 145 mmol/L [facility] Potassium 4.4 3.3 - 5.1 mmol/L [facility] Chloride 110(H) 96 - 108 mmol/L [facility] Carbon Dioxide 25 22 - 29 mmol/L [facility] Anion Gap 11(L) 12 - 20 [facility] Urea Nitrogen (BUN) 12 9 - 16 mg/dL [facility] Creatinine, Serum 1.43(H) 0.5 - 1.4 mg/dL [facility] Estimated Glomerular Filt Rate 51 [facility] Comment:Chronic Kidney Disea se: Estimated GFR < 60 mL/min/1.09h1Pjvpcb Kidney Disease: Estimated GFR < 15 mL/min/1.73m2 Glucose 94 60 - 115 mg/dL [facility] Calcium 9.0 8.4 - 10.2 mg/dL [facility] Bilirubin, Total 0.3 0.0 - 1.0 mg/dL [facility] Aspartate Amino Transferase 18 5 - 37 U/L [facility] Alanine Aminotransferase 14 0 - 40 U/L [facility] Total Protein 6.9 6.5 - 8.0 g/dL [facility] Albumin Level 4.3 3.5 - 5.0 g/dL [facility] Alkaline Phosphatase 73 39 - 117 U/L [facility] Blood Venous blood specimen / Unknown 01/12/2025 4:06 PM EDT 01/12/2025 4:06 PM EDT [facility] LAB BLOOD ORDERABLES Ninoska l Result [facility] [address] [place] [phone] * Albumin, Random Urine W/Creatinine (01/12/2025 12:00 AM EDT) Creatinine, Urine 122.96 mg/dL [facility] Microalbumin Urine <5.0 mg/L [facility] Microalbum Creatinine Ratio Ur TNP <30 ug/mg cr [facility] Comment:Unable to calculate albumin/creatinine ratio due to lowmicroalbumin or creatinine result. Urine (Urine, Random) 01/12/2025 01/12/2025 [facility] LAB URINE ORDERABLES Ninoska vlad Result [facility] [address] [place] [phone] * ECG 12 lead (01/01/2025 2:44 PM EDT) Narrative Pepito Rodríguez CNP - 01/01/2025 2:44 PM EDT EKG: NSR, Rate 70bpm, No ST segmental changes, no QR interval changes, normal ECG [facility] ECG ORDERABLES Final Res ult * MR Cervical Spine w/o Contrast (12/21/2024 8:56 PM EDT) Anatomical Region Laterality Modality Spine, C-spine Magnetic Resonan ce 12/21/2024 8:56 PM EDT Narrative 12/21/2024 8:58 PM EDT [address] [address] Magnetic Resonance Report Signed Patient: Jesse Link MR#: [id number] : 1970 Acct:[id number] Age/Sex: 54 / M ADM Date: 12/21/24 Loc: .MRI Attending Dr: Payton LUU Ordering Physician: Payton Alston Date of Service: 12/21/24 Procedure(s): MR cervical spine wo con Accession Number(s): [id number] cc: Patricia Schofield MD; Payton Alston CLINICAL [...] Moderate facet/uncovertebral joint and ligamentum flavum hypertrophy. Pevy-za-hjdhpuqq central spinal canal stenosis. Moderate bilateral foraminal stenosis. C6/C7: 3 mm disc herniation. Moderate facet/uncovertebral joint and ligamentum flavum hypertrophy. Moderate central canal stenosis. Severe right and mild left foraminal stenosis. C7/T1: 3 mm disc herniation. Moderate facet joint and ligamentum flavum hypertrophy. Rvzr-nc-cnllafqg central canal stenosis. Moderate to severe bilateral foraminal stenosis. Impression: Multilevel degenerative change, detailed above, which is most prominent C6/C7 with moderate central canal stenosis. This document has been electronically signed by: Jaylin Saucedo MD on 12/21/2024 20:56:02 Dictated By: Jaylin Savage MD Signed By: <Electronically signed by Jaylin Savage MD in OV> 12/21/242056 DD/ 55 TD/TT: 12/21/242055 Manager Digital: Procedure Note Donotuseinterpreter, Image - 12/21/[address] [address] Magnetic Resonance Report Signed Patient: Jesse Link LMR#: [id number] : 1970Acct:[id number] Age/Sex: 54 / MADM Date: 12/21/24 Loc: HO.MRI Attending Dr: Payton LUU Ordering Physician: Payton Alston Date of Service: 12/21/24 Procedure(s): MR cervical spine wo con Accession Number(s): [id number] cc: Patricia Schofield MD; Payton Alston CLINICAL [...] Moderate facet/uncovertebral joint and ligamentum flavum hypertrophy. Efwd-he-ofujxmpz central spinal canal stenosis. Moderate bilateral foraminal stenosis. C6/C7: 3 mm disc herniation. Moderate facet/uncovertebral joint and ligamentum flavum hypertrophy. Moderate central canal stenosis. Severe right and mild left foraminal stenosis. C7/T1: 3 mm disc herniation. Moderate facet joint and ligamentum flavum hypertrophy. Dnzt-sn-uwnauqil central canal stenosis. Moderate to severe bilateral foraminal stenosis. Impression: Multilevel degenerative change, detailed above, which is most prominent C6/C7 with moderate central canal stenosis. This document has been electronically signed by: Jaylin Saucedo MD on 12/21/2024 20:56:02 Dictated By: Jaylin Savage MD Signed By: <Electronically signed by Jaylin Savage MD in OV> 12/21/242056 DD/ 55 TD/TT: 12/21/242055 Manager Digital: [facility] External Provider IMG MRI PROCEDURES Final Result * XR Wrist 3+ Views Bilateral (12/10/2024 12:32 AM EDT) Anatomical Region Laterality Modality Upper Extremities, Wrist Bilateral Radiogr aphic Imaging 12/10/2024 12:3 2 AM EDT Narrative 12/10/2024 12:35 AM EDT [facility] [address] [place] [address] Drive [address] [place] [address] XRay Report Signed Patient: Jesse Link MR#: [id number] : 1970 Acct:[id number] Age/Sex: 54 / M ADM Date: 12/09/24 Loc: HO.HOSX Attending Dr: Natan TILLEY Ordering Physician: Natan Dorsey Date of Service: 12/09/24 Procedure(s): XR Wrist Alphonso min 3V Accession Number(s): [id number] cc: Natan Dorsey; Patricia Schofield MD CLINICAL [...] MD in OV> 12/10/2433 DD/ TD/TT: 12/10/2431 Manager Digital: Procedure Note Donotuseinterpreter, Image - 12/10/2024 [facility] [address] [place] [address] Drive [address] [place] [address] XRay Report Signed Patient: Jesse Link LMR#: [id number] : 1970Acct:[id number] Age/Sex: 54 / MADM Date: 12/09/24 Loc: HO.HOSX Attending Dr: Natan TILLEY Ordering Physician: Natan Dorsey Date of Service: 12/09/24 Procedure(s): XR Wrist Alphonso min 3V Accession Number(s): [id number] cc: Natan Dorsey; Patricia Schofield MD CLINICAL [...] MD in OV> 12/10/2433 DD/ TD/TT: 12/10/2431 Manager Digital: [facility] External Provider IMG XR PROCEDURES Edited Result - Final * Hepatitis C Antibody with Reflex to HCV, RNA, Quantitative, Real-Time PCR (05/12/2024 3:42 PM EST) Pathologist [facility] Hepatitis C Antibody Nonreactive Nonreactive [facility] Comment:Antibodies to HCV no t detected; does not exclude early acuteHCV infection. Blood Venous blood specimen / Unknown 05/12/2024 3:42 PM EST 05/12/2024 4:09 PM EST Result [facility] Marii Brown MD LAB BLOOD ORDERABLES Final Result Performing Organization Address [facility] Co de Phone Number [facility] [address] [place] [phone] * HIV-1/2 Antigen and Antibodies, Fourth Generation, with Reflexes (05/12/2024 3:42 PM EST) Pathologist [facility] HIV AB/AG Nonreactive Nonreactive [facility] Comment:HIV-1 p24 Ag and/or HIV-1/HIV-2 Ab not detected.A test result that is nonreactive does not exclude thepossibility of exposure to or infection with HIV-1 and/orHIV-2. Nonreactive results in this assay for individualswith prior exposure to HIV-1 and/or HIV-2 may be due toantigen and antibody levels that are below the limit ofdetection of this assay.The [employer] HIV Ag/Ab Combo assay result andsupplemental assay results should be interpreted inconjunction with the patient's clinical presentation,history and other laboratory results. If the results areinconsistent with clinical evidence, additional testing issuggested to confirm the result. Blood Venous blood specimen / Unknown 05/12/2024 3:42 PM EST 05/12/2024 4:09 PM EST Result [facility] Marii Brown MD LAB BLOOD ORDERABLES Final Result Performing Organization Address [facility] Co de Phone Number [facility] [address] [place] [phone] * (ABNORMAL) Lipid Panel, Standard (03/27/2024 1:47 PM EDT) Triglycerides 107 <150 mg/dL [facility] Comment:Desirable Triglyceri de: less than 150 mg/dLBorderline High Triglyceride 150-199 mg/dLHigh Triglyceride: 200-499 mg/dLVery High Triglyceride: greater than or equal to 5OO mg/dL Cholesterol 131 <200 mg/dL [facility] Comment:Desirable Cholestero l: less than 200 mg/dLBorderline High Cholesterol: 200-239 mg/dLHigh Cholesterol: greater than 239 mg/dL LDL Cholesterol Calculated 70 <100 mg/dL [facility] Comment:Desirable LDL: less than 100 mg/dLNear Optimal/Above Optimal LDL: 110- 129 mg/dLBorderline High LDL: 130-159 mg/dLHigh LDL: 160-189 mg/dLVery High LDL: greater than or equal to 190 mg/dL HDL Cholesterol 40(L) >40 mg/dL [facility] Comment:Desirable HDL: great er than 40 mg/dL Note: This HDL assay may give artificially low results in patients with liver disease. Blood Venous blood specimen / Unknown 03/27/2024 1:47 PM EDT 03/27/2024 4:18 PM EDT us Patricia Barfield MD LAB BLOOD ORDERABLES Final Result [facility] [address] [place] [phone] [phone] from Last 3 Months or Most Recently Relevant to Health Maintenance Insurance [employer] < 65 [facility] Care Teams Autographer Relationship Specialty Start Date End Date Patricia Schofield MD [address] [place] [address] PCP - General Family Medicine 02/26/18
== END 2025-01-19 10:37 | disposition home or self-care (01) ==
LOC: HO.PMC 10:12
PROVIDERS: PCP Internal Medicine; Visit Provider Nurse Practitioner Family
DX: M47.812 Spondylosis without myelopathy or radiculopathy, cervical region (principal); M50.30 Other cervical disc degeneration, unspecified cervical region; M54.12 Radiculopathy, cervical region; M48.02 Spinal stenosis, cervical region
CPT/HCPCS: 99214; G2211

== ENCOUNTER → 2025-01-19 10:12 | Outpatient (BNVA) | payer OTHER, SELFPAY | PROVIDERS: PCP Internal Medicine; Visit Provider Nurse Practitioner Family | DX: Z71.2 Person consulting for explanation of examination or test findings (principal); M47.812 Spondylosis without myelopathy or radiculopathy, cervical region; M50.30 Other cervical disc degeneration, unspecified cervical region; M54.12 Radiculopathy, cervical region; M48.02 Spinal stenosis, cervical region | CPT/HCPCS: 99212 ==

== ENCOUNTER → 2025-01-21 06:03 | Day surgery (SDC) | payer OTHER, SELFPAY ==
--- OUTSIDE RECORDS SUMMARY | 2024-12-10 08:29 | XMS_ITS | Clinical Summary ---
Author Organization [employer] Address [address] [place] [address] [address] [place] [address] Care Team Providers Care Elocution Teacher Name Role Phone Patricia Schofield MD Primary [...] Self Plan [facility] and Patient to [...] Date Type Department Care Team Description 12/09/2024 Orders Only [facility] External Provider, [facility] 12/09/2024 Telephone [facility] [address] [place] [address] Patricia Schofield MD Pre-op Visit 12/06/2024 Refill [facility] [address] [place] [address] Tray Cheema MD Gastroesophageal reflux disease without esophagitis 11/26/2024 Refill [facility] [address] [place] [address] Patricia Schofield MD Cervical spine arthritis with nerve pain; Chronic migraine without aura without status migrainosus, not intractable 11/24/2024 Telephone [facility] [address] [place] [address] Patricia Schofield MD SEP RECALL 10/27/2024 Refill [facility] [address] [place] [address] Patricia Schofield MD Cervical spine arthritis with [...] Description 02/16/2025 3:15 PM EDT Office Visit [facility] [address] [place] [address] Patricia Schofield MD [address] [place] [address] Health Maintenance Due Date Last Done Comments [...] Procedure Name Priority Date/Time Associated Diagnosis Comments XR WRIST 3+ VIEWS BILATERAL Routine 12/10/2024 12:32 AM EDT HEPATITIS C AB W/REFL TO HCV RNA, [...] Recently Relevant to Health Maintenance Results * XR Wrist 3+ Views Bilateral (12/10/2024 12:32 AM EDT) Anatomical Region Laterality Modality Upper Extremities, Wrist Bilateral Radiogr aphic Imaging 12/10/2024 12:3 2 AM EDT Narrative 12/10/2024 12:35 AM EDT [facility] [address] [place] [address] [address] [place] [address] XRay Report Signed Patient: Jesse Link MR#: [id number] : 1970 Acct:[id number] Age/Sex: 54 / M ADM Date: 12/09/24 Loc: HO.HOSX Attending Dr: Natan TILLEY Ordering Physician: Natan Dorsey Date of Service: 12/09/24 Procedure(s): XR Wrist Alphonso min 3V Accession Number(s): [id number] cc: Natan Dorsey; Patricia Schofield MD CLINICAL HISTORY: M25.531 - Pain in right wrist Right wrist three views Comparison: None provided Findings: Nonspecific deformity of scaphoid noted. Small bone fragments lateral to scaphoid. Question prior scaphoid fracture. Degenerative change throughout the carpals. Impression: Question prior scaphoid fracture as above Left wrist three views Comparison: None provided Findings: No acute fracture or dislocation identified. Degenerative change in lateral compartments. No radiopaque foreign body noted. Impression: No acute bony abnormality This document has been electronically signed by: Vadim Loera MD on 12/10/2024 00:32:58 Dictated By: Vadim Loera MD Signed By: <Electronically signed by Vadim Loera MD in OV> 12/10/2433 DD/ TD/TT: 12/10/2431 Grain Combiner: Procedure Note Donotmichaelinterpreter, Image - 12/10/2024 [facility] [address] [place] [address] [address] [place] [address] XRay Report Signed Patient: Jesse Link R#: [id number] : 1970Acct:[id number] Age/Sex: 54 / MADM Date: 12/09/24 Loc: HO.HOSX Attending Dr: Natan TILLEY Ordering Physician: Natan Dorsey Date of Service: 12/09/24 Procedure(s): XR Wrist Aplhonso min 3V Accession Number(s): [id number] cc: Natan Dorsey; Patricia Schofield MD CLINICAL HISTORY: M25.531 - Pain in right wrist Right wrist three views Comparison: None provided Findings: Nonspecific deformity of scaphoid noted. Small bone fragments lateral to scaphoid. Question prior scaphoid fracture. Degenerative change throughout the carpals. Impression: Question prior scaphoid fracture as above Left wrist three views Comparison: None provided Findings: No acute fracture or dislocation identified. Degenerative change in lateral compartments. No radiopaque foreign body noted. Impression: No acute bony abnormality This document has been electronically signed by: Vadim Loera MD on 12/10/2024 00:32:58 Dictated By: Vadim Loera MD Signed By: <Electronically signed by Vadim Loera MD in OV> 12/10/2433 DD/ TD/TT: 12/10/2431 Grain Combiner: [facility] External Provider IMG XR PROCEDURES Edited Result - Final * Hepatitis C Antibody with Reflex to [...] Final Result [facility] [address] [place] [phone] * HIV-1/2 Antigen and Antibodies, Fourth Generation, with Reflexes (05/12/2024 3:42 PM EST) Pathologist [facility] HIV AB/AG Nonreactive Nonreactive [facility] Comment:HIV-1 p24 Ag and/or HIV-1/HIV-2 Ab not detected.A test result that is nonreactive does not exclude thepossibility of exposure to or infection with HIV-1 and/orHIV-2. Nonreactive results in this assay for individualswith prior exposure to HIV-1 and/or HIV-2 may be due toantigen and antibody levels that are below the limit ofdetection of this assay.The [employer] HIV Ag/Ab Combo assay result andsupplemental assay results should be interpreted inconjunction with the patient's clinical presentation,history and other laboratory results. If the results areinconsistent with clinical evidence, additional testing issuggested to confirm the result. Blood Venous blood specimen / Unknown 05/12/2024 3:42 PM EST 05/12/2024 4:09 PM EST us Marii Brown MD LAB BLOOD ORDERABLES Final Result Performing Organization Address [facility]/ZIP Co de Phone Number [facility] [address] [place] [phone] [phone] * (ABNORMAL) Lipid Panel, Standard (03/27/2024 1:47 PM EDT) Triglycerides 107 <150 mg/dL [facility] Comment:Desirable Triglyceri de: less than [...] 190 mg/dL HDL Cholesterol 40(L) >40 mg/dL [facility] Comment:Desirable HDL: great er than 40 mg/dL Note: This HDL assay may give artificially low results in patients with liver disease. Blood Venous blood specimen / Unknown 03/27/2024 1:47 PM EDT 03/27/2024 4:18 PM EDT us Patricia Barfield MD LAB BLOOD ORDERABLES Final Result Performing Organization Address City/[facility]/ZIP Co de Phone Number [facility] [address] [place] [address] [phone] from Last 3 Months or Most Recently Relevant to Health Maintenance Insurance [employer] < 65 [facility] Care Teams Elocution Teacher Relationship Specialty Start Date End Date Patricia Schofield MD [address] [place] [phone] PCP - General Family Medicine 02/26/18
[2025-01-05 15:54] VITALS: BMI 24.2
--- NOTE | 2025-01-20 10:04 | HO.ANESPROP2 ---
HPI - Anesthesia Eval Consult details Narrative: 55yo M for Right Cubital Tunnel Release Cardiac optimized. Follows [facility] Cardiology for htn and previous report of chest pain. Stable without symptoms at 12/2024 office visit [facility] Active Problems Active Problems: All Active Problems Cervical spinal stenosis (Acute) HTN (hypertension) (Acute) Chronic kidney disease, stage 2 (mild) (Acute) Smoker (Acute) Post-traumatic osteoarthritis of both wrists (Acute) Polyarthralgia (Acute) Cubital tunnel syndrome, bilateral (Acute) Cervical radiculopathy (Acute) Ulnar neuropathy (Acute) Muscle spasms of neck (Acute) Shortness of breath (Acute) Precordial chest pain (Acute) Bilateral wrist pain (Acute) Bilateral hand numbness (Acute) Degenerative disc disease, cervical (Acute) Cervical spondylosis (Acute) Past Medical History Medical History Neck pain Back pain History of kidney cancer (~2020) Dizziness BRISA (generalized anxiety disorder) Snores Asthma History of cardiac murmur as a child Bilateral hand numbness Bilateral wrist pain Possible exposure to STI Upper back pain Migraine headache Chronic kidney disease, stage 2 (mild) Hyperlipidemia Bilateral arm pain Adrenal incidentaloma Seborrheic dermatitis of scalp Polyarthralgia Missing teeth, acquired Blurry vision, bilateral Chronic right shoulder pain Smoker Pure hyperglyceridemia Post-traumatic osteoarthritis of both wrists Mood disorder Severe major depression without psychotic features Mild intermittent asthma Homeless History of alcoholism GERD (gastroesophageal reflux disease) Foot callus HTN (hypertension) Episodic cluster headache Clear cell carcinoma of kidney Degenerative disc disease, cervical Cervical spondylosis Family History Family History Mother No problems noted. Father No problems noted. Surgical History Surgical History History of nephrectomy, left Social History Social History Household Members: Family Housing: Apartment Are you a primary patient care assistant to a significant other at home: No Do you presently have visiting nurse or other home services: No Alcohol intake: current Alcohol intake frequency: holidays/special occasions only Patient Tobacco Use Status: Current someday Tobacco user Tobacco use type: Cigarette Current occupational status: disabled Current occupation: left hand Meds Allergies Allergy/AdvReac Type Severity Reaction Status Date / Time No Known Allergies Allergy Verified 01/19/25 10:17 Home Medications ?Medication ?Instructions ?Recorded ?Confirmed ?Last Taken ?Type amitriptyline 75 mg tablet 75 mg PO BEDTIME 08/12/23 01/08/25 Unknown History ibuprofen 800 mg tablet 800 mg PO TID 08/12/23 01/08/25 Unknown History omeprazole 40 mg capsule,delayed 40 mg PO DAILY 08/12/23 01/08/25 Unknown History release cholecalciferol (vitamin D3) 25 25 mcg PO QAM 09/18/24 01/08/25 Unknown History mcg (1,000 unit) capsule (Vitamin D3) lisinopril 20 mg tablet 20 mg PO DAILY 09/18/24 01/08/25 Unknown History multivitamin 1 tab PO QAM 09/18/24 01/08/25 Unknown History sertraline 50 mg tablet 50 mg PO DAILY 09/18/24 01/08/25 Unknown History thiamine HCl (vitamin B1) 100 mg 100 mg PO QAM 09/18/24 01/08/25 Unknown History tablet albuterol sulfate 90 mcg/actuation 2 puff inhalation Q6H PRN wheezing 01/05/25 01/08/25 Unknown History aerosol inhaler (Ventolin HFA) famotidine 20 mg tablet 20 mg PO BID 01/19/25 Unknown History Exam Height,Weight and Vital Signs: Height 5 ft 9.5 in Weight 75.296 kg Pertinent Lab Results Pertinent Lab Results: Laboratory Tests 01/12/25 16:06 WBC 6.0 Hgb 13.9 L Hct 41.2 L Plt Count 318 Sodium 142 Potassium 4.4 Chloride 110 H Carbon Dioxide 25 BUN 12 Creatinine 1.43 H Narrative Narrative: EKG 12/2024 EKG Details: EKG today shows normal sinus rhythm, rate 80 beats per minute, normal PA, corrected QT. 10/15/2024-echo study showed a normal LV systolic function with an ejection fraction between 60-65%, with mild dilation of the ascending aorta measuring 3.8 cm. Assessment and Plan Assessment Anesthesia Assessment: Chart Reviewed
[2025-01-21 06:25] VITALS: BMI 24.3
[2025-01-21 06:29] VITALS: BP 107/76; PULSE 73; RESP 16; TEMP 36.4
--- NOTE | 2025-01-21 06:54 | PC.NURSE ---
patient smells of alcohol and states he drank three beers last night because he forgot he had surgery today. states he drank around 1030pm but nothing after midnight. md garnett aware and etoh lab draw to be performed. patients aware of plan of care and compliant. explained to patient the reasoning.
--- NOTE | 2025-01-21 07:14 | PC.NURSE ---
lab draw being performed
--- NOTE | 2025-01-21 07:24 | PC.NURSE ---
sleeping. awaiting results
--- NOTE | 2025-01-21 08:03 | PC.NURSE ---
0743-patients etoh was 94 and patient was informed. patient called his son who was in the parking lot to pickup patient. alert and oriented. acting appropriately. refused wheelchair to bring patient down to the front of the building. i escorted the patient to the front of the hospital. calm and cooperative. steady gait. aware to call office to reschedule his procedure.
== END ==
LOC: HO.SSS 06:03
PROVIDERS: Anesthesiology; PCP Internal Medicine; Visit Provider Orthopaedic Surgery
DX: G56.21 Lesion of ulnar nerve, right upper limb (principal); Z53.09 Procedure and treatment not carried out because of other contraindication; R78.0 Finding of alcohol in blood; I12.9 Hypertensive chronic kidney disease with stage 1 through stage 4 chronic kidney disease, or unspecified chronic kidney disease; N18.2 Chronic kidney disease, stage 2 (mild); F17.210 Nicotine dependence, cigarettes, uncomplicated
CPT/HCPCS: 36415; 80307; J0131; J0690; J2004

== ENCOUNTER 2025-02-25 06:26 | Outpatient (REF) | payer OTHER, SELFPAY ==
--- NOTE | ~2025-02-25 | FL_ITS ---
EXAMINATION: FL GUIDANCE ONLY HISTORY: M54.12 - Radiculopathy, cervical region COMPARISON: None available. TECHNIQUE: Fluoroscopy time: 0.6 minutes. Cumulative Dose: 1.41 mGy. DAP: [id number] mGym2 Images: 1. FINDINGS: A single fluoroscopic spot film of the cervical spine demonstrates a needle in place. FL/FL guidance in treatment room IMPRESSION: Fluoroscopy during procedure. Please see procedure report for additional information. Electronically signed by: David Block MD 02/25/2025 02:25 PM EDT
--- OUTSIDE RECORDS SUMMARY | 2025-02-25 06:29 | XMS_ITS | Encounter Summary ---
Author Organization [employer] Address [address] [place] [address] [address], [place] [address] Care Team Providers Care Copy Lathe Operator Name Role Phone Patricia Schofield MD Primary Care Provide r Encounter Details Date Type Department Care Team (Late st Contact Info) Description 11/07/2022 Orders Only [facility] [address] [place], [place] [phone] Patricia Schofield MD [address] [place], [place] [phone] Social History Tobacco Use Types Packs/Day Years [...] on filedocumented in this encounter Care Teams Copy Lathe Operator Relationship Specialty Start Date End Date Patricia Schofield MD [address] [place], [place] [phone] PCP - General Family Medicine 02/26/18 documented as of this encounter
--- OUTSIDE RECORDS SUMMARY | 2025-02-25 06:29 | XMS_ITS | Encounter Summary ---
Author Organization [employer] Address [address] [place] [address] [address] [place] [address] Care Team Providers Care Triple Drum Operator Name Role Phone Patricia Schofield MD Primary Care Provide r Encounter Details Date Type Department Care Team (Latest Contact Info) Description 01/15/2025 Results Follow-Up [facility] [address] [place] [address] Pepito Rodríguez CNP [address] [place] [address] CBC auto differential, Comprehensive Metabolic Panel, Prothrombin Time-INR, Albumin, Random Urine W/Creatinine Social History Tobacco Use Types Packs/Day Years Used Date Smoking Tobacco: Some Days Cigarettes Passive Smoke Exposure: Current Smokeless Tobacco: Never Alcohol Use Standard Drinks/Week [...] as of this encounter Miscellaneous Notes * Result Encounter Note - Pepito Rodríguez CNP - 01/15/2025 10:[address] Hall, saw a patient of yours for a pre op for cubital tunnel syndrome. Just an FYI his creatinine is slightly elevated. I know you see him in feb. Thanks! documented in this encounter Plan of Treatment Not on file documented as of this encounter Visit Diagnoses Not on filedocumented in this encounter Additional Health Concerns Assessment Noted Time PHQ-9 Depression Total Score: 11 025 2:45 PM EDT documented as of this encounter Care Teams Triple Drum Operator Relationship Specialty Start Date End Date Patricia Schofield MD [address] [place] [phone] PCP - General Family Medicine 02/26/18 documented as of this encounter
--- OUTSIDE RECORDS SUMMARY | 2025-02-25 06:29 | XMS_ITS | Encounter Summary ---
Author Organization [employer] Address [address] [place] [address] [address] [place] [address] Care Team Providers Care Siphoner Name Role Phone Patricia Schofield MD Primary Care Provide r Encounter Details Date Type Department Care Team (Late st Contact Info) Description 08/21/2022 Orders Only [facility] [address] [place] [address] Pricilla Eng LPN Social History Tobacco Use [...] on filedocumented in this encounter Care Teams Siphoner Relationship Specialty Start Date End Date Patricia Schofield MD [address] [place] [phone] PCP - General Family Medicine 02/26/18 documented as of this encounter
--- OUTSIDE RECORDS SUMMARY | 2025-02-25 06:29 | XMS_ITS | Encounter Summary ---
Author Organization [employer] Address [address] [place] [address] [address], [place] [address] Care Team Providers Care Behavior Analyst Name Role Phone Patricia Schofield MD Primary Care Provide r Encounter Details Date Type Department Care Team (Late st Contact Info) Description 07/09/2022 Orders Only [facility] [address] [place] [address] Payton Gay LPN Social History Tobacco Use [...] on filedocumented in this encounter Care Teams Behavior Analyst Relationship Specialty Start Date End Date Patricia Schofield MD [address] [place] [address] PCP - General Family Medicine 02/26/18 documented as of this encounter
--- OUTSIDE RECORDS SUMMARY | 2025-02-25 06:29 | XMS_ITS | Encounter Summary ---
Author Organization [employer] Address [address] [place] [address] 7 [place] [address] Care Team Providers Care Firearms Instructor Name Role Phone Patricia Schofield MD Primary Care Provide r Reason for Visit * Reason Comments Med Refill Encounter Details Date Type Department Care Team ([facility] st Contact Info) Description 03/26/2023 Refill [facility] [address] [place], [place] [phone] Patricia Schofield MD [address] [place] [address] Neck pain Social History Tobacco Use Types [...] documented as of this encounter Care Teams Firearms Instructor Relationship Specialty Start Date End Date Patricia Schofield MD [address] [place] [phone] PCP - General Family Medicine 02/26/18 documented as of this encounter
--- OUTSIDE RECORDS SUMMARY | 2025-02-25 06:29 | XMS_ITS | Encounter Summary ---
Author Organization [employer] Address [address] [place] [address] [place], [place] [address] Care Team Providers Care Keno Clerk Name Role Phone Patricia Schofield MD Primary Care Provide r Encounter Details Date Type Department Care Team (Latest Contact Info) Description 09/05/2020 Abstract [facility] CONVERSIONS Dental, Provider, DDS Social History Tobacco [...] on filedocumented in this encounter Care Teams Keno Clerk Relationship Specialty Start Date End Date Patricia Schofield MD [address] [place] [phone] PCP - General Family Medicine 02/26/18 documented as of this encounter
--- OUTSIDE RECORDS SUMMARY | 2025-02-25 06:29 | XMS_ITS | Encounter Summary ---
Author Organization [employer] Address [address] [facility] [address] [place] [address] Care Team Providers Care Fabric Worker Supervisor Name Role Phone Patricia Schofield MD Primary Care Provide r Reason for Visit * Reason Comments Med Refill Encounter Details Date Type Department Care Team ([facility] st Contact Info) Description 06/15/2023 Refill [facility] [address] [place], [place] [phone] Patricia Schofield MD [address] [place] [address] Gastroesophageal reflux disease without esophagitis Social History [...] documented as of this encounter Care Teams Fabric Worker Supervisor Relationship Specialty Start Date End Date Patricia Schofield MD [address] [place] [address] PCP - General Family Medicine 02/26/18 documented as of this encounter
--- OUTSIDE RECORDS SUMMARY | 2025-02-25 06:29 | XMS_ITS | Clinical Summary ---
Author Organization [employer] Address [address] [place] [address] [address] [address] Care Team Providers Care Pot Liner Name Role Phone Patricia Schofield MD Primary [...] FOR WHEEZING 18 g 06/25/19 25 Active Multiple Vitamin (Multivitamin) tabletIndicatio ns:Chronic fatigue TAKE 1 TABLET BY MOUTH EVERY MORNING 30 tablet 3 08/29/19 25 Active gabapentin (Neurontin) 300 MG capsuleIndicati ons:Cervical spine arthritis with nerve pain Take 1 capsule (300 mg) by mouth 3 times daily. 90 capsule 2 08/29/19 25 026 Active omeprazole (PriLOSEC) [address] capsuleIndicati ons:Gastroesoph ageal reflux disease without esophagitis TAKE 1 CAPSULE BY MOUTH EVERY MORNING BEFORE A MEAL 90 capsule 1 12/08/19 25 Active sertraline (Zoloft) 50 MG tabletIndicatio ns:Depression, unspecified depression type TAKE 1 TABLET BY MOUTH EVERY MORNING 90 tablet 01/02/20 25 Active amitriptyline (Elavil) 75 MG tabletIndicatio ns:Depression, unspecified depression type TAKE 1 TABLET BY MOUTH AT BEDTIME 30 tablet 3 01/26/20 25 Active ibuprofen 800 MG tabletIndicatio ns:Cervical spine arthritis with nerve pain,Chronic migraine without aura without status migrainosus, not intractable Take 1 tablet (800 mg) by mouth every 8 (eight) hours if needed for mild pain. 90 tablet 02/17/20 25 Active ammonium lactate (Lac-Hydrin) 12 % lotionIndicatio ns:Dry skin dermatitis Apply topically if needed for dry skin. 400 g 1 02/17/20 25 026 Active ibuprofen 800 MG tabletIndicatio ns:Cervical spine arthritis with nerve pain,Chronic migraine without aura without status migrainosus, not intractable TAKE 1 TABLET BY MOUTH EVERY 8 HOURS NEEDED FOR MODERATE PAIN OR FOR HEADACHE 90 tablet 11/28/19 25 025 Discontinued(R eorder (will not trigger notification to Pharmacy)) Active Problems Problem Noted Date Diagnosed Date Dry skin dermatitis 02/16/2025 Decreased hearing of both ears 02/16/2025 Assessment & Plan (02/16/2025 4:28 PM EDT): I will refer patient to audiology and ENT Cubital tunnel syndrome, right 12/16/2024 Assessment & Plan (02/16/2025 4:30 PM EDT): Patient will have surgical intervention, letter to increase [employer] hours after surgery to be generated Bilateral wrist pain 08/28/2024 Bilateral hand numbness [...] without psychotic features 08/24/2022 Assessment & Plan (02/16/2025 4:30 PM EDT): Counseling done today continue with same medications referral to [facility] done today Assessment & Plan (07/26/2023 2:57 PM EST): [...] Self Plan Patient to reach out to [facility] team as needed and Patient to reach out to [facility] as needed Assessment & Plan (06/12/2023 4:28 [...] to work. Migraine 04/24/2022 Assessment & Plan (02/16/2025 4:29 PM EDT): I advise to avoid migraine triggers like red wine, chocolate, cheese, strong perfumes Ibuprofen refilled on today Assessment & Plan (04/23/2024 4:30 PM EST): I advise to avoid migraine triggers like red wine, chocolate, cheese, strong perfumes Essential hypertension 02/16/2021 Assessment & Plan (08/28/2024 [...] medications as prescribe History of alcoholism 01/11/2017 Assessment & Plan (02/16/2025 4:30 PM EDT): Counseling done Referral to N done Mild intermittent asthma 01/11/2017 Mood disorder 01/11/2017 Post-traumatic osteoarthritis of both wrists Smoker 01/11/2017 Vesicular eczema of hands and feet 01/11/2017 Resolved Problems Problem Noted Date Diagnosed Date Resolved Date Family history of exposure t o 2,4,5-trichlorophenoxyacetic acid and 2,4-dichlorophenoxyacetic acid 05/12/2024 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 Date Type Department Care Team Description 02/16/2025 3:15 PM EDT Office Visit [address] [address] Patricia Schofield MD Screening for colon cancer (Primary Dx); Severe episode of recurrent major depressive disorder, without psychotic features (CMS/HCC); History of alcoholism (CMS/HCC); Cervical spine arthritis with nerve pain; Chronic migraine without aura without status migrainosus, not intractable; Dry skin dermatitis; Decreased hearing of both ears; Cubital tunnel syndrome, right 02/16/2025 Travel 02/12/[address] [address] Patricia Schofield MD Chart Prep 02/08/2025 Patient Outreach [address] [address] Patricia Schofield MD Pre-visit Planning ([facility] screening completed on 10/25/2024) 01/24/[address] [address] Patricia Schofield MD Depression, unspecified depression type 01/15/2025 11:00 AM EDT [facility] [address] [address] Morales Shaikh MD Pain in left acromioclavicular joint (Primary Dx) 01/15/2025 Results Follow-Up [address] [address] Pepito Rodríguez CNP CBC auto differential, Comprehensive Metabolic Panel, Prothrombin Time-INR, Albumin, Random Urine W/Creatinine 01/15/2025 Travel 01/01/2025 2:15 PM EDT Office Visit [address] [address] Pepito Rodríguez CNP Cubital tunnel syndrome on right (Primary Dx); Pre-op evaluation 01/01/2025 Travel 01/01/[address] [address] Patricia Schofield MD Depression, unspecified depression type 12/31/[address] [address] Nadiya Goodrich [place] Chart Prep 12/15/[address] [address] Patricia Schofield MD chart prep 12/09/2024 Orders Only [facility] External Provider, [facility] 12/09/[address] [address] Patricia Schofield MD Pre-op Visit 12/06/2024 [facility] [address] [address] Tray Cheema MD Gastroesophageal reflux disease without esophagitis 11/26/2024 Refill [facility] [address] [place] [address] Patricia Schofield MD Cervical spine arthritis with nerve pain; Chronic migraine without aura without status migrainosus, not intractable from Last 3 Months Immunizations Immunization Administration [...] Sign Reading Time Taken Comments Blood Pressure 122/88 02/16/2025 3:22 PM EDT Pulse 64 02/16/2025 3:22 PM EDT Temperature 35.6 C (96 F) 02/16/2025 3:22 PM EDT Respiratory Rate 20 02/16/2025 3:22 PM EDT Oxygen Saturation 98% 01/15/2025 10:38 AM EDT Inhaled Oxygen Concentration - - Weight 74.9 kg (165 lb 3.2 oz) 02/16/2025 3:22 P M EDT Height 176.5 cm (5' 9.5 ) 02/16/2025 3:22 PM EDT Body Mass Index 24.05 02/16/2025 3:22 PM EDT Plan of Treatment Health Maintenance [...] 01/01/2025 Disability Screening 01/01/2026 01/01/2025 Tobacco Screening 02/16/2026 02/16/2025 Lipid Panel 03/27/2029 03/27/2024, 10/16, 09/27/2020 RSV [...] EDT) ETHANOL (MG/DL) IN SER/PLAS 94 mg/dL [facility] Comment:Serum/plasma ethanol results are to be used formedical/treatment purposes only. 01/21/2025 7:13 AM EDT 01/21/2025 7:18 AM EDT us Generic External Data Provider LAB BLOOD ORDERAB LES Final Result [facility] [address] [place] [phone] * XR Shoulder 2+ Views Left (01/15/2025 11:00 AM EDT) Anatomical Region Laterality Modality Upper Extremities, Shoulder Left Radi ographic Imaging 01/15/2025 11:0 0 AM EDT Narrative 01/15/2025 12:51 PM EDT [address] [address] XRay Report Signed Patient: Jesse Link MR#: [id number] : 1970 Acct:[id number] Age/Sex: 55 / M ADM Date: 01/15/25 Loc: LEOX Attending Dr: Morales Shaikh MD Ordering Physician: Morales Shaikh MD Date of Service: 01/15/25 Procedure(s): XR shoulder LT min 2V Accession Number(s): [id number] cc: Morales Shaikh MD EXAMINATION: XR SHOULDER, [...] 01/15/25 1248 DD/ 1100 TD/TT: 01/15/25 1110 [employer] Operator: Procedure Note Donotuseinterpreter, Image - 01/15/[address] [address] XRay Report Signed Patient: Jesse Link LMR#: [id number] : 1970Acct:[id number] Age/Sex: 55 / MADM Date: 01/15/25 Loc: HHX Attending Dr: Morales Shaikh MD Ordering Physician: Morales Shaikh MD Date of Service: 01/15/25 Procedure(s): XR shoulder LT min 2V Accession Number(s): [id number] cc: Morales Shaikh MD EXAMINATION: XR SHOULDER, [...] 01/15/25 1248 DD/ 1100 TD/TT: 01/15/25 1110 [employer] Operator: Morales Shaikh MD IMG XR PROCEDURES Final Result * (ABNORMAL) CBC auto differential (01/12/2025 4:06 PM EDT) White Blood Count 6.0 4.8 - 10.8 X10*3/uL [facility] Red Blood Count 4.77 4.60 - 5.80 X10*6/uL [facility] Hemoglobin 13.9(L) 14.0 - 18.0 g/dl [facility] Hematocrit 41.2(L) 42.0 - 52.0 % [facility] Mean Corpuscular Volume 86.4 80.0 - 98.0 fL [facility] Mean Corpuscular Hemoglobin 29.1 27.0 - 33.0 pg [facility] Mean Corpuscular HGB Conc 33.7 31.0 - 36.0 g/dl [facility] Red Cell Distribution Width 15.0 11.0 - 16.0 % [facility] Platelet Count 318 160 - 400 X10*3/uL [facility] Mean Platelet Volume 9.9 9.4 - 12.4 fL [facility] Neutrophils Percent Auto 54.7 45 - 73 % [facility] Imm Gran Pct Auto 0.3 0.0 - 0.4 % [facility] Lymphocytes Percent Auto 32.3 20 - 40 % [facility] Monocytes Percent Auto 8.6 2 - 11 % [facility] Eosinophils Percent Auto 3.4 0 - 4 % [facility] Basophils Percent Auto 0.7 0 - 2 % [facility] NRBC Pct Auto 0.0 0.0 - 0.2 /100WBC [facility] Neutrophils Absolute Auto 3.3 2.0 - 8.3 x10*3/uL [facility] Imm Gran Abs Auto 0.02 0.00 - 0.03 X10*3/uL [facility] Lymphocytes Absolute Auto 1.9 1.2 - 4.9 X10*3/uL [facility] Monocytes Absolute Auto 0.5 0.1 - 1.2 X10*3/uL [facility] Eosinophils Absolute Auto 0.2 0.0 - 0.4 X10*3/uL [facility] Basophils Absolute Auto 0.0 0.0 - 0.2 X10*3/uL [facility] NRBC Abs Auto 0.000 0.0 - 0.012 X10*3/uL [facility] Blood Venous blood specimen / Unknown 01/12/2025 4:06 PM EDT 01/12/2025 4:[address] [facility] LAB BLOOD ORDERABLES Ninoska l Result [facility] [address] [place] [phone] * (ABNORMAL) Prothrombin Time-INR (01/12/2025 4:06 PM EDT) Prothrombin Time 10.7(L) 10.9 - 12.4 SEC [facility] INTERNATIONAL NORM RATIO 0.9 0.9 - 1.1 [facility] Comment:INTERNATIONAL NORMAL IZED RATIO (INR) [...] PM EDT 01/12/2025 4:06 PM EDT Pepito [facility] LAB BLOOD ORDERABLES Ninoska l Result [facility] [address] [place] [phone] * (ABNORMAL) Comprehensive Metabolic Panel (01/12/2025 4:06 PM EDT) Sodium 142 135 - 145 mmol/L [facility] Potassium 4.4 3.3 - 5.1 mmol/L [facility] Chloride 110(H) 96 - 108 mmol/L [facility] Carbon Dioxide 25 22 - 29 mmol/L [facility] Anion Gap 11(L) 12 - 20 [facility] Urea Nitrogen (BUN) 12 9 - 16 mg/dL [facility] Creatinine, Serum 1.43(H) 0.5 - 1.4 mg/dL [facility] Estimated Glomerular Filt Rate 51 [facility] Comment:Chronic Kidney Disea se: Estimated GFR < 60 mL/min/1.41n0Mrcqjn Kidney Disease: Estimated GFR < 15 mL/min/1.73m2 Glucose 94 60 - 115 mg/dL [facility] Calcium 9.0 8.4 - 10.2 mg/dL [facility] Bilirubin, Total 0.3 0.0 - 1.0 mg/dL [facility] Aspartate Amino Transferase 18 5 - 37 U/L [facility] Alanine Aminotransferase 14 0 - 40 U/L [facility] Total Protein 6.9 6.5 - 8.0 g/dL [facility] Albumin Level 4.3 3.5 - 5.0 g/dL [facility] Alkaline Phosphatase 73 39 - 117 U/L [facility] Blood Venous blood specimen / Unknown 01/12/2025 4:06 PM EDT 01/12/2025 4:[address] [facility] LAB BLOOD ORDERABLES Ninoska l Result Performing Organization Address [facility] Co de Phone Number [facility] [address] [place] [phone] * Albumin, Random Urine W/Creatinine (01/12/2025 12:00 AM EDT) Creatinine, Urine 122.96 mg/dL [facility] Microalbumin Urine <5.0 mg/L [facility] Microalbum Creatinine Ratio Ur TNP <30 ug/mg cr [facility] Comment:Unable to calculate albumin/creatinine ratio due to lowmicroalbumin or creatinine result. Urine (Urine, Random) 01/12/2025 01/12/[address] [facility] LAB URINE ORDERABLES Ninoska l Result Performing Organization Address [facility] de Phone Number [facility] [address] [place] [phone] * ECG 12 lead (01/01/2025 2:44 PM EDT) Narrative Pepito Rodríguez CNP - 01/01/2025 2:44 PM EDT EKG: NSR, Rate 70bpm, No ST segmental changes, no QR interval changes, normal ECG [facility] ECG ORDERABLES Final Res ult * MR Cervical Spine w/o Contrast (12/21/2024 8:56 PM EDT) Anatomical Region Laterality Modality Spine, C-spine Magnetic Resonan ce 12/21/2024 8:56 PM EDT Narrative 12/21/2024 8:58 PM EDT [address] [address] Magnetic Resonance Report Signed Patient: Jesse Link MR#: [id number] : 1970 Acct:[id number] Age/Sex: 54 / M ADM Date: 12/21/24 Loc: HO.MRI Attending Dr: Payton LUU Ordering Physician: Payton Alston Date of Service: 12/21/24 Procedure(s): MR cervical spine wo con Accession Number(s): [id number] cc: Patricia Schofield MD; Payton Alston CLINICAL [...] Moderate facet/uncovertebral joint and ligamentum flavum hypertrophy. Aprx-du-jztbuekw central spinal canal stenosis. Moderate bilateral foraminal stenosis. C6/C7: 3 mm disc herniation. Moderate facet/uncovertebral joint and ligamentum flavum hypertrophy. Moderate central canal stenosis. Severe right and mild left foraminal stenosis. C7/T1: 3 mm disc herniation. Moderate facet joint and ligamentum flavum hypertrophy. Aral-fe-ybexsgia central canal stenosis. Moderate to severe bilateral foraminal stenosis. Impression: Multilevel degenerative change, detailed above, which is most prominent C6/C7 with moderate central canal stenosis. This document has been electronically signed by: Jaylin Saucedo MD on 12/21/2024 20:56:02 Dictated By: Jaylin Savage MD Signed By: <Electronically signed by Jaylin Savage MD in OV> 12/21/242056 DD/ 55 TD/TT: 12/21/242055 [employer] Operator: Procedure Note Donotuseinterpreter, Image - 12/21/[address] [address] Magnetic Resonance Report Signed Patient: Jesse Link LMR#: [id number] : 1970Acct:[id number] Age/Sex: 54 / MADM Date: 12/21/24 Loc: HO.MRI Attending Dr: Payton LUU Ordering Physician: Payton Alston Date of Service: 12/21/24 Procedure(s): MR cervical spine wo con Accession Number(s): [id number] cc: Patricia Schofield MD; Payton Alston CLINICAL [...] Moderate facet/uncovertebral joint and ligamentum flavum hypertrophy. Hjew-yj-xybqhijx central spinal canal stenosis. Moderate bilateral foraminal stenosis. C6/C7: 3 mm disc herniation. Moderate facet/uncovertebral joint and ligamentum flavum hypertrophy. Moderate central canal stenosis. Severe right and mild left foraminal stenosis. C7/T1: 3 mm disc herniation. Moderate facet joint and ligamentum flavum hypertrophy. Chkv-nb-umrajfye central canal stenosis. Moderate to severe bilateral foraminal stenosis. Impression: Multilevel degenerative change, detailed above, which is most prominent C6/C7 with moderate central canal stenosis. This document has been electronically signed by: Jaylin Saucedo MD on 12/21/2024 20:56:02 Dictated By: Jaylin Savage MD Signed By: <Electronically signed by Jaylin Savage MD in OV> 12/21/242056 DD/ 55 TD/TT: 12/21/242055 [employer] Operator: [facility] External Provider IMG MRI PROCEDURES Final Result * XR Wrist 3+ Views Bilateral (12/10/2024 12:32 AM EDT) Anatomical Region Laterality Modality Upper Extremities, Wrist Bilateral Radiogr aphic Imaging 12/10/2024 12:3 2 AM EDT Narrative 12/10/2024 12:35 AM EDT [facility] [address] [place] [address] XRay Report Signed Patient: Jesse Link MR#: [id number] : 1970 Acct:[id number] Age/Sex: 54 / M ADM Date: 12/09/24 Loc: HO.HOSX Attending Dr: Natan TILLEY Ordering Physician: Natan Dorsey Date of Service: 12/09/24 Procedure(s): XR Wrist Alphonso min 3V Accession Number(s): [id number] cc: Natan Dorsey; Patricia Schofield MD CLINICAL [...] MD in OV> 12/10/2433 DD/ TD/TT: 12/10/2431 [employer] Operator: Procedure Note Donotuseinterpreter, Image - 12/10/2024 [facility] [address] [place] [address] [place] [address] XRay Report Signed Patient: Jesse Link LMR#: [id number] : 1970Acct:[id number] Age/Sex: 54 / MADM Date: 12/09/24 Loc: HO.HOSX Attending Dr: Natan TILLEY Ordering Physician: Natan Dorsey Date of Service: 12/09/24 Procedure(s): XR Wrist Alphonso min 3V Accession Number(s): [id number] cc: Natan Dorsey; Patricia Schofield MD CLINICAL [...] MD in OV> 12/10/2433 DD/ TD/TT: 12/10/2431 [employer] Operator: [facility] External Provider IMG XR PROCEDURES Edited Result - Final * Hepatitis C Antibody with Reflex to HCV, RNA, Quantitative, Real-Time PCR (05/12/2024 3:42 PM EST) Hepatitis C Antibody Nonreactive Nonreactive [facility] Comment:Antibodies to HCV no t detected; does not exclude early acuteHCV infection. Blood Venous blood specimen / Unknown 05/12/2024 3:42 PM EST 05/12/2024 4:09 PM EST Marii Brown MD LAB BLOOD ORDERABLES Final Result [facility] [address] [place] [phone] * HIV-1/2 Antigen and Antibodies, Fourth Generation, with Reflexes (05/12/2024 3:42 PM EST) HIV AB/AG Nonreactive Nonreactive [facility] Comment:HIV-1 p24 Ag and/or HIV-1/HIV-2 Ab not detected.A test result that is nonreactive does not exclude thepossibility of exposure to or infection with HIV-1 and/orHIV-2. Nonreactive results in this assay for individualswith prior exposure to HIV-1 and/or HIV-2 may be due toantigen and antibody levels that are below the limit ofdetection of this assay.The [employer] HIV Ag/Ab Combo assay result andsupplemental assay results should be interpreted inconjunction with the patient's clinical presentation,history and other laboratory results. If the results areinconsistent with clinical evidence, additional testing issuggested to confirm the result. Blood Venous blood specimen / Unknown 05/12/2024 3:42 PM EST 05/12/2024 4:09 PM EST us Marii Brown MD LAB BLOOD ORDERABLES Final Result Performing Organization Address [facility] Co de Phone Number [facility] [address] [place] [address] [phone] * (ABNORMAL) Lipid Panel, Standard (03/27/2024 1:47 PM EDT) Triglycerides 107 <150 mg/dL [facility] Comment:Desirable Triglyceri de: less than 150 mg/dLBorderline High Triglyceride 150-199 mg/dLHigh Triglyceride: 200-499 mg/dLVery High Triglyceride: greater than or equal to 5OO mg/dL Cholesterol 131 <200 mg/dL [facility] Comment:Desirable Cholestero l: less than 200 mg/dLBorderline High Cholesterol: 200-239 mg/dLHigh Cholesterol: greater than 239 mg/dL LDL Cholesterol Calculated 70 <100 mg/dL [facility] Comment:Desirable LDL: less than 100 mg/dLNear Optimal/Above Optimal LDL: 110- 129 mg/dLBorderline High LDL: 130-159 mg/dLHigh LDL: 160-189 mg/dLVery High LDL: greater than or equal to 190 mg/dL HDL Cholesterol 40(L) >40 mg/dL [facility] Comment:Desirable HDL: great er than 40 mg/dL Note: This HDL assay may give artificially low results in patients with liver disease. Blood Venous blood specimen / Unknown 03/27/2024 1:47 PM EDT 03/27/2024 4:18 PM EDT us Patricia Barfield MD LAB BLOOD ORDERABLES Final Result Performing Organization Address [facility]/ZIP Co de Phone Number [facility] [address] [place] [phone] from Last 3 Months or Most Recently Relevant to Health Maintenance Insurance [employer] < 65 DENTAL - [facility] Care Teams Pot Liner Relationship Specialty Start Date End Date Patricia Schofiedl MD [address] [place] [phone] PCP - General Family Medicine 02/26/18
--- OUTSIDE RECORDS SUMMARY | 2025-02-25 06:29 | XMS_ITS | Encounter Summary ---
Author Organization [employer] Address [address] [place] [address], [place] [address] Care Team Providers Care Metallographic Technician Name Role Phone Patricia Schofield MD Primary Care Provide r Reason for Visit * Reason Comments Med Refill Encounter Details Date Type Department Care Team ([facility] st Contact Info) Description 03/11/2024 Refill [facility] [address] [place], [place] [phone] Patricia Schofield MD [address] [place] [address] Depression, unspecified depression type; Anxiety Social History [...] documented as of this encounter Care Teams Metallographic Technician Relationship Specialty Start Date End Date Patricia Schofield MD [address] [place] [phone] PCP - General Family Medicine 02/26/18 documented as of this encounter
--- OUTSIDE RECORDS SUMMARY | 2025-02-25 06:29 | XMS_ITS | Encounter Summary ---
Author Organization [employer] Address [address] [place] [address] [place] [address] Care Team Providers Care Upper And Bottom Lacer Hand Name Role Phone Patricia Schofield MD Primary Care Provide r Encounter Details Date Type Department Care Team (Late st Contact Info) Description 07/04/2022 Orders Only [facility] [address] [place] [address] Pricilla Eng LPN Social History Tobacco Use [...] on filedocumented in this encounter Care Teams Upper And Bottom Lacer Hand Relationship Specialty Start Date End Date Patricia Schofield MD [address] [place] [phone] PCP - General Family Medicine 02/26/18 documented as of this encounter
--- OUTSIDE RECORDS SUMMARY | 2025-02-25 06:29 | XMS_ITS | Encounter Summary ---
Author Organization [employer] Address [address] [place] [address] [address] Care Team Providers Care Clerical Dentist Assistant Name Role Phone Patricia Schofield MD Primary Care Provide r Reason for Visit * Reason Comments Med Refill Encounter Details Date Type Department Care Team ([facility] st Contact Info) Description 10/27/2024 Refill [facility] [address] [place], [place] [phone] Patricia Schofield MD [address] [place] [address] Cervical spine arthritis with nerve pain Social History Tobacco Use Types Packs/Day [...] as of this encounter Visit Diagnoses Diagnosis Cervical spine arthritis with nerve pain documented in this encounter Additional Health Concerns Assessment Noted Time PHQ-9 Depression Total Score: 21 024 2:33 PM EST documented as of this encounter Care Teams Clerical Dentist Assistant Relationship Specialty Start Date End Date Patricia Schofield MD [address] [place] [phone] PCP - General Family Medicine 02/26/18 documented as of this encounter
--- OUTSIDE RECORDS SUMMARY | 2025-02-25 06:29 | XMS_ITS | Clinical Summary ---
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
== END 2025-02-25 06:27 | disposition home or self-care (01) ==
LOC: CF 06:26
PROVIDERS: Visit Provider Internal Medicine
DX: M54.12 Radiculopathy, cervical region (principal)
CPT/HCPCS: 62321; J1100; J2003; Q9967

== ENCOUNTER 2025-02-25 13:10 | Outpatient (AMB) | payer OTHER, SELFPAY ==
[2025-02-25 13:12] VITALS: BP 126/78; PULSE 71; RESP 16; O2SAT 99; BMI 24.4
--- NOTE | 2025-02-25 13:12 | MHC.OFFVIS ---
Vital Signs 02/25/25 13:12 02/25/25 14:15 Height 5 ft 10 in Weight 170 lb BMI 24.4 BP 126/78 104/87 Blood Pressure Location Lt brachial Lt brachial Position Sitting Sitting Respiration 16 16 Pulse 71 66 Pulse Source Pulse Oximeter Pulse Oximeter Pulse Oximetry (%) 99 100 Oxygen Delivery Method Room Air Room Air Intake Visit Reasons: Interlaminar C6-C7 ROCK/ Ativan Allergies No Known Allergies Allergy (Verified 01/19/25 10:17) HPI HPI Interlaminar C6-C7 ROCK/ Ativan: Details: Patient presents for scheduled procedure. Denies any recent cough, cold, infection, fever or other significant changes in medical history since last office visit. [facility] Medical History Neck pain Back pain History of kidney cancer (~2020) Dizziness BRISA (generalized anxiety disorder) Snores Asthma History of cardiac murmur as a child Bilateral hand numbness Bilateral wrist pain Possible exposure to STI Upper back pain Migraine headache Chronic kidney disease, stage 2 (mild) Hyperlipidemia Bilateral arm pain Adrenal incidentaloma Seborrheic dermatitis of scalp Polyarthralgia Missing teeth, acquired Blurry vision, bilateral Chronic right shoulder pain Smoker Pure hyperglyceridemia Post-traumatic osteoarthritis of both wrists Mood disorder Severe major depression without psychotic features Mild intermittent asthma Homeless History of alcoholism GERD (gastroesophageal reflux disease) Foot callus HTN (hypertension) Episodic cluster headache Clear cell carcinoma of kidney Degenerative disc disease, cervical Cervical spondylosis Surgical History History of nephrectomy, left Family History Mother No problems noted. Father No problems noted. Social History Household Members: Family Housing: Apartment Are you a primary home health caregiver to a significant other at home: No Do you presently have visiting nurse or other home services: No Alcohol intake: current Alcohol intake frequency: holidays/special occasions only Patient Tobacco Use Status: Current someday Tobacco user Tobacco use type: Cigarette Current occupational status: disabled Current occupation: left hand Physical Exam Vital Signs: Last Vital Signs Pulse 66 02/25/25 14:15 Resp 16 02/25/25 14:15 BP 104/87 02/25/25 14:15 Pulse Ox 100 02/25/25 14:15 Oxygen Delivery Method Room Air 02/25/25 14:15 BMI result Body Mass Index 24.4 Office Procedures AMB Joint Injection/Aspiration Joint Injection/Aspiration Details: Interlaminar epidural steroid injection, C6/7, Left parasaggital After obtaining written consent, pre-procedure blood pressure and heart rate were stable and recorded in the nursing record. The patient was placed in the prone position. The cervicothoracic area was widely prepped with chloraprep and draped in sterile fashion. Fluoroscopic guidance was used to identify the desired interlaminar space and for needle placement. Subcutaneous 0.5% lidocaine was used to anesthetize the skin overlying the target. A 20-gauge Ortega needle was advanced to the epidural space using loss of resistance to contrast technique under fluoroscopic AP and contralateral oblique views. There was no evidence of heme or CSF and no paresthesias were elicited with needle placement. Confirmation of epidural needle placement was performed with 1cc of omnipaque 180. Next 3 ml 0.5% lidocaine mixed with 10 mg dexamethasone was administered epidurally with no pain elicited on injection. The needle tract tubing was then cleared with 1 ml of 0.5% lidocaine. The needle was removed, skin cleansed and a sterile bandage was applied. The patient tolerated the procedure well and no complications were encountered. Following the procedure the patient's vital signs were stable. The patient was discharged home in good condition with post-procedural instructions. Time Out: Immediately prior to the procedure, the following was verbally confirmed that there is a signed consent form and that the correct patient, planned procedure, site and side are consistent with documentation and that necessary equipment and/or blood products are available prior to the start of the case. Complications: none EBL: <2 cc Coding 15338 - Cervical Epidural/Interlaminar with fluoroscopy Procedure code (CPT) selection complete Assessment & Plan Assessment & Plan (1) Cervical radiculopathy: Code(s): M54.12 - Radiculopathy, cervical region Category: Medical Plan Patient is status post C6/7 left parasagittal interlaminar ROCK. Patient tolerated procedure well and was discharged home in stable condition with discharge instructions. All questions were answered. We will follow-up via telephone or in clinic to assess response to therapy. A follow-up appointment was made during today's visit. Orders: Orders FL guidance in treatment room 02/25/25 M54.12 - Radiculopathy, cervical region Medications: New lorazepam (Ativan) Take 30 minutes prior to arrival to procedure 1 mg PO ONCE 1 tab 0RF anxiety Coding Level of Care Code Procedure Only Diagnoses Cervical radiculopathy M54.12 CPT Codes Coding - Joint 10: 39273 - Cervical Epidural/Interlaminar with fluoroscopy ([id number])
[2025-02-25 14:15] VITALS: BP 104/87; PULSE 66; RESP 16; O2SAT 100
--- OUTSIDE RECORDS SUMMARY | 2025-02-25 17:12 | XMS_ITS | Encounter Summary ---
Author Organization [employer] Address [address] [place] [address] [place], [place] [address] Care Team Providers Care Asphalt Still Operator Name Role Phone Patricia Schofield MD Primary Care Provide r Encounter Details Date Type Department Care Team (Latest Contact Info) Description 09/05/2020 Abstract [facility] CONVERSIONS Dental, Provider, DDS Social History [...] on filedocumented in this encounter Care Teams Asphalt Still Operator Relationship Specialty Start Date End Date Patricia Schofield MD [address] [place] [id number] PCP - General Family Medicine 02/26/18 documented as of this encounter
--- OUTSIDE RECORDS SUMMARY | 2025-02-25 17:12 | XMS_ITS | Encounter Summary ---
Author Organization [employer] Address [address] [place] [address] [place], [place] [address] Care Team Providers Care Warehouse Stock Clerk Name Role Phone Patricia Schofield MD Primary Care Provide r Encounter Details Date Type Department Care Team (Late st Contact Info) Description 07/09/2022 Orders Only [facility] MEDICINE [address] [place] [address] Payton Gay LPN Social History Tobacco Use [...] on filedocumented in this encounter Care Teams Warehouse Stock Clerk Relationship Specialty Start Date End Date Patricia Schofield MD [address] [place] [address] PCP - General Family Medicine 02/26/18 documented as of this encounter
--- OUTSIDE RECORDS SUMMARY | 2025-02-25 17:12 | XMS_ITS | Encounter Summary ---
Author Organization [employer] Address [address] [place] [address] [address] [address] Care Team Providers Care Core Java Engineer Name Role Phone Patricia Schofield MD Primary Care Provide r Encounter Details Date Type Department Care Team (Late st Contact Info) Description 07/04/2022 Orders Only [facility] MED & PEDS [address] [place] [address] Pricilla Eng LPN Social History Tobacco Use [...] on filedocumented in this encounter Care Teams Core Java Engineer Relationship Specialty Start Date End Date Patricia Schofield MD [address] [place] [phone] PCP - General Family Medicine 02/26/18 documented as of this encounter
--- OUTSIDE RECORDS SUMMARY | 2025-02-25 17:12 | XMS_ITS | Encounter Summary ---
Author Organization [employer] Address [address] [facility] [address] [place] [address] Care Team Providers Care Oncology Physician Name Role Phone Patricia Schofield MD Primary Care Provide r Reason for Visit * Reason Comments Med Refill Encounter Details Date Type Department Care Team ([facility] st Contact Info) Description 06/15/2023 Refill [facility] MEDICINE [address] [place], [place] [phone] Patricia Schofield MD [address] [place] [address] Gastroesophageal reflux disease without esophagitis Social History [...] documented as of this encounter Care Teams Oncology Physician Relationship Specialty Start Date End Date Patricia Schofield MD [address] [place] [phone] PCP - General Family Medicine 02/26/18 documented as of this encounter
--- OUTSIDE RECORDS SUMMARY | 2025-02-25 17:12 | XMS_ITS | Encounter Summary ---
Author Organization [employer] Address [address] [place] [address] 7 [place] [address] Care Team Providers Care Security Advisor Name Role Phone Patricia Schofield MD Primary Care Provide r Encounter Details Date Type Department Care Team (Latest Contact Info) Description 01/15/2025 Results Follow-Up [facility] MEDICINE [address] [place] [address] Pepito Rodríguez CNP [address] [place] [address] CBC auto differential, Comprehensive Metabolic Panel, Prothrombin [...] documented as of this encounter Care Teams Security Advisor Relationship Specialty Start Date End Date Patricia Schofield MD [address] [place] [address] PCP - General Family Medicine 02/26/18 documented as of this encounter
--- OUTSIDE RECORDS SUMMARY | 2025-02-25 17:12 | XMS_ITS | Encounter Summary ---
Author Organization [employer] Address [address] [place] [address] 7 [place] [address] Care Team Providers Care Supervisor Drying Name Role Phone Patricia Schofield MD Primary Care Provide r Reason for Visit * Reason Comments Med Refill Encounter Details Date Type Department Care Team ([facility] st Contact Info) Description 03/26/[address] [facility] MEDICINE [address] [place], [place] [phone] Patricia Schofield MD [address] [place] [address] Neck pain Social History Tobacco Use Types [...] as of this encounter Care Teams Supervisor Drying Relationship Specialty Start Date End Date Patricia Schofield MD [address] [place] [phone] PCP - General Family Medicine 02/26/18 documented as of this encounter
--- OUTSIDE RECORDS SUMMARY | 2025-02-25 17:12 | XMS_ITS | Clinical Summary ---
Author Organization 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
--- OUTSIDE RECORDS SUMMARY | 2025-02-25 17:12 | XMS_ITS | Encounter Summary ---
Author Organization [employer] Address [address] [place] [address] [address] [address] Care Team Providers Care Tour Bus Driver/Guide Name Role Phone Patricia Schofield MD Primary Care Provide r Encounter Details Date Type Department Care Team (Late st Contact Info) Description 08/21/2022 Orders Only [facility] MED & PEDS [address] [place] [address] Pricilla Eng LPN Social History Tobacco Use [...] on filedocumented in this encounter Care Teams Tour Bus Driver/Guide Relationship Specialty Start Date End Date Patricia Schofield MD [address] [place] [phone] PCP - General Family Medicine 02/26/18 documented as of this encounter
--- OUTSIDE RECORDS SUMMARY | 2025-02-25 17:12 | XMS_ITS | Encounter Summary ---
Author Organization [employer] Address [address] [place] [address] [address], [place] [address] Care Team Providers Care Supervisory Geographer Name Role Phone Patricia Schofield MD Primary Care Provide r Encounter Details Date Type Department Care Team (Late st Contact Info) Description 11/07/2022 Orders Only [facility] [address] [place], [place] [phone] Patricia Schofield MD [address] [place], [place] [phone] Social History Tobacco Use Types Packs/Day Years [...] on filedocumented in this encounter Care Teams Supervisory Geographer Relationship Specialty Start Date End Date Patricia Schofield MD [address] [place], [place] [phone] PCP - General Family Medicine 02/26/18 documented as of this encounter
--- OUTSIDE RECORDS SUMMARY | 2025-02-25 17:12 | XMS_ITS | Encounter Summary ---
Author Organization [employer] Address [address] [place] [address] [address] [address] Care Team Providers Care Paper Inserter Name Role Phone Patricia Schofield MD Primary Care Provide r Reason for Visit * Reason Comments Med Refill Encounter Details Date Type Department Care Team ([facility] st Contact Info) Description 10/27/2024 Refill [facility] [address] [place], [place] [phone] Patricia Schofield MD [address] [place] [address] Cervical spine arthritis with nerve pain Social [...] documented as of this encounter Care Teams Paper Inserter Relationship Specialty Start Date End Date Patricia Schofield MD [address] [place] [phone] PCP - General Family Medicine 02/26/18 documented as of this encounter
--- OUTSIDE RECORDS SUMMARY | 2025-02-25 17:12 | XMS_ITS | Clinical Summary ---
Author Organization [employer] Address [address] [place] [address] [address] [address] Care Team Providers Care Marketing Technology Specialist Name Role Phone Patricia Schofield MD [...] will have surgical intervention, letter to increase [employer] hours after surgery to be generated Bilateral [...] today continue with same medications referral to [facility] done today Assessment & Plan (07/26/2023 2:57 [...] Self Plan Patient to reach out to [facility] team as needed and Patient to reach [...] Description 02/16/2025 3:15 PM EDT Office Visit [address] [address] Patricia Schofield MD Screening for colon cancer (Primary Dx); Severe episode of recurrent major depressive disorder, without psychotic features (CMS/HCC); History of alcoholism (CMS/HCC); Cervical spine arthritis with nerve pain; Chronic migraine without aura without status migrainosus, not intractable; Dry skin dermatitis; Decreased hearing of both ears; Cubital tunnel syndrome, right 02/16/2025 Travel 02/12/[address] [address] Patricia Schofield MD Chart Prep 02/08/2025 Patient Outreach [address] [address] Patricia Schofield MD Pre-visit Planning ([facility] screening completed on 10/25/2024) 01/24/[address] [address] Patricia Schofield MD Depression, unspecified depression type 01/15/2025 11:00 AM EDT [facility] Visit [facility] [address] [address] Morales Shaikh MD Pain in left acromioclavicular joint (Primary Dx) 01/15/2025 Results Follow-Up [address] [address] Pepito Rodríguez CNP CBC auto differential, Comprehensive Metabolic Panel, Prothrombin Time-INR, Albumin, Random Urine W/Creatinine 01/15/2025 Travel 01/01/2025 2:15 PM EDT Office Visit [address] [address] Pepito Rodríguez CNP Cubital tunnel syndrome on right (Primary Dx); Pre-op evaluation 01/01/2025 Travel 01/01/[address] [address] Patricia Schofield MD Depression, unspecified depression type 12/31/[address] [address] Nadiya Goodrich [place] Chart Prep 12/15/[address] [address] Patricia Schofield MD chart prep 12/09/2024 Orders Only [facility] External Provider, [facility] 12/09/[address] [address] Patricia Schofield MD Pre-op Visit 12/06/2024 Refill [facility] [address] [address] Tray Cheema MD Gastroesophageal reflux disease without esophagitis 11/26/[address] [facility] [address] [place] [address] Patricia Schofield MD Cervical spine arthritis with [...] EDT) ETHANOL (MG/DL) IN SER/PLAS 94 mg/dL [facility] Comment:Serum/plasma ethanol results are to be used formedical/treatment purposes only. 01/21/2025 7:13 AM EDT 01/21/2025 7:18 AM EDT us Generic External Data Provider LAB BLOOD ORDERAB LES Final Result [facility] [address] [place] [address] [phone] * XR Shoulder 2+ Views Left (01/15/2025 11:00 AM EDT) Anatomical Region Laterality Modality Upper Extremities, Shoulder Left Radi ographic Imaging 01/15/2025 11:0 0 AM EDT Narrative 01/15/2025 12:51 PM EDT [address] [address] XRay Report Signed Patient: Jesse Link MR#: [id number] : 1970 Acct:[id number] Age/Sex: 55 / M ADM Date: 01/15/25 Loc: LEOX Attending Dr: Morales Shaikh MD Ordering Physician: Morales Shaikh MD Date of Service: 01/15/25 Procedure(s): XR shoulder LT min 2V Accession Number(s): [id number] cc: Morales Shaikh MD EXAMINATION: XR SHOULDER, [...] 01/15/25 1248 DD/ 1100 TD/TT: 01/15/25 1110 Director Of Integrated Marketing: Procedure Note Donotuseinterpreter, Image - 01/15/[address] [address] XRay Report Signed Patient: Jesse Link LMR#: [id number] : 1970Acct:[id number] Age/Sex: 55 / MADM Date: 01/15/25 Loc: HHX Attending Dr: Morales Shaikh MD Ordering Physician: Morales Shaikh MD Date of Service: 01/15/25 Procedure(s): XR shoulder LT min 2V Accession Number(s): [id number] cc: Morales Shaikh MD EXAMINATION: XR SHOULDER, [...] 01/15/25 1248 DD/ 1100 TD/TT: 01/15/25 1110 Director Of Integrated Marketing: Morales Shaikh MD IMG XR PROCEDURES Final Result * (ABNORMAL) CBC auto differential (01/12/2025 4:06 PM EDT) White Blood Count 6.0 4.8 - 10.8 X10*3/uL [facility] Red Blood Count 4.77 4.60 - 5.80 X10*6/uL [facility] Hemoglobin 13.9(L) 14.0 - 18.0 g/dl [facility] Hematocrit 41.2(L) 42.0 - 52.0 % [facility] Mean Corpuscular Volume 86.4 80.0 - 98.0 fL [facility] Mean Corpuscular Hemoglobin 29.1 27.0 - 33.0 pg [facility] Mean Corpuscular HGB Conc 33.7 31.0 - 36.0 g/dl [facility] Red Cell Distribution Width 15.0 11.0 - 16.0 % [facility] Platelet Count 318 160 - 400 X10*3/uL [facility] Mean Platelet Volume 9.9 9.4 - 12.4 fL [facility] Neutrophils Percent Auto 54.7 45 - 73 % [facility] Imm Gran Pct Auto 0.3 0.0 - 0.4 % [facility] Lymphocytes Percent Auto 32.3 20 - 40 % [facility] Monocytes Percent Auto 8.6 2 - 11 % [facility] Eosinophils Percent Auto 3.4 0 - 4 % [facility] Basophils Percent Auto 0.7 0 - 2 % [facility] NRBC Pct Auto 0.0 0.0 - 0.2 /100WBC [facility] Neutrophils Absolute Auto 3.3 2.0 - 8.3 x10*3/uL [facility] Imm Gran Abs Auto 0.02 0.00 - 0.03 X10*3/uL [facility] Lymphocytes Absolute Auto 1.9 1.2 - 4.9 X10*3/uL [facility] Monocytes Absolute Auto 0.5 0.1 - 1.2 X10*3/uL [facility] Eosinophils Absolute Auto 0.2 0.0 - 0.4 X10*3/uL [facility] Basophils Absolute Auto 0.0 0.0 - 0.2 X10*3/uL [facility] NRBC Abs Auto 0.000 0.0 - 0.012 X10*3/uL [facility] Blood Venous blood specimen / Unknown 01/12/2025 4:06 PM EDT 01/12/2025 4:06 PM EDT [facility] LAB BLOOD ORDERABLES Ninoska l Result [facility] [address] [place] [phone] * (ABNORMAL) Prothrombin Time-INR (01/12/2025 4:06 PM EDT) Prothrombin Time 10.7(L) 10.9 - 12.4 SEC [facility] INTERNATIONAL NORM RATIO 0.9 0.9 - 1.1 [facility] Comment:INTERNATIONAL NORMAL IZED RATIO (INR) [...] PM EDT 01/12/2025 4:06 PM EDT Pepito [facility] LAB BLOOD ORDERABLES Ninoska l Result [facility] [address] [place] [phone] * (ABNORMAL) Comprehensive Metabolic Panel (01/12/2025 4:06 PM EDT) Sodium 142 135 - 145 mmol/L [facility] Potassium 4.4 3.3 - 5.1 mmol/L [facility] Chloride 110(H) 96 - 108 mmol/L [facility] Carbon Dioxide 25 22 - 29 mmol/L [facility] Anion Gap 11(L) 12 - 20 [facility] Urea Nitrogen (BUN) 12 9 - 16 mg/dL [facility] Creatinine, Serum 1.43(H) 0.5 - 1.4 mg/dL [facility] Estimated Glomerular Filt Rate 51 [facility] Comment:Chronic Kidney Disea se: Estimated GFR < 60 mL/min/1.39e3Brdbtn Kidney Disease: Estimated GFR < 15 mL/min/1.73m2 Glucose 94 60 - 115 mg/dL [facility] Calcium 9.0 8.4 - 10.2 mg/dL [facility] Bilirubin, Total 0.3 0.0 - 1.0 mg/dL [facility] Aspartate Amino Transferase 18 5 - 37 U/L [facility] Alanine Aminotransferase 14 0 - 40 U/L [facility] Total Protein 6.9 6.5 - 8.0 g/dL [facility] Albumin Level 4.3 3.5 - 5.0 g/dL [facility] Alkaline Phosphatase 73 39 - 117 U/L [facility] Blood Venous blood specimen / Unknown 01/12/2025 4:06 PM EDT 01/12/2025 4:06 PM EDT [facility] LAB BLOOD ORDERABLES Ninoska l Result Performing Organization Address [facility] Co de Phone Number [facility] [address] [place] [phone] * Albumin, Random Urine W/Creatinine (01/12/2025 12:00 AM EDT) Creatinine, Urine 122.96 mg/dL [facility] Microalbumin Urine <5.0 mg/L [facility] Microalbum Creatinine Ratio Ur TNP <30 ug/mg cr [facility] Comment:Unable to calculate albumin/creatinine ratio due to lowmicroalbumin or creatinine result. Urine (Urine, Random) 01/12/2025 01/12/2025 [facility] LAB URINE ORDERABLES Ninoska l Result Performing Organization Address [facility] de Phone Number [facility] [address] [place] [phone] * ECG 12 lead (01/01/2025 2:44 PM EDT) Narrative Pepito Rodríguez CNP - 01/01/2025 2:44 PM EDT EKG: NSR, Rate 70bpm, No ST segmental changes, no QR interval changes, normal ECG [facility] ECG ORDERABLES Final Res ult * MR Cervical Spine w/o Contrast (12/21/2024 8:56 PM EDT) Anatomical Region Laterality Modality Spine, C-spine Magnetic Resonan ce 12/21/2024 8:56 PM EDT Narrative 12/21/2024 8:58 PM EDT [address] [address] Magnetic Resonance Report Signed Patient: Jesse Link MR#: [id number] : 1970 Acct:[id number] Age/Sex: 54 / M ADM Date: 12/21/24 Loc: HO.MRI Attending Dr: Payton LUU Ordering Physician: Payton Alston Date of Service: 12/21/24 Procedure(s): MR cervical spine wo con Accession Number(s): [id number] cc: Patricia Schofield MD; Payton Alston CLINICAL [...] Moderate facet/uncovertebral joint and ligamentum flavum hypertrophy. Lfla-ry-clhtheai central spinal canal stenosis. Moderate bilateral foraminal stenosis. C6/C7: 3 mm disc herniation. Moderate facet/uncovertebral joint and ligamentum flavum hypertrophy. Moderate central canal stenosis. Severe right and mild left foraminal stenosis. C7/T1: 3 mm disc herniation. Moderate facet joint and ligamentum flavum hypertrophy. Tcwy-nu-ddesrhwu central canal stenosis. Moderate to severe bilateral foraminal stenosis. Impression: Multilevel degenerative change, detailed above, which is most prominent C6/C7 with moderate central canal stenosis. This document has been electronically signed by: Jaylin Saucedo MD on 12/21/2024 20:56:02 Dictated By: Jaylin Savage MD Signed By: <Electronically signed by Jaylin Savage MD in OV> 12/21/242056 DD/ 55 TD/TT: 12/21/242055 Director Of Integrated Marketing: Procedure Note Donotuseinterpreter, Image - 12/21/[address] [address] Magnetic Resonance Report Signed Patient: Jesse Link LMR#: [id number] : 1970Acct:[id number] Age/Sex: 54 / MADM Date: 12/21/24 Loc: HO.MRI Attending Dr: Payton LUU Ordering Physician: Payton Alston Date of Service: 12/21/24 Procedure(s): MR cervical spine wo con Accession Number(s): [id number] cc: Patricia Schofield MD; Payton Alston CLINICAL [...] Moderate facet/uncovertebral joint and ligamentum flavum hypertrophy. Fzwo-lo-rriadgnj central spinal canal stenosis. Moderate bilateral foraminal stenosis. C6/C7: 3 mm disc herniation. Moderate facet/uncovertebral joint and ligamentum flavum hypertrophy. Moderate central canal stenosis. Severe right and mild left foraminal stenosis. C7/T1: 3 mm disc herniation. Moderate facet joint and ligamentum flavum hypertrophy. Krtm-lj-vhmalouz central canal stenosis. Moderate to severe bilateral foraminal stenosis. Impression: Multilevel degenerative change, detailed above, which is most prominent C6/C7 with moderate central canal stenosis. This document has been electronically signed by: Jaylin Saucedo MD on 12/21/2024 20:56:02 Dictated By: Jaylin Savage MD Signed By: <Electronically signed by Jaylin Savage MD in OV> 12/21/242056 DD/ 55 TD/TT: 12/21/242055 Director Of Integrated Marketing: [facility] External Provider IMG MRI PROCEDURES Final Result * XR Wrist 3+ Views Bilateral (12/10/2024 12:32 AM EDT) Anatomical Region Laterality Modality Upper Extremities, Wrist Bilateral Radiogr aphic Imaging 12/10/2024 12:3 2 AM EDT Narrative 12/10/2024 12:35 AM EDT [facility] [address] [place] [address] XRay Report Signed Patient: Jesse Link MR#: [id number] : 1970 Acct:[id number] Age/Sex: 54 / M ADM Date: 12/09/24 Loc: HO.HOSX Attending Dr: Natan TILLEY Ordering Physician: Natan Dorsey Date of Service: 12/09/24 Procedure(s): XR Wrist Alphonso min 3V Accession Number(s): [id number] cc: Natan Dorsey; Patricia Schofield MD CLINICAL [...] MD in OV> 12/10/2433 DD/ TD/TT: 12/10/2431 Director Of Integrated Marketing: Procedure Note Donotuseinterpreter, Image - 12/10/2024 [facility] [address] [place] [address] [place] [address] XRay Report Signed Patient: Jesse Link LMR#: [id number] : 1970Acct:[id number] Age/Sex: 54 / MADM Date: 12/09/24 Loc: HO.HOSX Attending Dr: Natan TILLEY Ordering Physician: Natan Dorsey Date of Service: 12/09/24 Procedure(s): XR Wrist Alphonso min 3V Accession Number(s): [id number] cc: Natan Dorsey; Patricia Schofield MD CLINICAL [...] MD in OV> 12/10/2433 DD/ TD/TT: 12/10/2431 Director Of Integrated Marketing: [facility] External Provider IMG XR PROCEDURES Edited Result - Final * Hepatitis C Antibody with Reflex to HCV, RNA, Quantitative, Real-Time PCR (05/12/2024 3:42 PM EST) Hepatitis C Antibody Nonreactive Nonreactive [facility] Comment:Antibodies to HCV no t detected; does not exclude early acuteHCV infection. Blood Venous blood specimen / Unknown 05/12/2024 3:42 PM EST 05/12/2024 4:09 PM EST Marii Brown MD LAB BLOOD ORDERABLES Final Result [facility] [address] [place] [phone] * HIV-1/2 Antigen and Antibodies, Fourth Generation, with Reflexes (05/12/2024 3:42 PM EST) HIV AB/AG Nonreactive Nonreactive [facility] Comment:HIV-1 p24 Ag and/or HIV-1/HIV-2 Ab not detected.A test result that is nonreactive does not exclude thepossibility of exposure to or infection with HIV-1 and/orHIV-2. Nonreactive results in this assay for individualswith prior exposure to HIV-1 and/or HIV-2 may be due toantigen and antibody levels that are below the limit ofdetection of this assay.The [employer] HIV Ag/Ab Combo assay result andsupplemental assay results should be interpreted inconjunction with the patient's clinical presentation,history and other laboratory results. If the results areinconsistent with clinical evidence, additional testing issuggested to confirm the result. Blood Venous blood specimen / Unknown 05/12/2024 3:42 PM EST 05/12/2024 4:09 PM EST us Marii Brown MD LAB BLOOD ORDERABLES Final Result Performing Organization Address [facility] Co de Phone Number [facility] [address] [place] [phone] * (ABNORMAL) Lipid Panel, Standard (03/27/2024 1:47 PM EDT) Triglycerides 107 <150 mg/dL [facility] Comment:Desirable Triglyceri de: less than 150 mg/dLBorderline High Triglyceride 150-199 mg/dLHigh Triglyceride: 200-499 mg/dLVery High Triglyceride: greater than or equal to 5OO mg/dL Cholesterol 131 <200 mg/dL [facility] Comment:Desirable Cholestero l: less than 200 mg/dLBorderline High Cholesterol: 200-239 mg/dLHigh Cholesterol: greater than 239 mg/dL LDL Cholesterol Calculated 70 <100 mg/dL [facility] Comment:Desirable LDL: less than 100 mg/dLNear Optimal/Above Optimal LDL: 110- 129 mg/dLBorderline High LDL: 130-159 mg/dLHigh LDL: 160-189 mg/dLVery High LDL: greater than or equal to 190 mg/dL HDL Cholesterol 40(L) >40 mg/dL [facility] Comment:Desirable HDL: great er than 40 mg/dL Note: This HDL assay may give artificially low results in patients with liver disease. Blood Venous blood specimen / Unknown 03/27/2024 1:47 PM EDT 03/27/2024 4:18 PM EDT us Patricia Barfield MD LAB BLOOD ORDERABLES Final Result Performing Organization Address [facility]/ZIP Co de Phone Number [facility] [address] [place] [phone] from Last 3 Months or Most Recently Relevant to Health Maintenance Insurance [employer] < 65 [facility] - [facility] Care Teams Marketing Technology Specialist Relationship Specialty Start Date End Date Patricia Schofield MD [address] [place] [phone] PCP - General Family Medicine 02/26/18
--- OUTSIDE RECORDS SUMMARY | 2025-02-25 17:12 | XMS_ITS | Encounter Summary ---
Author Organization [employer] Address [address] [place] [address], [place] [address] Care Team Providers Care Highway Truck Driver Name Role Phone Patricia Schofield MD Primary Care Provide r Reason for Visit * Reason Comments Med Refill Encounter Details Date Type Department Care Team ([facility] st Contact Info) Description 03/11/2024 Refill [facility] [address], [place] [phone] Patricia Schofield MD [address] [place] [address] Depression, unspecified depression type; Anxiety Social History [...] documented as of this encounter Care Teams Highway Truck Driver Relationship Specialty Start Date End Date Patricia Schofield MD [address] [place] [phone] PCP - General Family Medicine 02/26/18 documented as of this encounter
== END 2025-02-25 14:11 | disposition home or self-care (01) ==
LOC: HO.PMCPRC 13:10
PROVIDERS: PCP Internal Medicine; Visit Provider Internal Medicine
DX: M54.12 Radiculopathy, cervical region (principal)
CPT/HCPCS: 62321

== ENCOUNTER 2025-03-17 09:36 | Outpatient (AMB) | payer OTHER, SELFPAY ==
[2025-03-17 10:06] VITALS: BMI 24.4
--- NOTE | 2025-03-17 10:06 | MHC.OFFVIS ---
Vital Signs 03/17/25 10:06 Height 5 ft 10 in Weight 170 lb BMI 24.4 Intake Visit Reasons: Pre-Rt Cubital 03/25/25 AR Intake Note: Jesse is a 55 year old left hand dominant who presents today pre-operatively for discussion of their Right Cubital Tunnel Release scheduled for 03/25/[address] Menard. Consents signed in office today. Allergies No Known Allergies Allergy (Verified 03/17/25 10:12) HPI HPI Pre-Rt Cubital 03/25/25 AR: Details: Jesse is a 54 year old left hand dominant man who returns for his right cubital tunnel syndrome He has bilateral cubital tunnel syndrome, with numbness in his bilateral small fingers. Symptoms intermittent, but daily, worse at night. This has been present for ~4 months now. He is currently scheduled for a right Cubital tunnel release on 03/25/25. He complains of pain & limited ROM in his bilateral wrists, which he says is due to arthritis. He has severe cervical radiculopathy, with multiple disc herniations seen on MRI. He follows with Pain Management for this. He is out of work on Disability, and has a TOBACCO SIZER for assistance. He is a smoker, with a Hx of CKD II & Polyarthralgia. [facility] Medical History Neck pain Back pain History of kidney cancer (~2020) Dizziness BRISA (generalized anxiety disorder) Snores Asthma History of cardiac murmur as a child Bilateral hand numbness Bilateral wrist pain Possible exposure to STI Upper back pain Migraine headache Chronic kidney disease, stage 2 (mild) Hyperlipidemia Bilateral arm pain Adrenal incidentaloma Seborrheic dermatitis of scalp Polyarthralgia Missing teeth, acquired Blurry vision, bilateral Chronic right shoulder pain Smoker Pure hyperglyceridemia Post-traumatic osteoarthritis of both wrists Mood disorder Severe major depression without psychotic features Mild intermittent asthma Homeless History of alcoholism GERD (gastroesophageal reflux disease) Foot callus HTN (hypertension) Episodic cluster headache Clear cell carcinoma of kidney Degenerative disc disease, cervical Cervical spondylosis Surgical History History of nephrectomy, left Family History Mother No problems noted. Father No problems noted. Social History Household Members: Family Housing: Apartment Are you a primary long term care pharmacist to a significant other at home: No Do you presently have visiting nurse or other home services: No Alcohol intake: current Alcohol intake frequency: holidays/special occasions only Patient Tobacco Use Status: Current someday Tobacco user Tobacco use type: Cigarette Current occupational status: disabled Current occupation: left hand Review of Systems Const All systems reviewed & are unremarkable except as noted in HPI and below Physical Exam Vital Signs: BMI result Body Mass Index 24.4 Const General: no acute distress and alert Orientation/consciousness: patient oriented x3 Neuro General: patient oriented x3 Extrem Other: Evaluation of Bilateral Upper Extremity: The patient is alert, oriented, and in no acute distress Neuro: Median, Ulnar, Radial nerves motor and sensory intact and sensation is normal to the tips of all digits except for some numbness in the ulnar nerve distribution Vascular: Cap refill brisk ROM: He can make a fist and extend all his digits No locking or catching Bilateral wrist swelling and enlargement of the radiocarpal joint, radial aspect Right: TTP in this area Nerve Conduction study: IMPRESSION: Mild bilateral ulnar neuropathy across cubital tunnel. Vanessa Levy MD 09/15/2024 Radiographs: 3 views of the right wrist from 12/10/24 were reviewed by me today in clinic. They show end stage radioscaphoid arthritis with near complete loss of the joint space between the distal radius, radial styloid, and scaphoid. There are 2 loose bodies just distal to the radial styloid, and the proximal pole of scaphoid appears to be missing. There is also mid carpal arthritis with loss of joint space between capitate & lunate, suggestive for SNAC vs SLAC wrist 3 views of the left wrist from 12/10/24 were reviewed by me today in clinic. They show end stage radioscaphoid arthritis with near complete loss of the joint space between the distal radius, radial styloid, and scaphoid. There are 2 loose bodies just distal to the radial styloid, and the proximal pole of scaphoid appears to be missing. There is also mid carpal arthritis with loss of joint space between capitate & lunate, suggestive for SNAC vs SLAC wrist Psych Appearance: grossly normal Affect: normal affect Attitude: cooperative Assessment & Plan Assessment & Plan (1) Cubital tunnel syndrome, bilateral: Code(s): G56.23 - Lesion of ulnar nerve, bilateral upper limbs Category: Medical (2) Post-traumatic osteoarthritis of both wrists: Comment: SLAC vs SNAC wrists bilaterally Code(s): M19.131 - Post-traumatic osteoarthritis, right wrist; M19.132 - Post-traumatic osteoarthritis, left wrist Category: Medical (3) Cervical radiculopathy: Code(s): M54.12 - Radiculopathy, cervical region Category: Medical (4) Smoker: Code(s): F17.200 - Nicotine dependence, unspecified, uncomplicated Category: Social Hx (5) Polyarthralgia: Code(s): M25.50 - Pain in unspecified joint Category: Medical (6) Chronic kidney disease, stage 2 (mild): Code(s): N18.2 - Chronic kidney disease, stage 2 (mild) Category: Medical Plan Assessment & Plan: 1. Right cubital tunnel syndrome, mild Symptoms intermittent, but daily, worse at night I educated him about this condition I discussed operative and non-operative treatment options The patient would like to proceed with surgery I explained the effects of smoking on wound/bone healing, and recommend they stop smoking prior to surgery & while healing. This includes vaping, Marijuana, and other Nicotine products including patches used to help quit. They expressed understanding. The risks and benefits of operative treatment were discussed with the patient and the patient wishes to proceed with surgery. These risks include, but are not limited to risk of damage to blood vessels, nerves, tendons, infection, recurrence, incomplete relief of preoperative symptoms, persistent pain, possible need for further surgery and the risks associated with regional blocks and anesthesia. The plan is to take the patient to the operating room sometime on 03/25/25 for the following procedures: 1. Right cubital tunnel release, under general All of the preoperative paperwork including the consent was reviewed today. All the patient's questions were answered. He denies Diabetes, blood thinners, asthma, lung issues He has CKD II and a Hx of kidney cancer He has a Hx of chest pain and was seen by Cardiology on 01/08/25 to review his test results 2. 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 radioscaphoid joint & end-stage osteoarthritis I educated him about this condition I discussed treatment options, including possible surgery At this time I recommend activity modification, bracing, and injections, and he is in agreement He was fitted for a velcro wrist splint, to be worn with daily activities I discussed activity modification, he should limit or avoid any heavy lift or impact activities, or other activities which cause him pain He will make an appointment for a right wrist injection, using the mini C-arm, after he has recovered from his Cubital tunnel release, ~2 months following surgery depending how he is feeling. He can schedule this at his first post-op appointment 3. 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 Left Cubital tunnel syndrome, mild Symptoms intermittent, but daily, worse at night We will discuss treatment options for this at a later date 5. Cervical radiculopathy From C3-T1 He follows with Pain Management for this Scribed for Amalia Menard MD by Kwaku Bourne, medical sales specialist, on 03/17/25 at 10:10 AM, EST. Coding Level of Care Code Est Pt Level 4 (26679) Diagnoses Cubital tunnel syndrome, bilateral G56.23 Post-traumatic osteoarthritis of both wrists M19.131; M19.132 Cervical radiculopathy M54.12 Smoker F17.200 Polyarthralgia M25.50 Chronic kidney disease, stage 2 (mild) N18.2
--- OUTSIDE RECORDS SUMMARY | 2025-03-17 10:29 | XMS_ITS | Encounter Summary ---
Author Organization [employer] Address [address] [place] [address] [place], [place] [address] Care Team Providers Care Pig Machine Operator Name Role Phone Patricia Schofield MD Primary Care Provide r Reason for Visit * Reason Comments Med Refill Encounter Details Date Type Department Care Team ([facility] st Contact Info) Description 10/27/2024 Refill [facility] [address] [place], [place] [phone] Patricia Schofield MD [address] [place] [address] Cervical spine arthritis with nerve pain Social [...] as of this encounter Plan of Treatment Upcoming Encounters Date Type Department Care Team (Late st Contact Info) Description 05/21/2025 3:30 PM EST Office Visit [facility] [address] [place] [phone] Patricia Schofield MD [address] [place] [phone] documented as of this encounter Visit Diagnoses Diagnosis Cervical spine arthritis with nerve pain documented in this encounter Additional Health Concerns Assessment Noted Time PHQ-9 Depression Total Score: 21 024 2:33 PM EST documented as of this encounter Care Teams Pig Machine Operator Relationship Specialty Start Date End Date Patricia Schofield MD [address] [place] [phone] PCP - General Family Medicine 02/26/18 documented as of this encounter
--- OUTSIDE RECORDS SUMMARY | 2025-03-17 10:29 | XMS_ITS | Clinical Summary ---
Author Organization [facility] Address [address] [place] [address] Phone Care Team Providers Care Director Print Name Role Phone Physician, No Pcp Primary Care Provider Unavaila ble Allergies No known active allergies Medical History Medical History Date Comments Kidney cancer, primary, with metastasis from kidney to other site, left (CMS/[facility] V24, CMS/[facility] V28) Social History Tobacco Use [...] Health Maintenance Due Date Last Done Comments Colorectal Cancer Screening: Colonoscopy 1970 Hepatitis B Vaccines (3 of 3 - 19+ 3-dose series) 07/11/2021 05/16/2021, 07/27/2005 DTaP,Tdap,and Td Vaccines (3 - Td or Tdap) 02/14/2022 02/15/2012, 06/24/2007 Cholesterol Screening (Lipid Panel) 07/16/2023 HIV Screening 07/16/2023 Hepatitis C Screening 07/16/2023 Medicare Annual Wellness Visit 07/16/2023 Social Influencers of Health Screening 07/16/2023 Depression Screening 06/17/2024 Influenza Vaccine (#1) 2025 , 04/11/2022, 05/16/2021, Additional history exists RSV Immunization Adult Patients (1 - 1-dose 75+ series) 2045 Zoster [...] patient's age to complete this topic Insurance MEDICARE Member Subscriber Plan / Payer (Ef fective 2023-Present) Name:Jesse Link Relation to Subscriber:Self Name:Jesse Link Payer ID:[id number] Group ID:[id number] Type:Not on file Address: [address] [place] [address] Care Teams Director Print Relationship Specialty Start Date End Date Physician, No Pcp PCP - General 08/14/24
--- OUTSIDE RECORDS SUMMARY | 2025-03-17 10:29 | XMS_ITS | Encounter Summary ---
Author Organization [email or web address] Address [address] [place] [address] 7[place] [address] Care Team Providers Care Oracle Applications Analyst Name Role Phone Patricia Schofield MD Primary Care Provide r Encounter Details Date Type Department Care Team (Late st Contact Info) Description 07/04/2022 Orders Only [facility] [address] [place] [address] Pricilla Eng LPN Social History Tobacco Use [...] Description 05/21/2025 3:30 PM EST Office Visit [facility]INE [address] [place] [address] Patricia Schofield MD [address] [place] [address] documented as of this encounter Visit Diagnoses Not on filedocumented in this encounter Care Teams Oracle Applications Analyst Relationship Specialty Start Date End Date Patricia Schofield MD [address] [place] [phone] PCP - General Family Medicine 02/26/18 documented as of this encounter
--- OUTSIDE RECORDS SUMMARY | 2025-03-17 10:29 | XMS_ITS | Encounter Summary ---
Author Organization [employer] [facility] Address [address] [place] [address] [place] [address] Care Team Providers Care Sausage Machine Operator Name Role Phone Patricia Schfoield MD Primary Care Provide r Encounter Details Date Type Department Care Team (Late st Contact Info) Description 07/09/2022 Orders Only [facility] [address] [place] [phone] Payton Gay LPN Social History Tobacco Use [...] Description 05/21/2025 3:30 PM EST Office Visit [facility] [address] [place] [phone] Patricia Schofield MD [address] [place] [phone] documented as of this encounter Visit Diagnoses Not on filedocumented in this encounter Care Teams Sausage Machine Operator Relationship Specialty Start Date End Date Patricia Schofield MD [address] [place] [phone] PCP - General Family Medicine 02/26/18 documented as of this encounter
--- OUTSIDE RECORDS SUMMARY | 2025-03-17 10:29 | XMS_ITS | Encounter Summary ---
Author Organization [employer] Address [address] [place] [address], [place] [address] Care Team Providers Care Engineer Of System Development Name Role Phone Patricia Schofield MD Primary Care Provide r Encounter Details Date Type Department Care Team (Late st Contact Info) Description 11/07/2022 [facility] [address] [place], [place] [phone] Patricia Schofield MD [address] [place] [address] Social History Tobacco Use Types Packs/Day Years [...] Description 05/21/2025 3:30 PM EST Office Visit [facility] [address] [place] [phone] Patricia Schofield MD [address] [place], [place] [phone] documented as of this encounter Visit Diagnoses Not on filedocumented in this encounter Care Teams Engineer Of System Development Relationship Specialty Start Date End Date Patricia Schofield MD [address] [place] [address] [phone] PCP - General Family Medicine 02/26/18 documented as of this encounter
--- OUTSIDE RECORDS SUMMARY | 2025-03-17 10:29 | XMS_ITS | Encounter Summary ---
Author Organization [employer] Address [address] [facility] 7 [place] [address] Care Team Providers Care Chief Operating Engineer Name Role Phone Patricia Schofield MD Primary Care Provide r Encounter Details Date Type Department Care Team (Latest Contact Info) Description 01/15/2025 Results Follow-Up [facility] [address] [place] [address] Pepito Rodríguez, BLOOD OR BLOOD BANK TECHNICIAN [address] [place] [address] CBC auto differential, Comprehensive Metabolic Panel, Prothrombin [...] documented in this encounter Plan of Treatment Upcoming Encounters Date Type Department Care Team (Late st Contact Info) Description 05/21/2025 3:30 PM EST Office Visit [facility] [address] [place], [place] [phone] Patricia Schofield MD [address] [place] [address] documented as of this encounter Visit Diagnoses Not on filedocumented in this encounter Additional Health Concerns Assessment Noted Time PHQ-9 Depression Total Score: 11 01/01/2 025 2:45 PM EDT documented as of this encounter Care Teams Chief Operating Engineer Relationship Specialty Start Date End Date Patricia Schofield MD [address] [place] [address] PCP - General Family Medicine 02/26/18 documented as of this encounter
--- OUTSIDE RECORDS SUMMARY | 2025-03-17 10:29 | XMS_ITS | Encounter Summary ---
Author Organization [employer] Address [address] [place] [address] 7[place] [address] Care Team Providers Care Slot Floorperson Name Role Phone Patricia Schofield MD Primary Care Provide r Encounter Details Date Type Department Care Team ([facility] Contact Info) Description 08/21/2022 Orders Only [facility] MED & PEDS [address] [place] [address] Pricilla Eng LPN Social History Tobacco Use [...] Description 05/21/2025 3:30 PM EST Office Visit [facility] [address] [place] [address] Patricia Schofield MD [address] [place] [address] documented as of this encounter Visit Diagnoses Not on filedocumented in this encounter Care Teams Slot Floorperson Relationship Specialty Start Date End Date Patricia Schofield MD [address] [place] [address] PCP - General Family Medicine 02/26/18 documented as of this encounter
--- OUTSIDE RECORDS SUMMARY | 2025-03-17 10:29 | XMS_ITS | Encounter Summary ---
Author Organization [employer] Address [address] [place] [address] 7[place] [address] Care Team Providers Care Automatic Print Developer Name Role Phone Patricia Schofield MD Primary Care Provide r Reason for Visit * Reason Comments Med Refill Encounter Details Date Type Department Care Team ([facility] st Contact Info) Description 03/11/2024 Refill [facility] [address] [place], [place] [phone] Patricia Schofield MD [address] [place] [address] Depression, unspecified depression type; Anxiety Social History [...] Description 05/21/2025 3:30 PM EST Office Visit [facility] [address] [place] [address] Patricia Schofield MD [address] [place] [address] documented as of this encounter Visit Diagnoses Diagnosis Depression, unspecified depression type Anxiety Anxiety state, unspecified documented in this encounter Additional Health Concerns Assessment Noted Time PHQ-9 Depression Total Score: 21 024 2:33 PM EST documented as of this encounter Care Teams Automatic Print Developer Relationship Specialty Start Date End Date Patricia Schofield MD [address] [place] [phone] PCP - General Family Medicine 02/26/18 documented as of this encounter
--- OUTSIDE RECORDS SUMMARY | 2025-03-17 10:29 | XMS_ITS | Encounter Summary ---
Author Organization [employer] Address [address] [place] [address] 7 [place] [address] Care Team Providers Care [facility] Shift Lead Name Role Phone Patricia Schofield MD Primary Care Provide r Reason for Visit * Reason Comments Med Refill Encounter Details Date Type Department Care Team ([facility] st Contact Info) Description 03/26/[address] [facility] MEDICINE [address] [place], [place] [phone] Patricia Schofield MD [address] [place] [address] Neck pain Social History Tobacco Use Types [...] Description 05/21/2025 3:30 PM EST Office Visit [facility] MEDICINE [address] [place] [phone] Patricia Schofield MD [address] [place] [address] [phone] documented as of this encounter Visit Diagnoses Diagnosis Neck pain Cervicalgia documented in this encounter Additional Health Concerns Assessment Noted Time PHQ-9 Depression Total Score: 6 11/28/19 23 1:09 PM EDT documented as of this encounter Care Teams [facility] Shift Lead Relationship Specialty Start Date End Date Patricia Schofield MD [address] [place] [phone] PCP - General Family Medicine 02/26/18 documented as of this encounter
--- OUTSIDE RECORDS SUMMARY | 2025-03-17 10:29 | XMS_ITS | Encounter Summary ---
Author Organization [employer] [facility] Address [address] [place] [address] 7[place], [place] [address] Care Team Providers Care Surface Boss Name Role Phone Patricia Schofield MD Primary Care Provide r Encounter Details Date Type Department Care Team (Latest Contact Info) Description 09/05/2020 Abstract [facility] CONVERSIONS Dental, Provider, DDS Social History Tobacco [...] Description 05/21/2025 3:30 PM EST Office Visit [facility] MEDICINE [address] [place] [address] Patricia Schofield MD [address] [place] [address] documented as of this encounter Visit Diagnoses Not on filedocumented in this encounter Care Teams Surface Boss Relationship Specialty Start Date End Date Patricia Schofield MD [address] [place] [address] PCP - General Family Medicine 02/26/18 documented as of this encounter
--- OUTSIDE RECORDS SUMMARY | 2025-03-17 10:29 | XMS_ITS | Encounter Summary ---
Author Organization [employer] Address [address] [facility] [address] [place] [address] Care Team Providers Care Head Greenskeeper Name Role Phone Patricia Schofield MD Primary Care Provide r Reason for Visit * Reason Comments Med Refill Encounter Details Date Type Department Care Team ([facility] st Contact Info) Description 06/15/2023 Refill [facility] [address] [place], [place] [phone] Patricia Schofield MD [address] [place] [address] Gastroesophageal reflux disease without esophagitis Social History [...] Description 05/21/2025 3:30 PM EST Office Visit [facility] [address] [place] [phone] Patricia Schofield MD [address] [place], [place] [phone] documented as of this encounter Visit Diagnoses Diagnosis Gastroesophageal reflux disease without esophagitis Esophageal reflux documented in this encounter Additional Health Concerns Assessment Noted Time PHQ-9 Depression Total Score: 6 11/28/19 23 1:09 PM EDT documented as of this encounter Care Teams Head Greenskeeper Relationship Specialty Start Date End Date Patricia Schofield MD [address] [place] [address] PCP - General Family Medicine 02/26/18 documented as of this encounter
--- OUTSIDE RECORDS SUMMARY | 2025-03-17 10:29 | XMS_ITS | Clinical Summary ---
Author Organization [employer] Address [address] [place] [address] [address] [address] Care Team Providers Care It Help Desk Manager Name Role Phone Patricia Schofield MD [...] FOR WHEEZING 18 g 06/25/19 25 Active gabapentin (Neurontin) 300 MG capsuleIndicati [...] 400 g 1 02/17/20 25 026 Active Multiple Vitamin (Multivitamin) tabletIndicatio ns:Chronic fatigue TAKE 1 TABLET BY MOUTH EVERY MORNING 30 tablet 3 03/01/20 25 Active Multiple Vitamin (Multivitamin) tabletIndicatio ns:Chronic fatigue TAKE 1 TABLET BY MOUTH EVERY MORNING 30 tablet 3 08/29/19 25 025 Discontinued ibuprofen 800 MG [...] will have surgical intervention, letter to increase [employer] AGENT hours after surgery to be generated Bilateral [...] given today from [facility] ibuprofen prn Order Xray Assessment & Plan (11/27/2022 1:43 PM EDT): Acetaminophen PRN I will prescribe an arm sling for patient Colon cancer screening 11/27/2022 Abdominal pain 08/24/2022 Hypertensive disorder 08/24/2022 Foot callus 08/24/2022 Headache 08/24/2022 Homeless 08/24/2022 Influenza-like symptoms 08/24/2022 Severe episode of recurrent major depressive disorder, without psychotic features (CMS/HCC) 08/24/2022 Assessment & Plan (02/16/2025 4:30 PM EDT): Counseling done today continue with same medications referral to [facility] done today Assessment & Plan (07/26/2023 2:57 PM EST): PROGRESS NOTE: ID: Jesse is a 53 y.o. White straight-identified cis-male (pronouns he/him/his) with previous documented hx of Depression, Anxiety, and Alcohol Use Disorder MH services including OP Psychotherapy psychopharmacology who presents [...] Self Plan Patient to reach out to [facility] team as needed and Patient to reach out to [facility] as needed Assessment & Plan (06/12/2023 [...] take medications as prescribe History of alcoholism ([facility]) 01/11/2017 Assessment & Plan (02/16/2025 4:30 PM EDT): Counseling done Referral to [facility] done Mild intermittent asthma 01/11/2017 Mood disorder 01/11/2017 Post-traumatic osteoarthritis of both wrists Smoker 01/11/2017 Vesicular eczema of hands and feet 01/11/2017 Resolved Problems Problem Noted Date Diagnosed Date Resolved Date Family history of exposure t o 2,4,5-trichlorophenoxyacetic acid and 2,4-dichlorophenoxyacetic acid 05/12/2024 Clear cell carcinoma of kidney ([facility]) 02/16/2021 02/16/2025 Encounters * This document contains information received from the source organization and may not represent a complete record from that organization. Date Type Department Care Team Description 03/11/2025 Telephone [facility] MEDICINE [address] [place] [phone] Patricia Schofield MD Dec recall 02/28/[address] [address] Patricia Schofield MD Chronic fatigue 02/16/2025 3:15 PM EDT Office Visit [address] [address] Patricia Schofield MD Screening for colon cancer (Primary Dx); Severe episode of recurrent major depressive disorder, without psychotic features (CMS/HCC); History of alcoholism (CMS/HCC); Cervical spine arthritis with nerve pain; Chronic migraine without aura without status migrainosus, not intractable; Dry skin dermatitis; Decreased hearing of both ears; Cubital tunnel syndrome, right 02/16/2025 Travel 02/12/2025 Telephone [facility] MEDICINE [address] [place] [phone] Patricia Schofield MD Chart Prep 02/08/2025 Patient Outreach [address] [address] Patricia Schofield MD Pre-visit Planning ([facility] screening completed on 10/25/2024) 01/24/[address] [address] Particia Schofield MD Depression, unspecified depression type 01/15/2025 11:00 AM EDT Office Visit [facility] [address] [place] [phone] Morales Shaikh MD Pain in left acromioclavicular joint (Primary Dx) 01/15/2025 Results Follow-Up [address] [address] Pepito Rodríguez CNP CBC auto differential, Comprehensive Metabolic Panel, Prothrombin Time-INR, Albumin, Random Urine W/Creatinine 01/15/2025 Travel 01/01/2025 2:15 PM EDT Office Visit [address] [address] Pepito Rodríguez CNP Cubital tunnel syndrome on right (Primary Dx); Pre-op evaluation 01/01/2025 Travel 01/01/[address] [address] Patricia Schofield MD Depression, unspecified depression type 12/31/[address] [address] Naidya Godorich [place] Chart Prep 12/15/[address] [place] [address] Patricia Schofield MD chart prep from Last 3 Months Immunizations Immunization Administration [...] 02/16/2025 3:22 PM EDT Plan of Treatment Upcoming Encounters Date Type Department Care Team (Late st Contact Info) Description 05/21/2025 3:30 PM EST Office Visit [facility] MEDICINE [address] [place] [address] Patricia Schofield MD [address] [place] [address] Health Maintenance Due Date Last Done Comments [...] WO CONTRAST Routine 12/21/2024 8:56 PM EDT HEPATITIS C AB W/REFL TO HCV [...] EDT) ETHANOL (MG/DL) IN SER/PLAS 94 mg/dL [facility] Comment:Serum/plasma ethanol results are to be used formedical/treatment purposes only. 01/21/2025 7:13 AM EDT 01/21/2025 7:18 AM EDT us Generic External Data Provider LAB BLOOD ORDERAB LES Final Result [facility] [address] [place] [address] [phone] * XR Shoulder 2+ Views Left (01/15/2025 11:00 AM EDT) Anatomical Region Laterality Modality Upper Extremities, Shoulder Left Radi ographic Imaging 01/15/2025 11:0 0 AM EDT Narrative 01/15/2025 12:51 PM EDT [address] [address] XRay Report Signed Patient: Jesse Link MR#: [id number] : 1970 Acct:[id number] Age/Sex: 55 / M ADM Date: 01/15/25 Loc: [facility] Attending Dr: Morales Shaikh MD Ordering Physician: Morales Shaikh MD Date of Service: 01/15/25 Procedure(s): XR shoulder LT min 2V Accession Number(s): [id number] cc: Morales Shaikh MD EXAMINATION: XR SHOULDER, [...] 01/15/25 1248 DD/ 1100 TD/TT: 01/15/25 1110 Research Nurse Practitioner: Procedure Note Donotuseinterpreter, Image - 01/15/[address] [address] XRay Report Signed Patient: Jesse Link LMR#: [id number] : 1970Acct:[id number] Age/Sex: 55 / MADM Date: 01/15/25 [facility] Att[facility] Dr: Morales Shaikh MD Ordering Physician: Morales Shaikh MD Date of Service: 01/15/25 Procedure(s): XR shoulder LT min 2V Accession Number(s): [id number] cc: Morales Shaikh MD EXAMINATION: XR SHOULDER, [...] 01/15/25 1248 DD/ 1100 TD/TT: 01/15/25 1110 Research Nurse Practitioner: Morales Shaikh MD IMG XR PROCEDURES Final Result * (ABNORMAL) CBC auto differential (01/12/2025 4:06 PM EDT) White Blood Count 6.0 4.8 - 10.8 X10*3/uL [facility] Red Blood Count 4.77 4.60 - 5.80 X10*6/uL [facility] Hemoglobin 13.9(L) 14.0 - 18.0 g/dl [facility] Hematocrit 41.2(L) 42.0 - 52.0 % [facility] Mean Corpuscular Volume 86.4 80.0 - 98.0 fL [facility] Mean Corpuscular Hemoglobin 29.1 27.0 - 33.0 pg [facility] Mean Corpuscular HGB Conc 33.7 31.0 - 36.0 g/dl [facility] Red Cell Distribution Width 15.0 11.0 - 16.0 % [facility] Platelet Count 318 160 - 400 X10*3/uL [facility] Mean Platelet Volume 9.9 9.4 - 12.4 fL [facility] Neutrophils Percent Auto 54.7 45 - 73 % [facility] Imm Gran Pct Auto 0.3 0.0 - 0.4 % [facility] Lymphocytes Percent Auto 32.3 20 - 40 % [facility] Monocytes Percent Auto 8.6 2 - 11 % [facility] Eosinophils Percent Auto 3.4 0 - 4 % [facility] Basophils Percent Auto 0.7 0 - 2 % [facility] NRBC Pct Auto 0.0 0.0 - 0.2 /100WBC [facility] Neutrophils Absolute Auto 3.3 2.0 - 8.3 x10*3/uL [facility] Imm Gran Abs Auto 0.02 0.00 - 0.03 X10*3/uL [facility] Lymphocytes Absolute Auto 1.9 1.2 - 4.9 X10*3/uL [facility] Monocytes Absolute Auto 0.5 0.1 - 1.2 X10*3/uL [facility] Eosinophils Absolute Auto 0.2 0.0 - 0.4 X10*3/uL [facility] Basophils Absolute Auto 0.0 0.0 - 0.2 X10*3/uL [facility] NRBC Abs Auto 0.000 0.0 - 0.012 X10*3/uL [facility] Blood Venous blood specimen / Unknown 01/12/2025 4:06 PM EDT 01/12/2025 4:06 PM EDT [facility] LAB BLOOD ORDERABLES Ninoska l Result [facility] [address] [place], [place] [phone] * (ABNORMAL) Prothrombin Time-INR (01/12/2025 4:06 PM EDT) Prothrombin Time 10.7(L) 10.9 - 12.4 SEC [facility] INTERNATIONAL NORM RATIO 0.9 0.9 - 1.1 [facility] Comment:INTERNATIONAL NORMAL IZED RATIO (INR) REFERENCE [...] EDT 01/12/2025 4:06 PM EDT Pepito Rodríguez [employer] STRAIGHT[employer] LAB BLOOD ORDERABLES Ninoska l Result [facility] [address] [place] [phone] * (ABNORMAL) Comprehensive Metabolic Panel (01/12/2025 4:06 PM EDT) Sodium 142 135 - 145 mmol/L [facility] Potassium 4.4 3.3 - 5.1 mmol/L [facility] Chloride 110(H) 96 - 108 mmol/L [facility] Carbon Dioxide 25 22 - 29 mmol/L [facility] Anion Gap 11(L) 12 - 20 [facility] Urea Nitrogen (BUN) 12 9 - 16 mg/dL [facility] Creatinine, Serum 1.43(H) 0.5 - 1.4 mg/dL [facility] Estimated Glomerular Filt Rate 51 [facility] Comment:Chronic Kidney Disea se: Estimated GFR < 60 mL/min/1.96y3Tzfuff Kidney Disease: Estimated GFR < 15 mL/min/1.73m2 Glucose 94 60 - 115 mg/dL [facility] Calcium 9.0 8.4 - 10.2 mg/dL [facility] Bilirubin, Total 0.3 0.0 - 1.0 mg/dL [facility] Aspartate Amino Transferase 18 5 - 37 U/L [facility] Alanine Aminotransferase 14 0 - 40 U/L [facility] Total Protein 6.9 6.5 - 8.0 g/dL [facility] Albumin Level 4.3 3.5 - 5.0 g/dL [facility] Alkaline Phosphatase 73 39 - 117 U/L [facility] Blood Venous blood specimen / Unknown 01/12/2025 4:06 PM EDT 01/12/2025 4:06 PM EDT [facility] LAB BLOOD ORDERABLES Ninoska l Result Performing Organization Address [facility] Co de Phone Number [facility] [address] [place] [address] [phone] * Albumin, Random Urine W/Creatinine (01/12/2025 12:00 AM EDT) Creatinine, Urine 122.96 mg/dL [facility] Microalbumin Urine <5.0 mg/L [facility] Microalbum Creatinine Ratio Ur TNP <30 ug/mg cr [facility] Comment:Unable to calculate albumin/creatinine ratio due to lowmicroalbumin or creatinine result. Urine (Urine, Random) 01/12/2025 01/12/2025 [facility] LAB URINE ORDERABLES Ninoska l Result Performing Organization Address [facility] de Phone Number [facility] [address] [place] [phone] * ECG 12 lead (01/01/2025 2:44 PM EDT) Narrative Pepito Rodríguez CNP - 01/01/2025 2:44 PM EDT EKG: NSR, Rate 70bpm, No ST segmental changes, no QR interval changes, normal ECG [facility] ECG ORDERABLES Final Res ult * MR Cervical Spine w/o Contrast (12/21/2024 8:56 PM EDT) Anatomical Region Laterality Modality Spine, C-spine Magnetic Resonan ce 12/21/2024 8:56 PM EDT Narrative 12/21/2024 8:58 PM EDT [address] [address] Magnetic Resonance Report Signed Patient: Jesse Link MR#: [id number] : 1970 Acct:[id number] Age/Sex: 54 / M ADM Date: 12/21/24 Loc: HO.MRI Attending Dr: Payton LUU Ordering Physician: Payton Alston Date of Service: 12/21/24 Procedure(s): MR cervical spine wo con Accession Number(s): [id number] cc: Patricia Schofield MD; Payton Alston CLINICAL [...] Moderate facet/uncovertebral joint and ligamentum flavum hypertrophy. Dyyk-kt-vuobfyvc central spinal canal stenosis. Moderate bilateral foraminal stenosis. C6/C7: 3 mm disc herniation. Moderate facet/uncovertebral joint and ligamentum flavum hypertrophy. Moderate central canal stenosis. Severe right and mild left foraminal stenosis. C7/T1: 3 mm disc herniation. Moderate facet joint and ligamentum flavum hypertrophy. Dvlj-pc-ljdekuaa central canal stenosis. Moderate to severe bilateral foraminal stenosis. Impression: Multilevel degenerative change, detailed above, which is most prominent C6/C7 with moderate central canal stenosis. This document has been electronically signed by: Jaylin Saucedo MD on 12/21/2024 20:56:02 Dictated By: Jaylin Savage MD Signed By: <Electronically signed by Jaylin Savage MD in OV> 12/21/242056 DD/ 55 TD/TT: 12/21/242055 Research Nurse Practitioner: Procedure Note Donotuseinterpreter, Image - 12/21/[address] [address] Magnetic Resonance Report Signed Patient: Jesse Link LMR#: [id number] : 1970Acct:[id number] Age/Sex: 54 / MADM Date: 12/21/24 Loc: HO.MRI Attending Dr: Payton LUU Ordering Physician: Payton Alston Date of Service: 12/21/24 Procedure(s): MR cervical spine wo [facility] Accession Number(s): [id number] cc: Patricia Schofield MD; Payton Alston CLINICAL [...] Moderate facet/uncovertebral joint and ligamentum flavum hypertrophy. Otns-xz-bcpuputu central spinal canal stenosis. Moderate bilateral foraminal stenosis. C6/C7: 3 mm disc herniation. Moderate facet/uncovertebral joint and ligamentum flavum hypertrophy. Moderate central canal stenosis. Severe right and mild left foraminal stenosis. C7/T1: 3 mm disc herniation. Moderate facet joint and ligamentum flavum hypertrophy. Xwru-kl-vjynvmnf central canal stenosis. Moderate to severe bilateral foraminal stenosis. Impression: Multilevel degenerative change, detailed above, which is most prominent C6/C7 with moderate central canal stenosis. This document has been electronically signed by: Jaylin Saucedo MD on 12/21/2024 20:56:02 Dictated By: Jaylin Savage MD Signed By: <Electronically signed by Jaylin Savage MD in OV> 12/21/242056 DD/ 55 TD/TT: 12/21/242055 Research Nurse Practitioner: [facility] External Provider IMG MRI PROCEDURES Final Result * Hepatitis C Antibody with Reflex to HCV, RNA, Quantitative, Real-Time PCR (05/12/2024 3:42 PM EST) Hepatitis C Antibody Nonreactive Nonreactive [facility] Comment:Antibodies to HCV no t detected; does not exclude early acuteHCV infection. Blood Venous blood specimen / Unknown 05/12/2024 3:42 PM EST 05/12/2024 4:09 PM EST Marii Brown MD LAB BLOOD ORDERABLES Final Result [facility] [address] [place] [address] [phone] * HIV-1/2 Antigen and Antibodies, Fourth Generation, with Reflexes (05/12/2024 3:42 PM EST) HIV AB/AG Nonreactive Nonreactive [facility] Comment:HIV-1 p24 Ag and/or HIV-1/HIV-2 Ab not detected.A test result that is nonreactive does not exclude thepossibility of exposure to or infection with HIV-1 and/orHIV-2. Nonreactive results in this assay for individualswith prior exposure to HIV-1 and/or HIV-2 may be due toantigen and antibody levels that are below the limit ofdetection of this assay.The [employer] HIV Ag/Ab Combo assay result andsupplemental assay results should be interpreted inconjunction with the patient's clinical presentation,history and other laboratory results. If the results areinconsistent with clinical evidence, additional testing issuggested to confirm the result. Blood Venous blood specimen / Unknown 05/12/2024 3:42 PM EST 05/12/2024 4:09 PM EST us Marii Brown MD LAB BLOOD ORDERABLES Final Result [facility] [address] [place] [phone] [phone] * (ABNORMAL) Lipid Panel, Standard (03/27/2024 1:47 PM EDT) Triglycerides 107 <150 mg/dL [facility] Comment:Desirable Triglyceri de: less than 150 mg/dLBorderline High Triglyceride 150-199 mg/dLHigh Triglyceride: 200-499 mg/dLVery High Triglyceride: greater than or equal to 5OO mg/dL Cholesterol 131 <200 mg/dL [facility] Comment:Desirable Cholestero l: less than 200 mg/dLBorderline High Cholesterol: 200-239 mg/dLHigh Cholesterol: greater than 239 mg/dL LDL Cholesterol Calculated 70 <100 mg/dL [facility] Comment:Desirable LDL: less than 100 mg/dLNear Optimal/Above Optimal LDL: 110- 129 mg/dLBorderline High LDL: 130-159 mg/dLHigh LDL: 160-189 mg/dLVery High LDL: greater than or equal to 190 mg/dL HDL Cholesterol 40(L) >40 mg/dL [facility] Comment:Desirable HDL: great er than 40 mg/dL Note: This HDL assay may give artificially low results in patients with liver disease. Blood Venous blood specimen / Unknown 03/27/2024 1:47 PM EDT 03/27/2024 4:18 PM EDT us Patricia Barfield MD LAB BLOOD ORDERABLES Final Result [facility] [address] [place] [phone] from Last 3 Months or Most Recently Relevant to Health Maintenance Insurance [employer] [id number] [place] [address] Care Teams It Help Desk Manager Relationship Specialty Start Date End Date Patricia Schofield MD [address] [place] [phone] PCP - General Family Medicine 02/26/18
== END 2025-03-17 10:22 | disposition home or self-care (01) ==
LOC: HO.HOS 09:37
PROVIDERS: PCP Internal Medicine; Visit Provider Orthopaedic Surgery
DX: G56.23 Lesion of ulnar nerve, bilateral upper limbs (principal); M19.131 Post-traumatic osteoarthritis, right wrist; M19.132 Post-traumatic osteoarthritis, left wrist; M54.12 Radiculopathy, cervical region; F17.200 Nicotine dependence, unspecified, uncomplicated; M25.50 Pain in unspecified joint; N18.2 Chronic kidney disease, stage 2 (mild)
CPT/HCPCS: 99214

== ENCOUNTER → 2025-03-17 09:36 | Outpatient (BNVA) | payer OTHER, SELFPAY | PROVIDERS: PCP Internal Medicine; Visit Provider Orthopaedic Surgery | DX: G56.23 Lesion of ulnar nerve, bilateral upper limbs (principal); M19.131 Post-traumatic osteoarthritis, right wrist; M19.132 Post-traumatic osteoarthritis, left wrist; M25.50 Pain in unspecified joint; F17.210 Nicotine dependence, cigarettes, uncomplicated; Z73.6 Limitation of activities due to disability | CPT/HCPCS: 99212 ==

== ENCOUNTER 2025-03-25 13:10 | Day surgery (SDC) | payer OTHER, SELFPAY ==
--- OUTSIDE RECORDS SUMMARY | 2025-01-21 09:32 | XMS_ITS | Clinical Summary ---
Author Organization [employer] Address [address] [place] [address] 7 [place] [address] Care Team Providers Care Migration Agent Name Role Phone Patricia Schofield MD Primary [...] Self Plan Patient to reach out [facility] team as needed and Patient to [...] 11:00 AM EDT [facility] [address] [address] Morales Shaikh MD Pain in left acromioclavicular joint (Primary Dx) 01/15/2025 Results Follow-Up [facility] [address] [place] [phone] Pepito Rodríguez CNP CBC auto differential, Comprehensive Metabolic Panel, Prothrombin Time-INR, Albumin, Random Urine W/Creatinine 01/15/2025 Travel 01/01/2025 2:15 PM EDT Office Visit [address] [address] Pepito Rodríguez CNP Cubital tunnel syndrome on right (Primary Dx); Pre-op evaluation 01/01/2025 Travel 01/01/[address] [facility] [address] [place] [phone] Patricia Schofield MD Depression, unspecified depression type 12/31/[address] [address] Nadiya Goodrich [place] Chart Prep 12/15/[address] [address] Patricia Schofield MD chart prep 12/09/2024 Orders Only [facility] External Provider, [facility] 12/09/[address] [address] Patricia Schofield MD Pre-op Visit 12/06/2024 [facility] [address] [address] Tray Cheema MD Gastroesophageal reflux disease without esophagitis 11/26/[address] [facility] [address] [place] [address] Patricia Schofield MD Cervical spine arthritis with nerve pain; Chronic migraine without aura without status migrainosus, not intractable 11/24/[address] [facility] [address] [place] [address] Patricia Schofield MD SEP RECALL 10/27/[address] [facility] [address] [place] [address] Patricia Schofield MD Cervical spine arthritis with [...] Description 02/16/2025 3:15 PM EDT Office Visit [facility] [address] [place] [address] Patricia Schofield MD [address] [place] [address] Health Maintenance Due Date Last Done Comments [...] Procedure Name Priority Date/Time Associated Diagnosis Comments ETHANOL Routine 01/21/2025 7:13 AM EDT XR SHOULDER 2+ VIEWS LEFT Routine 01/15/2025 [...] Recently Relevant to Health Maintenance Results * Ethanol (01/21/2025 7:13 AM EDT) ETHANOL (MG/DL) IN SER/PLAS 94 mg/dL [facility] Comment:Serum/plasma ethanol results are to be used formedical/treatment purposes only. 01/21/2025 7:13 AM EDT 01/21/2025 7:18 AM EDT us Generic External Data Provider LAB BLOOD ORDERAB LES Final Result [facility] [address] [place] [phone] * XR Shoulder 2+ Views Left (01/15/2025 11:00 AM EDT) Anatomical Region Laterality Modality Upper Extremities, Shoulder Left Radi ographic Imaging 01/15/2025 11:0 0 AM EDT Narrative 01/15/2025 12:51 PM EDT [address] XRay Report Signed Patient: Jesse Link MR#: [id number] : 1970 Acct:[id number] Age/Sex: 55 / M ADM Date: 01/15/25 Loc: HO.HHCX Attending Dr: Morales Shaikh MD Ordering Physician: Morales Shaikh MD Date of Service: 01/15/25 Procedure(s): XR shoulder LT min 2V Accession Number(s): [id number] cc: Morales Shaikh MD EXAMINATION: XR SHOULDER, [...] Lupillo Toledo MD 01/15/2025 12:48 PM EDT Dictated By: Lupillo Toledo MD Signed By: <Electronically signed by Lupillo Toledo MD in OV> 01/15/25 1248 DD/ 1100 TD/TT: 01/15/25 1110 Cigar Head Pegger: Procedure Note Donotuseinterpreter, Image - 01/15/[address] [address] XRay Report Signed Patient: Jesse Link LMR#: [id number] : 1970Acct:[id number] Age/Sex: 55 / MADM Date: 01/15/25 Loc: HO.HHCX Attending Dr: Morales Shaikh MD Ordering Physician: Morales Shaikh MD Date of Service: 01/15/25 Procedure(s): XR shoulder LT min 2V Accession Number(s): [id number] cc: Morales Shaikh MD EXAMINATION: XR SHOULDER, [...] 01/15/25 1248 DD/ 1100 TD/TT: 01/15/25 1110 Cigar Head Pegger: Morales Shaikh MD IMG XR PROCEDURES Final Result * (ABNORMAL) CBC auto differential (01/12/2025 4:06 PM EDT) White Blood Count 6.0 4.8 - 10.8 X10*3/uL [facility] Red Blood Count 4.77 4.60 - 5.80 X10*6/uL [facility] Hemoglobin 13.9(L) 14.0 - 18.0 g/dl [facility] Hematocrit 41.2(L) 42.0 - 52.0 % [facility] Mean Corpuscular Volume 86.4 80.0 - 98.0 fL [facility] Mean Corpuscular Hemoglobin 29.1 27.0 - 33.0 pg [facility] Mean Corpuscular HGB Conc 33.7 31.0 - 36.0 g/dl [facility] Red Cell Distribution Width 15.0 11.0 - 16.0 % [facility] Platelet Count 318 160 - 400 X10*3/uL [facility] Mean Platelet Volume 9.9 9.4 - 12.4 fL [facility] Neutrophils Percent Auto 54.7 45 - 73 % [facility] Imm Gran Pct Auto 0.3 0.0 - 0.4 % [facility] Lymphocytes Percent Auto 32.3 20 - 40 % [facility] Monocytes Percent Auto 8.6 2 - 11 % [facility] Eosinophils Percent Auto 3.4 0 - 4 % [facility] Basophils Percent Auto 0.7 0 - 2 % [facility] NRBC Pct Auto 0.0 0.0 - 0.2 /100WBC [facility] Neutrophils Absolute Auto 3.3 2.0 - 8.3 x10*3/uL [facility] Imm Gran Abs Auto 0.02 0.00 - 0.03 X10*3/uL [facility] Lymphocytes Absolute Auto 1.9 1.2 - 4.9 X10*3/uL [facility] Monocytes Absolute Auto 0.5 0.1 - 1.2 X10*3/uL [facility] Eosinophils Absolute Auto 0.2 0.0 - 0.4 X10*3/uL [facility] Basophils Absolute Auto 0.0 0.0 - 0.2 X10*3/uL [facility] NRBC Abs Auto 0.000 0.0 - 0.012 X10*3/uL [facility] Blood Venous blood specimen / Unknown 01/12/2025 4:06 PM EDT 01/12/2025 4:06 PM EDT [facility] BRAZER FURNACE LAB BLOOD ORDERABLES Ninoska l Result [facility] [address] [place] [address] [phone] * (ABNORMAL) Prothrombin Time-INR (01/12/2025 4:06 PM EDT) Prothrombin Time 10.7(L) 10.9 - 12.4 SEC [facility] INTERNATIONAL NORM RATIO 0.9 0.9 - 1.1 [facility] Comment:INTERNATIONAL NORMAL IZED RATIO (INR) REFERENCE [...] 4:06 PM EDT 01/12/2025 4:06 PM EDT [facility] LAB BLOOD ORDERABLES Ninoska chu Result [facility] [address] [place] [address] [phone] * (ABNORMAL) Comprehensive Metabolic Panel (01/12/2025 4:06 PM EDT) Sodium 142 135 - 145 mmol/L [facility] Potassium 4.4 3.3 - 5.1 mmol/L [facility] Chloride 110(H) 96 - 108 mmol/L [facility] Carbon Dioxide 25 22 - 29 mmol/L [facility] Anion Gap 11(L) 12 - 20 [facility] Urea Nitrogen (BUN) 12 9 - 16 mg/dL [facility] Creatinine, Serum 1.43(H) 0.5 - 1.4 mg/dL [facility] Estimated Glomerular Filt Rate 51 [facility] Comment:Chronic Kidney Disea se: Estimated GFR < 60 mL/min/1.47w3Qnhrwq Kidney Disease: Estimated GFR < 15 mL/min/1.73m2 Glucose 94 60 - 115 mg/dL [facility] Calcium 9.0 8.4 - 10.2 mg/dL [facility] Bilirubin, Total 0.3 0.0 - 1.0 mg/dL [facility] Aspartate Amino Transferase 18 5 - 37 U/L [facility] Alanine Aminotransferase 14 0 - 40 U/L [facility] Total Protein 6.9 6.5 - 8.0 g/dL [facility] Albumin Level 4.3 3.5 - 5.0 g/dL [facility] Alkaline Phosphatase 73 39 - 117 U/L [facility] Blood Venous blood specimen / Unknown 01/12/2025 4:06 PM EDT 01/12/2025 4:06 PM EDT [facility] LAB BLOOD ORDERABLES Ninoska l Result Performing Organization Address [facility] Co de Phone Number [facility] [address] [place] [phone] * Albumin, Random Urine W/Creatinine (01/12/2025 12:00 AM EDT) Creatinine, Urine 122.96 mg/dL [facility] Microalbumin Urine <5.0 mg/L [facility] Microalbum Creatinine Ratio Ur TNP <30 ug/mg cr [facility] Comment:Unable to calculate albumin/creatinine ratio due to lowmicroalbumin or creatinine result. Urine (Urine, Random) 01/12/2025 01/12/2025 Result [facility] LAB URINE ORDERABLES Ninoska l Result Performing Organization Address [facility] Co de Phone Number [facility] [address] [place] [address] [phone] * ECG 12 lead (01/01/2025 2:44 PM EDT) Narrative Pepito Rodríguez CNP - 01/01/2025 2:44 PM EDT EKG: NSR, Rate 70bpm, No ST segmental changes, no QR interval changes, normal ECG Result [facility] ECG ORDERABLES Final Res ult * MR Cervical Spine w/o Contrast (12/21/2024 8:56 PM EDT) Anatomical Region Laterality Modality Spine, C-spine Magnetic Resonan ce 12/21/2024 8:56 PM EDT Narrative 12/21/2024 8:58 PM EDT [address] [address] Magnetic Resonance Report Signed Patient: Jesse Link MR#: [id number] : 1970 Acct:[id number] Age/Sex: 54 / M ADM Date: 12/21/24 Loc: HO.MRI Attending Dr: Payton LUU Ordering Physician: Payton Alston Date of Service: 12/21/24 Procedure(s): MR cervical spine wo con Accession Number(s): [id number] cc: Patricia Schofield MD; Payton Alston CLINICAL [...] Moderate facet/uncovertebral joint and ligamentum flavum hypertrophy. Vjqe-ni-swlpwawb central spinal canal stenosis. Moderate bilateral foraminal stenosis. C6/C7: 3 mm disc herniation. Moderate facet/uncovertebral joint and ligamentum flavum hypertrophy. Moderate central canal stenosis. Severe right and mild left foraminal stenosis. C7/T1: 3 mm disc herniation. Moderate facet joint and ligamentum flavum hypertrophy. Pqsd-xd-oskehwwi central canal stenosis. Moderate to severe bilateral foraminal stenosis. Impression: Multilevel degenerative change, detailed above, which is most prominent C6/C7 with moderate central canal stenosis. This document has been electronically signed by: Jaylin Saucedo MD on 12/21/2024 20:56:02 Dictated By: Jaylin Savage MD Signed By: <Electronically signed by Jaylin Savage MD in OV> 12/21/242056 DD/ 55 TD/TT: 12/21/242055 Cigar Head Pegger: Procedure Note Donotuseinterpreter, Image - 12/21/2024 [place] [address] Magnetic Resonance Report Signed Patient: Jesse Link LMR#: [id number] : 1970Acct:[id number] Age/Sex: 54 / MADM Date: 12/21/24 Loc: HO.MRI Attending Dr: Payton LUU Ordering Physician: Payton Alston Date of Service: 12/21/24 Procedure(s): MR cervical spine wo con Accession Number(s): [id number] cc: Patricia Schofield MD; Payton Alston CLINICAL [...] Moderate facet/uncovertebral joint and ligamentum flavum hypertrophy. Ehfo-ee-sxtsznad central spinal canal stenosis. Moderate bilateral foraminal stenosis. C6/C7: 3 mm disc herniation. Moderate facet/uncovertebral joint and ligamentum flavum hypertrophy. Moderate central canal stenosis. Severe right and mild left foraminal stenosis. C7/T1: 3 mm disc herniation. Moderate facet joint and ligamentum flavum hypertrophy. Hlly-cn-tpdzmgpc central canal stenosis. Moderate to severe bilateral foraminal stenosis. Impression: Multilevel degenerative change, detailed above, which is most prominent C6/C7 with moderate central canal stenosis. This document has been electronically signed by: Jaylin Saucedo MD on 12/21/2024 20:56:02 Dictated By: Jaylin Savage MD Signed By: <Electronically signed by Jaylin Savage MD in OV> 12/21/242056 DD/ 55 TD/TT: 12/21/242055 Cigar Head Pegger: [facility] External Provider IMG MRI PROCEDURES Final Result * XR Wrist 3+ Views Bilateral (12/10/2024 12:32 AM EDT) Anatomical Region Laterality Modality Upper Extremities, Wrist Bilateral Radiogr aphic Imaging 12/10/2024 12:3 2 AM EDT Narrative 12/10/2024 12:35 AM EDT [facility] [address] [place] [address] Drive [address] [place] [address] XRay Report Signed Patient: Jesse Link MR#: [id number] : 1970 Acct:[id number] Age/Sex: 54 / M ADM Date: 12/09/24 Loc: HO.ANICETOX Attending Dr: Natan TILLEY Ordering Physician: Natan Dorsey Date of Service: 12/09/24 Procedure(s): XR Wrist Alphonso min 3V Accession Number(s): [id number] cc: Natan Dorsey; Patricia Schofield MD CLINICAL [...] MD in OV> 12/10/2433 DD/ TD/TT: 12/10/2431 Cigar Head Pegger: Procedure Note Donotuseinterpreter, Image - 12/10/2024 [facility] [address] [place] [address] [address] [place] [address] XRay Report Signed Patient: Jesse Link LMR#: [id number] : 1970Acct:[id number] Age/Sex: 54 / MADM Date: 12/09/24 Loc: HO.ANICETOX Attending Dr: Natan TILLEY Ordering Physician: Natan Dorsey Date of Service: 12/09/24 Procedure(s): XR Wrist Alphonso min 3V Accession Number(s): [id number] cc: Natan Dorsey; Patricia Schofield MD CLINICAL [...] MD in OV> 12/10/2433 DD/ TD/TT: 12/10/2431 Cigar Head Pegger: [facility] External Provider IMG XR PROCEDURES Edited Result - Final * Hepatitis C Antibody with Reflex to HCV, RNA, Quantitative, Real-Time PCR (05/12/2024 3:42 PM EST) Hepatitis C Antibody Nonreactive Nonreactive [facility] Comment:Antibodies to HCV no t detected; does not exclude early acuteHCV infection. Blood Venous blood specimen / Unknown 05/12/2024 3:42 PM EST 05/12/2024 4:09 PM EST Marii Brown MD LAB BLOOD ORDERABLES Final Result [facility] [address] [place] [phone] * HIV-1/2 Antigen and Antibodies, Fourth Generation, with Reflexes (05/12/2024 3:42 PM EST) HIV AB/AG Nonreactive Nonreactive [facility] Comment:HIV-1 p24 Ag and/or HIV-1/HIV-2 Ab not detected.A test result that is nonreactive does not exclude thepossibility of exposure to or infection with HIV-1 and/orHIV-2. Nonreactive results in this assay for individualswith prior exposure to HIV-1 and/or HIV-2 may be due toantigen and antibody levels that are below the limit ofdetection of this assay.The [employer] HIV Ag/Ab Combo assay result andsupplemental assay results should be interpreted inconjunction with the patient's clinical presentation,history and other laboratory results. If the results areinconsistent with clinical evidence, additional testing issuggested to confirm the result. Blood Venous blood specimen / Unknown 05/12/2024 3:42 PM EST 05/12/2024 4:09 PM EST us Marii Brown MD LAB BLOOD ORDERABLES Final Result [facility] [address] [place] [phone] * (ABNORMAL) Lipid Panel, Standard (03/27/2024 1:47 PM EDT) Triglycerides 107 <150 mg/dL [facility] Comment:Desirable Triglyceri de: less than 150 mg/dLBorderline High Triglyceride 150-199 mg/dLHigh Triglyceride: 200-499 mg/dLVery High Triglyceride: greater than or equal to 5OO mg/dL Cholesterol 131 <200 mg/dL [facility] Comment:Desirable Cholestero l: less than 200 mg/dLBorderline High Cholesterol: 200-239 mg/dLHigh Cholesterol: greater than 239 mg/dL LDL Cholesterol Calculated 70 <100 mg/dL [facility] Comment:Desirable LDL: less than 100 mg/dLNear Optimal/Above Optimal LDL: 110- 129 mg/dLBorderline High LDL: 130-159 mg/dLHigh LDL: 160-189 mg/dLVery High LDL: greater than or equal to 190 mg/dL HDL Cholesterol 40(L) >40 mg/dL [facility] Comment:Desirable HDL: great er than 40 mg/dL Note: This HDL assay may give artificially low results in patients with liver disease. Blood Venous blood specimen / Unknown 03/27/2024 1:47 PM EDT 03/27/2024 4:18 PM EDT Patricia Barfield MD LAB BLOOD ORDERABLES Final Result [facility] [address] [place] [address] [phone] from Last 3 Months or Most Recently Relevant to Health Maintenance Insurance [facility] [address] [place] [address] Care Teams Migration Agent Relationship Specialty Start Date End Date Patricia Schofield MD [address] [place] [address] PCP - General Family Medicine 02/26/18
--- OUTSIDE RECORDS SUMMARY | 2025-01-21 09:32 | XMS_ITS | Clinical Summary ---
Author Organization [facility] Address [address] [place] [address] Phone Care Team Providers Care Exhibition Specialist Name Role Phone Physician, No Pcp Primary Care Provider Unavaila ble Allergies No known active allergies Medical History Medical History Date Comments Kidney cancer, primary, with metastasis from kidney to other site, left (CMS/[facility] V24, [facility] V28) Social History Tobacco Use [...] to complete this topic Insurance [facility] [employer] MEDICARE Member Subscriber Plan / Payer (Ef fective 2023-Present) Name:Jesse Link Relation to Subscriber:Self Name:Jesse Link Payer ID:[id number] Group ID:[id number] Type:Not on file Address: [place] [address] [address] [id number] Care Teams Exhibition Specialist Relationship Specialty Start Date End Date Physician, No Pcp PCP - General 08/14/24
[2025-03-23 10:14] VITALS: BMI 22.7
--- NOTE | 2025-03-24 13:24 | HO.ANESPROP2 ---
Documented by User: July Iraheta NP 03/24/25 13:30 HPI - Anesthesia Eval Consult details Narrative: 55 yr old male for right Cubital Tunnel Release Previously cancelled due to +ETOH Cardiac optimized. Follows [facility] Cardiology for htn and previous report of chest pain. Stable without symptoms at 12/2024 office visit [facility] Active Problems Active Problems: All Active Problems Cervical spinal stenosis (Acute) HTN (hypertension) (Acute) Chronic kidney disease, stage 2 (mild) (Acute) Smoker (Acute) Post-traumatic osteoarthritis of both wrists (Acute) Polyarthralgia (Acute) Cubital tunnel syndrome, bilateral (Acute) Cervical radiculopathy (Acute) Ulnar neuropathy (Acute) Muscle spasms of neck (Acute) Shortness of breath (Acute) Precordial chest pain (Acute) Bilateral wrist pain (Acute) Bilateral hand numbness (Acute) Degenerative disc disease, cervical (Acute) Cervical spondylosis (Acute) Past Medical History Medical History Neck pain Back pain History of kidney cancer (~2020) Dizziness BRISA (generalized anxiety disorder) Snores Asthma History of cardiac murmur as a child Bilateral hand numbness Bilateral wrist pain Possible exposure to STI Upper back pain Migraine headache Chronic kidney disease, stage 2 (mild) Hyperlipidemia Bilateral arm pain Adrenal incidentaloma Seborrheic dermatitis of scalp Polyarthralgia Missing teeth, acquired Blurry vision, bilateral Chronic right shoulder pain Smoker Pure hyperglyceridemia Post-traumatic osteoarthritis of both wrists Mood disorder Severe major depression without psychotic features Mild intermittent asthma Homeless History of alcoholism GERD (gastroesophageal reflux disease) Foot callus HTN (hypertension) Episodic cluster headache Clear cell carcinoma of kidney Degenerative disc disease, cervical Cervical spondylosis Family History Family History Mother No problems noted. Father No problems noted. Surgical History Surgical History History of nephrectomy, left Social History Social History Household Members: Family Housing: Apartment Are you a primary ostomy care nurse to a significant other at home: No Do you presently have visiting nurse or other home services: No Alcohol intake: current Alcohol intake frequency: a few times a week Patient Tobacco Use Status: Current everyday Tobacco user Tobacco use type: Cigarette Cigarettes Per Day: 2 Use of substances other than those prescribed or required for medical reasons: No Have you been hit, kicked, punched, or otherwise hurt by someone within the past year? 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: left hand Meds Allergies Allergy/AdvReac Type Severity Reaction Status Date / Time No Known Allergies Allergy Verified 03/25/25 13:31 Home Medications ?Medication ?Instructions ?Recorded ?Confirmed ?Last Taken ?Type amitriptyline 75 mg tablet 75 mg PO BEDTIME 08/12/23 03/23/25 Unknown History ibuprofen 800 mg tablet 800 mg PO TID 08/12/23 03/23/25 Unknown History omeprazole 40 mg capsule,delayed 40 mg PO DAILY 08/12/23 03/23/25 Unknown History release cholecalciferol (vitamin D3) 25 25 mcg PO QAM 09/18/24 03/23/25 Unknown History mcg (1,000 unit) capsule (Vitamin D3) lisinopril 20 mg tablet 20 mg PO DAILY 09/18/24 03/23/25 Unknown History multivitamin 1 tab PO QAM 09/18/24 03/23/25 Unknown History sertraline 50 mg tablet 50 mg PO DAILY 09/18/24 03/23/25 Unknown History thiamine HCl (vitamin B1) 100 mg 100 mg PO QAM 09/18/24 03/23/25 Unknown History tablet albuterol sulfate 90 mcg/actuation 2 puff inhalation Q6H PRN wheezing 01/05/25 03/23/25 Unknown History aerosol inhaler (Ventolin HFA) famotidine 20 mg tablet 20 mg PO BID 01/19/25 03/23/25 Unknown History Exam Height,Weight and Vital Signs: Height 5 ft 10 in Weight 71.668 kg Narrative Narrative: EKG NSR rate 80 Documented by User: Shelli Mae MD 03/25/25 13:50 PMF Past Medical History Medical History Neck pain Back pain History of kidney cancer (~2020) Dizziness BRISA (generalized anxiety disorder) Snores Asthma History of cardiac murmur as a child Bilateral hand numbness Bilateral wrist pain Possible exposure to STI Upper back pain Migraine headache Chronic kidney disease, stage 2 (mild) Hyperlipidemia Bilateral arm pain Adrenal incidentaloma Seborrheic dermatitis of scalp Polyarthralgia Missing teeth, acquired Blurry vision, bilateral Chronic right shoulder pain Smoker Pure hyperglyceridemia Post-traumatic osteoarthritis of both wrists Mood disorder Severe major depression without psychotic features Mild intermittent asthma Homeless History of alcoholism GERD (gastroesophageal reflux disease) Foot callus HTN (hypertension) Episodic cluster headache Clear cell carcinoma of kidney Degenerative disc disease, cervical Cervical spondylosis Family History Family History Mother No problems noted. Father No problems noted. Family history of problems with anesthesia: No Surgical History Surgical History History of nephrectomy, left History of Problems with Anesthesia: No Social History Social History Household Members: Family Housing: Apartment Are you a primary ostomy care nurse to a significant other at home: No Do you presently have visiting nurse or other home services: No Alcohol intake: current Alcohol intake frequency: a few times a week Patient Tobacco Use Status: Current everyday Tobacco user Tobacco use type: Cigarette Cigarettes Per Day: 2 Use of substances other than those prescribed or required for medical reasons: No Have you been hit, kicked, punched, or otherwise hurt by someone within the past year? 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: left hand Meds Allergies Allergy/AdvReac Type Severity Reaction Status Date / Time No Known Allergies Allergy Verified 03/25/25 13:31 Home Medications ?Medication ?Instructions ?Recorded ?Confirmed ?Last Taken ?Type amitriptyline 75 mg tablet 75 mg PO BEDTIME 08/12/23 03/23/25 Unknown History ibuprofen 800 mg tablet 800 mg PO TID 08/12/23 03/23/25 Unknown History omeprazole 40 mg capsule,delayed 40 mg PO DAILY 08/12/23 03/23/25 Unknown History release cholecalciferol (vitamin D3) 25 25 mcg PO QAM 09/18/24 03/23/25 Unknown History mcg (1,000 unit) capsule (Vitamin D3) lisinopril 20 mg tablet 20 mg PO DAILY 09/18/24 03/23/25 Unknown History multivitamin 1 tab PO QAM 09/18/24 03/23/25 Unknown History sertraline 50 mg tablet 50 mg PO DAILY 09/18/24 03/23/25 Unknown History thiamine HCl (vitamin B1) 100 mg 100 mg PO QAM 09/18/24 03/23/25 Unknown History tablet albuterol sulfate 90 mcg/actuation 2 puff inhalation Q6H PRN wheezing 01/05/25 03/23/25 Unknown History aerosol inhaler (Ventolin HFA) famotidine 20 mg tablet 20 mg PO BID 01/19/25 03/23/25 Unknown History Exam Airway Mallampati Class: II TM Dist: >3cm Neck ROM: Full Heart: rrr Lungs: cta Assessment and Plan Assessment Anesthesia Assessment: Anesthesia Plan Discussed and Chart Reviewed Final Anesthetic Review Family History of Problems with Anesthesia: No History of Problems with Anesthesia: No NPO: Yes ASA Class: III Final Preanesthetic Review: No Changes in Pt Med Stat, Meds/Allgs Chart Reviewed, Consent Obtained/Reviewed and Anes Risks/Benef Reviewed Patient Risk: Intermediate Procedure Risk: Intermediate Anesthetic Plan Anesthetic Plan: GA and Agree w/ Assess. and Plan Disposition: Standard PACU
--- NOTE | 2025-03-25 08:04 | W.PM.OPN ---
Operative Note Operative Note Date of Service: 03/25/25 Narrative: Operative Note Narrative: Preop diagnosis: 1. Right Cubital tunnel syndrome Postop diagnosis: Same Procedure: 1. Right Cubital Tunnel Release Surgeon: Amalia Menard MD Couture Alterations Dressmaker: None Anesthesia: General Anesthesia Findings: Thickening and fibrosis about the ulnar nerve at the cubital tunnel Implants: none Tourniquet time: 12 minutes EBL: 5.0 ml Specimen: none Drains: None Complications: None Disposition: Brought to the recovery room in stable condition Plan: Follow-up in 10-14 days for wound check, and suture removal Indications: The patient is 55 years old with right cubital tunnel syndrome . The risks and benefits of operative treatment, including but not limited to risk of damage to blood vessels, nerves, tendons, infection, recurrence, persistent pain or numbness, incomplete resolution of preoperative symptoms, or need for further surgery were discussed with the patient and they wished to proceed with surgery. Procedure: Once consent was obtained patient was brought back to the operating suite and placed in the operating table in a supine position. Perioperative antibiotics and anesthesia was administered by the anesthesia team. The limb was prepped and draped in a standard surgical fashion, and a sterile tourniquet applied to the proximal aspect of the right upper extremity. The limb was elevated exsanguinated with Esmarch bandage and the tourniquet inflated to 250 mm of mercury for a total tourniquet time of 12 minutes. A 6 cm gently curved but longitudinally oriented incision was made centered over the cubital tunnel of the right upper extremity. Incision was made through the skin to the subcutaneous tissues using a # 15 Blade. I then dissected down to the level of the medial epicondyle and the cubital tunnel using tenotomy scissors. Care was taken to protect the medial antebrachial cutaneous nerve. The ulnar nerve was identified just posterior to the medial intermuscular septum. The ulnar nerve was released in a proximal to distal direction using tenotomy in iris scissors while directly visualizing and protecting the ulnar nerve. Thickening and fibrosis was appreciated about the ulnar nerve as it passed through the cubital tunnel. The ulnar nerve was assessed as I passed the elbow through full flexion and extension and was found to remain stable within its groove. At this point the tourniquet was deflated and hemostasis obtained with a brief period of local pressure and bipolar electrocautery. The wound was copiously irrigated with normal saline. The subcutaneous layer was closed with 4-0 Vicryl suture, and the skin edges were reapproximated with 4-0 nylon suture. The wound was infiltrated with some 1% lidocaine with epinephrine for postop pain control and sterile dressings were applied. The patient appears to have tolerated the procedure well and with no complications. All digits were well vascularized at the conclusion of the case.
[2025-03-25 13:32] VITALS: BP 121/77; PULSE 66; RESP 14; TEMP 36.6; O2SAT 97; BMI 23.4
[2025-03-25] MEDS: Lactated Ringers 1,000 ML 100 ML IVCONT (13:38)
--- NOTE | 2025-03-25 13:43 | MHC.SHP ---
Pre-Procedural Eval Section A - 24 Hr Update-Section A only Date of Service: 03/25/25 The patient is an INPATIENT: No Changes since office visit: No Cold of Flu in the past 2 weeks, No New Medical Problems, No Changes in Medication and No Patient answered all questions The patient has been examined within 24 hours of the surgical procedure. The History & Physical has been completed within 30 days and I have reviewed it.: Yes Section B - Complete if H&P > 30 days Chief Complaint: Lesion of ulnar nerve, right upper limb Allergies: Allergies Allergy/AdvReac Type Severity Reaction Status Date / Time No Known Allergies Allergy Verified 03/25/25 13:31 Plan I have reviewed the history and physical and performed a pertinent physical examination on my patient. No changes have occurred unless specified. Time Spent With Patient Time: Total time managing care of this patient today ____ minutes.
[2025-03-25 16:38] VITALS: BP 112/63; PULSE 88; RESP 17; TEMP 36.6; O2SAT 98
[2025-03-25 16:40] VITALS: BP 109/68; PULSE 86; RESP 18; O2SAT 98
[2025-03-25 16:45] VITALS: BP 109/68; PULSE 86; RESP 17; O2SAT 98
[2025-03-25 16:50] VITALS: BP 116/71; PULSE 85; RESP 18; O2SAT 98
[2025-03-25 17:05] VITALS: BP 107/81; PULSE 81; RESP 18; TEMP 36.6; O2SAT 98
== END 2025-03-25 17:26 | disposition home or self-care (01) ==
PROVIDERS: PCP Internal Medicine; Visit Provider Orthopaedic Surgery
PROC: (CPT 64718; principal; 2025-03-25 14:50)
DX: G56.21 Lesion of ulnar nerve, right upper limb (principal); M25.531 Pain in right wrist; R20.0 Anesthesia of skin; I12.9 Hypertensive chronic kidney disease with stage 1 through stage 4 chronic kidney disease, or unspecified chronic kidney disease; N18.2 Chronic kidney disease, stage 2 (mild); Z85.528 Personal history of other malignant neoplasm of kidney; E27.9 Disorder of adrenal gland, unspecified; Z90.5 Acquired absence of kidney; J45.20 Mild intermittent asthma, uncomplicated; E78.5 Hyperlipidemia, unspecified; F33.2 Major depressive disorder, recurrent severe without psychotic features; F41.1 Generalized anxiety disorder; F17.210 Nicotine dependence, cigarettes, uncomplicated
CPT/HCPCS: 64718; J0131; J0690; J1100; J2003; J2004; J2405; J2704; J3010

== ENCOUNTER → 2025-03-25 13:10 | Outpatient (BNV) | payer OTHER, SELFPAY | PROVIDERS: PCP Internal Medicine; Visit Provider Orthopaedic Surgery | DX: G56.11 Other lesions of median nerve, right upper limb (principal) | CPT/HCPCS: 64718 ==

== ENCOUNTER 2025-04-06 13:16 | Outpatient (AMB) | payer OTHER, SELFPAY ==
--- NOTE | 2025-04-06 13:32 | A.OFFVIS_ITS ---
Vital Signs 04/06/25 13:33 Height 5 ft 10 in Weight 163 lb BMI 23.4 Intake Visit Reasons: PO-Right Cubital 03/25/25 Intake Note: Jesse is a 55 year old left hand dominant who presents today for a Post- operative visit status post Right Cubital Tunnel Release, DOS:03/25/[address] Menard. Patient reports concern for infection as there is redness and tenderness around incision site. Patient states there is still some numbness. No further questions or concerns. Sutures removed in office and steri strips applied. Allergies No Known Allergies Allergy (Verified 04/09/25 15:35) HPI HPI PO-Right Cubital 03/25/25: Details: Jesse is a 55 year old left hand dominant who presents today for a Post- operative visit status post Right Cubital Tunnel Release, DOS:03/25/[address] Menard. Patient reports concern for infection as there is redness and tenderness around incision site. Patient states there is still some numbness. No further questions or concerns. Sutures removed in office and steri strips applied. [facility] Medical History Neck pain Back pain History of kidney cancer (~2020) Dizziness BRISA (generalized anxiety disorder) Snores Asthma History of cardiac murmur as a child Bilateral hand numbness Bilateral wrist pain Possible exposure to STI Upper back pain Migraine headache Chronic kidney disease, stage 2 (mild) Hyperlipidemia Bilateral arm pain Adrenal incidentaloma Seborrheic dermatitis of scalp Polyarthralgia Missing teeth, acquired Blurry vision, bilateral Chronic right shoulder pain Smoker Pure hyperglyceridemia Post-traumatic osteoarthritis of both wrists Mood disorder Severe major depression without psychotic features Mild intermittent asthma Homeless History of alcoholism GERD (gastroesophageal reflux disease) Foot callus HTN (hypertension) Episodic cluster headache Clear cell carcinoma of kidney Degenerative disc disease, cervical Cervical spondylosis Surgical History History of nephrectomy, left Family History Mother No problems noted. Father No problems noted. 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 Neuro: Normal sensation of the tips of all digits of the right hand at this time Vascular: Cap refill brisk Pain: Minimal tenderness to palpation about incision site on medial aspect of right elbow ROM: Patient is able to flex extend pronate and supinate the right elbow fully and without difficulty Skin: Well approximated and well healing incision site noted on the medial aspect of the right elbow No lacerations or abrasions. General: No ecchymosis, erythema, or evidence of infection. Psych: Appears grossly normal Affect normal Attitude cooperative Assessment & Plan Assessment & Plan (1) Cubital tunnel syndrome, bilateral: Code(s): G56.23 - Lesion of ulnar nerve, bilateral upper limbs Category: Medical Plan 1. Status post right cubital tunnel release DOS 03/25/2025 Patient appears to be recovering well postoperatively Patient is educated about the typical recovery course No under water times one-week, 2 lb weight limit x2 weeks Patient is educated on the signs and symptoms of worsening infection, should call our office if he begins to experience the symptoms Patient understands this is amenable to this plan 2. Left cubital tunnel syndrome Symptoms intermittent, daily, worse at night Patient will follow-up in approximately 4-6 weeks to discuss left cubital tunnel release Patient understands this and is amenable to this plan Coding Level of Care Code Global (63042) Diagnoses Cubital tunnel syndrome, bilateral G56.23
[2025-04-06 13:33] VITALS: BMI 23.4
--- OUTSIDE RECORDS SUMMARY | 2025-04-06 17:17 | XMS_ITS | Data Portability ---
Author Organization [employer], [facility] Address [address] [place] [address] Care Team Providers Care Manager Cosmetics Name Role Phone [facility] Referring Provider Unavailable Referring Provider Assessment Encounter Date Assessment Date Assessment LastModified by Organization Details LastModified Time 06/28/2023 06/28/2023 I have reviewed and agree with the assessment and plan as documented by the methods analyst. I provided real time medical direction for this encounter and was immediately available to provide additional phone based assistance as needed. History as noted by methods analyst. Pt with history of DM, HTN, reports [...] None recorded. Lab rapid flu (A+B) 2023 [facility], [address] [place] [address], [phone] 12:50:39 rapid SARS CoV 2 Ag, QL IA, respiratory specimen 2023 [facility], [address] [place] [address], [phone] 12:50:37 Referral None recorded. Procedures None recorded. [...] ve Not Available [facility] [address] [place] [address], [phone] 06/28/2023 12:50:10 06/28/1906/28/2023 rapid flu (A+B) Flu negati ve Not Available [facility] [address] [place] [address], [phone] 06/28/2023 12:50:09 Result Notes None recorded. Medical [...] Diagnosis SNOMED-CT Code Diagnosis ICD10 Code Diagnosis IMO Codes Diagnosis Note [id number] Michael Tamez MD Main - instED [address] [place] [phone] 06/28/2023 12:47:33 07/01/2023 17:19:40 Viral upper respiratory tract infection [id number] J06.9 Health Concerns Section Related Observation LastModified by Organization Detai ls LastModified Time None Recorded Concern Status LastModified by Organization Details LastModified Time None Recorded Advance Directives Directive None Recorded Payers Insurance Date Sequence Insurance Name Policy Number Policy Eddy Covered Member ID Eddy Member ID Guarantor Name 08/01/2023 1 [facility] - DOS ON OR AFTER 2022 - DUAL ELIGIBLE - HALF-WAY OPTIONS AND ONE CARE (MEDICARE REPLACEMENT/ADV ANTAGE - HMO) Jesse Link [id number] Jesse Link Notes Date Note Type Note Provider Name and Address Organization Details Recorded Time 06/28/2023 text/html ROS as noted in the HPI This was a supervised home visit with methods analyst Lizzy Cisneros. HPI: Member said he has not feeling well for the last four day. he has cough x four day. no fever . covid test was negative .................. .................. .................. .................. .................. .................. .................. ............... CRC Nurse Triage Notes (Natasha Isaacs): Comments: No further information needed to process .................. .................. .................. .................. .................. .................. .................. ............... Buzzsaw Operator Helper Note From Lizzy Cisneros: Community Buzzsaw Operator Helper Aaron Cisneros CCA1 dispatched [place] for a 53 yom C/O a cough [...] ............... Disposition: Fulfilled Michael Tamez MD [address] [facility],[address], [place], [address], MADI - [email or web address] 06/28/2023 13:26:29
--- OUTSIDE RECORDS SUMMARY | 2025-04-06 17:17 | XMS_ITS | Encounter Summary ---
Author Organization [employer] Address [address] [place] [address] [address] [place] [address] Care Team Providers Care Test Case Developer Name Role Phone Patricia Schofield MD Primary Care Provide r Encounter Details Date Type Department Care Team ([facility] Contact Info) Description 08/21/2022 Orders Only [facility] [address] [place] [address] Pricilla Eng LPN Social History Tobacco Use [...] Description 05/21/2025 3:30 PM EST Office Visit [facility] MEDICINE [address] [place] [address] Patricia Schofield MD [address] [place] [address] documented as of this encounter Visit Diagnoses Not on filedocumented in this encounter Care Teams Test Case Developer Relationship Specialty Start Date End Date Patricia Schofield MD [address] [place] [address] PCP - General Family Medicine 02/26/18 documented as of this encounter
--- OUTSIDE RECORDS SUMMARY | 2025-04-06 17:17 | XMS_ITS | Clinical Summary ---
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
--- OUTSIDE RECORDS SUMMARY | 2025-04-06 17:17 | XMS_ITS | Encounter Summary ---
Author Organization [employer] Address [address] [place] [address] [address] [address] Care Team Providers Care Event Staff Name Role Phone Patricia Schofield MD Primary Care Provide r Encounter Details Date Type Department Care Team (Late st Contact Info) Description 11/07/2022 [facility] Only [facility] [address] [place], [place] [phone] Patricia Schofield MD [address] [place] [address] Social History Tobacco Use Types Packs/Day Years [...] Description 05/21/2025 3:30 PM EST Office Visit [facility] [address] [place] [phone] Patricia Schofield MD [address] [place], [place] [phone] documented as of this encounter Visit Diagnoses Not on filedocumented in this encounter Care Teams Event Staff Relationship Specialty Start Date End Date Patricia Schofield MD [address] [place] [phone] PCP - General Family Medicine 02/26/18 documented as of this encounter
--- OUTSIDE RECORDS SUMMARY | 2025-04-06 17:17 | XMS_ITS | Encounter Summary ---
Author Organization [employer] Address [address] [facility] [address] [place] [address] Care Team Providers Care Tape Fastener Machine Operator Name Role Phone Patricia Schofield MD Primary Care Provide r Reason for Visit * Reason Comments Med Refill Encounter Details Date Type Department Care Team ([facility] st Contact Info) Description 06/15/2023 Refill [facility]INE [address] [place], [place] [phone] Patricia Schofield MD [address] [place] [address] Gastroesophageal reflux disease without esophagitis Social History [...] Description 05/21/2025 3:30 PM EST Office Visit [facility] MED[facility]INE [address] [place] [phone] Patricia Schofield MD [address] [place], [place] [phone] documented as of this encounter Visit Diagnoses Diagnosis Gastroesophageal reflux disease without esophagitis Esophageal reflux documented in this encounter Additional Health Concerns Assessment Noted Time PHQ-9 Depression Total Score: 6 11/28/19 23 1:09 PM EDT documented as of this encounter Care Teams Tape Fastener Machine Operator Relationship Specialty Start Date End Date Patricia Schofield MD [address] [place] [address] PCP - General Family Medicine 02/26/18 documented as of this encounter
--- OUTSIDE RECORDS SUMMARY | 2025-04-06 17:17 | XMS_ITS | Encounter Summary ---
Author Organization [employer] Address [address] [place] [address] [address] [address] Care Team Providers Care Digital Media Analyst Name Role Phone Patricia Schofield MD Primary Care Provide r Encounter Details Date Type Department Care Team (Late st Contact Info) Description 07/09/2022 Orders Only [facility] [address] [place] [phone] Payton Gay LPN Social History Tobacco Use [...] Description 05/21/2025 3:30 PM EST Office Visit [facility] [address] [place] [phone] Patricia Schofield MD [address] [place] [phone] documented as of this encounter Visit Diagnoses Not on filedocumented in this encounter Care Teams Digital Media Analyst Relationship Specialty Start Date End Date Patricia Schofield MD [address] [place] [phone] PCP - General Family Medicine 02/26/18 documented as of this encounter
--- OUTSIDE RECORDS SUMMARY | 2025-04-06 17:17 | XMS_ITS | Encounter Summary ---
Author Organization [employer] Address [address] [place] [address] 7[place] [address] Care Team Providers Care Door Manager Name Role Phone Patricia Schofield MD Primary Care Provide r Reason for Visit * Reason Comments Med Refill Encounter Details Date Type Department Care Team ([facility] st Contact Info) Description 03/11/2024 Refill [facility] [address] [place], [place] [phone] Patricia Schofield MD [address] [place] [address] Depression, unspecified depression type; Anxiety Social History [...] Description 05/21/2025 3:30 PM EST Office Visit [facility] [address] [place] [phone] Patricia Schofield MD [address] [place] [address] documented as of this encounter Visit Diagnoses Diagnosis Depression, unspecified depression type Anxiety Anxiety state, unspecified documented in this encounter Additional Health Concerns Assessment Noted Time PHQ-9 Depression Total Score: 21 024 2:33 PM EST documented as of this encounter Care Teams Door Manager Relationship Specialty Start Date End Date Patricia Schofield MD [address] [place] [phone] PCP - General Family Medicine 02/26/18 documented as of this encounter
--- OUTSIDE RECORDS SUMMARY | 2025-04-06 17:17 | XMS_ITS | Encounter Summary ---
Author Organization [employer] Address [address] [place] [address] [place] [address] Care Team Providers Care Bowling Ball Grader Name Role Phone Patricia Schofield MD Primary Care Provide r Encounter Details Date Type Department Care Team (Latest Contact Info) Description 09/05/2020 Abstract [facility] CON[facility]S Dental, Provider, DDS Social History [...] Description 05/21/2025 3:30 PM EST Office Visit [facility] [address] [place] [phone] Patricia Schofield MD [address] [place] [address] documented as of this encounter Visit Diagnoses Not on filedocumented in this encounter Care Teams Bowling Ball Grader Relationship Specialty Start Date End Date Patricia Schofield MD [address] [place] [address] PCP - General Family Medicine 02/26/18 documented as of this encounter
--- OUTSIDE RECORDS SUMMARY | 2025-04-06 17:17 | XMS_ITS | Clinical Summary ---
Author Organization [employer] Address [address] [place] [address] [place] [address] Care Team Providers Care Vulcanizer Operator Name Role Phone Patricia Schofield MD [...] times daily. 60 tablet 11 03/27/20 24 Active Ventolin HFA 108 (90 Base) MCG/ACT inhalerIndicatio ns:Moderate asthma, unspecified whether complicated, unspecified whether persistent INHALE 2 PUFFS BY MOUTH EVERY 6 HOURS NEEDED FOR WHEEZING 18 g 06/25/19 25 Active gabapentin (Neurontin) 300 MG capsuleIndicatio ns:Cervical spine arthritis with nerve pain Take 1 capsule (300 mg) by mouth 3 times daily. 90 capsule 2 08/29/19 25 026 Active omeprazole (PriLOSEC) [address] capsuleIndicatio ns:Gastroesophag eal reflux disease without esophagitis TAKE 1 CAPSULE BY MOUTH EVERY MORNING BEFORE A MEAL 90 capsule 1 12/08/19 25 Active sertraline (Zoloft) 50 MG tabletIndication s:Depression, unspecified depression type TAKE 1 TABLET BY MOUTH EVERY MORNING 90 tablet 01/02/20 25 Active amitriptyline (Elavil) 75 MG tabletIndication s:Depression, unspecified depression type TAKE 1 TABLET BY MOUTH AT BEDTIME 30 tablet 3 01/26/20 25 Active ibuprofen 800 MG tabletIndication s:Cervical spine arthritis with nerve pain,Chronic migraine without aura without status migrainosus, not intractable Take 1 tablet (800 mg) by mouth every 8 (eight) hours if needed for mild pain. 90 tablet 02/17/20 25 Active ammonium lactate (Lac-Hydrin) 12 % lotionIndication s:Dry skin dermatitis Apply topically if needed for dry skin. 400 g 1 02/17/20 25 026 Active Multiple Vitamin (Multivitamin) tabletIndication s:Chronic fatigue TAKE 1 TABLET BY MOUTH EVERY MORNING 30 tablet 3 03/01/20 25 Active D3-1000 25 MCG (1000 UT) capsuleIndicatio ns:Essential hypertension TAKE 1 CAPSULE BY MOUTH EVERY MORNING 90 capsule 1 03/25/20 25 Active lisinopril 20 MG tabletIndication s:Essential hypertension TAKE 1 TABLET BY MOUTH EVERY MORNING 90 tablet 1 03/25/20 25 Active thiamine (Vitamin B-1) 100 MG tabletIndication s:Essential hypertension TAKE 1 TABLET BY MOUTH EVERY MORNING 90 tablet 1 03/25/20 25 Active cholecalciferol (D3-1000) 25 MCG (1000 UT) capsuleIndicatio ns:Essential hypertension TAKE 1 CAPSULE BY MOUTH EVERY MORNING 90 capsule 1 06/03/20 24 025 Discontinued thiamine (Vitamin B-1) 100 MG tabletIndication s:Essential hypertension TAKE 1 TABLET BY MOUTH EVERY MORNING 90 tablet 1 06/03/20 24 025 Discontinued lisinopril 20 MG tabletIndication s:Essential hypertension TAKE 1 TABLET BY MOUTH EVERY MORNING 90 tablet 1 06/03/20 24 025 Discontinued Active Problems Problem Noted Date Diagnosed Date Dry skin dermatitis 02/16/2025 Decreased hearing of both ears 02/16/2025 Assessment & Plan (02/16/2025 4:28 PM EDT): I will refer patient to audiology and ENT Cubital tunnel syndrome, right 12/16/2024 Assessment & Plan (02/16/2025 4:30 PM EDT): Patient will have surgical intervention, letter to increase [employer] hours after surgery to be generated Bilateral [...] continue with same medications referral to [facility] done today Assessment & Plan [...] Self Plan [facility] and Patient to reach out to [facility] as needed Assessment & Plan (06/12/2023 [...] take medications as prescribe History of alcoholism ([facility]) 01/11/2017 Assessment & Plan (02/16/2025 4:30 PM EDT): Counseling done Referral to [facility] done Mild intermittent asthma 01/11/2017 Mood disorder 01/11/2017 Post-traumatic osteoarthritis of both wrists Smoker 01/11/2017 Vesicular eczema of hands and feet 01/11/2017 Resolved Problems Problem Noted Date Diagnosed Date Resolved Date Family history of exposure t o 2,4,5-trichlorophenoxyacetic acid and 2,4-dichlorophenoxyacetic acid 05/12/2024 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 Date Type Department Care Team Description 03/25/2025 Refill [facility] [address] [place] [phone] Patricia Schofield MD Essential hypertension 03/11/2025 Telephone [facility] [address] [place] [phone] Patricia Schofield MD Dec recall 02/28/2025 Refill [facility] [address] [place] [address] Patricia Schofield MD Chronic fatigue 02/16/2025 3:15 PM EDT Office Visit [facility] [address] [place] [phone] Patricia Schofield MD Screening for colon cancer (Primary Dx); Severe episode of recurrent major depressive disorder, without psychotic features (CMS/HCC); History of alcoholism (CMS/HCC); Cervical spine arthritis with nerve pain; Chronic migraine without aura without status migrainosus, not intractable; Dry skin dermatitis; Decreased hearing of both ears; Cubital tunnel syndrome, right 02/16/2025 Travel 02/12/2025 Telephone [facility] [address] [place] [phone] Patricia Schofield MD Chart Prep 02/08/2025 Patient Outreach [address] [address] Patricia Schofield MD Pre-visit Planning (SDOH screening completed on 10/25/2024) 01/24/[address] [address] Patricia Schofield MD Depression, unspecified depression type 01/15/2025 11:00 AM EDT Office Visit [facility] [address] [place] [phone] Morales Shaikh MD Pain in left acromioclavicular joint (Primary Dx) 01/15/2025 Results Follow-Up [facility] [address] [place] [phone] Pepito Rodríguez, SHEET METAL WORKER CBC auto differential, Comprehensive Metabolic Panel, Prothrombin Time-INR, Albumin, Random Urine W/Creatinine 01/15/2025 Travel from Last 3 Months Immunizations Immunization Administration [...] 3:30 PM EST Office Visit [facility] [address] [place] [address] Patricia Schofield MD [address] [place] [address] Health Maintenance Due Date Last Done Comments [...] AM EDT Cubital tunnel syndrome on right HEPATITIS C AB W/REFL TO HCV RNA, [...] EDT) ETHANOL (MG/DL) IN SER/PLAS 94 mg/dL [facility] Comment:Serum/plasma ethanol results are to be used formedical/treatment purposes only. 01/21/2025 7:13 AM EDT 01/21/2025 7:18 AM EDT us Generic External Data Provider LAB BLOOD ORDERAB LES Final Result Performing Organization Address City/State/[facility] Co de Phone Number [facility] [address] [place] [phone] * XR Shoulder 2+ Views Left (01/15/2025 11:00 AM EDT) Anatomical Region Laterality Modality Upper Extremities, Shoulder Left Radi ographic Imaging 01/15/2025 11:0 0 AM EDT Narrative 01/15/2025 12:51 PM EDT [address] [address] XRay Report Signed Patient: Jesse Link MR#: [id number] : 1970 Acct:[id number] Age/Sex: 55 / M ADM Date: 01/15/25 Loc: HO.HHCX Attending Dr: Morales Shaikh MD Ordering Physician: Morales Shaikh MD Date of Service: 01/15/25 Procedure(s): XR shoulder LT min 2V Accession Number(s): [id number] cc: Morales Shaikh MD EXAMINATION: XR SHOULDER, [...] 01/15/25 1248 DD/ 1100 TD/TT: 01/15/25 1110 Sack Sorter: Procedure Note Donotuseinterpreter, Image - 01/15/[address] [address] XRay Report Signed Patient: Jesse Link LMR#: [id number] : 1970Acct:[id number] Age/Sex: 55 / MADM Date: 01/15/25 Loc: HO.HHCX Attending Dr: Morales Shaikh MD Ordering Physician: Morales Shaikh MD Date of Service: 01/15/25 Procedure(s): XR shoulder LT min 2V Accession Number(s): [id number] cc: Morales Shaikh MD EXAMINATION: XR SHOULDER, [...] 01/15/25 1248 DD/ 1100 TD/TT: 01/15/25 1110 Sack Sorter: Morales Shaikh MD IMG XR PROCEDURES Final Result * (ABNORMAL) CBC auto differential (01/12/2025 4:06 PM EDT) White Blood Count 6.0 4.8 - 10.8 X10*3/uL [facility] Red Blood Count 4.77 4.60 - 5.80 X10*6/uL [facility] Hemoglobin 13.9(L) 14.0 - 18.0 g/dl [facility] Hematocrit 41.2(L) 42.0 - 52.0 % [facility] Mean Corpuscular Volume 86.4 80.0 - 98.0 fL [facility] Mean Corpuscular Hemoglobin 29.1 27.0 - 33.0 pg [facility] Mean Corpuscular HGB Conc 33.7 31.0 - 36.0 g/dl [facility] Red Cell Distribution Width 15.0 11.0 - 16.0 % [facility] Platelet Count 318 160 - 400 X10*3/uL [facility] Mean Platelet Volume 9.9 9.4 - 12.4 fL [facility] Neutrophils Percent Auto 54.7 45 - 73 % [facility] Imm Gran Pct Auto 0.3 0.0 - 0.4 % [facility] Lymphocytes Percent Auto 32.3 20 - 40 % [facility] Monocytes Percent Auto 8.6 2 - 11 % [facility] Eosinophils Percent Auto 3.4 0 - 4 % [facility] Basophils Percent Auto 0.7 0 - 2 % [facility] NRBC Pct Auto 0.0 0.0 - 0.2 /100WBC [facility] Neutrophils Absolute Auto 3.3 2.0 - 8.3 x10*3/uL [facility] Imm Gran Abs Auto 0.02 0.00 - 0.03 X10*3/uL [facility] Lymphocytes Absolute Auto 1.9 1.2 - 4.9 X10*3/uL [facility] Monocytes Absolute Auto 0.5 0.1 - 1.2 X10*3/uL [facility] Eosinophils Absolute Auto 0.2 0.0 - 0.4 X10*3/uL [facility] Basophils Absolute Auto 0.0 0.0 - 0.2 X10*3/uL [facility] NRBC Abs Auto 0.000 0.0 - 0.012 X10*3/uL [facility] Blood Venous blood specimen / Unknown 01/12/2025 4:06 PM EDT 01/12/2025 4:06 PM EDT [facility] LAB BLOOD ORDERABLES Ninoska l Result Performing Organization Address [facility] de Phone Number [facility] [address] [place] [phone] * (ABNORMAL) Prothrombin Time-INR (01/12/2025 4:06 PM EDT) Prothrombin Time 10.7(L) 10.9 - 12.4 SEC [facility] INTERNATIONAL NORM RATIO 0.9 0.9 - 1.1 [facility] Comment:INTERNATIONAL NORMAL IZED RATIO (INR) [...] 4:06 PM EDT 01/12/2025 4:06 PM EDT [facility] LAB BLOOD ORDERABLES Ninoska l Result Performing Organization Address [facility] Co de Phone Number [facility] [address] [place] [phone] * (ABNORMAL) Comprehensive Metabolic Panel (01/12/2025 4:06 PM EDT) [facility] Sodium 142 135 - 145 mmol/L [facility] Potassium 4.4 3.3 - 5.1 mmol/L [facility] Chloride 110(H) 96 - 108 mmol/L [facility] Carbon Dioxide 25 22 - 29 mmol/L [facility] Anion Gap 11(L) 12 - 20 [facility] Urea Nitrogen (BUN) 12 9 - 16 mg/dL [facility] Creatinine, Serum 1.43(H) 0.5 - 1.4 mg/dL [facility] Estimated Glomerular Filt Rate 51 [facility] Comment:Chronic Kidney Disea se: Estimated GFR < 60 mL/min/[id number] Kidney Disease: Estimated GFR < 15 mL/min/1.73m2 Glucose 94 60 - 115 mg/dL [facility] Calcium 9.0 8.4 - 10.2 mg/dL [facility] Bilirubin, Total 0.3 0.0 - 1.0 mg/dL [facility] Aspartate Amino Transferase 18 5 - 37 U/L [facility] Alanine Aminotransferase 14 0 - 40 U/L [facility] Total Protein 6.9 6.5 - 8.0 g/dL [facility] Albumin Level 4.3 3.5 - 5.0 g/dL [facility] Alkaline Phosphatase 73 39 - 117 U/L [facility] Blood Venous blood specimen / Unknown 01/12/2025 4:06 PM EDT 01/12/2025 4:06 PM EDT [facility] LAB BLOOD ORDERABLES Ninoska l Result [facility] [address] [place] [phone] * Albumin, Random Urine W/Creatinine (01/12/2025 12:00 AM EDT) Creatinine, Urine 122.96 mg/dL [facility] Microalbumin Urine <5.0 mg/L [facility] Microalbum Creatinine Ratio Ur TNP <30 ug/mg cr [facility] Comment:Unable to calculate albumin/creatinine ratio due to lowmicroalbumin or creatinine result. Urine (Urine, Random) 01/12/2025 01/12/2025 Pepito Marcos [facility] URINE ORDERABLES Ninoska l Result Performing Organization Address [facility]/ZIP Co de Phone Number [facility] [address] [place] [phone] * Hepatitis C Antibody with Reflex to HCV, RNA, Quantitative, Real-Time PCR (05/12/2024 3:42 PM EST) Hepatitis C Antibody Nonreactive Nonreactive [facility] Comment:Antibodies to HCV no t detected; does not exclude early acuteHCV infection. Blood Venous blood specimen / Unknown 05/12/2024 3:42 PM EST 05/12/2024 4:09 PM EST Marii Brown MD LAB BLOOD ORDERABLES Final Result Performing Organization Address [facility] de Phone Number [facility] [address] [place] [phone] * HIV-1/2 Antigen and Antibodies, Fourth Generation, with Reflexes (05/12/2024 3:42 PM EST) HIV AB/AG Nonreactive Nonreactive [facility] Comment:HIV-1 p24 Ag and/or HIV-1/HIV-2 Ab not detected.A test result that is nonreactive does not exclude thepossibility of exposure to or infection with HIV-1 and/orHIV-2. Nonreactive results in this assay for individualswith prior exposure to HIV-1 and/or HIV-2 may be due toantigen and antibody levels that are below the limit ofdetection of this assay.The [employer]es HIV Ag/Ab Combo assay result andsupplemental assay results should be interpreted inconjunction with the patient's clinical presentation,history and other laboratory results. If the results areinconsistent with clinical evidence, additional testing issuggested to confirm the result. Blood Venous blood specimen / Unknown 05/12/2024 3:42 PM EST 05/12/2024 4:09 PM EST us Marii Brown MD LAB BLOOD ORDERABLES Final Result Performing Organization Address [facility]/ZIP Co de Phone Number [facility] [address] [place] [phone] * (ABNORMAL) Lipid Panel, Standard (03/27/2024 1:47 PM EDT) Triglycerides 107 <150 mg/dL [facility] Comment:Desirable Triglyceri de: less than 150 mg/dLBorderline High Triglyceride 150-199 mg/dLHigh Triglyceride: 200-499 mg/dLVery High Triglyceride: greater than or equal to 5OO mg/dL Cholesterol 131 <200 mg/dL [facility] Comment:Desirable Cholestero l: less than 200 mg/dLBorderline High Cholesterol: 200-239 mg/dLHigh Cholesterol: greater than 239 mg/dL LDL Cholesterol Calculated 70 <100 mg/dL [facility] Comment:Desirable LDL: less than 100 mg/dLNear Optimal/Above Optimal LDL: 110- 129 mg/dLBorderline High LDL: 130-159 mg/dLHigh LDL: 160-189 mg/dLVery High LDL: greater than or equal to 190 mg/dL HDL Cholesterol 40(L) >40 mg/dL [facility] Comment:Desirable HDL: great er than 40 mg/dL Note: This HDL assay may give artificially low results in patients with liver disease. Blood Venous blood specimen / Unknown 03/27/2024 1:47 PM EDT 03/27/2024 4:18 PM EDT us Patricia Barfield MD LAB BLOOD ORDERABLES Final Result [facility] [address] [place] [address] [phone] from Last 3 Months or Most Recently Relevant to Health Maintenance Insurance [employer] [facility] < 65 [facility] Care Teams Vulcanizer Operator Relationship Specialty Start Date End Date Patricia Schofield MD [address] [place] [phone] PCP - General Family Medicine 02/26/18
--- OUTSIDE RECORDS SUMMARY | 2025-04-06 17:17 | XMS_ITS | Encounter Summary ---
Author Organization [employer] Address [address] [place] [address] 7 [place] [address] Care Team Providers Care Furnace Utility Operator Name Role Phone Patricia Schofield MD Primary Care Provide r Reason for Visit * Reason Comments Med Refill Encounter Details Date Type Department Care Team ([facility] st Contact Info) Description 03/26/2023 Refill [facility] [address] [place], [place] [phone] Patricia Schofield MD [address] [place] [address] Neck pain Social History Tobacco Use Types [...] Description 05/21/2025 3:30 PM EST Office Visit [facility] [address] [place] [phone] Patricia Schofield MD [address] [place] [address] [phone] documented as of this encounter Visit Diagnoses Diagnosis Neck pain Cervicalgia documented in this encounter Additional Health Concerns Assessment Noted Time PHQ-9 Depression Total Score: 6 11/28/19 23 1:09 PM EDT documented as of this encounter Care Teams Furnace Utility Operator Relationship Specialty Start Date End Date Patricia Schofield MD [address] [place] [phone] PCP - General Family Medicine 02/26/18 documented as of this encounter
--- OUTSIDE RECORDS SUMMARY | 2025-04-06 17:17 | XMS_ITS | Data Portability ---
Author Organization [employer], [address] Address [address] [place] [address] Assessment No assessment recorded. Plan of Treatment [...] ICD10 Code Diagnosis IMO Codes Diagnosis Note [id number] _[facility] _[facility] [address] [place] [phone] 05/07/2022 15:49:19 05/07/2022 17:57:59 Health Concerns Section Related Observation LastModified by Organization Detai ls LastModified Time None Recorded Concern Status LastModified by Organization Details LastModified Time None Recorded Advance Directives Directive None Recorded Payers None recorded.
--- OUTSIDE RECORDS SUMMARY | 2025-04-06 17:17 | XMS_ITS | Encounter Summary ---
Author Organization [employer] Address [address] [place] [address] [place], [place] [address] Care Team Providers Care Director Of Securities And Real Estate Name Role Phone Patricia Schofield MD Primary Care Provide r Encounter Details Date Type Department Care Team (Late st Contact Info) Description 07/04/2022 Orders Only [facility] [address] [place] [address] Pricilla Eng LPN Social History Tobacco Use [...] Description 05/21/2025 3:30 PM EST Office Visit [facility] [address] [place] [address] Patricia Schofield MD [address] [place] [address] documented as of this encounter Visit Diagnoses Not on filedocumented in this encounter Care Teams Director Of Securities And Real Estate Relationship Specialty Start Date End Date Patricia Schofield MD [address] [place] [phone] PCP - General Family Medicine 02/26/18 documented as of this encounter
--- OUTSIDE RECORDS SUMMARY | 2025-04-06 17:17 | XMS_ITS | Encounter Summary ---
Author Organization [employer] Address [address] [place] [address] [place] [address] Care Team Providers Care River Rat Name Role Phone Patricia Schofield MD Primary Care Provide r Reason for Visit * Reason Comments Med Refill Encounter Details Date Type Department Care Team ([facility] st Contact Info) Description 10/27/2024 Refill [facility] [address] [place], [place] [phone] Patricia Schofield MD [address] [place] [address] Cervical spine arthritis with nerve pain Social [...] Description 05/21/2025 3:30 PM EST Office Visit [facility] [address] [place] [phone] Patricia Schofield MD [address] [place] [phone] documented as of this encounter Visit Diagnoses Diagnosis Cervical spine arthritis with nerve pain documented in this encounter Additional Health Concerns Assessment Noted Time PHQ-9 Depression Total Score: 21 024 2:33 PM EST documented as of this encounter Care Teams River Rat Relationship Specialty Start Date End Date Patricia Schofield MD [address] [place] [phone] PCP - General Family Medicine 02/26/18 documented as of this encounter
== END 2025-04-06 14:03 | disposition home or self-care (01) ==
PROVIDERS: PCP Internal Medicine
DX: G56.23 Lesion of ulnar nerve, bilateral upper limbs (principal)
CPT/HCPCS: 99024

== ENCOUNTER → 2025-04-06 13:16 | Outpatient (BNVA) | payer OTHER, SELFPAY | PROVIDERS: PCP Internal Medicine | DX: G56.23 Lesion of ulnar nerve, bilateral upper limbs (principal); Z98.890 Other specified postprocedural states | CPT/HCPCS: 99212 ==

== ENCOUNTER 2025-04-09 15:27 | Outpatient (AMB) | payer OTHER, SELFPAY ==
--- NOTE | 2025-04-09 15:30 | A.OFFVIS_ITS ---
Vital Signs 04/09/25 15:35 Height 5 ft 10 in Weight 164 lb BMI 23.5 BP 133/89 Blood Pressure Location Lt brachial Position Sitting Pulse 78 Pulse Source Pulse Oximeter Pulse Oximetry (%) 96 Oxygen Delivery Method Room Air Intake Visit Reasons: INTERLAMINAR C6, C7 ROCK Intake Note: Pain today 01/24 Oyster Cultivator Required: No Accompanied by: Self / Same As Patient Allergies No Known Allergies Allergy (Verified 04/09/25 15:35) HPI Comments Details: The patient is a 55-year-old male presenting with chronic back pain related to arthritis and cervical spinal stenosis. The pain has been persistent despite recent interventions, including an interlaminar epidural steroid injection at C6-C7 left parasagittal on February 25, which provided minimal to no relief. Prior to this, in December, the patient underwent left-sided cervical medial branch blocks, which also did not alleviate the pain. His MRI showed multilevel degenerative changes, most prominent at C6-C7 with moderate central canal stenosis as noted below. Imaging findings are consistent with patient's symptoms of cervical radiculopathy and disc herniations. The patient reports pain primarily on the left side, with the most significant discomfort occurring during neck flexion. He experiences bilateral hand weakness, for which he has already undergone right hand surgery for cubital tunnel syndrome on March 25 and has been recovering well. Given minimal respon se with cervical spine interventions, patient will be referred to [facility] for surgical consultation as his symptoms persist and affect his daily activities, functioning, sleep and reduced quality of life. - Affect: Negative impact on mood or psychological wellbeing, causes him anxiety and disrupted sleep. - Analgesia: Current medications include gabapentin, ibuprofen, and cyclobenzaprine, taken sometimes - Adverse Effects: No adverse effects from medications discussed - Activities of Daily Living: Pain impacts neck movement, particularly flexion - Aberrant Drug Related Behaviors: None with current medication Past Procedures: 02/25/25: Interlaminar epidural steroid injection, C6/7, Left parasaggital-0% pain relief 01/14/25: Left Diagnostic C3-C4-C5 MBB-0% pain relief PRIOR: The patient is a 54-year-old male presenting with neck and right hand pain. His symptoms have intensified, primarily affecting the cervical region and extending to the right arm, a condition not triggered by any recent injury by he did fell on ice a year ago. Previously assessed and diagnosed with bilateral ulnar neuropathy, he now experiences exacerbation of symptoms like neck pain, which is provoked further when bending down his neck. He states the current episode is more troublesome than previous instances, particularly while driving or sleeping. Utilizing pillows to aid comfort, he experiences difficulties in certain neck positions. He expresses uncertainty about having a recent MRI or prior surgery regarding his neck. There is a scheduled consultation with a Hand Specialist soon, initially referred for pain potentially linked to underlying arthritic or neuropathic conditions. An MRI is considered to understand better the structural elements of his ongoing neck complaints, especially concerning possible disc- related issues. In meantime, we are awaiting insurance approval for diagnostic cervical medial branch blocks to address his axial neck pain. PRIOR 09/18/24: The patient is a 54-year-old male presenting with chronic neck pain with radicular symptoms. The patient reports worsening neck pain that has persisted for over two years, notably exacerbated in the past year following falls on ice. Cervical x-ray findings from 2022 indicate degenerative changes most notably at C3-C4 and C5-C7 levels. Pain is described as aching, spasming, hurting and cracking with radiation to the arms, causing numbness and tingling, especially on the left side. The condition disrupts sleep, necessitating adjustments such as multiple pillows for arm support. The patient also experiences chronic left- sided migraines and cluster headaches. A history of arthritis is noted in the hands and neck, with an EMG revealing mild bilateral ulnar neuropathy. He is left hand dominant with impaired strength in the left hand. He remains on permanent disability due to his complex medical conditions and receives VOCATIONAL NURSE LVN services for some assistance at home. He has attempted physical therapy last year without improvement and uses massage therapy without benefit. Cardiac history includes chest pain investigations and an impending echo for aortic assessment. Pain management involves gabapentin and ibuprofen, though gabapentin induces sleepiness. Amitriptyline is also used for headache control. - Onset: Progressively worsening over the past year, with onset more than two years ago. - Quality: Aching, cracking, throbing, shooting, stabbing, sharp, tiring, dull, hurting, tingling. - Primary location: Cervical spine - Radiation: To arms with numbness and tingling, predominantly on the left side. - Exacerbating factors: Falls on ice, maintaining certain head positions, looking up or down, sideways movements. - Relieving factors: Adjustments with pillows during sleep. - Interference: Affects sleep quality and results in arm numbness. - Affect: Pain impacts sleep quality, leading to arm numbness; no specific mention of mood impact. - Analgesia: Currently using ibuprofen and gabapentin; goal pain relief not explicitly mentioned. - Adverse Effects: Gabapentin causes somnolence; no other adverse effects reported. - Activities of Daily Living: Pain affects the ability to sleep comfortably, necessitating specific pillow arrangements. - Aberrant Drug Related Behaviors: No signs of medication misuse or early refill requests mentioned. Oswestry Neck Pain Disability Score=34 (severe disability) [facility], [facility] Medical History Neck pain Back pain History of kidney cancer (~2020) Dizziness BRISA (generalized anxiety disorder) Snores Asthma History of cardiac murmur as a child Bilateral hand numbness Bilateral wrist pain Possible exposure to STI Upper back pain Migraine headache Chronic kidney disease, stage 2 (mild) Hyperlipidemia Bilateral arm pain Adrenal incidentaloma Seborrheic dermatitis of scalp Polyarthralgia Missing teeth, acquired Blurry vision, bilateral Chronic right shoulder pain Smoker Pure hyperglyceridemia Post-traumatic osteoarthritis of both wrists Mood disorder Severe major depression without psychotic features Mild intermittent asthma Homeless History of alcoholism GERD (gastroesophageal reflux disease) Foot callus HTN (hypertension) Episodic cluster headache Clear cell carcinoma of kidney Degenerative disc disease, cervical Cervical spondylosis Surgical History History of nephrectomy, left Family History Mother No problems noted. Father No problems noted. Social History Household Members: Family Housing: Apartment Are you a primary clinical manager home care to a significant other at home: No Do you presently have visiting nurse or other home services: No Alcohol intake: current Alcohol intake frequency: a few times a week Patient Tobacco Use Status: Current everyday Tobacco user Tobacco use type: Cigarette Cigarettes Per Day: 2 Current occupational status: disabled Current occupation: left hand Review of Systems Const Details: - Musculoskeletal: Reports chronic back pain, bilateral hand weakness - Neurological: Denies any new neurological symptoms beyond existing hand weakness, s/p recent right cubital tunnel release All systems reviewed & are unremarkable except as noted in HPI and below Physical Exam General: Appears afebrile. Alert and oriented. Mood and affect appropriate. Follows and participates in conversation appropriately. Respiratory effort is unlabored. No cough. Able to transition from sit to stand unassisted. Ambulates with bilaterally normal heel strike and toe off. Neck Neck: Yes normal visual inspection, Yes full ROM, Yes no lymphadenopathy, Yes supple, No anterior neck swelling, Yes no JVD, No prominent supraclavicular fat pad and No prominent dorsocervical fat pad Back/Spine/Pelvis Cervical Spine: No collar present, No Lhermitte's sign positive, cervical muscular tenderness, pain with cervical ROM (cervical flexion and extension), No Cervical spine scars present, No Cervical spine tenderness and No step off deformity Thoracic/Lumbar Spine: thoraco-lumbar ROM normal, No thoracic spinal tenderness and No lumbar spinal tenderness Results Reviewed Results Reviewed: XR CERVICAL SPINE XR SHOULDER, RIGHT 02/27/23 CLINICAL INFORMATION: Shoulder and neck pain. COMPARISON: Cervical spine 10/08/2018. TECHNIQUE: 5 views cervical spine, 4 views shoulder. FINDINGS: Cervical spine: Degenerative changes are present in the cervical spine with disc space narrowing at C3-C4 and from C5 through C7. There is endplate sclerosis and osteophyte formation. Findings have progressed slightly when compared to 10/08/2018. No significant foraminal narrowing is seen. No soft tissue swelling, fractures or subluxations. No bony destructive lesions. Right shoulder: There is some minimal degenerative changes at the AC joint. The glenohumeral joint appears normal. IMPRESSION: Degenerative changes in the cervical spine, most marked at C3-C4 and C5-C7. NE electromyogram (EMG) 09/15/24 Bilateral median and ulnar motor and sensory studies were performed. Bilateral radial sensory studies were performed and paraspinal muscles were tested with a needle. IMPRESSION: Mild bilateral ulnar neuropathy across cubital tunnel. XR SHOULDER, LEFT 01/15/25 CLINICAL INFORMATION: 4-day duration of left AC joint tenderness s/p shoulder hyperextension. COMPARISON: November 06, 2016 FINDINGS: There is no AC joint separation. There is no visible fracture. There is no dislocation. IMPRESSION: Unremarkable left shoulder MR cervical spine without contrast 12/21/24 Comparison: CR/SR - XR CERVICAL SPINE 5V - 02/27/23 12:58 EDT Findings: Image quality on some series is degraded by patient motion. 2 mm retrolisthesis of C5 on C6, degenerative. 1-2 mm of C6 on C7, degenerative. Multilevel Modic type 1 change much is most prominent C5/C6. Modic type 2 change at the inferior endplate of C6. The prevertebral and paraspinous musculature are within normal limits. The cervical cord is normal in size and signal. C2/C3: No disc herniation. Mild facet and ligamentum flavum hypertrophy. No central canal stenosis. No foraminal stenosis. C3/C4: 2 mm disc herniation. Mild facet/uncovertebral joint and ligamentum flavum hypertrophy. Mild central canal stenosis. Mild bilateral foraminal stenosis. C4/C5: 1-2 mm disc protrusion. Mild uncovertebral joint and ligamentum flavum hypertrophy. Moderate facet joint hypertrophy, greater on the left. Mild central canal stenosis. Mild bilateral foraminal stenosis. C5/C6: 3 mm disc herniation. Moderate facet/uncovertebral joint and ligamentum flavum hypertrophy. [id number] central spinal canal stenosis. Moderate bilateral foraminal stenosis. C6/C7: 3 mm disc herniation. Moderate facet/uncovertebral joint and ligamentum flavum hypertrophy. Moderate central canal stenosis. Severe right and mild left foraminal stenosis. C7/T1: 3 mm disc herniation. Moderate facet joint and ligamentum flavum hypertrophy. Dqep-kw-wzriwkre central canal stenosis. Moderate to severe bilateral foraminal stenosis. Impression: Multilevel degenerative change, detailed above, which is most prominent C6/C7 with moderate central canal stenosis. Assessment & Plan Assessment & Plan (1) Cervical radiculopathy: Code(s): M54.12 - Radiculopathy, cervical region Category: Medical (2) Cervical spinal stenosis: Code(s): M48.02 - Spinal stenosis, cervical region Category: Medical (3) Cervical spondylosis: Code(s): M47.812 - Spondylosis without myelopathy or radiculopathy, cervical region Category: Medical (4) Degenerative disc disease, cervical: Code(s): M50.30 - Other cervical disc degeneration, unspecified cervical region Category: Medical (5) Ulnar neuropathy: Code(s): G56.20 - Lesion of ulnar nerve, unspecified upper limb Category: Medical Plan The plan includes referring the patient to a [facility] for further evaluation and potential surgical intervention to address the cervical spinal stenosis. The patient is advised to continue follow-up with the Hand specialist for ongoing management of ulnar tunnel symptoms and recent right ulnar tunnel release. All questions and concerns have been answered and patient agreed with the treatment plan. Follow up as needed. Patient was informed and verbally consented to the use of an ambient scribe for clinic note documentation during this visit. Orders: Referrals Neuro Spine Referral M48.02 - Spinal stenosis, cervical region, M54.12 - Radiculopathy, cervical region Coding Level of Care Code Est Pt Level 3 (32548) Complex EM visit Add On G2211 Diagnoses Cervical radiculopathy M54.12 Cervical spinal stenosis M48.02 Cervical spondylosis M47.812 Degenerative disc disease, cervical M50.30 Ulnar neuropathy G56.20
[2025-04-09 15:35] VITALS: BP 133/89; PULSE 78; O2SAT 96; BMI 23.5
--- OUTSIDE RECORDS SUMMARY | 2025-04-09 16:55 | XMS_ITS | Data Portability ---
Author Organization [facility], [address] Address [address] [place] [address] Assessment No assessment recorded. Plan of Treatment [...] ICD10 Code Diagnosis IMO Codes Diagnosis Note [id number] _[facility] _[facility] [address] [place] [address] 05/07/2022 15:49:19 05/07/2022 17:57:59 Health Concerns Section Related Observation LastModified by Organization Detai ls LastModified Time None Recorded Concern Status LastModified by Organization Details LastModified Time None Recorded Advance Directives Directive None Recorded Payers None recorded.
--- OUTSIDE RECORDS SUMMARY | 2025-04-09 16:55 | XMS_ITS | Encounter Summary ---
Author Organization [employer] Address [address] [place] [address] [address] Care Team Providers Care Warp Yarn Sorter Name Role Phone Patricia Schofield MD Primary Care Provide r Reason for Visit * Reason Comments Med Refill Encounter Details Date Type Department Care Team ([facility] st Contact Info) Description 10/27/2024 Refill [facility] [address] [place], [place] [phone] Patricia Schofield MD [address] [place] [address] Cervical spine arthritis with nerve pain Social [...] [facility] [address] [place] [phone] Patricia Schofield MD [address] [place] [address] documented as of this encounter Visit Diagnoses Diagnosis Cervical spine arthritis with nerve pain documented in this encounter Additional Health Concerns Assessment Noted Time PHQ-9 Depression Total Score: 21 024 2:33 PM EST documented as of this encounter Care Teams Warp Yarn Sorter Relationship Specialty Start Date End Date Patricia Schofield MD [address] [place] [phone] PCP - General Family Medicine 02/26/18 documented as of this encounter
--- OUTSIDE RECORDS SUMMARY | 2025-04-09 16:55 | XMS_ITS | Clinical Summary ---
Author Organization [facility] Address [address] [place] [address] Phone Care Team Providers Care Automobile Mechanic Name Role Phone Physician, No Pcp Primary Care Provider Unavaila ble Allergies No known active allergies Medical History Medical History Date Comments Kidney cancer, primary, with metastasis from kidney to other site, left (CMS/[facility] V24, CMS/[facility] V28) Social History Tobacco Use Types Packs/Day [...] Group ID:ICO Type:Not on file Address: [address] [place] [address] Care Teams Automobile Mechanic Relationship Specialty Start Date End Date Physician, No Pcp PCP - General 08/14/24
--- OUTSIDE RECORDS SUMMARY | 2025-04-09 16:55 | XMS_ITS | Encounter Summary ---
Author Organization [employer] Address [address] [place] [address] [address] Care Team Providers Care Tax Form Preparer Name Role Phone Patricia Schofield MD Primary Care Provide r Encounter Details Date Type Department Care Team (Late st Contact Info) Description 07/04/2022 Orders Only [facility] [address] [place] [address] Pricilla Eng LPN Social History Tobacco Use [...] Description 05/21/2025 3:30 PM EST Office Visit [facility] [address] [place] [address] Patricia Schofield MD [address] [place] [address] documented as of this encounter Visit Diagnoses Not on filedocumented in this encounter Care Teams Tax Form Preparer Relationship Specialty Start Date End Date Patricia Schofield MD [address] [place] [phone] PCP - General Family Medicine 02/26/18 documented as of this encounter
--- OUTSIDE RECORDS SUMMARY | 2025-04-09 16:55 | XMS_ITS | Encounter Summary ---
Author Organization [employer] Address [address] [place] [address] [address] [address] Care Team Providers Care Spring Crater Name Role Phone Patricia Schofield MD Primary Care Provide r Reason for Visit * Reason Comments Med Refill Encounter Details Date Type Department Care Team ([facility] st Contact Info) Description 03/11/2024 Refill [facility] [address] [place], [place] [phone] Patricia Schofield MD [address] [place] [address] Depression, unspecified depression type; Anxiety Social History [...] Description 05/21/2025 3:30 PM EST Office Visit [facility] [address] [place] [phone] Patricia Schofield MD [address] [place] [address] documented as of this encounter Visit Diagnoses Diagnosis Depression, unspecified depression type Anxiety Anxiety state, unspecified documented in this encounter Additional Health Concerns Assessment Noted Time PHQ-9 Depression Total Score: 21 024 2:33 PM EST documented as of this encounter Care Teams Spring Crater Relationship Specialty Start Date End Date Patricia Schofield MD [address] [place] [phone] PCP - General Family Medicine 02/26/18 documented as of this encounter
--- OUTSIDE RECORDS SUMMARY | 2025-04-09 16:55 | XMS_ITS | Encounter Summary ---
Author Organization [employer] Address [address] [place] [address] [address] [address] Care Team Providers Care Telecasting Technician Name Role Phone Patricia Schofield MD Primary Care Provide r Encounter Details Date Type Department Care Team (Late st Contact Info) Description 11/07/2022 [facility] Only [facility] [address] [place], [place] [phone] Patricia Schofield MD [address] [place] [address] Social History Tobacco Use Types Packs/Day Years [...] 05/21/2025 3:30 PM EST Office Visit [facility] [address] [place] [phone] Patricia Schofield MD [address] [place], [place] [phone] documented as of this encounter Visit Diagnoses Not on filedocumented in this encounter Care Teams Telecasting Technician Relationship Specialty Start Date End Date Patricia Schofield MD [address] [place] [address] [phone] PCP - General Family Medicine 02/26/18 documented as of this encounter
--- OUTSIDE RECORDS SUMMARY | 2025-04-09 16:55 | XMS_ITS | Data Portability ---
Author Organization [employer], [facility] Address [address] [place] [address] Care Team Providers Care Spiritual Minister Name Role Phone [facility] Referring Provider Unavailable Referring Provider Assessment Encounter Date Assessment Date Assessment LastModified by Organization Details LastModified Time 06/28/2023 06/28/2023 I have reviewed and agree with the assessment and plan as documented by the web master. I provided real time medical direction for this encounter and was immediately available to provide additional phone based assistance as needed. History as noted by web master. Pt with history of DM, HTN, reports [...] None recorded. Lab rapid flu (A+B) 2023 [facility], [address] [place] [address], [phone] 12:50:39 rapid SARS CoV 2 Ag, QL [place], respiratory specimen 2023 [facility], [address] [place] [address], [phone] 12:50:37 Referral None recorded. Procedures None recorded. [...] IA, respiratory specimen negati ve Not Available [facility] ed [address] [place] [address], [phone] 06/28/2023 12:50:10 06/28/1906/28/2023 rapid flu (A+B) Flu negati ve Not Available [facility] ed [address] [place] [address], [phone] 06/28/2023 12:50:09 Result Notes None recorded. Medical [...] ICD10 Code Diagnosis IMO Codes Diagnosis Note [id number] Michael Tamez MD Main - [facility] [address] [place] [phone] 06/28/2023 12:47:33 07/01/2023 17:19:40 Viral upper respiratory tract infection [id number] J06.9 Health Concerns Section Related Observation LastModified by Organization Detai ls LastModified Time None Recorded Concern Status LastModified by Organization Details LastModified Time None Recorded Advance Directives Directive None Recorded Payers Insurance Date Sequence Insurance Name Policy Number Policy Eddy Covered Member ID Eddy Member ID Guarantor Name 08/01/2023 1 [facility] - DOS ON OR AFTER 2022 - DUAL ELIGIBLE - HALF-WAY OPTIONS AND ONE CARE (MEDICARE REPLACEMENT/ADV ANTAGE - HMO) Jesse Link [id number] Jesse Link Notes Date Note Type Note Provider Name and Address Organization Details Recorded Time 06/28/2023 text/html ROS as noted in the HPI This was a supervised home visit with web master Lizzy Cisneros. HPI: Member said he has not feeling well for the last four day. he has cough x four day. no fever . covid test was negative .................. .................. .................. .................. .................. .................. .................. ............... CRC Nurse Triage Notes (Natasha Isaacs): Comments: No further information needed to process .................. .................. .................. .................. .................. .................. .................. ............... Rail Operator Note From Lizzy Cisneros: Community Rail Operator Aaron Cisneros CCA1 dispatched to a [facility] for a 53 yom C/O a [...] ............... Disposition: Fulfilled Michael Tamez MD [address] [facility],[address], [place], [address], [employer] - [employer] 06/28/2023 13:26:29
--- OUTSIDE RECORDS SUMMARY | 2025-04-09 16:55 | XMS_ITS | Encounter Summary ---
Author Organization [employer] Address [address] [place] [address] [address] [place] [address] Care Team Providers Care Job Counselor Name Role Phone Patricia Schofield MD Primary Care Provide r Reason for Visit * Reason Comments Med Refill Encounter Details Date Type Department Care Team ([facility] st Contact Info) Description 03/26/2023 Refill [facility] MEDICINE [address] [place], [place] [phone] Patricia Schofield MD [address] [place] [address] Neck pain Social History Tobacco Use Types [...] Description 05/21/2025 3:30 PM EST Office Visit [facility] MEDICINE [address] [place] [phone] Patricia Schofield MD [address] [place] [address] [phone] documented as of this encounter Visit Diagnoses Diagnosis Neck pain Cervicalgia documented in this encounter Additional Health Concerns Assessment Noted Time PHQ-9 Depression Total Score: 6 11/28/19 23 1:09 PM EDT documented as of this encounter Care Teams Job Counselor Relationship Specialty Start Date End Date Patricia Schofield MD [address] [place] [phone] PCP - General Family Medicine 02/26/18 documented as of this encounter
--- OUTSIDE RECORDS SUMMARY | 2025-04-09 16:55 | XMS_ITS | Encounter Summary ---
Author Organization [employer] Address [address] [place] [address] [place], [place] [address] Care Team Providers Care Skein Washer Name Role Phone Patricia Schofield MD Primary Care Provide r Encounter Details Date Type Department Care Team (Latest Contact Info) Description 09/05/2020 Abstract [facility] CONVERSIONS Dental, Provider, DDS Social History [...] Description 05/21/2025 3:30 PM EST Office Visit [facility] [address] [place] [phone] Patricia Schofield MD [address] [place] [address] documented as of this encounter Visit Diagnoses Not on filedocumented in this encounter Care Teams Skein Washer Relationship Specialty Start Date End Date Patricia Schofield MD [address] [place] [address] PCP - General Family Medicine 02/26/18 documented as of this encounter
--- OUTSIDE RECORDS SUMMARY | 2025-04-09 16:55 | XMS_ITS | Encounter Summary ---
Author Organization [employer] Address [address] [place] [address] [address] [place] [address] Care Team Providers Care Curling Machine Operator Name Role Phone Patricia Schofield MD Primary Care Provide r Encounter Details Date Type Department Care Team ([facility] Contact Info) Description 08/21/2022 Orders Only [facility] [address] [place] [address] Pricilla Eng LPN Social History Tobacco Use [...] Description 05/21/2025 3:30 PM EST Office Visit [facility] MEDICINE [address] [place] [address] Patricia Schofield MD [address] [place] [address] documented as of this encounter Visit Diagnoses Not on filedocumented in this encounter Care Teams Curling Machine Operator Relationship Specialty Start Date End Date Patricia Schofield MD [address] [place] [address] PCP - General Family Medicine 02/26/18 documented as of this encounter
--- OUTSIDE RECORDS SUMMARY | 2025-04-09 16:55 | XMS_ITS | Encounter Summary ---
Author Organization [employer] Address [address] [place] [address] [address], [place] [address] Care Team Providers Care Skiing Teacher Name Role Phone Patricia Schofield MD Primary Care Provide r Encounter Details Date Type Department Care Team (Late st Contact Info) Description 07/09/2022 Orders Only [facility] MEDICINE [address] [place] [phone] Payton Gay LPN Social History Tobacco Use [...] Description 05/21/2025 3:30 PM EST Office Visit [facility] [address] [place] [phone] Patricia Schofield MD [address] [place] [address] documented as of this encounter Visit Diagnoses Not on filedocumented in this encounter Care Teams Skiing Teacher Relationship Specialty Start Date End Date Patricia Schofield MD [address] [place] [phone] PCP - General Family Medicine 02/26/18 documented as of this encounter
--- OUTSIDE RECORDS SUMMARY | 2025-04-09 16:56 | XMS_ITS | Clinical Summary ---
Author Organization [employer] Address [address] [place] [address] [address] [address] Care Team Providers Care Recreational Therapy Technician Name Role Phone Patricia Schofield MD [...] MEAL 90 capsule 1 12/08/19 25 Active amitriptyline (Elavil) 75 MG tabletIndication [...] MORNING 90 tablet 1 03/25/20 25 Active sertraline (Zoloft) 50 MG tabletIndication s:Depression, unspecified depression type TAKE 1 TABLET BY MOUTH EVERY MORNING 90 tablet 04/08/20 25 Active cholecalciferol (D3-1000) 25 MCG (1000 [...] 90 tablet 1 06/03/20 24 025 Discontinued sertraline (Zoloft) 50 MG tabletIndication s:Depression, unspecified depression type TAKE 1 TABLET BY MOUTH EVERY MORNING 90 tablet 01/02/20 25 025 Discontinued Active Problems Problem Noted Date Diagnosed Date Dry skin dermatitis 02/16/2025 Decreased hearing of both ears 02/16/2025 Assessment & Plan (02/16/2025 4:28 PM EDT): I will refer patient to audiology and ENT Cubital tunnel syndrome, right 12/16/2024 Assessment & Plan (02/16/2025 4:30 PM EDT): Patient will have surgical intervention, letter to increase ENGINEERING TECHNOLOGY INSTRUCTOR hours after surgery to be generated Bilateral [...] today continue with same medications referral to [facility] done today Assessment & Plan (07/26/2023 2:57 [...] Plan Patient to reach out to [facility] team as needed and Patient to reach out to [facility] as needed Assessment & Plan [...] take medications as prescribe History of alcoholism ([facility]) 01/11/2017 Assessment & Plan (02/16/2025 4:30 PM EDT): Counseling done Referral to 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 Date Type Department Care Team Description 04/08/2025 Refill [facility] [address] [place] [address] Patricia Schofield MD Depression, unspecified depression type 03/25/2025 Refill [facility] [address] [place] [address] Patricia Schofield MD Essential hypertension 03/11/[address] [address] Patricia Schofield MD Dec recall 02/28/[address] [address] Patricia Schofield MD Chronic fatigue 02/16/2025 3:15 PM EDT Office Visit [address] [address] Patricia Schofield MD Screening for colon cancer (Primary Dx); Severe episode of recurrent major depressive disorder, without psychotic features (CMS/HCC); History of alcoholism (CMS/HCC); Cervical spine arthritis with nerve pain; Chronic migraine without aura without status migrainosus, not intractable; Dry skin dermatitis; Decreased hearing of both ears; Cubital tunnel syndrome, right 02/16/2025 Travel 02/12/[address] [address] Patricia Schofield MD Chart Prep 02/08/2025 Patient Outreach [address] [address] Patricia Schofield MD Pre-visit Planning (SDOH screening completed on 10/25/2024) 01/24/[address] [address] Patricia Schofield MD Depression, unspecified depression type 01/15/2025 11:00 AM EDT Office Visit [facility] [address] [place] [phone] Morales Shaikh MD Pain in left acromioclavicular joint (Primary Dx) 01/15/2025 Results Follow-Up [address] [address] Pepito Rodríguez CNP CBC auto differential, Comprehensive [...] Description 05/21/2025 3:30 PM EST Office Visit [facility] [address] [place], [place] [phone] Patricia Schofield MD [address] [place] [address] Health Maintenance Due Date Last Done Comments [...] EDT) ETHANOL (MG/DL) IN SER/PLAS 94 mg/dL [facility] Comment:Serum/plasma ethanol results are to be used formedical/treatment purposes only. 01/21/2025 7:13 AM EDT 01/21/2025 7:18 AM EDT us Generic External Data Provider LAB BLOOD ORDERAB LES Final Result Performing Organization Address City/State/[facility] Co de Phone Number [facility] [address] [place] [phone] * XR Shoulder 2+ Views Left (01/15/2025 11:00 AM EDT) Anatomical Region Laterality Modality Upper Extremities, Shoulder Left Radi ographic Imaging 01/15/2025 11:0 0 AM EDT Narrative 01/15/2025 12:51 PM EDT [address] [address] XRay Report Signed Patient: Jesse Link MR#: [id number] : 1970 Acct:[id number] Age/Sex: 55 / M ADM Date: 01/15/25 Loc: HO.HHCX Attending Dr: Morales Shaikh MD Ordering Physician: Morales Shaikh MD Date of Service: 01/15/25 Procedure(s): XR shoulder LT min 2V Accession Number(s): [id number] cc: Morales Shaikh MD EXAMINATION: XR SHOULDER, [...] 01/15/25 1248 DD/ 1100 TD/TT: 01/15/25 1110 Advertising Sales Representative: Procedure Note Donotuseinterpreter, Image - 01/15/2025 [place] [address] XRay Report Signed Patient: Jesse Link LMR#: [id number] : 1970Acct:[id number] Age/Sex: 55 / MADM Date: 01/15/25 Loc: HO.HHCX Attending Dr: Morales Shaikh MD Ordering Physician: Morales Shaikh MD Date of Service: 01/15/25 Procedure(s): XR shoulder LT min 2V Accession Number(s): [id number] cc: Morales Shaikh MD EXAMINATION: XR SHOULDER, [...] 01/15/25 1248 DD/ 1100 TD/TT: 01/15/25 1110 Advertising Sales Representative: us Morales Shaikh MD IMG XR PROCEDURES Final Result * (ABNORMAL) CBC auto differential (01/12/2025 4:06 PM EDT) White Blood Count 6.0 4.8 - 10.8 X10*3/uL [facility] Red Blood Count 4.77 4.60 - 5.80 X10*6/uL [facility] Hemoglobin 13.9(L) 14.0 - 18.0 g/dl [facility] Hematocrit 41.2(L) 42.0 - 52.0 % [facility] Mean Corpuscular Volume 86.4 80.0 - 98.0 fL [facility] Mean Corpuscular Hemoglobin 29.1 27.0 - 33.0 pg [facility] Mean Corpuscular HGB Conc 33.7 31.0 - 36.0 g/dl [facility] Red Cell Distribution Width 15.0 11.0 - 16.0 % [facility] Platelet Count 318 160 - 400 X10*3/uL [facility] Mean Platelet Volume 9.9 9.4 - 12.4 fL [facility] Neutrophils Percent Auto 54.7 45 - 73 % [facility] Imm Gran Pct Auto 0.3 0.0 - 0.4 % [facility] Lymphocytes Percent Auto 32.3 20 - 40 % [facility] Monocytes Percent Auto 8.6 2 - 11 % [facility] Eosinophils Percent Auto 3.4 0 - 4 % [facility] Basophils Percent Auto 0.7 0 - 2 % [facility] NRBC Pct Auto 0.0 0.0 - 0.2 /100WBC [facility] Neutrophils Absolute Auto 3.3 2.0 - 8.3 x10*3/uL [facility] Imm Gran Abs Auto 0.02 0.00 - 0.03 X10*3/uL [facility] Lymphocytes Absolute Auto 1.9 1.2 - 4.9 X10*3/uL [facility] Monocytes Absolute Auto 0.5 0.1 - 1.2 X10*3/uL [facility] Eosinophils Absolute Auto 0.2 0.0 - 0.4 X10*3/uL [facility] Basophils Absolute Auto 0.0 0.0 - 0.2 X10*3/uL [facility] NRBC Abs Auto 0.000 0.0 - 0.012 X10*3/uL [facility] Blood Venous blood specimen / Unknown 01/12/2025 4:06 PM EDT 01/12/2025 4:06 PM EDT [facility] LAB BLOOD ORDERABLES Ninoska l Result Performing Organization Address [facility]/ZIP Co de Phone Number [facility] [address] [place] [phone] * (ABNORMAL) Prothrombin Time-INR (01/12/2025 4:06 PM EDT) Pathologist [facility] Prothrombin Time 10.7(L) 10.9 - 12.4 SEC [facility] INTERNATIONAL NORM RATIO 0.9 0.9 - 1.1 [facility] Comment:INTERNATIONAL NORMAL IZED RATIO (INR) [...] 4:06 PM EDT 01/12/2025 4:06 PM EDT [facility] LAB BLOOD ORDERABLES Ninoska l Result Performing Organization Address [facility]/ZIP Co de Phone Number [facility] [address] [place] [phone] * (ABNORMAL) Comprehensive Metabolic Panel (01/12/2025 4:06 PM EDT) Sodium 142 135 - 145 mmol/L [facility] Potassium 4.4 3.3 - 5.1 mmol/L [facility] Chloride 110(H) 96 - 108 mmol/L [facility] Carbon Dioxide 25 22 - 29 mmol/L [facility] Anion Gap 11(L) 12 - 20 [facility] Urea Nitrogen (BUN) 12 9 - 16 mg/dL [facility] Creatinine, Serum 1.43(H) 0.5 - 1.4 mg/dL [facility] Estimated Glomerular Filt Rate 51 [facility] Comment:Chronic Kidney Disea se: Estimated GFR < 60 mL/min/[id number] Kidney Disease: Estimated GFR < 15 mL/min/1.73m2 Glucose 94 60 - 115 mg/dL [facility] Calcium 9.0 8.4 - 10.2 mg/dL [facility] Bilirubin, Total 0.3 0.0 - 1.0 mg/dL [facility] Aspartate Amino Transferase 18 5 - 37 U/L [facility] Alanine Aminotransferase 14 0 - 40 U/L [facility] Total Protein 6.9 6.5 - 8.0 g/dL [facility] Albumin Level 4.3 3.5 - 5.0 g/dL [facility] Alkaline Phosphatase 73 39 - 117 U/L [facility] Blood Venous blood specimen / Unknown 01/12/2025 4:06 PM EDT 01/12/2025 4:06 PM EDT [facility] LAB BLOOD ORDERABLES Ninoska l Result [facility] [address] [place] [phone] * Albumin, Random Urine W/Creatinine (01/12/2025 12:00 AM EDT) Creatinine, Urine 122.96 mg/dL [facility] Microalbumin Urine <5.0 mg/L [facility] Microalbum Creatinine Ratio Ur TNP <30 ug/mg cr [facility] Comment:Unable to calculate albumin/creatinine ratio due to lowmicroalbumin or creatinine result. Urine (Urine, Random) 01/12/2025 01/12/2025 Pepito Rodríguez [facility] URINE ORDERABLES Ninoska l Result Performing Organization Address [facility] Co de Phone Number [facility] [address] [place] [address] [phone] * Hepatitis C Antibody with Reflex to HCV, RNA, Quantitative, Real-Time PCR (05/12/2024 3:42 PM EST) Pathologist [facility] Hepatitis C Antibody Nonreactive Nonreactive [facility] Comment:Antibodies to HCV no t detected; does not exclude early acuteHCV infection. Blood Venous blood specimen / Unknown 05/12/2024 3:42 PM EST 05/12/2024 4:09 PM EST Marii Brown MD LAB BLOOD ORDERABLES Final Result Performing Organization Address [facility] Co de Phone Number [facility] [address] [place] [phone] * HIV-1/2 Antigen and Antibodies, Fourth Generation, with Reflexes (05/12/2024 3:42 PM EST) HIV AB/AG Nonreactive Nonreactive [facility] Comment:HIV-1 p24 Ag and/or HIV-1/HIV-2 Ab not detected.A test result that is nonreactive does not exclude thepossibility of exposure to or infection with HIV-1 and/orHIV-2. Nonreactive results in this assay for individualswith prior exposure to HIV-1 and/or HIV-2 may be due toantigen and antibody levels that are below the limit ofdetection of this assay.The AdhereTx HIV Ag/Ab Combo assay result andsupplemental assay results should be interpreted inconjunction with the patient's clinical presentation,history and other laboratory results. If the results areinconsistent with clinical evidence, additional testing issuggested to confirm the result. Blood Venous blood specimen / Unknown 05/12/2024 3:42 PM EST 05/12/2024 4:09 PM EST us Marii Brown MD LAB BLOOD ORDERABLES Final Result Performing Organization Address [facility] Co de Phone Number [facility] [address] [place] [phone] * (ABNORMAL) Lipid Panel, Standard (03/27/2024 1:47 PM EDT) Triglycerides 107 <150 mg/dL [facility] Comment:Desirable Triglyceri de: less than 150 mg/dLBorderline High Triglyceride 150-199 mg/dLHigh Triglyceride: 200-499 mg/dLVery High Triglyceride: greater than or equal to 5OO mg/dL Cholesterol 131 <200 mg/dL [facility] Comment:Desirable Cholestero l: less than 200 mg/dLBorderline High Cholesterol: 200-239 mg/dLHigh Cholesterol: greater than 239 mg/dL LDL Cholesterol Calculated 70 <100 mg/dL [facility] Comment:Desirable LDL: less than 100 mg/dLNear Optimal/Above Optimal LDL: 110- 129 mg/dLBorderline High LDL: 130-159 mg/dLHigh LDL: 160-189 mg/dLVery High LDL: greater than or equal to 190 mg/dL HDL Cholesterol 40(L) >40 mg/dL [facility] Comment:Desirable HDL: great er than 40 mg/dL Note: This HDL assay may give artificially low results in patients with liver disease. Blood Venous blood specimen / Unknown 03/27/2024 1:47 PM EDT 03/27/2024 4:18 PM EDT us Patricia Barfield MD LAB BLOOD ORDERABLES Final Result Performing Organization Address [facility] Co de Phone Number [facility] [address] [place] [address] [phone] from Last 3 Months or Most Recently Relevant to Health Maintenance Insurance [employer] [id number] [place] [address] Care Teams Recreational Therapy Technician Relationship Specialty Start Date End Date Patricia Schofield MD [address] [place] [address] PCP - General Family Medicine 02/26/18
--- OUTSIDE RECORDS SUMMARY | 2025-04-09 16:56 | XMS_ITS | Encounter Summary ---
Author Organization [employer] Address [address] [facility] [address] [place] [address] Care Team Providers Care Supervisor Core Shop Name Role Phone Patricia Schofield MD Primary Care Provide r Reason for Visit * Reason Comments Med Refill Encounter Details Date Type Department Care Team ([facility] st Contact Info) Description 06/15/2023 Refill [facility] [address] [place], [place] [phone] Patricia Scohfield MD [address] [place] [address] Gastroesophageal reflux disease without esophagitis Social History [...] 3:30 PM EST Office Visit [facility] [address] [place] [phone] Patricia Schofield MD [address] [place], [place] [phone] documented as of this encounter Visit Diagnoses Diagnosis Gastroesophageal reflux disease without esophagitis Esophageal reflux documented in this encounter Additional Health Concerns Assessment Noted Time PHQ-9 Depression Total Score: 6 11/28/19 23 1:09 PM EDT documented as of this encounter Care Teams Supervisor Core Shop Relationship Specialty Start Date End Date Patricia Schofield MD [address] [place] [address] PCP - General Family Medicine 02/26/18 documented as of this encounter
--- OUTSIDE RECORDS SUMMARY | 2025-04-09 16:56 | XMS_ITS | Encounter Summary ---
Author Organization [employer] Address [address] [place] [address], [place] [address] Care Team Providers Care Salesperson Furs Name Role Phone Patricia Schofield MD Primary Care Provide r Reason for Visit * Reason Comments Med Refill Encounter Details Date Type Department Care Team ([facility] st Contact Info) Description 04/08/2025 Refill [facility] [address] [place], [place] [phone] Patricia Schofield MD [address] [place] [address] Depression, unspecified depression type Social History Tobacco Use Types Packs/Day Years [...] EST Office Visit [facility] [address] [place] [phone] Patricia Schofield MD [address] [place] [address] documented as of this encounter Visit Diagnoses Diagnosis Depression, unspecified depression type documented in this encounter Additional Health Concerns Assessment Noted Time PHQ-9 Depression Total Score: 11 01/01/ 025 2:45 PM EDT documented as of this encounter Care Teams Salesperson Furs Relationship Specialty Start Date End Date Patricia Schofield MD [address] [place] [phone] PCP - General Family Medicine 02/26/18 documented as of this encounter
== END 2025-04-09 15:40 | disposition home or self-care (01) ==
LOC: HO.PMC 15:28
PROVIDERS: PCP Internal Medicine; Visit Provider Nurse Practitioner Family
DX: M54.12 Radiculopathy, cervical region (principal); M48.02 Spinal stenosis, cervical region; M47.812 Spondylosis without myelopathy or radiculopathy, cervical region; M50.30 Other cervical disc degeneration, unspecified cervical region; G56.20 Lesion of ulnar nerve, unspecified upper limb
CPT/HCPCS: 99213; G2211

== ENCOUNTER → 2025-04-09 15:27 | Outpatient (BNVA) | payer OTHER, SELFPAY | PROVIDERS: PCP Internal Medicine; Visit Provider Nurse Practitioner Family | DX: M48.02 Spinal stenosis, cervical region (principal); M54.12 Radiculopathy, cervical region; M47.812 Spondylosis without myelopathy or radiculopathy, cervical region; M50.30 Other cervical disc degeneration, unspecified cervical region | CPT/HCPCS: 99212 ==

== ENCOUNTER 2025-04-15 13:59 | Outpatient (AMB) | payer OTHER, SELFPAY ==
[2025-04-15 14:03] VITALS: BMI 23.5
--- NOTE | 2025-04-15 14:03 | A.SPINEOV_ITS ---
Vital Signs 04/15/25 14:03 Height 5 ft 10 in Weight 164 lb BMI 23.5 Intake Visit Reasons: Neck pain Intake Note: Mr. Link is here today c/o neck/head pain. Mortgage Processing Clerk Required: No Allergies No Known Allergies Allergy (Verified 04/15/25 14:12) Physical Exam Vital Signs: BMI result Body Mass Index 23.5 Assessment & Plan Assessment & Plan (1) Cervical spondylosis: Code(s): M47.812 - Spondylosis without myelopathy or radiculopathy, cervical region Category: Medical Plan Dear Payton, Thank you for referring Mr Link to our office today. This is a 55-year-old male who 3 years of progressive midline cervical pain. He underwent an MRI showing degenerative disc disease at C6-7 and C4-5. He was ultimately sent to your office where he was evaluated, trialed on medications and underwent injections including C4-5 median branch blocks as well as C6-7 interlaminar epidural. Neither these things provide any meaningful relief. He does report some numbness of his hands but has been dealing with ulnar neuropathy, recently underwent a cubital tunnel syndrome. No significant improvement yet. He tells me that the pain is unrelenting and terrible. He had to sleep with his head up. He has not report any significant radicular pain, it is more the neck pain. He could not recall any of the medications he takes, he can not take NSAIDs because of history of nephrectomy. He tried physical therapy for 2 days and then quit because it made things worse. He comes in today for surgical evaluation. PMH: History of hypertension, left nephrectomy, right elbow surgery. Other than that he tells me he has healthy, no history of heart disease got a pulmonary liver disease, he has some stage II kidney disease, no bleeding disorders, blood clots or major abdominal surgery. Social hx: He smokes cigarettes occasionally, does not use any marijuana or recreational drugs, occasional drinker Medications: He could not recall any of the medications he is on, please see the [employer] list provided with this dictation as to what has been recorded for his previous visits. Allergies: Denies any drug allergies Physical exam: He has mild strength loss in his right hand but otherwise strength is full in bilateral upper and lower extremities. Reflexes normal, no Shah's sign, no clonus. Gait is normal. Imaging review: [facility] cervical MRI shows that the patient has ydtj-la-shtmrynd degenerative disc disease C4-5 and C6-7. There is no evidence of spondylolisthesis. There is no spinal cord compression. There is moderate bilateral foraminal stenosis C6-7. Impression: 55-year-old male presents for posterior cervical neck pain, his MRI shows ibuz-ms-mjilgliz degenerative disc disease at C4-5 and C6-7 primarily. His symptoms have been coming on for 3 years. He had an x-ray done in 2018, 2022 and his MRI from this year in more less the imaging looks the same. I explained to him that it is hard to know whether the quality of disc degeneration he has is responsible for his neck pain as we see this in patients who are asymptomatic as well. Therefore it is harder to predict if he would benefit from surgery. Unfortunately none of the injections that he did for him we are able to localize the pain. I think anterior cervical fusion would be a big step without any reassurance we can make his pain better. I will look at it with Dr. Mcghee to see if he has any other thoughts. Thank you for allowing us to care for your patient. The total time spent with this visit with this patient was 45 minutes reviewing history, physical exam, cervical imaging review, and implementation of treatment plan or further diagnostic testing Joaquin Mcghee MD,PhD [facility] Coding Level of Care Code New Pt Level 4 (33179) Diagnoses Cervical spondylosis M47.812
--- OUTSIDE RECORDS SUMMARY | 2025-04-15 16:59 | XMS_ITS | Encounter Summary ---
Author Organization [employer] Address [address] [place] [address] 7[place] [address] Care Team Providers Care Economics Consultant Name Role Phone Patricia Schofield MD Primary Care Provide r Encounter Details Date Type Department Care Team (Late st Contact Info) Description 11/07/2022 [facility] Only [facility] [address] [place], [place] [phone] Patricia Schofield MD [address] [place] [address] Social History Tobacco Use Types Packs/Day Years [...] 3:30 PM EST Office Visit [facility] MED[facility] [address] [place] [address] Patricia Schofield MD [address] [place], [place] [phone] documented as of this encounter Visit Diagnoses Not on filedocumented in this encounter Care Teams Economics Consultant Relationship Specialty Start Date End Date Patircia Schofield MD [address] [place] [address] [phone] PCP - General Family Medicine 02/26/18 documented as of this encounter
--- OUTSIDE RECORDS SUMMARY | 2025-04-15 16:59 | XMS_ITS | Encounter Summary ---
Author Organization [employer] Address [address] [place] [address] 7 [place] [address] Care Team Providers Care Paramedic Name Role Phone Patricia Schofield MD Primary Care Provide r Reason for Visit * Reason Comments Med Refill Encounter Details Date Type Department Care Team ([facility] st Contact Info) Description 03/26/2023 Refill [facility] MED[facility]INE [address] [place], [place] [phone] Patricia Schofield MD 230 [place] [address] Neck pain Social History Tobacco Use Types [...] Description 05/21/2025 3:30 PM EST Office Visit [facility] MEDICINE [address] [place] [phone] Patricia Schofield MD [address] [place] [address] [phone] documented as of this encounter Visit Diagnoses Diagnosis Neck pain Cervicalgia documented in this encounter Additional Health Concerns Assessment Noted Time PHQ-9 Depression Total Score: 6 11/28/19 23 1:09 PM EDT documented as of this encounter Care Teams Paramedic Relationship Specialty Start Date End Date Patricia Schofield MD [address] [place] [phone] PCP - General Family Medicine 02/26/18 documented as of this encounter
--- OUTSIDE RECORDS SUMMARY | 2025-04-15 16:59 | XMS_ITS | Encounter Summary ---
Author Organization [employer] Address [address] [place] [address] 7[place] [address] Care Team Providers Care Casting Machine Set Up Operator Name Role Phone Patricia Schofield MD Primary Care Provide r Encounter Details Date Type Department Care Team (Latest Contact Info) Description 09/05/2020 Abstract [facility] CONVERSIONS Dental, Provider, DDS Social History Tobacco [...] Description 05/21/2025 3:30 PM EST Office Visit [facility] MEDICINE [address] [place] [address] Patricia Schofield MD 230 [place] [address] documented as of this encounter Visit Diagnoses Not on filedocumented in this encounter Care Teams Casting Machine Set Up Operator Relationship Specialty Start Date End Date Patricia Schofield MD [address] [place] [address] PCP - General Family Medicine 02/26/18 documented as of this encounter
--- OUTSIDE RECORDS SUMMARY | 2025-04-15 16:59 | XMS_ITS | Encounter Summary ---
Author Organization [employer] Address [address] [facility] [address] [place] [address] Care Team Providers Care Aboriginal Community Council Member Name Role Phone Patricia Schofield MD Primary Care Provide r Reason for Visit * Reason Comments Med Refill Encounter Details Date Type Department Care Team ([facility] Contact Info) Description 04/14/[address] [facility] [address] [place] [address] [phone] Name, MD Tray [address] [place] [address] Social History Tobacco Use Types Packs/Day Years [...] Description 05/21/2025 3:30 PM EST Office Visit [facility] MED[facility]INE [address] [place] [address] Patricia Schofield MD 230 [place] [address] documented as of this encounter Visit Diagnoses Not on filedocumented in this encounter Additional Health Concerns Assessment Noted Time PHQ-9 Depression Total Score: 11 025 2:45 PM EDT documented as of this encounter Care Teams Aboriginal Community Council Member Relationship Specialty Start Date End Date Patricia Schofield MD [address] [place] [phone] PCP - General Family Medicine 02/26/18 documented as of this encounter
--- OUTSIDE RECORDS SUMMARY | 2025-04-15 16:59 | XMS_ITS | Encounter Summary ---
Author Organization [employer] Address [address] [place] [address] 7[place] [address] Care Team Providers Care Petroleum Transport Driver Name Role Phone Patricia Schofield MD Primary Care Provide r Encounter Details Date Type Department Care Team (Late st Contact Info) Description 07/04/2022 Orders Only [facility] MED & PEDS [address] [place] [address] Pricilla Eng LPN Social History Tobacco Use [...] Description 05/21/2025 3:30 PM EST Office Visit [facility] MEDICINE [address] [place] [address] Patricia Schofield MD [address] [place] [address] documented as of this encounter Visit Diagnoses Not on filedocumented in this encounter Care Teams Petroleum Transport Driver Relationship Specialty Start Date End Date Patricia Schofield MD [address] [place] [phone] PCP - General Family Medicine 02/26/18 documented as of this encounter
--- OUTSIDE RECORDS SUMMARY | 2025-04-15 17:00 | XMS_ITS | Encounter Summary ---
Author Organization [employer] Address [address] [place] [address] 7[place] [address] Care Team Providers Care Physician Practice Manager Name Role Phone Patricia Schofield MD Primary Care Provide r Reason for Visit * Reason Comments Med Refill Encounter Details Date Type Department Care Team ([facility] st Contact Info) Description 03/11/2024 Refill [facility] MEDICINE [address] [place], [place] [phone] Patricia Schofield MD [address] [place] [address] Depression, unspecified depression type; Anxiety Social History [...] 3:30 PM EST Office Visit [facility] MEDICINE [address] [place] [address] Patricia Schofield MD [address] [place] [address] documented as of this encounter Visit Diagnoses Diagnosis Depression, unspecified depression type Anxiety Anxiety state, unspecified documented in this encounter Additional Health Concerns Assessment Noted Time PHQ-9 Depression Total Score: 21 024 2:33 PM EST documented as of this encounter Care Teams Physician Practice Manager Relationship Specialty Start Date End Date Patricia Schofield MD [address] [place] [phone] PCP - General Family Medicine 02/26/18 documented as of this encounter
--- OUTSIDE RECORDS SUMMARY | 2025-04-15 17:00 | XMS_ITS | Data Portability ---
Author Organization [facility] Address [address] [place] [address] Care Team Providers Care Report Programmer Name Role Phone [facility] Referring Provider Unavailable Referring Provider Assessment Encounter Date Assessment Date Assessment LastModified by Organization Details LastModified Time 06/28/2023 06/28/2023 I have reviewed and agree with the assessment and plan as documented by the logistics account manager. I provided real time medical direction for this encounter and was immediately available to provide additional phone based assistance as needed. History as noted by logistics account manager. Pt with history of DM, HTN, reports [...] None recorded. Lab rapid flu (A+B) 2023 [facility], [address] [place] [address], [phone] 12:50:39 rapid SARS CoV 2 Ag, QL IA, respiratory specimen 2023 [facility], [address] [place] [address], [phone] 12:50:37 Referral None recorded. Procedures None recorded. [...] IA, respiratory specimen negati ve Not Available [facility] ed [address] [place] [address], [phone] 06/28/2023 12:50:10 06/28/1906/28/2023 rapid flu (A+B) Flu negati ve Not Available [facility] ed [address] [place] [address], [phone] 06/28/2023 12:50:09 Result Notes None recorded. Medical [...] ICD10 Code Diagnosis IMO Codes Diagnosis Note [id number] Michael Tamez MD Main - instED [address] [place] [phone] 06/28/2023 12:47:33 07/01/2023 17:19:40 Viral upper respiratory tract infection [id number] J06.9 Health Concerns Section Related Observation LastModified by Organization Detai ls LastModified Time None Recorded Concern Status LastModified by Organization Details LastModified Time None Recorded Advance Directives Directive None Recorded Payers Insurance Date Sequence Insurance Name Policy Number Policy Eddy Covered Member ID Eddy Member ID Guarantor Name 08/01/2023 1 [facility] - DOS ON OR AFTER 2022 - DUAL ELIGIBLE - RETIREMENT OPTIONS AND ONE CARE (MEDICARE REPLACEMENT/ADV ANTAGE - HMO) Jesse Link [id number] Jesse Link Notes Date Note Type Note Provider Name and Address Organization Details Recorded Time 06/28/2023 text/html ROS as noted in the HPI This was a supervised home visit with logistics account manager Lizzy Cisneros. HPI: Member said he has not feeling well for the last four day. he has cough x four day. no fever . covid test was negative .................. .................. .................. .................. .................. .................. .................. ............... CRC Nurse Triage Notes (Natasha Isaacs): Comments: No further information needed to process .................. .................. .................. .................. .................. .................. .................. ............... Bee Breeder Note From Lizzy Cisneros: Community Bee Breeder Aaron Cisneros CCA1 dispatched to a [facility] for a 53 yom C/O [...] ............... Disposition: Fulfilled Michael Tamez MD [address] [facility],[address], [place], [phone], MADI - LumenisGENEVIEVE 06/28/2023 13:26:29
--- OUTSIDE RECORDS SUMMARY | 2025-04-15 17:00 | XMS_ITS | Clinical Summary ---
Author Organization [facility] Address [address] [place] [address] Phone Care Team Providers Care Oracle Financials Developer Name Role Phone Physician, No Pcp Primary [...] Group ID:ICO Type:Not on file Address: [address] [place] [id number] Care Teams [employer] Fin[employer] Developer Relationship Specialty Start Date End Date Physician, No Pcp PCP - General 08/14/24
--- OUTSIDE RECORDS SUMMARY | 2025-04-15 17:00 | XMS_ITS | Clinical Summary ---
Author Organization [employer] Address [address] [place] [address] [place] [address] Care Team Providers Care Windows Vmware Administrator Name Role Phone Patricia Schofield MD Primary [...] 10 days. 30 tablet 03/11/20 24 Active Ventolin HFA 108 (90 Base) [...] EVERY MORNING 90 tablet 04/08/20 25 Active famotidine (Pepcid) 20 MG tablet TAKE 1 TABLET BY MOUTH TWICE DAILY IN THE MORNING AND IN THE EVENING 180 tablet 3 04/14/20 25 Active famotidine (Pepcid) 20 MG tablet Take 1 tablet (20 mg) by mouth 2 times daily. 60 tablet 11 03/27/20 24 025 Discontinued cholecalciferol (D3-1000) 25 MCG (1000 UT) capsuleIndicatio ns:Essential hypertension TAKE 1 CAPSULE BY MOUTH EVERY MORNING 90 capsule 1 06/03/20 24 10/09/2 025 Discontinued thiamine (Vitamin B-1) 100 MG [...] will have surgical intervention, letter to increase ORBITREAD OPERATOR hours after surgery to be generated Bilateral [...] today continue with same medications referral to [facility] done today Assessment & Plan (07/26/2023 [...] Self Plan Patient to reach out to [facility] team as needed and Patient to reach [...] take medications as prescribe History of alcoholism (CMS/[facility]) 01/11/2017 Assessment & Plan (02/16/2025 4:30 PM EDT): Counseling done Referral to N done Mild intermittent asthma 01/11/2017 Mood disorder 01/11/2017 Post-traumatic osteoarthritis of both wrists Smoker 01/11/2017 Vesicular eczema of hands and feet 01/11/2017 Resolved Problems Problem Noted Date Diagnosed Date Resolved Date Family history of exposure t o 2,4,5-trichlorophenoxyacetic acid and 2,4-dichlorophenoxyacetic acid 05/12/2024 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 Date Type Department Care Team Description 04/14/2025 Refill [facility] [address] [place] [address] Name, MD Tray [facility] [address] [place] [address] Patricia Schofield MD Depression, unspecified depression type 03/25/2025 Refill [facility] [address] [place] [address] Patricia Schofield MD Essential hypertension 03/11/2025 Telephone [facility] [address] [place] [address] Patricia Schofield MD Dec recall 02/28/2025 Refill [facility] [address] [place] [address] Patricia Schofield MD Chronic fatigue 02/16/2025 3:15 PM EDT Office Visit [facility] [address] [place] [address] Patricia Schofield MD Screening for colon cancer (Primary Dx); Severe episode of recurrent major depressive disorder, without psychotic features (CMS/HCC); History of alcoholism (CMS/HCC); Cervical spine arthritis with nerve pain; Chronic migraine without aura without status migrainosus, not intractable; Dry skin dermatitis; Decreased hearing of both ears; Cubital tunnel syndrome, right 02/16/2025 Travel 02/12/2025 Telephone [facility] [address] [place] [address] Patricia Schofield MD Chart Prep 02/08/2025 Patient Outreach [facility] [address] [place] [address] Patricia Schofield MD Pre-visit Planning (SDOH screening completed on 10/25/2024) 01/24/2025 Refill [facility] [address] [place] [address] Patricia Schofield MD Depression, unspecified depression type 01/15/2025 11:00 AM EDT Office Visit [facility] [address] [place] [address] Morales Shaikh MD Pain in left acromioclavicular joint (Primary Dx) 01/15/2025 Results Follow-Up [facility] [address] [place] [address] Pepito Rodríguez, KRISHNA CBC auto differential, Comprehensive Metabolic Panel, Prothrombin [...] Office Visit [facility] [address] [place] [address] Patricia Schofield MD [address] [place] [address] Health Maintenance Due Date Last Done Comments [...] AM EDT Pain in left acromioclavicular joint HEPATITIS C AB W/REFL TO HCV RNA, [...] EDT) ETHANOL (MG/DL) IN SER/PLAS 94 mg/dL [facility] Comment:Serum/plasma ethanol results are to be used formedical/treatment purposes only. 01/21/2025 7:13 AM EDT 01/21/2025 7:18 AM EDT us Generic External Data Provider LAB BLOOD ORDERAB LES Final Result Performing Organization Address City/State/[facility] Co de Phone Number [facility] [address] [place] [phone] * XR Shoulder 2+ Views Left (01/15/2025 11:00 AM EDT) Anatomical Region Laterality Modality Upper Extremities, Shoulder Left Radi ographic Imaging 01/15/2025 11:0 0 AM EDT Narrative 01/15/2025 12:51 PM EDT [address] [address] XRay Report Signed Patient: Jesse Link MR#: [id number] : 1970 Acct:[id number] Age/Sex: 55 / M ADM Date: 01/15/25 Loc: HO.HHCX Attending Dr: Morales Shaikh MD Ordering Physician: Morales Shaikh MD Date of Service: 01/15/25 Procedure(s): XR shoulder LT min 2V Accession Number(s): [id number] cc: Morales Shaikh MD EXAMINATION: XR SHOULDER, [...] 01/15/25 1248 DD/ 1100 TD/TT: 01/15/25 1110 Graphic Arts Instructor: Procedure Note Donotuseinterpreter, Image - 01/15/[address] [address] XRay Report Signed Patient: Jesse Link LMR#: [id number] : 1970Acct:[id number] Age/Sex: 55 / MADM Date: 01/15/25 Loc: HO.HHCX Attending Dr: Morales Shaikh MD Ordering Physician: Morales Shaikh MD Date of Service: 01/15/25 Procedure(s): XR shoulder LT min 2V Accession Number(s): [id number] cc: Morales Shaikh MD EXAMINATION: XR SHOULDER, [...] 01/15/25 1248 DD/ 1100 TD/TT: 01/15/25 1110 Graphic Arts Instructor: Morales Shaikh MD IMG XR PROCEDURES Final Result * Hepatitis C Antibody with Reflex to HCV, RNA, Quantitative, Real-Time PCR (05/12/2024 3:42 PM EST) [facility] Hepatitis C Antibody Nonreactive Nonreactive [facility] Comment:Antibodies to HCV no t detected; does not exclude early acuteHCV infection. Blood Venous blood specimen / Unknown 05/12/2024 3:42 PM EST 05/12/2024 4:09 PM EST Marii Brown MD LAB BLOOD ORDERABLES Final Result Performing Organization Address City/[facility]/ZIP Co de Phone Number [facility] [address] [place] [phone] [phone] * HIV-1/2 Antigen and Antibodies, Fourth Generation, with Reflexes (05/12/2024 3:42 PM EST) [facility] HIV AB/AG Nonreactive Nonreactive [facility] Comment:HIV-1 p24 Ag and/or HIV-1/HIV-2 Ab not detected.A test result that is nonreactive does not exclude thepossibility of exposure to or infection with HIV-1 and/orHIV-2. Nonreactive results in this assay for individualswith prior exposure to HIV-1 and/or HIV-2 may be due toantigen and antibody levels that are below the limit ofdetection of this assay.The [employer] HIV Ag/Ab Combo assay result andsupplemental assay results should be interpreted inconjunction with the patient's clinical presentation,history and other laboratory results. If the results areinconsistent with clinical evidence, additional testing issuggested to confirm the result. Blood Venous blood specimen / Unknown 05/12/2024 3:42 PM EST 05/12/2024 4:09 PM EST Marii Brown MD LAB BLOOD ORDERABLES Final Result Performing Organization Address City/[facility]/ZIP Co de Phone Number [facility] [address] [place] [address] [phone] * (ABNORMAL) Lipid Panel, Standard (03/27/2024 1:47 PM EDT) [facility] Triglycerides 107 <150 mg/dL [facility] Comment:Desirable Triglyceri de: less than 150 mg/dLBorderline High Triglyceride 150-199 mg/dLHigh Triglyceride: 200-499 mg/dLVery High Triglyceride: greater than or equal to 5OO mg/dL Cholesterol 131 <200 mg/dL [facility] Comment:Desirable Cholestero l: less than 200 mg/dLBorderline High Cholesterol: 200-239 mg/dLHigh Cholesterol: greater than 239 mg/dL LDL Cholesterol Calculated 70 <100 mg/dL [facility] Comment:Desirable LDL: less than 100 mg/dLNear Optimal/Above Optimal LDL: 110- 129 mg/dLBorderline High LDL: 130-159 mg/dLHigh LDL: 160-189 mg/dLVery High LDL: greater than or equal to 190 mg/dL HDL Cholesterol 40(L) >40 mg/dL [facility] Comment:Desirable HDL: great er than 40 mg/dL Note: This HDL assay may give artificially low results in patients with liver disease. Blood Venous blood specimen / Unknown 03/27/2024 1:47 PM EDT 03/27/2024 4:18 PM EDT us Patricia Barfield MD LAB BLOOD ORDERABLES Final Result [facility] [address] [place] [address] [phone] from Last 3 Months or Most Recently Relevant to Health Maintenance Insurance [employer] ONE CARE < [address] [place] [id number] DENTAL - [facility] Care Teams Windows Vmware Administrator Relationship Specialty Start Date End Date Patricia Schofield MD [address] [place] [phone] PCP - General Family Medicine 02/26/18
--- OUTSIDE RECORDS SUMMARY | 2025-04-15 17:00 | XMS_ITS | Encounter Summary ---
Author Organization [employer] Address [address] [place] [address] 7[place] [address] Care Team Providers Care Nylon Machine Operator Name Role Phone Patricia Schofield MD Primary Care Provide r Encounter Details Date Type Department Care Team (Late st Contact Info) Description 07/09/2022 Orders Only [facility] MEDICINE [address] [place] [address] Payton Gay LPN Social History Tobacco Use [...] Description 05/21/2025 3:30 PM EST Office Visit [facility] [address] [place] [address] Patricia Schofield MD [address] [place] [address] documented as of this encounter Visit Diagnoses Not on filedocumented in this encounter Care Teams Nylon Machine Operator Relationship Specialty Start Date End Date Patricia Schofiedl MD [address] [place] [phone] PCP - General Family Medicine 02/26/18 documented as of this encounter
--- OUTSIDE RECORDS SUMMARY | 2025-04-15 17:00 | XMS_ITS | Encounter Summary ---
Author Organization [employer] Address [address] [place] [address] [place] [address] Care Team Providers Care Naval Aircrewman Mechanical Name Role Phone Patrciia Schofield MD Primary Care Provide r Reason for Visit * Reason Comments Med Refill Encounter Details Date Type Department Care Team ([facility] st Contact Info) Description 10/27/2024 Refill [facility] [address] [place], [place] [phone] Patricia Schofield MD [address] [place] [address] Cervical spine arthritis with nerve pain Social [...] Description 05/21/2025 3:30 PM EST Office Visit [facility] [address] [place] [address] Patricia Schofield MD [address] [place] [address] documented as of this encounter Visit Diagnoses Diagnosis Cervical spine arthritis with nerve pain documented in this encounter Additional Health Concerns Assessment Noted Time PHQ-9 Depression Total Score: 21 024 2:33 PM EST documented as of this encounter Care Teams Naval Aircrewman Mechanical Relationship Specialty Start Date End Date Patricia Schofield MD [address] [place] [phone] PCP - General Family Medicine 02/26/18 documented as of this encounter
--- OUTSIDE RECORDS SUMMARY | 2025-04-15 17:00 | XMS_ITS | Encounter Summary ---
Author Organization [employer] Address [address] [place] [address] [address] [place] [address] Care Team Providers Care Inspector Dials Name Role Phone Patricia Schofield MD Primary Care Provide r Encounter Details Date Type Department Care Team ([facility] Contact Info) Description 08/21/2022 Orders Only [facility] [address] [place] [address] Pricilla Eng LPN Social History Tobacco Use [...] [facility] MEDICINE [address] [place] [address] Patricia Schofield MD [address] [place] [address] documented as of this encounter Visit Diagnoses Not on filedocumented in this encounter Care Teams Inspector Dials Relationship Specialty Start Date End Date Patricia Schofield MD [address] [place] [address] PCP - General Family Medicine 02/26/18 documented as of this encounter
--- OUTSIDE RECORDS SUMMARY | 2025-04-15 17:00 | XMS_ITS | Encounter Summary ---
Author Organization [employer] Address [address] [facility] [address] [place] [address] Care Team Providers Care Wildlife Forensic Geneticist Name Role Phone Patricia Schofield MD Primary Care Provide r Reason for Visit * Reason Comments Med Refill Encounter Details Date Type Department Care Team ([facility] st Contact Info) Description 06/15/2023 Refill [facility] [address] [place], [place] [phone] Patricia Schofield MD [address] [place] [address] Gastroesophageal reflux disease without esophagitis Social History [...] Description 05/21/2025 3:30 PM EST Office Visit [facility] [address] [place] [phone] Patricia Schofield MD [address], [place] [phone] documented as of this encounter Visit Diagnoses Diagnosis Gastroesophageal reflux disease without esophagitis Esophageal reflux documented in this encounter Additional Health Concerns Assessment Noted Time PHQ-9 Depression Total Score: 6 11/28/19 23 1:09 PM EDT documented as of this encounter Care Teams Wildlife Forensic Geneticist Relationship Specialty Start Date End Date Patricia Schofield MD [address] [place] [address] PCP - General Family Medicine 02/26/18 documented as of this encounter
--- OUTSIDE RECORDS SUMMARY | 2025-04-15 17:00 | XMS_ITS | Data Portability ---
Author Organization [employer] [facility], [address] Address [address] [place] [address] Assessment No assessment recorded. Plan of Treatment [...] ICD10 Code Diagnosis IMO Codes Diagnosis Note [id number] _[facility] _[facility] [address] [place] [address] 05/07/2022 15:49:19 05/07/2022 17:57:59 Health Concerns Section Related Observation LastModified by Organization Detai ls LastModified Time None Recorded Concern Status LastModified by Organization Details LastModified Time None Recorded Advance Directives Directive None Recorded Payers None recorded.
== END 2025-04-15 14:33 | disposition home or self-care (01) ==
LOC: HO.HNS 13:59
PROVIDERS: PCP Internal Medicine; Referring Provider Nurse Practitioner Family; Visit Provider Physician Assistant
DX: M47.812 Spondylosis without myelopathy or radiculopathy, cervical region (principal)
CPT/HCPCS: 99204

== ENCOUNTER → 2025-04-15 13:59 | Outpatient (BNVA) | payer OTHER, SELFPAY | PROVIDERS: PCP Internal Medicine; Referring Provider Nurse Practitioner Family; Visit Provider Physician Assistant | DX: M47.812 Spondylosis without myelopathy or radiculopathy, cervical region (principal) | CPT/HCPCS: 99202 ==

== ENCOUNTER → 2025-06-01 14:57 | Outpatient (BNV) | payer OTHER, SELFPAY | PROVIDERS: PCP Internal Medicine; Referring Provider Internal Medicine; Visit Provider Internal Medicine Medical Oncology | DX: E27.9 Disorder of adrenal gland, unspecified (principal); D18.03 Hemangioma of intra-abdominal structures | CPT/HCPCS: 99204 ==